=== PATIENT | male | born 1945 | race Two or more races ===

== ENCOUNTER 2020-06-21 18:09 | Inpatient (IN) | payer MEDICARE, OTHER ==
[~2020-06-21] VITALS: Ht 170.2 cm; Wt 85.4 kg
--- NOTE | 2020-06-21 18:22 | NUR ---
Pt BIB [facility], reports pt finished dialysis had arterial bleed from fistula on left arm, tourniquet in place, bleeding controlled.
--- NOTE | 2020-06-21 18:27 | NUR ---
PT RECEIVED FROM EMT AND TRANSPORT RT. PT PLACED ON FRAGOSO VENT ON SETTINGS GIVEN BY TRANSPORT RT, PT IS ON SETTINGS OF A/C 18, VT 500, 40% FIO2, AND PEEP +5. PT IS TOLERATING VENT SETTINGS WELL, NO RESP. DISTRESS NOTED. BVM AT BEDSIDE. VENT PLUGGED INTO RED OUTLET. SUCTION PRN. WILL CONTINUE TO MONITOR.
[2020-06-21] MEDS ORDERED: CEFTRIAXONE 1 G in IV DEXTROSE 5% 50 ML IV ONE (19:00)
--- NOTE | 2020-06-21 19:30 | NUR ---
Dr [facility] her to eval patient for left uppper arm A/V shunt bleeding.
[2020-06-21 19:41] LABS: BASOPHILS # (AUTO) 0.2 K/uL (0.0-8.0); BASOPHILS % (AUTO) 1.3 % (0.0-2.0); EOSINOPHILS % (AUTO) 20.1 % (0.0-7.0); HEMOGLOBIN 8.1 g/dL (12.5-16.3); LYMPHOCYTES # (AUTO) 1.4 K/uL (20.0-40.0); LYMPHOCYTES % (AUTO) 9.1 % (20.5-51.5); MEAN CORPUSCULAR HEMOGLOBIN 28.9 uug (23.8-33.4); MEAN CORPUSCULAR HGB CONC 31 g/dL (32.5-36.3); MEAN CORPUSCULAR VOLUME 92.5 fL (73.0-96.2); MONOCYTES # (AUTO) 0.8 K/uL (2.0-10.0); MONOCYTES % (AUTO) 5.5 % (0.0-11.0); NEUTROPHILS # (AUTO) 9.6 K/uL (1.8-8.9); PLATELET COUNT (AUTO) 284 K/uL (152-348); RED BLOOD CELL COUNT(AUTO) 2.81 MIL/uL (4.06-5.63)
[2020-06-21] MEDS ORDERED: NOREPINEPHRINE BITARTRATE 8 MG in IV NORMAL SALINE 242 ML IV PRN (20:00)
[2020-06-21] MEDS ORDERED: NOREPINEPHRINE BITARTRATE 32 MG in IV NORMAL SALINE 218 ML IV PRN (20:00)
[2020-06-21] MEDS ORDERED: AZITHROMYCIN IV 500 MG in IV DEXTROSE 5% 250 ML IV ONE ×2 (20:00→23:15)
[2020-06-21 20:02] LABS: ALANINE AMINOTRANSFERASE 17 U/L (16-63); ALKALINE PHOSPHATASE 135 U/L (50-136); ASPARTATE AMINOTRANSFERASE 21 U/L (15-37); BILIRUBIN,DIRECT 0.3 mg/dL (0.0-0.2); BILIRUBIN,TOTAL 0.5 mg/dL (0.2-1.0); CARBON DIOXIDE 28 mmol/L (21-32); CHLORIDE 105 mmol/L (98-107); CREATININE 2.3 mg/dL (0.6-1.3); GLUCOSE 91 mg/dL (74-106); POTASSIUM 4.1 mmol/L (3.5-5.1); TOTAL PROTEIN, SERUM 7.2 g/dL (6.4-8.2); UREA NITROGEN, BLOOD 28 mg/dL (7-18)
[2020-06-21] MEDS ORDERED: ONDANSETRON 4 MG/2 ML VIAL IV PRN (22:45)
[2020-06-21] MEDS ORDERED: MAGNESIUM HYDROXIDE 30 ML LIQUID UDC PO PRN (22:45)
[2020-06-21 22:52] LABS: EOSINOPHILS % (MANUAL) 26 % (0-8); LYMPHOCYTES % (MANUAL) 4 % (20-40); MONOCYTES % (MANUAL) 6 % (2-10); NEUTROPHILS % (MANUAL) 64 % (42-75)
[2020-06-21 22:54] LABS: HEMATOCRIT 31.4 % (36.7-47.1); HEMOGLOBIN 9.9 g/dL (12.5-16.3)
[2020-06-21] MEDS ORDERED: CEFTRIAXONE /D5W 50ML IVPB **ER PYXIS IV ONE (23:28)
[2020-06-21] MEDS ORDERED: AZITHROMYCIN 500MG/ D5W 250ML IVPB **ER PYXIS ONLY IV ONE (23:28)
--- NOTE | 2020-06-22 09:17 | NUR ---
unable to edit order for levo, pharmacy and supervisor of guidance and testing aware, pharmacy states they will come to ED soon to see if i have access
--- NOTE | 2020-06-22 09:17 | NUR ---
Levo at 0.05, when titrating down BP drops too low, stable at 0.05mcg/kg/min
--- NOTE | 2020-06-22 09:37 | NUR ---
levo titrated to 0.04
--- NOTE | 2020-06-22 09:38 | NUR ---
picc line nurse at bedside
--- NOTE | 2020-06-22 09:55 | NUR ---
call daughter pati adelia for any updates/consents [phone]
--- NOTE | 2020-06-22 10:48 | NUR ---
parameters for nor epi drip provided by Dr. Herrera.
--- NOTE | 2020-06-22 11:15 | NUR ---
dialysis nurse at bedside
--- NOTE | 2020-06-22 14:02 | NUR ---
800cc fluid removed via dialysis
[2020-06-22] MEDS: NOREPINEPHRINE BITARTRATE 8 MG in IV NORMAL SALINE 242 ML IV PRN (14:59)
--- NOTE | 2020-06-22 19:30 | NUR ---
PATIENT IN ROOM 4A WITH TRACH VENT WITH SETTING OD AC 18, TIDAL VOLUME 500, PEEP 5 AND 40% O2. HAS MIDLINE ON LEFT LEG PATENT. FLEXISEAL IN PLACED INTO RECTUM DRAINING BROWN STOOL. ON LEVOPHED DRIP. NO DISTRESS NOTED.
--- NOTE | 2020-06-23 01:00 | NUR ---
DRESSING CHANGED ON COCCYX AREA.
--- NOTE | 2020-06-23 09:00 | NUR ---
Dialysis started at 0750. TITRATED Levophed up to 0.05 mcg/kg/min to compensated for lowering pt's fluid level.
--- NOTE | 2020-06-23 10:35 | NUR ---
finished w/dialysis -- removed 1700ml
[2020-06-23] MEDS ORDERED: VANCOMYCIN IV 1,000 MG in IV DEXTROSE 5% 250 ML IV ONE (16:00)
[2020-06-23] MEDS ORDERED: LINA5TAB GT (17:21)
[2020-06-23] MEDS ORDERED: MIDO5TAB4 GT (17:21)
[2020-06-23] MEDS ORDERED: PROSOURCE PO (17:21)
[2020-06-23] MEDS ORDERED: FOLI0.8T2 GT (17:21)
[2020-06-23] MEDS ORDERED: ARGI500P3 GT (17:21)
[2020-06-23] MEDS ORDERED: ACET325C7 GT (17:21)
[2020-06-23] MEDS ORDERED: ASPI81TA31 GT (17:21)
[2020-06-23] MEDS ORDERED: ATOR40TA GT (17:21)
[2020-06-23] MEDS ORDERED: CARV3.122 GT (17:21)
[2020-06-23] MEDS ORDERED: DOCU100C36 PO (17:21)
[2020-06-23] MEDS ORDERED: INSU100V28 SQ (17:21)
[2020-06-23] MEDS ORDERED: BISA10SU61 RC (17:21)
[2020-06-23] MEDS ORDERED: INSU100V7 SQ (17:21)
[2020-06-23] MEDS ORDERED: OMEP20TA5 GT (17:21)
[2020-06-23] MEDS ORDERED: ASCO500C18 GT (17:21)
[2020-06-23] MEDS ORDERED: DOCU100C36 GT (17:21)
--- NOTE | 2020-06-23 19:15 | NUR ---
RECVEIVED SBAR REPORT FROM MARLIN RATLIFF RN FROM REGISTRY, PT ON PORTABLE VENT TO ET TUBE, MONITOR SHOWS PO2+100%, ON LEVOPHED DRIP AT 0.02 MCG/KG/MIN. NO DISTRESS NOTED
[2020-06-23 19:55] LABS: BASOPHILS # (AUTO) 0.2 K/uL (0.0-8.0); BASOPHILS % (AUTO) 1.9 % (0.0-2.0); EOSINOPHILS # (AUTO) 1.7 K/uL (0.0-0.7); EOSINOPHILS % (AUTO) 13.2 % (0.0-7.0); HEMATOCRIT 28.3 % (36.7-47.1); HEMOGLOBIN 8.7 g/dL (12.5-16.3); LYMPHOCYTES # (AUTO) 1.5 K/uL (20.0-40.0); LYMPHOCYTES % (AUTO) 11.5 % (20.5-51.5); MEAN CORPUSCULAR HGB CONC 31 g/dL (32.5-36.3); MEAN CORPUSCULAR VOLUME 94.6 fL (73.0-96.2); MONOCYTES # (AUTO) 1.1 K/uL (2.0-10.0); MONOCYTES % (AUTO) 8.2 % (0.0-11.0); NEUTROPHILS # (AUTO) 8.4 K/uL (1.8-8.9); NEUTROPHILS % (AUTO) 65.2 % (38.5-71.5); PLATELET COUNT (AUTO) 330 K/uL (152-348); RED BLOOD CELL COUNT(AUTO) 2.99 MIL/uL (4.06-5.63); WHITE BLOOD COUNT (AUTO) 12.9 K/uL (3.6-10.2)
[2020-06-23 20:02] LABS: CARBON DIOXIDE 25 mmol/L (21-32); CHLORIDE 105 mmol/L (98-107); CHOLESTEROL 87 mg/dL (<200); GLUCOSE 166 mg/dL (74-106); HDL CHOLESTEROL 26 mg/dL (40-60); MAGNESIUM 2.3 mg/dL (1.8-2.4); PHOSPHOROUS 2.9 mg/dL (2.5-4.9); TRIGLYCERIDES 92 MG/DL (30-150); UREA NITROGEN, BLOOD 20 mg/dL (7-18)
[2020-06-23] MEDS ORDERED: VANCOMYCIN IV 200 ML ONE (20:54)
--- NOTE | 2020-06-23 23:00 | NUR ---
LEVOPHED DRIP DECREASED TO 0.01MCG/KG/MIN
[2020-06-24] VITALS (19 sets, daily range): BP systolic 103–136; BP diastolic 43–79
--- NOTE | 2020-06-24 07:01 | NUR ---
SBAR REPORT TO CECILE MEDINA
--- NOTE | 2020-06-24 07:20 | NUR ---
Pt is pending CCU admission, remains on Levophed drip, VSS stable, no acute distress noted at this time.
[2020-06-24] MEDS ORDERED: VANCOMYCIN IV 500 MG in IV DEXTROSE 5% 100 ML IV PRN (09:00)
--- NOTE | 2020-06-24 09:20 | NUR ---
SBAR report given to Karol RN via telephone.
[2020-06-24 09:42] LABS: ALANINE AMINOTRANSFERASE 20 U/L (16-63); ALKALINE PHOSPHATASE 118 U/L (50-136); ASPARTATE AMINOTRANSFERASE 26 U/L (15-37); BILIRUBIN,TOTAL 0.6 mg/dL (0.2-1.0); CARBON DIOXIDE 26 mmol/L (21-32); CHLORIDE 111 mmol/L (98-107); CREATININE 2.7 mg/dL (0.6-1.3); GLUCOSE 173 mg/dL (74-106); MAGNESIUM 2.3 mg/dL (1.8-2.4); PHOSPHOROUS 3.6 mg/dL (2.5-4.9); POTASSIUM 4.3 mmol/L (3.5-5.1); TOTAL PROTEIN, SERUM 7.7 g/dL (6.4-8.2); UREA NITROGEN, BLOOD 23 mg/dL (7-18)
[2020-06-24 09:52] LABS: BASOPHILS # (AUTO) 0.2 K/uL (0.0-8.0); BASOPHILS % (AUTO) 1.4 % (0.0-2.0); EOSINOPHILS # (AUTO) 0.8 K/uL (0.0-0.7); EOSINOPHILS % (AUTO) 5.8 % (0.0-7.0); HEMATOCRIT 25.7 % (36.7-47.1); HEMOGLOBIN 8.1 g/dL (12.5-16.3); LYMPHOCYTES # (AUTO) 1.1 K/uL (20.0-40.0); LYMPHOCYTES % (AUTO) 7.9 % (20.5-51.5); MEAN CORPUSCULAR HEMOGLOBIN 29.4 uug (23.8-33.4); MEAN CORPUSCULAR HGB CONC 32 g/dL (32.5-36.3); MEAN CORPUSCULAR VOLUME 93.3 fL (73.0-96.2); MONOCYTES # (AUTO) 1.1 K/uL (2.0-10.0); MONOCYTES % (AUTO) 7.3 % (0.0-11.0); NEUTROPHILS # (AUTO) 11.2 K/uL (1.8-8.9); NEUTROPHILS % (AUTO) 77.6 % (38.5-71.5); PLATELET COUNT (AUTO) 300 K/uL (152-348); RED BLOOD CELL COUNT(AUTO) 2.75 MIL/uL (4.06-5.63); WHITE BLOOD COUNT (AUTO) 14.4 K/uL (3.6-10.2)
--- NOTE | 2020-06-24 10:00 | NUR ---
Pt trans to CCU with ACLS guidelines in place with STATION SUPERINTENDENT and myself.
--- NOTE | 2020-06-24 10:15 | NUR ---
Received patient from ER, patient on trach shiley 8 to vent ac 18, TV 500, Peep 5, 40% fio2. Gtube in place clamped, rectal tube in place draining, left upper arm av fistula and right femoral dialysis catheter. patient has multiple wounds on sacrum and bilateral lower extremities. pictures taken and wound care performed on sacrum. Stuart catheter inserted to reveal cloudy urine. patient has left femoral PICC line. Patient is on levophed 0.01mcg/kg/min. sinus rhythm on the monitor, air mattress ordered,and notified physician of patients admission to ccu.
[2020-06-24] MEDS ORDERED: BISACODYL 10 MG SUPP.RECT RC PRN (13:15)
[2020-06-24] MEDS ORDERED: DEXTROSE 50% 50 ML DISP.SYRIN IV PRN (14:00)
[2020-06-24] MEDS: IPRATROPIUM BROMIDE 0.5 MG/2.5 ML NEBU NEB SCH ×2 (14:37→20:14)
[2020-06-24] MEDS: ALBUTEROL SULFATE 2.5 MG/3 ML NEBU NEB SCH ×2 (14:41→20:14)
[2020-06-24 15:30] LABS: *BILIRUBIN,URIN 1+ (NEGATIVE); *BLOOD, URINE 3+ (NEGATIVE); *CLARITY,URINE CLOUDY (CLEAR); *COLOR,URINE DARK YELLOW (YELLOW); *KETONES,URINE TRACE (NEGATIVE); *UROBILINOGEN,URINE 0.2 E.U./dl (NORMAL); LEUKOCYTE ESTERASE ,URINE 3+ (NEGATIVE); NITRITE, URINE POSITIVE (NEGATIVE); PH,URINE 7.5 (5.0-8.0); UGLUCOSE NEGATIVE (NEGATIVE)
[2020-06-24] MEDS ORDERED: INSULIN REGULAR, HUMAN 300 UNIT/3 ML VIAL SQ SCH (16:30)
[2020-06-24] MEDS ORDERED: MIDODRINE HCL 5 MG TABLET GT SCH (17:00)
[2020-06-24] MEDS: BLOOD SUGAR DIAGNOSTIC 1 EACH STRIP VI SCH ×2 (17:36→21:07)
[2020-06-24] MEDS: CARVEDILOL 3.125 MG TABLET GT SCH (17:38)
[2020-06-24] MEDS: INSULIN REGULAR, HUMAN 300 UNIT/3 ML VIAL SQ PRN ×2 (17:40→21:15)
[2020-06-24 17:43] LABS: BACTERIA,URINE MODERATE /HPF (NONE SEEN); SQUAMOUS EPITHELIAL CELL,UR FEW /HPF (NONE SEEN); WBC,URINE 50-80 /HPF (0-3)
--- NOTE | 2020-06-24 19:30 | NUR ---
Report received. Patient admitted 06/21/20 DX: bleeding AV shunt. On contact isolation pending result of stool C diff.(Stool specimen sent to lab). Eyes open; tracks? but doesn't follow any commands. With trache to vent settings: AC=18, FIO2=40%, GN=402 ml and PEEP= 5 cm. Saturations above 94%. Assessment completed. Addendum: 06/25/20 at 0323 by DANDRE WIGGINS RN Amended: Links added.
[2020-06-24] MEDS: ATORVASTATIN 40 MG TABLET GT SCH (21:08)
[2020-06-24] MEDS ORDERED: CEFEPIME HCL 1 G VIAL ONE (21:17)
[2020-06-24] MEDS: CEFEPIME HCL 1 G in IV DEXTROSE 5% 50 ML IV SCH (21:31)
[2020-06-25] VITALS (35 sets, daily range): BP systolic 62–153; BP diastolic 31–72
[2020-06-25] MEDS: IPRATROPIUM BROMIDE 0.5 MG/2.5 ML NEBU NEB SCH ×4 (01:28→19:37)
[2020-06-25] MEDS: ALBUTEROL SULFATE 2.5 MG/3 ML NEBU NEB SCH ×4 (01:28→19:37)
[2020-06-25 06:11] LABS: BASOPHILS # (AUTO) 0.2 K/uL (0.0-8.0); BASOPHILS % (AUTO) 1.4 % (0.0-2.0); EOSINOPHILS # (AUTO) 1.1 K/uL (0.0-0.7); EOSINOPHILS % (AUTO) 8.5 % (0.0-7.0); HEMATOCRIT 24.8 % (36.7-47.1); HEMOGLOBIN 7.8 g/dL (12.5-16.3); LYMPHOCYTES # (AUTO) 1.2 K/uL (20.0-40.0); LYMPHOCYTES % (AUTO) 9.1 % (20.5-51.5); MEAN CORPUSCULAR HEMOGLOBIN 29.8 uug (23.8-33.4); MEAN CORPUSCULAR HGB CONC 32 g/dL (32.5-36.3); MEAN CORPUSCULAR VOLUME 94.7 fL (73.0-96.2); MONOCYTES # (AUTO) 0.8 K/uL (2.0-10.0); MONOCYTES % (AUTO) 6.6 % (0.0-11.0); NEUTROPHILS # (AUTO) 9.4 K/uL (1.8-8.9); NEUTROPHILS % (AUTO) 74.4 % (38.5-71.5); PLATELET COUNT (AUTO) 299 K/uL (152-348); RED BLOOD CELL COUNT(AUTO) 2.61 MIL/uL (4.06-5.63); WHITE BLOOD COUNT (AUTO) 12.7 K/uL (3.6-10.2)
[2020-06-25 06:14] LABS: CARBON DIOXIDE 28 mmol/L (21-32); CREATININE 3.2 mg/dL (0.6-1.3); GLUCOSE 133 mg/dL (74-106); UREA NITROGEN, BLOOD 27 mg/dL (7-18); VANCOMYCIN,RANDOM 13.9 ug/mL (18.0-26.0)
--- NOTE | 2020-06-25 07:06 | NUR ---
No neuro changes. Remains on the same vent settings. O2 sat above 95%.
[2020-06-25 07:16] LABS: CHLORIDE 108 mmol/L (98-107)
[2020-06-25] MEDS: BLOOD SUGAR DIAGNOSTIC 1 EACH STRIP VI SCH ×4 (07:35→21:14)
[2020-06-25] MEDS: CEFEPIME HCL 1 G in IV DEXTROSE 5% 50 ML IV SCH (09:00)
[2020-06-25] MEDS: CARVEDILOL 3.125 MG TABLET GT SCH ×2 (09:00→17:08)
[2020-06-25 09:17] LABS: ABG HCO3 27.5 mmol/L; ABG PCO2 47.7 mmHg (35.0-45.0); ABG PH 7.379 (7.350-7.450); ABG PO2 60.9 mmHg (75.0-100.0); ABG SITE RIGHT RADIAL; ABG TOTAL HEMOGLOBIN 8.9 G/dL (13.5-18.0); COHb 1.4 % (0.5-1.5); MetHb 0.5 % (0.0-1.5); O2Hb 88.2 % (94.0-97.0); VENT MODE VENT - A/C; VT, ABG 500 mL
[2020-06-25] MEDS: FOLIC ACID/VITAMIN B COMP W-C TABLET GT SCH (09:53)
[2020-06-25] MEDS: ASCORBIC ACID 250 MG TABLET GT SCH (09:59)
[2020-06-25] MEDS: LINAGLIPTIN 5 MG TABLET GT SCH (09:59)
[2020-06-25] MEDS: PROTEIN SUPPLEMENT (PROSTAT) 30 ML LIQUID PO SCH (10:00)
--- NOTE | 2020-06-25 11:36 | NUR ---
WOUND CARE CONSULT: PT PRESENTS WITH MULTIPLE WOUNDS PRESENT ON ADMISSION INCLUDING LARGE STAGE 4 SACRAL ULCER WITH FOUL PURULENT DRAINAGE AD UNSTAGEABLE RT BUTTOCK WOUND, LEFT CALF WOUND AND FOOT WOUNDS. RECOMMEND SURGICAL AND DPM CONSULTS. DR PARUL SARAVIA AND DR HERNANDEZ NOTIFIED OF CONSULT REQUESTS. RECOMMENDATIONS MADE FOR WOUND CARE AND SKIN PROTECTION. DEFER TO PODIATRY FOR LOWER EXTREMITIES. PT IS ON FIRST STEP CIRRUS LOW AIRLOSS MATTRESS. PT NOTED TO HAVE GIBSON AND RECTAL TUBE. MD IN AGREEMENT WITH PLAN OF CARE.
[2020-06-25] MEDS: SODIUM HYPOCHLORITE 0.125% (QUARTER STRENGTH) 473 ML BOTTLE TP SCH (12:00)
[2020-06-25] MEDS: INSULIN REGULAR, HUMAN 300 UNIT/3 ML VIAL SQ PRN (12:18)
[2020-06-25] MEDS ORDERED: ALBUMIN HUMAN 25% 100 ML IV STA (12:42)
[2020-06-25] MEDS ORDERED: VANCOMYCIN FOR PO/GT/NG USE GT SCH (14:00)
[2020-06-25] MEDS ORDERED: VANCOMYCIN IV 1,000 MG in IV DEXTROSE 5% 250 ML IV ONE (16:00)
--- NOTE | 2020-06-25 19:00 | NUR ---
Patient received from AM nurse. Patient 9on trach Shiley 8 connected to vent: AC: 18 - TV: 500 - PEEP: 5 - Fio2: 40%. Gtube in place and clamped, rectal tube in place - possible CDIFF. Left upper arm AV fistula and right femoral dialysis catheter. Multiple sacral wounds and on bilateral lower extremities. Stuart catheter in place. Left femoral PICC line. Will monitor and assess patient.
[2020-06-25] MEDS: VANCOMYCIN FOR PO/GT/NG USE GT SCH (21:01)
[2020-06-25] MEDS: ATORVASTATIN 40 MG TABLET GT SCH (21:01)
[2020-06-26] VITALS (23 sets, daily range): BP systolic 109–167; BP diastolic 40–81
[2020-06-26] MEDS: IPRATROPIUM BROMIDE 0.5 MG/2.5 ML NEBU NEB SCH ×4 (00:30→19:12)
[2020-06-26] MEDS: ALBUTEROL SULFATE 2.5 MG/3 ML NEBU NEB SCH ×4 (00:30→19:12)
--- NOTE | 2020-06-26 00:51 | NUR ---
No changes. Vital signs remain stable. O2 saturation at 100% with same ventilation settings. Will monitor and assess.
[2020-06-26 02:11] LABS: HEPATITIS B SURFACE AB Reactive (.); HEPATITIS B SURFACE AG Negative (Negative)
--- NOTE | 2020-06-26 03:07 | NUR ---
Wound care provided. Patient tolerated well. Awake, unable to communicate needs. NO signs of distress. Will monitor and assess.
[2020-06-26 05:06] LABS: BASOPHILS # (AUTO) 0.2 K/uL (0.0-8.0); BASOPHILS % (AUTO) 1.4 % (0.0-2.0); EOSINOPHILS # (AUTO) 1.8 K/uL (0.0-0.7); HEMATOCRIT 25.4 % (36.7-47.1); LYMPHOCYTES % (AUTO) 7.9 % (20.5-51.5); MEAN CORPUSCULAR HEMOGLOBIN 29.8 uug (23.8-33.4); MEAN CORPUSCULAR HGB CONC 32 g/dL (32.5-36.3); MEAN CORPUSCULAR VOLUME 94.6 fL (73.0-96.2); MONOCYTES # (AUTO) 0.9 K/uL (2.0-10.0); MONOCYTES % (AUTO) 6.9 % (0.0-11.0); NEUTROPHILS # (AUTO) 8.5 K/uL (1.8-8.9); NEUTROPHILS % (AUTO) 68.8 % (38.5-71.5); PLATELET COUNT (AUTO) 283 K/uL (152-348); RED BLOOD CELL COUNT(AUTO) 2.69 MIL/uL (4.06-5.63); WHITE BLOOD COUNT (AUTO) 12.3 K/uL (3.6-10.2)
[2020-06-26 05:40] LABS: CARBON DIOXIDE 29 mmol/L (21-32); CHLORIDE 114 mmol/L (98-107); CREATININE 2.8 mg/dL (0.6-1.3); GLUCOSE 118 mg/dL (74-106); MAGNESIUM 2.2 mg/dL (1.8-2.4); PHOSPHOROUS 3.3 mg/dL (2.5-4.9); POTASSIUM 4.1 mmol/L (3.5-5.1); UREA NITROGEN, BLOOD 20 mg/dL (7-18); VANCOMYCIN,RANDOM 24.4 ug/mL (18.0-26.0)
[2020-06-26] MEDS: VANCOMYCIN FOR PO/GT/NG USE GT SCH ×3 (06:33→22:31)
[2020-06-26] MEDS: BLOOD SUGAR DIAGNOSTIC 1 EACH STRIP VI SCH ×4 (06:49→21:25)
--- NOTE | 2020-06-26 07:00 | NUR ---
Handing patient off to AM nurse. VSS. Sinus rhythm on monitor. No distress. Last blood sugar was 106 - no coverage needed. Wound care done on time. 8" Shiley connected to vent - AC:18 - TV: 500 - PEEP: 5 - Fio2: 40%. Left Femoral PICC line patent and intact. 10ml output by way of herring. Will endorse all pertinent information to AM nurse.
--- NOTE | 2020-06-26 08:04 | NUR ---
pt's access sites cleaned with iodine swabs
[2020-06-26] MEDS: SODIUM HYPOCHLORITE 0.125% (QUARTER STRENGTH) 473 ML BOTTLE TP SCH ×2 (08:22→08:26)
[2020-06-26] MEDS: CEFEPIME HCL 1 G in IV DEXTROSE 5% 50 ML IV SCH (08:22)
[2020-06-26] MEDS: ASCORBIC ACID 250 MG TABLET GT SCH (08:22)
[2020-06-26] MEDS: LINAGLIPTIN 5 MG TABLET GT SCH (08:22)
[2020-06-26] MEDS: CARVEDILOL 3.125 MG TABLET GT SCH ×2 (08:25→16:02)
[2020-06-26 08:41] LABS: ABG BASE EXCESS 4.6 mmol/L; ABG HCO3 29.7 mmol/L; ABG PCO2 47.5 mmHg (35.0-45.0); ABG PH 7.414 (7.350-7.450); ABG PO2 76.4 mmHg (75.0-100.0); ABG SITE RIGHT RADIAL; ABG TOTAL HEMOGLOBIN 8.4 G/dL (13.5-18.0); COHb 1.6 % (0.5-1.5); MetHb 0.6 % (0.0-1.5); O2Hb 93.1 % (94.0-97.0); VENT MODE VENT - A/C; VT, ABG 500 mL
[2020-06-26] MEDS: FOLIC ACID/VITAMIN B COMP W-C TABLET GT SCH (08:52)
[2020-06-26] MEDS: PROTEIN SUPPLEMENT (PROSTAT) 30 ML LIQUID PO SCH (09:00)
--- NOTE | 2020-06-26 10:59 | NUR ---
sugar 118
--- NOTE | 2020-06-26 19:30 | NUR ---
Report received; care assumed. Patient with eyes open, doesn't follow any commands. On contact isolation for stool c diff. Assessment done; see flow sheet for details.
[2020-06-26] MEDS: ATORVASTATIN 40 MG TABLET GT SCH (21:13)
[2020-06-26] MEDS: HYDROCODONE/APAP 5-325MG TABLET PO PRN (22:39)
[2020-06-27] VITALS (57 sets, daily range): BP systolic 64–168; BP diastolic 35–96
[2020-06-27] MEDS: IPRATROPIUM BROMIDE 0.5 MG/2.5 ML NEBU NEB SCH ×4 (00:40→20:45)
[2020-06-27] MEDS: ALBUTEROL SULFATE 2.5 MG/3 ML NEBU NEB SCH ×4 (00:40→20:45)
[2020-06-27] MEDS: HYDROCODONE/APAP 5-325MG TABLET PO PRN (04:58)
[2020-06-27 05:06] LABS: BASOPHILS # (AUTO) 0.2 K/uL (0.0-8.0); BASOPHILS % (AUTO) 1.9 % (0.0-2.0); EOSINOPHILS # (AUTO) 2.1 K/uL (0.0-0.7); EOSINOPHILS % (AUTO) 20.4 % (0.0-7.0); HEMOGLOBIN 8.4 g/dL (12.5-16.3); LYMPHOCYTES % (AUTO) 10.1 % (20.5-51.5); MEAN CORPUSCULAR HEMOGLOBIN 29.7 uug (23.8-33.4); MEAN CORPUSCULAR HGB CONC 31 g/dL (32.5-36.3); MEAN CORPUSCULAR VOLUME 95.7 fL (73.0-96.2); MONOCYTES # (AUTO) 0.7 K/uL (2.0-10.0); MONOCYTES % (AUTO) 6.5 % (0.0-11.0); NEUTROPHILS # (AUTO) 6.3 K/uL (1.8-8.9); NEUTROPHILS % (AUTO) 61.1 % (38.5-71.5); PLATELET COUNT (AUTO) 297 K/uL (152-348); RED BLOOD CELL COUNT(AUTO) 2.82 MIL/uL (4.06-5.63); WHITE BLOOD COUNT (AUTO) 10.3 K/uL (3.6-10.2)
[2020-06-27 05:20] LABS: EOSINOPHILS % (MANUAL) 20 % (0-8); LYMPHOCYTES % (MANUAL) 6 % (20-40); MONOCYTES % (MANUAL) 2 % (2-10); NEUTROPHILS % (MANUAL) 72 % (42-75)
[2020-06-27 05:35] LABS: CARBON DIOXIDE 29 mmol/L (21-32); CHLORIDE 111 mmol/L (98-107); CREATININE 3.4 mg/dL (0.6-1.3); GLUCOSE 102 mg/dL (74-106); MAGNESIUM 2.1 mg/dL (1.8-2.4); PHOSPHOROUS 3.8 mg/dL (2.5-4.9); UREA NITROGEN, BLOOD 28 mg/dL (7-18)
[2020-06-27] MEDS: VANCOMYCIN FOR PO/GT/NG USE GT SCH ×3 (05:50→22:53)
--- NOTE | 2020-06-27 06:00 | NUR ---
Medicated x2 with Wolbach via GT for generalized discomfort. Effective. No neuro changes.
[2020-06-27] MEDS: BLOOD SUGAR DIAGNOSTIC 1 EACH STRIP VI SCH ×4 (06:46→21:00)
[2020-06-27] MEDS: NOREPINEPHRINE BITARTRATE 8 MG in IV NORMAL SALINE 242 ML IV PRN ×2 (07:58→22:40)
[2020-06-27] MEDS: CARVEDILOL 3.125 MG TABLET GT SCH ×2 (08:10→17:00)
--- NOTE | 2020-06-27 08:11 | NUR ---
held coreg at this time. patient started on levophed drip due to hypotension while on dialysis.
[2020-06-27] MEDS: LINAGLIPTIN 5 MG TABLET GT SCH (08:39)
[2020-06-27] MEDS: SODIUM HYPOCHLORITE 0.125% (QUARTER STRENGTH) 473 ML BOTTLE TP SCH ×2 (08:40→08:43)
[2020-06-27] MEDS: FOLIC ACID/VITAMIN B COMP W-C TABLET GT SCH ×2 (08:40→20:00)
[2020-06-27] MEDS: ASCORBIC ACID 250 MG TABLET GT SCH (08:40)
[2020-06-27] MEDS: CEFEPIME HCL 1 G in IV DEXTROSE 5% 50 ML IV SCH (08:44)
[2020-06-27] MEDS: PROTEIN SUPPLEMENT (PROSTAT) 30 ML LIQUID PO SCH (08:45)
--- NOTE | 2020-06-27 10:30 | NUR ---
finished dialysis had to restart levophed drip to pull fluids during dialysis
[2020-06-27 11:49] LABS: ABG BASE EXCESS 2.6 mmol/L; ABG HCO3 28.7 mmol/L; ABG PCO2 51.3 mmHg (35.0-45.0); ABG PH 7.365 (7.350-7.450); ABG PO2 184.9 mmHg (75.0-100.0); ABG SITE RIGHT BRACHIAL; ABG TOTAL HEMOGLOBIN 10.3 G/dL (13.5-18.0); COHb 1.2 % (0.5-1.5); MetHb 0.1 % (0.0-1.5); O2Hb 98.5 % (94.0-97.0); VENT MODE VENT - A/C; VT, ABG 500 mL
[2020-06-27] MEDS ORDERED: AMIODARONE HCL IV 150 MG in IV DEXTROSE 5% 100 ML IV ONE (15:00)
[2020-06-27] MEDS ORDERED: AMIODARONE HCL IV 450 MG in IV DEXTROSE 5% 250 ML IV PRN (15:00)
[2020-06-27] MEDS: INSULIN REGULAR, HUMAN 300 UNIT/3 ML VIAL SQ PRN ×2 (17:09→23:26)
--- NOTE | 2020-06-27 20:00 | NUR ---
nephro feeding started at 25 ml
--- NOTE | 2020-06-27 20:00 | NUR ---
took over patient's care , received with amiodarone running at 0.5 mg , levophed at 0.08 mcg , on left femoral , av shunt on nina intact with bruits and thrills present , felexi and herring intact and draining , aurora cath on right femoral intact , no bleeding noted , on vent settings of ac 18 , tv 500 , p5 , 30 fio2% , gt clamped , waiting for feeding nephro to be started , no fever noted ,
[2020-06-27] MEDS: ATORVASTATIN 40 MG TABLET GT SCH (22:53)
[2020-06-28] VITALS (89 sets, daily range): BP systolic 86–150; BP diastolic 43–97
[2020-06-28] MEDS: ALBUTEROL SULFATE 2.5 MG/3 ML NEBU NEB SCH ×4 (01:47→18:42)
[2020-06-28] MEDS: IPRATROPIUM BROMIDE 0.5 MG/2.5 ML NEBU NEB SCH ×4 (01:47→18:42)
--- NOTE | 2020-06-28 05:00 | NUR ---
AM CARE DONE. REPOSITIONED ON HIS SIDE W/ HOB ELEVATED.
[2020-06-28 05:59] LABS: BASOPHILS # (AUTO) 0.2 K/uL (0.0-8.0); BASOPHILS % (AUTO) 1.3 % (0.0-2.0); EOSINOPHILS # (AUTO) 0.2 K/uL (0.0-0.7); EOSINOPHILS % (AUTO) 1.9 % (0.0-7.0); HEMATOCRIT 31.6 % (36.7-47.1); HEMOGLOBIN 9.5 g/dL (12.5-16.3); LYMPHOCYTES % (AUTO) 7.8 % (20.5-51.5); MEAN CORPUSCULAR HEMOGLOBIN 29.1 uug (23.8-33.4); MEAN CORPUSCULAR HGB CONC 30 g/dL (32.5-36.3); MEAN CORPUSCULAR VOLUME 96.6 fL (73.0-96.2); MONOCYTES # (AUTO) 0.8 K/uL (2.0-10.0); MONOCYTES % (AUTO) 6.2 % (0.0-11.0); NEUTROPHILS # (AUTO) 10.9 K/uL (1.8-8.9); NEUTROPHILS % (AUTO) 82.8 % (38.5-71.5); PLATELET COUNT (AUTO) 342 K/uL (152-348); RED BLOOD CELL COUNT(AUTO) 3.27 MIL/uL (4.06-5.63); WHITE BLOOD COUNT (AUTO) 13.2 K/uL (3.6-10.2)
[2020-06-28 06:04] LABS: CARBON DIOXIDE 28 mmol/L (21-32); CHLORIDE 111 mmol/L (98-107); CREATININE 3.3 mg/dL (0.6-1.3); GLUCOSE 230 mg/dL (74-106); MAGNESIUM 2.2 mg/dL (1.8-2.4); PHOSPHOROUS 4.3 mg/dL (2.5-4.9); POTASSIUM 4.4 mmol/L (3.5-5.1); UREA NITROGEN, BLOOD 26 mg/dL (7-18)
[2020-06-28] MEDS: VANCOMYCIN FOR PO/GT/NG USE GT SCH ×3 (06:14→21:58)
[2020-06-28] MEDS ORDERED: AMIODARONE HCL IV 450 MG in IV DEXTROSE 5% 250 ML IV PRN (07:30)
[2020-06-28] MEDS: BLOOD SUGAR DIAGNOSTIC 1 EACH STRIP VI SCH ×4 (07:30→21:00)
[2020-06-28] MEDS: LINAGLIPTIN 5 MG TABLET GT SCH (08:17)
[2020-06-28] MEDS: ASCORBIC ACID 250 MG TABLET GT SCH (08:17)
[2020-06-28] MEDS: CARVEDILOL 3.125 MG TABLET GT SCH (08:17)
[2020-06-28] MEDS: CEFEPIME HCL 1 G in IV DEXTROSE 5% 50 ML IV SCH (08:18)
[2020-06-28] MEDS: PROTEIN SUPPLEMENT (PROSTAT) 30 ML LIQUID PO SCH (08:18)
[2020-06-28] MEDS: SODIUM HYPOCHLORITE 0.125% (QUARTER STRENGTH) 473 ML BOTTLE TP SCH ×2 (08:20→08:22)
[2020-06-28] MEDS: Z GUARD REMEDY PASTE 57 GM TUBE TOP PRN (08:25)
[2020-06-28] MEDS: INSULIN REGULAR, HUMAN 300 UNIT/3 ML VIAL SQ PRN ×4 (09:17→22:13)
[2020-06-28] MEDS: NOREPINEPHRINE BITARTRATE 32 MG in IV NORMAL SALINE 218 ML IV PRN (11:00)
[2020-06-28] MEDS: ACETAMINOPHEN 325 MG TABLET PO PRN ×2 (18:12→22:52)
[2020-06-28] MEDS: ATORVASTATIN 40 MG TABLET GT SCH (21:58)
[2020-06-28] MEDS: AMIODARONE HCL 200 MG TABLET PO SCH (21:58)
[2020-06-28] MEDS: INSULIN GLARGINE,HUM 300 UNITS/3 ML CARTRIDGE SQ SCH (22:10)
[2020-06-29] VITALS (65 sets, daily range): BP systolic 58–147; BP diastolic 27–93
[2020-06-29] MEDS: IPRATROPIUM BROMIDE 0.5 MG/2.5 ML NEBU NEB SCH ×4 (00:30→19:56)
[2020-06-29] MEDS: ALBUTEROL SULFATE 2.5 MG/3 ML NEBU NEB SCH ×4 (00:30→19:56)
--- NOTE | 2020-06-29 05:00 | NUR ---
Radiologist: Elizabeth Barfield MD wants CXR redone. Questioning abdominal free air. See CXR result. Radiology department notified. Addendum: 06/29/20 at 0537 by ANTHONY THORNTON RN 0500 Held TF / above.
[2020-06-29 05:39] LABS: BASOPHILS # (AUTO) 0.2 K/uL (0.0-8.0); EOSINOPHILS # (AUTO) 0.2 K/uL (0.0-0.7); EOSINOPHILS % (AUTO) 1.3 % (0.0-7.0); HEMATOCRIT 31.9 % (36.7-47.1); HEMOGLOBIN 9.8 g/dL (12.5-16.3); LYMPHOCYTES # (AUTO) 1.9 K/uL (20.0-40.0); LYMPHOCYTES % (AUTO) 10.8 % (20.5-51.5); MEAN CORPUSCULAR HEMOGLOBIN 29.1 uug (23.8-33.4); MEAN CORPUSCULAR HGB CONC 31 g/dL (32.5-36.3); MONOCYTES # (AUTO) 1.4 K/uL (2.0-10.0); NEUTROPHILS # (AUTO) 13.7 K/uL (1.8-8.9); NEUTROPHILS % (AUTO) 78.9 % (38.5-71.5); PLATELET COUNT (AUTO) 344 K/uL (152-348); RED BLOOD CELL COUNT(AUTO) 3.36 MIL/uL (4.06-5.63); WHITE BLOOD COUNT (AUTO) 17.4 K/uL (3.6-10.2)
[2020-06-29 05:47] LABS: ALANINE AMINOTRANSFERASE 24 U/L (16-63); ALKALINE PHOSPHATASE 133 U/L (50-136); ASPARTATE AMINOTRANSFERASE 32 U/L (15-37); BILIRUBIN,TOTAL 0.5 mg/dL (0.2-1.0); CARBON DIOXIDE 32 mmol/L (21-32); CHLORIDE 111 mmol/L (98-107); CREATININE 4.2 mg/dL (0.6-1.3); MAGNESIUM 2.2 mg/dL (1.8-2.4); PHOSPHOROUS 3.3 mg/dL (2.5-4.9); TOTAL PROTEIN, SERUM 8.2 g/dL (6.4-8.2); UREA NITROGEN, BLOOD 45 mg/dL (7-18)
[2020-06-29 06:18] LABS: GLUCOSE 318 mg/dL (74-106)
[2020-06-29] MEDS: VANCOMYCIN FOR PO/GT/NG USE GT SCH ×3 (06:49→21:06)
[2020-06-29] MEDS: INSULIN REGULAR, HUMAN 300 UNIT/3 ML VIAL SQ PRN ×4 (06:50→20:23)
[2020-06-29] MEDS: BLOOD SUGAR DIAGNOSTIC 1 EACH STRIP VI SCH ×4 (06:53→20:21)
[2020-06-29] MEDS: ASCORBIC ACID 250 MG TABLET GT SCH (08:11)
[2020-06-29] MEDS: AMIODARONE HCL 200 MG TABLET PO SCH ×2 (08:11→20:29)
[2020-06-29] MEDS: FOLIC ACID/VITAMIN B COMP W-C TABLET GT SCH (08:11)
[2020-06-29] MEDS: LINAGLIPTIN 5 MG TABLET GT SCH (08:11)
[2020-06-29] MEDS: ACETAMINOPHEN 325 MG TABLET PO PRN (08:11)
[2020-06-29] MEDS: PROTEIN SUPPLEMENT (PROSTAT) 30 ML LIQUID PO SCH (08:13)
[2020-06-29] MEDS: CEFEPIME HCL 1 G in IV DEXTROSE 5% 50 ML IV SCH (08:13)
[2020-06-29] MEDS: SODIUM HYPOCHLORITE 0.125% (QUARTER STRENGTH) 473 ML BOTTLE TP SCH ×2 (08:14)
[2020-06-29 10:18] LABS: ABG BASE EXCESS -0.9 mmol/L; ABG HCO3 22.5 mmol/L; ABG PCO2 32.5 mmHg (35.0-45.0); ABG PH 7.459 (7.350-7.450); ABG SITE RIGHT BRACHIAL; ABG TOTAL HEMOGLOBIN 9.4 G/dL (13.5-18.0); COHb 1.1 % (0.5-1.5); MetHb 0.3 % (0.0-1.5); O2Hb 97.9 % (94.0-97.0); VENT MODE VENT - A/C; VT, ABG 500 mL
--- NOTE | 2020-06-29 11:30 | NUR ---
NICKI RN in the unit to dialyze pt.
--- NOTE | 2020-06-29 13:57 | NUR ---
NICKI finished reports of 1.5L total output reported.
[2020-06-29] MEDS ORDERED: MEROPENEM 1 G in IV NORMAL SALINE 100 ML IV SCH (14:00)
--- NOTE | 2020-06-29 14:30 | NUR ---
Cardiology services, Dr. Rivera in the unit to see and examine pt.
[2020-06-29] MEDS ORDERED: IV 1/2NS 1000 ML 1,000 ML IV PRN (14:45)
--- NOTE | 2020-06-29 14:54 | NUR ---
Pulmonary services Dr. Phan in the unit to see and examine pt. full report given. See order hx.
[2020-06-29] MEDS: METRONIDAZOLE 500 MG/NS 100ML 500 MG in PREMIXED 1 EACH IV SCH ×2 (15:00→21:06)
[2020-06-29] MEDS: NEPRO 1000 ML GT PRN (15:03)
[2020-06-29] MEDS: MEROPENEM 1 G in IV NORMAL SALINE 100 ML IV SCH ×2 (15:29→20:08)
[2020-06-29] MEDS: INSULIN GLARGINE,HUM 300 UNITS/3 ML CARTRIDGE SQ SCH (20:24)
[2020-06-29] MEDS: ATORVASTATIN 40 MG TABLET GT SCH (20:29)
[2020-06-30] VITALS (39 sets, daily range): BP systolic 93–134; BP diastolic 31–74
[2020-06-30] MEDS: ALBUTEROL SULFATE 2.5 MG/3 ML NEBU NEB SCH ×4 (01:20→19:53)
[2020-06-30] MEDS: IPRATROPIUM BROMIDE 0.5 MG/2.5 ML NEBU NEB SCH ×4 (01:20→19:53)
[2020-06-30] MEDS: NOREPINEPHRINE BITARTRATE 32 MG in IV NORMAL SALINE 218 ML IV PRN (04:43)
[2020-06-30] MEDS: IV NORMAL SALINE 250 ML IV PRN ×2 (05:23→21:02)
[2020-06-30] MEDS: METRONIDAZOLE 500 MG/NS 100ML 500 MG in PREMIXED 1 EACH IV SCH ×3 (05:33→22:00)
[2020-06-30] MEDS: VANCOMYCIN FOR PO/GT/NG USE GT SCH ×3 (05:47→21:31)
[2020-06-30 06:16] LABS: BASOPHILS # (AUTO) 0.1 K/uL (0.0-8.0); BASOPHILS % (AUTO) 0.7 % (0.0-2.0); EOSINOPHILS # (AUTO) 0.3 K/uL (0.0-0.7); EOSINOPHILS % (AUTO) 1.7 % (0.0-7.0); HEMATOCRIT 28.1 % (36.7-47.1); HEMOGLOBIN 8.6 g/dL (12.5-16.3); LYMPHOCYTES # (AUTO) 1.2 K/uL (20.0-40.0); LYMPHOCYTES % (AUTO) 6.6 % (20.5-51.5); MEAN CORPUSCULAR HEMOGLOBIN 28.9 uug (23.8-33.4); MEAN CORPUSCULAR HGB CONC 31 g/dL (32.5-36.3); MEAN CORPUSCULAR VOLUME 94.8 fL (73.0-96.2); MONOCYTES # (AUTO) 1.1 K/uL (2.0-10.0); MONOCYTES % (AUTO) 6.2 % (0.0-11.0); NEUTROPHILS # (AUTO) 15.4 K/uL (1.8-8.9); NEUTROPHILS % (AUTO) 84.8 % (38.5-71.5); PLATELET COUNT (AUTO) 278 K/uL (152-348); RED BLOOD CELL COUNT(AUTO) 2.96 MIL/uL (4.06-5.63); WHITE BLOOD COUNT (AUTO) 18.1 K/uL (3.6-10.2)
[2020-06-30 06:31] LABS: ALANINE AMINOTRANSFERASE 30 U/L (16-63); ALKALINE PHOSPHATASE 137 U/L (50-136); ASPARTATE AMINOTRANSFERASE 27 U/L (15-37); BILIRUBIN,TOTAL 0.4 mg/dL (0.2-1.0); CARBON DIOXIDE 31 mmol/L (21-32); CHLORIDE 109 mmol/L (98-107); CREATININE 3.9 mg/dL (0.6-1.3); MAGNESIUM 2.3 mg/dL (1.8-2.4); PHOSPHOROUS 2.9 mg/dL (2.5-4.9); POTASSIUM 3.9 mmol/L (3.5-5.1); TOTAL PROTEIN, SERUM 7.8 g/dL (6.4-8.2); UREA NITROGEN, BLOOD 49 mg/dL (7-18)
[2020-06-30 06:38] LABS: GLUCOSE 389 mg/dL (74-106)
[2020-06-30] MEDS: INSULIN REGULAR, HUMAN 300 UNIT/3 ML VIAL SQ PRN ×4 (06:52→20:52)
[2020-06-30] MEDS: BLOOD SUGAR DIAGNOSTIC 1 EACH STRIP VI SCH ×4 (07:00→21:00)
[2020-06-30] MEDS: Z GUARD REMEDY PASTE 57 GM TUBE TOP PRN (07:02)
[2020-06-30] MEDS: NOREPINEPHRINE BITARTRATE 8 MG in IV NORMAL SALINE 242 ML IV PRN (07:54)
[2020-06-30] MEDS: LINAGLIPTIN 5 MG TABLET GT SCH (08:16)
[2020-06-30] MEDS: ASCORBIC ACID 250 MG TABLET GT SCH (08:17)
[2020-06-30] MEDS: AMIODARONE HCL 200 MG TABLET PO SCH ×2 (08:20→20:21)
[2020-06-30] MEDS: PROTEIN SUPPLEMENT (PROSTAT) 30 ML LIQUID PO SCH (08:20)
[2020-06-30] MEDS: FOLIC ACID/VITAMIN B COMP W-C TABLET GT SCH (08:20)
[2020-06-30] MEDS: MEROPENEM 1 G in IV NORMAL SALINE 100 ML IV SCH ×2 (08:23→20:21)
[2020-06-30] MEDS: SODIUM HYPOCHLORITE 0.125% (QUARTER STRENGTH) 473 ML BOTTLE TP SCH ×2 (08:26→08:27)
[2020-06-30 09:54] LABS: ABG BASE EXCESS 1.9 mmol/L; ABG HCO3 26.3 mmol/L; ABG PCO2 40.5 mmHg (35.0-45.0); ABG PH 7.431 (7.350-7.450); ABG PO2 167.7 mmHg (75.0-100.0); ABG SITE RIGHT RADIAL; ABG TOTAL HEMOGLOBIN 7.7 G/dL (13.5-18.0); COHb 1.9 % (0.5-1.5); MetHb 0.4 % (0.0-1.5); O2Hb 97.3 % (94.0-97.0); VENT MODE VENT - A/C; VT, ABG 500 mL
--- NOTE | 2020-06-30 12:10 | NUR ---
Dr Conner redressed bilateral foot wounds.
--- NOTE | 2020-06-30 13:30 | NUR ---
Changed herring as ordered. Coccyx C&S / gm stain sent. Coccyx X-ray done.
--- NOTE | 2020-06-30 19:00 | NUR ---
Received report from AM nurse. Care plan in place. Trach is 8" Shiley: A/C: 18 Fio2: 30 TV: 500 PEEP: 5.. Levofed infusing at 0.04 mcg/kg/min -- orders from Dr. Rivera to keep MAP >65. Will monitor and assess.
[2020-06-30] MEDS: ATORVASTATIN 40 MG TABLET GT SCH (20:21)
--- NOTE | 2020-06-30 20:37 | NUR ---
Patient Blood Sugar was 420 - Dr. Myke KAPOOR notified per protocol. New orders received and read back. Order changed to aggressive scale coverage, and Lantus increased to 14 units. Will monitor and assess.
[2020-06-30] MEDS: INSULIN GLARGINE,HUM 300 UNITS/3 ML CARTRIDGE SQ SCH (20:52)
[2020-06-30] MEDS: ACETAMINOPHEN 325 MG TABLET PO PRN (21:03)
[2020-06-30] MEDS ORDERED: DEXTROSE 50% 50 ML DISP.SYRIN IV PRN (21:30)
[2020-07-01] VITALS (85 sets, daily range): BP systolic 48–148; BP diastolic 29–75
[2020-07-01] MEDS: BLOOD SUGAR DIAGNOSTIC 1 EACH STRIP VI SCH ×5 (00:07→23:42)
[2020-07-01] MEDS: INSULIN REGULAR, HUMAN 300 UNIT/3 ML VIAL SQ PRN ×5 (00:09→23:43)
[2020-07-01] MEDS: IPRATROPIUM BROMIDE 0.5 MG/2.5 ML NEBU NEB SCH ×4 (02:26→19:31)
[2020-07-01] MEDS: ALBUTEROL SULFATE 2.5 MG/3 ML NEBU NEB SCH ×4 (02:26→19:31)
[2020-07-01] MEDS: METRONIDAZOLE 500 MG/NS 100ML 500 MG in PREMIXED 1 EACH IV SCH ×3 (05:53→21:49)
[2020-07-01] MEDS: VANCOMYCIN FOR PO/GT/NG USE GT SCH ×3 (05:53→21:30)
[2020-07-01] MEDS: NOREPINEPHRINE BITARTRATE 8 MG in IV NORMAL SALINE 242 ML IV PRN (06:53)
--- NOTE | 2020-07-01 07:05 | NUR ---
Handing patient off to AM nurse. Safety measures in place. Pertinent information being handed off. Vent setting unchanged. Wound care completed. Repositioned as ordered. Medications given as prescribed. VSS. Stable condition. Will endorse to AM nurse.
--- NOTE | 2020-07-01 07:15 | NUR ---
Received pt. undergoing HD. on levophed drip. Will continue with care plan.
[2020-07-01] MEDS: AMIODARONE HCL 200 MG TABLET PO SCH ×2 (09:38→20:37)
[2020-07-01] MEDS: FOLIC ACID/VITAMIN B COMP W-C TABLET GT SCH (09:38)
[2020-07-01] MEDS: LINAGLIPTIN 5 MG TABLET GT SCH (09:38)
[2020-07-01] MEDS: ASCORBIC ACID 250 MG TABLET GT SCH (09:39)
[2020-07-01] MEDS: MEROPENEM 1 G in IV NORMAL SALINE 100 ML IV SCH ×2 (09:40→20:37)
[2020-07-01] MEDS: SODIUM HYPOCHLORITE 0.125% (QUARTER STRENGTH) 473 ML BOTTLE TP SCH ×2 (09:43→09:44)
[2020-07-01] MEDS: PROTEIN SUPPLEMENT (PROSTAT) 30 ML LIQUID PO SCH (09:43)
--- NOTE | 2020-07-01 10:00 | NUR ---
Attending physician Dr. Cruz in the unit to see and examine pt. report given orders received and implemented see order hx.
[2020-07-01] MEDS: NEPRO 1000 ML GT PRN (10:15)
--- NOTE | 2020-07-01 20:00 | NUR ---
RECEIVED PT VERBALLY NONRESPONSIVE. TRACH TO VENT W/ SETTINGS OF AC-18, TV-500, FIO2-30%, PEEP-+5 W/ O2 SAT OF 100%. G-TUBE INTACT CHECKED PLACEMENT & CHECKED RESIDUAL 5CC NOTED. ON TUBE FDG OF NEPRO @ 55CC/HR. AV SHUNT ON MICKI W/ GOOD BRUIT. TLC ON L GROIN INTACT , PORTS ARE PATENT. EDNA CATH ON LEFT FEM. SUCTIONED VIA TRACH & ORALLY W/ PALE YELLOWISH THICK MUCOUS. REPOSITIONED W HOB ELEVATED.
[2020-07-01] MEDS: INSULIN GLARGINE,HUM 300 UNITS/3 ML CARTRIDGE SQ SCH (20:36)
[2020-07-01] MEDS: ATORVASTATIN 40 MG TABLET GT SCH (20:37)
[2020-07-01] MEDS ORDERED: INSULIN GLARGINE,HUM 300 UNITS/3 ML CARTRIDGE SQ SCH (21:00)
[2020-07-02] VITALS (60 sets, daily range): BP systolic 84–140; BP diastolic 43–84
[2020-07-02] MEDS: IPRATROPIUM BROMIDE 0.5 MG/2.5 ML NEBU NEB SCH ×4 (01:20→19:39)
[2020-07-02] MEDS: ALBUTEROL SULFATE 2.5 MG/3 ML NEBU NEB SCH ×4 (01:20→19:39)
--- NOTE | 2020-07-02 02:00 | NUR ---
AM CARE DONE. WOUND CARE DONE & DRSG. CHANGED. FLEXIBLE IRRIGATED.
[2020-07-02 05:28] LABS: BASOPHILS # (AUTO) 0.1 K/uL (0.0-8.0); BASOPHILS % (AUTO) 0.7 % (0.0-2.0); EOSINOPHILS # (AUTO) 0.6 K/uL (0.0-0.7); EOSINOPHILS % (AUTO) 4.5 % (0.0-7.0); HEMATOCRIT 26.6 % (36.7-47.1); HEMOGLOBIN 8.4 g/dL (12.5-16.3); LYMPHOCYTES # (AUTO) 1.3 K/uL (20.0-40.0); LYMPHOCYTES % (AUTO) 10.6 % (20.5-51.5); MEAN CORPUSCULAR HEMOGLOBIN 29.7 uug (23.8-33.4); MEAN CORPUSCULAR HGB CONC 31 g/dL (32.5-36.3); MEAN CORPUSCULAR VOLUME 94.6 fL (73.0-96.2); MONOCYTES # (AUTO) 1.2 K/uL (2.0-10.0); MONOCYTES % (AUTO) 9.3 % (0.0-11.0); NEUTROPHILS # (AUTO) 9.4 K/uL (1.8-8.9); NEUTROPHILS % (AUTO) 74.9 % (38.5-71.5); PLATELET COUNT (AUTO) 237 K/uL (152-348); RED BLOOD CELL COUNT(AUTO) 2.81 MIL/uL (4.06-5.63); WHITE BLOOD COUNT (AUTO) 12.6 K/uL (3.6-10.2)
[2020-07-02] MEDS: BLOOD SUGAR DIAGNOSTIC 1 EACH STRIP VI SCH ×4 (05:35→23:29)
[2020-07-02] MEDS: INSULIN REGULAR, HUMAN 300 UNIT/3 ML VIAL SQ PRN ×4 (05:45→23:30)
[2020-07-02] MEDS: METRONIDAZOLE 500 MG/NS 100ML 500 MG in PREMIXED 1 EACH IV SCH ×3 (05:46→21:20)
[2020-07-02] MEDS: VANCOMYCIN FOR PO/GT/NG USE GT SCH ×3 (05:47→21:20)
[2020-07-02] MEDS: IV NORMAL SALINE 250 ML IV PRN (05:48)
[2020-07-02 05:53] LABS: ALANINE AMINOTRANSFERASE 19 U/L (16-63); ALKALINE PHOSPHATASE 194 U/L (50-136); ASPARTATE AMINOTRANSFERASE 24 U/L (15-37); BILIRUBIN,TOTAL 0.4 mg/dL (0.2-1.0); CARBON DIOXIDE 29 mmol/L (21-32); CHLORIDE 110 mmol/L (98-107); CREATININE 3.5 mg/dL (0.6-1.3); MAGNESIUM 2.2 mg/dL (1.8-2.4); PHOSPHOROUS 1.6 mg/dL (2.5-4.9); POTASSIUM 4.2 mmol/L (3.5-5.1); TOTAL PROTEIN, SERUM 7.3 g/dL (6.4-8.2); UREA NITROGEN, BLOOD 54 mg/dL (7-18)
--- NOTE | 2020-07-02 06:00 | NUR ---
off tube fdg will resume @0800.
[2020-07-02 06:13] LABS: GLUCOSE 352 mg/dL (74-106)
[2020-07-02] MEDS: NOREPINEPHRINE BITARTRATE 8 MG in IV NORMAL SALINE 242 ML IV PRN ×2 (06:50→20:55)
[2020-07-02] MEDS: LINAGLIPTIN 5 MG TABLET GT SCH (08:20)
[2020-07-02] MEDS: ASCORBIC ACID 250 MG TABLET GT SCH (08:20)
[2020-07-02] MEDS: MEROPENEM 1 G in IV NORMAL SALINE 100 ML IV SCH (08:20)
[2020-07-02] MEDS: PROTEIN SUPPLEMENT (PROSTAT) 30 ML LIQUID PO SCH (08:21)
[2020-07-02] MEDS: SODIUM HYPOCHLORITE 0.125% (QUARTER STRENGTH) 473 ML BOTTLE TP SCH ×2 (08:22)
[2020-07-02] MEDS: FOLIC ACID/VITAMIN B COMP W-C TABLET GT SCH (08:24)
[2020-07-02] MEDS: AMIODARONE HCL 200 MG TABLET PO SCH (08:24)
[2020-07-02] MEDS: NEPRO 1000 ML GT PRN (09:08)
--- NOTE | 2020-07-02 09:30 | NUR ---
Cardiology services, Dr. Solomon in the unit to see and examine pt. report given orders received and implemented see order hx.
--- NOTE | 2020-07-02 09:40 | NUR ---
Attending physician Dr. Yoder in the unit to follow up on pt. informed of pt's daughter in law call this morning stating that no or nurse had given her a daily phone update as we are supposed too. As stated by . He'll call and update pt's daughter in law.
--- NOTE | 2020-07-02 20:00 | NUR ---
RECEIVED PT VERBALLY NONRESPONSIVE. TRACH TO VENT W/ SETTINGS OF AC-18, TV-5--, FIO2-30%, PEEP-+5 W/ O2 SAT OF 100%. ON LEVOPHED DRIP @ 0.02MCQ/KG/MIN VIA LEFT THIGH TLC. G-TUBE INTACT, CHECKED PLACEMENT & CHECKED RESIDUAL 5CC NOTED. SUCTIONED VIA TRACH & ORALLY W/ THICK TANNISH MUCOUS MOD. AMT. REPOSITIONED W/ HOB ELEVATED.
[2020-07-02] MEDS: ATORVASTATIN 40 MG TABLET GT SCH (20:43)
[2020-07-02] MEDS: MEROPENEM 500 MG in IV NORMAL SALINE 50 ML IV SCH (20:44)
[2020-07-02] MEDS: INSULIN GLARGINE,HUM 300 UNITS/3 ML CARTRIDGE SQ SCH (20:47)
[2020-07-03] VITALS (66 sets, daily range): BP systolic 83–145; BP diastolic 44–71
[2020-07-03] MEDS: IPRATROPIUM BROMIDE 0.5 MG/2.5 ML NEBU NEB SCH ×4 (01:59→19:50)
[2020-07-03] MEDS: ALBUTEROL SULFATE 2.5 MG/3 ML NEBU NEB SCH ×4 (01:59→19:50)
--- NOTE | 2020-07-03 02:00 | NUR ---
AM CARE DONE. TRACH CARE DONE.WOUND CARE & DRSG CHANGED.
[2020-07-03] MEDS: BLOOD SUGAR DIAGNOSTIC 1 EACH STRIP VI SCH ×4 (05:19→23:48)
[2020-07-03] MEDS: METRONIDAZOLE 500 MG/NS 100ML 500 MG in PREMIXED 1 EACH IV SCH ×3 (05:21→21:14)
[2020-07-03] MEDS: INSULIN REGULAR, HUMAN 300 UNIT/3 ML VIAL SQ PRN ×4 (05:21→23:49)
[2020-07-03] MEDS: VANCOMYCIN FOR PO/GT/NG USE GT SCH ×3 (05:22→21:13)
[2020-07-03] MEDS: IV NORMAL SALINE 250 ML IV PRN (05:29)
[2020-07-03 05:41] LABS: CARBON DIOXIDE 32 mmol/L (21-32); CHLORIDE 112 mmol/L (98-107); CREATININE 4.3 mg/dL (0.6-1.3); GLUCOSE 253 mg/dL (74-106); MAGNESIUM 2.2 mg/dL (1.8-2.4); UREA NITROGEN, BLOOD 72 mg/dL (7-18)
--- NOTE | 2020-07-03 06:02 | NUR ---
off tube fdg will resume @ 0800.
[2020-07-03 06:08] LABS: BASOPHILS # (AUTO) 0.1 K/uL (0.0-8.0); BASOPHILS % (AUTO) 0.7 % (0.0-2.0); EOSINOPHILS # (AUTO) 0.8 K/uL (0.0-0.7); EOSINOPHILS % (AUTO) 4.8 % (0.0-7.0); HEMATOCRIT 25.1 % (36.7-47.1); LYMPHOCYTES # (AUTO) 2.1 K/uL (20.0-40.0); LYMPHOCYTES % (AUTO) 13.3 % (20.5-51.5); MEAN CORPUSCULAR HGB CONC 32 g/dL (32.5-36.3); MEAN CORPUSCULAR VOLUME 93.8 fL (73.0-96.2); MONOCYTES # (AUTO) 1.3 K/uL (2.0-10.0); MONOCYTES % (AUTO) 7.9 % (0.0-11.0); NEUTROPHILS # (AUTO) 11.9 K/uL (1.8-8.9); NEUTROPHILS % (AUTO) 73.3 % (38.5-71.5); PLATELET COUNT (AUTO) 238 K/uL (152-348); RED BLOOD CELL COUNT(AUTO) 2.68 MIL/uL (4.06-5.63); WHITE BLOOD COUNT (AUTO) 16.2 K/uL (3.6-10.2)
[2020-07-03] MEDS: NEPRO 1000 ML GT PRN (08:00)
[2020-07-03] MEDS: NOREPINEPHRINE BITARTRATE 8 MG in IV NORMAL SALINE 242 ML IV PRN (08:11)
[2020-07-03] MEDS: ASCORBIC ACID 250 MG TABLET GT SCH (09:11)
[2020-07-03] MEDS: LINAGLIPTIN 5 MG TABLET GT SCH (09:11)
[2020-07-03] MEDS: FOLIC ACID/VITAMIN B COMP W-C TABLET GT SCH (09:11)
[2020-07-03] MEDS: MEROPENEM 500 MG in IV NORMAL SALINE 50 ML IV SCH ×2 (09:11→20:48)
[2020-07-03] MEDS: PROTEIN SUPPLEMENT (PROSTAT) 30 ML LIQUID PO SCH (09:12)
[2020-07-03] MEDS: SODIUM HYPOCHLORITE 0.125% (QUARTER STRENGTH) 473 ML BOTTLE TP SCH ×2 (09:13)
--- NOTE | 2020-07-03 09:27 | NUR ---
Dialysis completed. 1.2L of hemodialysis fluid removed. Pt stable and nad noted upon completion of dialysis treatment.
--- NOTE | 2020-07-03 15:28 | NUR ---
Dr. Phan here to see pt. Full report given. New orders received.
--- NOTE | 2020-07-03 19:15 | NUR ---
RECEIVED PATIENT CALM VENT SETTINGS OF AC 18, TV 500 P 5 AT 30 % , LEVOPHED AT 0.06 MCG , MICKI SHUNT INTACT BRUIT AND THRILL INTACT , R FEMORAL EDNA CATH , INTACT , PICCLINE LEFT THIGH INTACT , , NO FEVER NOTED , NEPHRO GT FEEDING RUNNING AT 55 ML , NO RESIDUAL
[2020-07-03] MEDS: ATORVASTATIN 40 MG TABLET GT SCH (20:49)
[2020-07-03] MEDS: INSULIN GLARGINE,HUM 300 UNITS/3 ML CARTRIDGE SQ SCH (21:20)
[2020-07-04] VITALS (95 sets, daily range): BP systolic 72–131; BP diastolic 23–74
[2020-07-04] MEDS: ALBUTEROL SULFATE 2.5 MG/3 ML NEBU NEB SCH ×4 (00:30→19:34)
[2020-07-04] MEDS: IPRATROPIUM BROMIDE 0.5 MG/2.5 ML NEBU NEB SCH ×4 (00:30→19:34)
[2020-07-04] MEDS: METRONIDAZOLE 500 MG/NS 100ML 500 MG in PREMIXED 1 EACH IV SCH ×3 (05:28→21:46)
[2020-07-04 05:29] LABS: CARBON DIOXIDE 30 mmol/L (21-32); CHLORIDE 111 mmol/L (98-107); CREATININE 3.7 mg/dL (0.6-1.3); POTASSIUM 4.2 mmol/L (3.5-5.1); UREA NITROGEN, BLOOD 62 mg/dL (7-18)
[2020-07-04] MEDS: VANCOMYCIN FOR PO/GT/NG USE GT SCH ×3 (05:29→21:46)
[2020-07-04 05:31] LABS: GLUCOSE 319 mg/dL (74-106)
[2020-07-04] MEDS: BLOOD SUGAR DIAGNOSTIC 1 EACH STRIP VI SCH ×3 (05:44→18:32)
[2020-07-04] MEDS: INSULIN REGULAR, HUMAN 300 UNIT/3 ML VIAL SQ PRN ×3 (05:46→18:31)
[2020-07-04 06:27] LABS: BASOPHILS # (AUTO) 0.1 K/uL (0.0-8.0); BASOPHILS % (AUTO) 0.5 % (0.0-2.0); EOSINOPHILS # (AUTO) 0.8 K/uL (0.0-0.7); EOSINOPHILS % (AUTO) 4.4 % (0.0-7.0); HEMATOCRIT 26.1 % (36.7-47.1); HEMOGLOBIN 8.2 g/dL (12.5-16.3); LYMPHOCYTES # (AUTO) 1.7 K/uL (20.0-40.0); MEAN CORPUSCULAR HEMOGLOBIN 29.4 uug (23.8-33.4); MEAN CORPUSCULAR HGB CONC 31 g/dL (32.5-36.3); MEAN CORPUSCULAR VOLUME 94.3 fL (73.0-96.2); MONOCYTES # (AUTO) 1.4 K/uL (2.0-10.0); NEUTROPHILS # (AUTO) 13.3 K/uL (1.8-8.9); NEUTROPHILS % (AUTO) 77.1 % (38.5-71.5); PLATELET COUNT (AUTO) 222 K/uL (152-348); RED BLOOD CELL COUNT(AUTO) 2.77 MIL/uL (4.06-5.63); WHITE BLOOD COUNT (AUTO) 17.2 K/uL (3.6-10.2)
[2020-07-04] MEDS: NOREPINEPHRINE BITARTRATE 8 MG in IV NORMAL SALINE 242 ML IV PRN ×3 (06:45→21:47)
[2020-07-04] MEDS: ASCORBIC ACID 250 MG TABLET GT SCH (08:12)
[2020-07-04] MEDS: LINAGLIPTIN 5 MG TABLET GT SCH (08:12)
[2020-07-04] MEDS: MEROPENEM 500 MG in IV NORMAL SALINE 50 ML IV SCH ×2 (08:13→21:46)
[2020-07-04] MEDS: SODIUM HYPOCHLORITE 0.125% (QUARTER STRENGTH) 473 ML BOTTLE TP SCH ×2 (08:16→08:17)
[2020-07-04] MEDS: FOLIC ACID/VITAMIN B COMP W-C TABLET GT SCH (08:17)
[2020-07-04] MEDS: PROTEIN SUPPLEMENT (PROSTAT) 30 ML LIQUID PO SCH (08:18)
--- NOTE | 2020-07-04 09:30 | NUR ---
ESTHER SEWING MACHINE OPERATOR PAPER BAGS IN THE UNIT TO SEE PATIENT. NO NEW ORDERS AT THIS TIME, NO ORDERS FOR DIALYSIS TODAY, INFORMED WEANING OFF LEVOPHED.
--- NOTE | 2020-07-04 15:00 | NUR ---
Khloe IN THE UNIT TO SEE PATIENT. UNABLE TO WEAN OFF LEVOPHED. BP DROPS TO 80S AND 70'S.
[2020-07-04] MEDS ORDERED: SILVER NITRATE APPLICATOR STICK EACH TP ONE (20:00)
[2020-07-04] MEDS: ATORVASTATIN 40 MG TABLET GT SCH (21:46)
[2020-07-04] MEDS: INSULIN GLARGINE,HUM 300 UNITS/3 ML CARTRIDGE SQ SCH (21:51)
[2020-07-05] VITALS (94 sets, daily range): BP systolic 70–149; BP diastolic 37–72
[2020-07-05] MEDS: BLOOD SUGAR DIAGNOSTIC 1 EACH STRIP VI SCH ×5 (00:39→23:20)
[2020-07-05] MEDS: INSULIN REGULAR, HUMAN 300 UNIT/3 ML VIAL SQ PRN ×5 (00:40→23:21)
[2020-07-05] MEDS: IPRATROPIUM BROMIDE 0.5 MG/2.5 ML NEBU NEB SCH ×4 (01:12→18:19)
[2020-07-05] MEDS: ALBUTEROL SULFATE 2.5 MG/3 ML NEBU NEB SCH ×4 (01:12→18:19)
[2020-07-05] MEDS: METRONIDAZOLE 500 MG/NS 100ML 500 MG in PREMIXED 1 EACH IV SCH ×3 (06:00→21:04)
--- NOTE | 2020-07-05 06:00 | NUR ---
dialysis nurse is starting dialysis at this time.
--- NOTE | 2020-07-05 06:02 | NUR ---
held yl IV. dialysis already starting.
[2020-07-05] MEDS: VANCOMYCIN FOR PO/GT/NG USE GT SCH ×3 (06:06→21:03)
[2020-07-05] MEDS: FOLIC ACID/VITAMIN B COMP W-C TABLET GT SCH (08:16)
[2020-07-05] MEDS: MEROPENEM 500 MG in IV NORMAL SALINE 50 ML IV SCH ×2 (08:18→20:41)
[2020-07-05] MEDS: LINAGLIPTIN 5 MG TABLET GT SCH (08:18)
[2020-07-05] MEDS: ASCORBIC ACID 250 MG TABLET GT SCH (08:18)
[2020-07-05] MEDS: PROTEIN SUPPLEMENT (PROSTAT) 30 ML LIQUID PO SCH (08:19)
[2020-07-05] MEDS: SODIUM HYPOCHLORITE 0.125% (QUARTER STRENGTH) 473 ML BOTTLE TP SCH ×2 (08:21)
--- NOTE | 2020-07-05 08:22 | NUR ---
Received pt. undergoing HD and levophed running at 0.04mcg/kg/min.
[2020-07-05] MEDS: NEPRO 1000 ML GT PRN (08:26)
[2020-07-05] MEDS: IV NORMAL SALINE 250 ML IV PRN (08:27)
[2020-07-05 12:16] LABS: BASOPHILS % (AUTO) 0.3 % (0.0-2.0); EOSINOPHILS # (AUTO) 0.5 K/uL (0.0-0.7); EOSINOPHILS % (AUTO) 2.9 % (0.0-7.0); LYMPHOCYTES # (AUTO) 1.1 K/uL (20.0-40.0); LYMPHOCYTES % (AUTO) 6.9 % (20.5-51.5); MEAN CORPUSCULAR HEMOGLOBIN 29.2 uug (23.8-33.4); MEAN CORPUSCULAR HGB CONC 31 g/dL (32.5-36.3); MEAN CORPUSCULAR VOLUME 93.8 fL (73.0-96.2); MONOCYTES % (AUTO) 6.1 % (0.0-11.0); NEUTROPHILS # (AUTO) 13.6 K/uL (1.8-8.9); NEUTROPHILS % (AUTO) 83.8 % (38.5-71.5); PLATELET COUNT (AUTO) 197 K/uL (152-348); WHITE BLOOD COUNT (AUTO) 16.2 K/uL (3.6-10.2)
[2020-07-05 12:33] LABS: RED BLOOD CELL COUNT(AUTO) 2.45 MIL/uL (4.06-5.63)
[2020-07-05 12:34] LABS: ALANINE AMINOTRANSFERASE 22 U/L (16-63); ALKALINE PHOSPHATASE 265 U/L (50-136); ASPARTATE AMINOTRANSFERASE 61 U/L (15-37); BILIRUBIN,TOTAL 0.4 mg/dL (0.2-1.0); CARBON DIOXIDE 30 mmol/L (21-32); CHLORIDE 107 mmol/L (98-107); CREATININE 2.9 mg/dL (0.6-1.3); GLUCOSE 257 mg/dL (74-106); HEMOGLOBIN 7.1 g/dL (12.5-16.3); MAGNESIUM 1.9 mg/dL (1.8-2.4); PHOSPHOROUS 1.8 mg/dL (2.5-4.9); POTASSIUM 3.5 mmol/L (3.5-5.1); TOTAL PROTEIN, SERUM 6.4 g/dL (6.4-8.2); UREA NITROGEN, BLOOD 50 mg/dL (7-18)
[2020-07-05] MEDS ORDERED: CEFEPIME HCL 1 G in IV DEXTROSE 5% 50 ML IV SCH (14:00)
[2020-07-05] MEDS: MIDODRINE HCL 5 MG TABLET PO SCH ×2 (15:14→21:05)
--- NOTE | 2020-07-05 19:15 | NUR ---
RECEIVED PATIENT WITH SPONTANEOUS EYE OPENING , UNABLE TO FOLLOW COMMAND , NEPHRO RUNNING AT 55 ML VIA GT , NO RESIDUAL NOTED , LAV SHUNT BUITS AND THRILL PRESENT , EDNA CATH RIGHT FEMORAL INTACT , PICC LINE LEFT THIGHT INTACT WITH LEVOPHED AT 0.06 MCG RUNNING , GIBSON AND FLEXI SEAL INTACT , VENT SETTINGS AF AC 16 TV 500 P 5 FIO2 OF 30 %
[2020-07-05] MEDS: ATORVASTATIN 40 MG TABLET GT SCH (20:41)
[2020-07-05] MEDS: INSULIN GLARGINE,HUM 300 UNITS/3 ML CARTRIDGE SQ SCH (20:43)
[2020-07-06] VITALS (60 sets, daily range): BP systolic 70–159; BP diastolic 22–87
[2020-07-06] MEDS: ALBUTEROL SULFATE 2.5 MG/3 ML NEBU NEB SCH ×5 (00:30→19:30)
[2020-07-06] MEDS: IPRATROPIUM BROMIDE 0.5 MG/2.5 ML NEBU NEB SCH ×5 (00:30→19:30)
[2020-07-06 05:23] LABS: BASOPHILS % (AUTO) 0.2 % (0.0-2.0); EOSINOPHILS # (AUTO) 0.4 K/uL (0.0-0.7); EOSINOPHILS % (AUTO) 2.8 % (0.0-7.0); HEMATOCRIT 24.5 % (36.7-47.1); HEMOGLOBIN 7.6 g/dL (12.5-16.3); LYMPHOCYTES # (AUTO) 1.3 K/uL (20.0-40.0); LYMPHOCYTES % (AUTO) 8.8 % (20.5-51.5); MEAN CORPUSCULAR HEMOGLOBIN 29.4 uug (23.8-33.4); MEAN CORPUSCULAR HGB CONC 31 g/dL (32.5-36.3); MEAN CORPUSCULAR VOLUME 94.3 fL (73.0-96.2); MONOCYTES # (AUTO) 1.4 K/uL (2.0-10.0); MONOCYTES % (AUTO) 9.5 % (0.0-11.0); NEUTROPHILS # (AUTO) 11.3 K/uL (1.8-8.9); NEUTROPHILS % (AUTO) 78.7 % (38.5-71.5); PLATELET COUNT (AUTO) 241 K/uL (152-348); WHITE BLOOD COUNT (AUTO) 14.3 K/uL (3.6-10.2)
[2020-07-06 05:35] LABS: ALANINE AMINOTRANSFERASE 101 U/L (16-63); ALKALINE PHOSPHATASE 1562 U/L (50-136); ASPARTATE AMINOTRANSFERASE 459 U/L (15-37); CARBON DIOXIDE 32 mmol/L (21-32); CREATININE 3.4 mg/dL (0.6-1.3); GLUCOSE 291 mg/dL (74-106); MAGNESIUM 2.1 mg/dL (1.8-2.4); PHOSPHOROUS 2.4 mg/dL (2.5-4.9); TOTAL PROTEIN, SERUM 7.1 g/dL (6.4-8.2); UREA NITROGEN, BLOOD 62 mg/dL (7-18)
[2020-07-06] MEDS: MIDODRINE HCL 5 MG TABLET PO SCH ×3 (05:52→21:34)
[2020-07-06] MEDS: VANCOMYCIN FOR PO/GT/NG USE GT SCH ×3 (05:53→21:32)
[2020-07-06] MEDS: METRONIDAZOLE 500 MG/NS 100ML 500 MG in PREMIXED 1 EACH IV SCH ×3 (05:53→21:34)
[2020-07-06] MEDS: BLOOD SUGAR DIAGNOSTIC 1 EACH STRIP VI SCH ×3 (05:54→17:34)
[2020-07-06 06:02] LABS: CHLORIDE 107 mmol/L (98-107); POTASSIUM 3.8 mmol/L (3.5-5.1)
[2020-07-06] MEDS: NOREPINEPHRINE BITARTRATE 8 MG in IV NORMAL SALINE 242 ML IV PRN ×2 (06:50→19:39)
[2020-07-06] MEDS: INSULIN REGULAR, HUMAN 300 UNIT/3 ML VIAL SQ PRN ×3 (07:04→17:37)
--- NOTE | 2020-07-06 07:25 | NUR ---
PT RECEIVED TRACH TO VENT ON CMV, CRICKETLEY #8 TRACH IS PATENT AND SECURE. PT IS ON A FRAGOSO VENT ON SETTINGS OF A/C 18, VT 500, PEEP +5, AND 30% FIO2. IN-LINE TX TOLERATED WELL, NO ADVERSE REACTION NOTED. ORAL CARE DONE. PT IS TOLERATING VENT WELL, NO RESP. DISTRESS NOTED. BVM AT BEDSIDE. VENT PLUGGED INTO RED OUTLET. SUCTION PRN. WILL CONTINUE TO MONITOR.
[2020-07-06] MEDS: LINAGLIPTIN 5 MG TABLET GT SCH (08:33)
[2020-07-06] MEDS: FOLIC ACID/VITAMIN B COMP W-C TABLET GT SCH (08:33)
[2020-07-06] MEDS: ASCORBIC ACID 250 MG TABLET GT SCH (08:33)
[2020-07-06] MEDS: MEROPENEM 500 MG in IV NORMAL SALINE 50 ML IV SCH ×2 (08:34→21:30)
[2020-07-06] MEDS: NEPRO 1000 ML GT PRN (08:34)
[2020-07-06] MEDS: PROTEIN SUPPLEMENT (PROSTAT) 30 ML LIQUID PO SCH (08:35)
[2020-07-06] MEDS: SODIUM HYPOCHLORITE 0.125% (QUARTER STRENGTH) 473 ML BOTTLE TP SCH ×2 (08:36)
[2020-07-06] MEDS: INSULIN GLARGINE,HUM 300 UNITS/3 ML CARTRIDGE SQ SCH (21:26)
[2020-07-06] MEDS: ATORVASTATIN 40 MG TABLET GT SCH (21:28)
[2020-07-07] VITALS (43 sets, daily range): BP systolic 73–159; BP diastolic 28–81
[2020-07-07] MEDS: BLOOD SUGAR DIAGNOSTIC 1 EACH STRIP VI SCH ×4 (00:45→18:26)
[2020-07-07] MEDS: INSULIN REGULAR, HUMAN 300 UNIT/3 ML VIAL SQ PRN ×2 (00:47→06:36)
--- NOTE | 2020-07-07 01:00 | NUR ---
Failed at weaning Levophed.
[2020-07-07] MEDS: IPRATROPIUM BROMIDE 0.5 MG/2.5 ML NEBU NEB SCH ×4 (01:13→19:30)
[2020-07-07] MEDS: ALBUTEROL SULFATE 2.5 MG/3 ML NEBU NEB SCH ×4 (01:14→19:30)
[2020-07-07] MEDS: IV NORMAL SALINE 250 ML IV PRN (01:21)
[2020-07-07] MEDS: METRONIDAZOLE 500 MG/NS 100ML 500 MG in PREMIXED 1 EACH IV SCH ×3 (05:37→21:11)
[2020-07-07] MEDS: VANCOMYCIN FOR PO/GT/NG USE GT SCH ×3 (05:37→21:12)
[2020-07-07] MEDS: MIDODRINE HCL 5 MG TABLET PO SCH ×3 (05:37→21:13)
[2020-07-07 06:13] LABS: BASOPHILS # (AUTO) 0.1 K/uL (0.0-8.0); BASOPHILS % (AUTO) 0.5 % (0.0-2.0); EOSINOPHILS # (AUTO) 0.6 K/uL (0.0-0.7); EOSINOPHILS % (AUTO) 3.9 % (0.0-7.0); LYMPHOCYTES # (AUTO) 1.2 K/uL (20.0-40.0); LYMPHOCYTES % (AUTO) 8.1 % (20.5-51.5); MEAN CORPUSCULAR HEMOGLOBIN 29.5 uug (23.8-33.4); MEAN CORPUSCULAR HGB CONC 32 g/dL (32.5-36.3); MEAN CORPUSCULAR VOLUME 93.9 fL (73.0-96.2); MONOCYTES % (AUTO) 6.7 % (0.0-11.0); NEUTROPHILS # (AUTO) 12.4 K/uL (1.8-8.9); NEUTROPHILS % (AUTO) 80.8 % (38.5-71.5); PLATELET COUNT (AUTO) 261 K/uL (152-348); WHITE BLOOD COUNT (AUTO) 15.3 K/uL (3.6-10.2)
[2020-07-07 06:16] LABS: RED BLOOD CELL COUNT(AUTO) 2.35 MIL/uL (4.06-5.63)
[2020-07-07 06:24] LABS: ALANINE AMINOTRANSFERASE 97 U/L (16-63); ALKALINE PHOSPHATASE 2190 U/L (50-136); ASPARTATE AMINOTRANSFERASE 323 U/L (15-37); BILIRUBIN,DIRECT 0.8 mg/dL (0.0-0.2); BILIRUBIN,TOTAL 1.2 mg/dL (0.2-1.0); CARBON DIOXIDE 29 mmol/L (21-32); CHLORIDE 106 mmol/L (98-107); CREATININE 3.8 mg/dL (0.6-1.3); GLUCOSE 209 mg/dL (74-106); PHOSPHOROUS 3.1 mg/dL (2.5-4.9); POTASSIUM 3.8 mmol/L (3.5-5.1); TOTAL PROTEIN, SERUM 6.7 g/dL (6.4-8.2); UREA NITROGEN, BLOOD 76 mg/dL (7-18)
[2020-07-07 06:31] LABS: HEMOGLOBIN 6.9 g/dL (12.5-16.3)
[2020-07-07] MEDS: NOREPINEPHRINE BITARTRATE 8 MG in IV NORMAL SALINE 242 ML IV PRN (07:56)
[2020-07-07] MEDS: ASCORBIC ACID 250 MG TABLET GT SCH (08:21)
[2020-07-07] MEDS: MEROPENEM 500 MG in IV NORMAL SALINE 50 ML IV SCH (08:21)
[2020-07-07] MEDS: LINAGLIPTIN 5 MG TABLET GT SCH (08:21)
[2020-07-07] MEDS: FOLIC ACID/VITAMIN B COMP W-C TABLET GT SCH (08:21)
[2020-07-07] MEDS: PROTEIN SUPPLEMENT (PROSTAT) 30 ML LIQUID PO SCH (08:22)
[2020-07-07] MEDS: SODIUM HYPOCHLORITE 0.125% (QUARTER STRENGTH) 473 ML BOTTLE TP SCH ×2 (08:22)
[2020-07-07] MEDS: AMIODARONE HCL 200 MG TABLET PO SCH (13:00)
[2020-07-07] MEDS ORDERED: ALBUMIN HUMAN 25% 100 ML IV STA (13:40)
[2020-07-07] MEDS ORDERED: levoFLOXacin 750MG/D5W 750 MG in PREMIXED 1 EACH IV SCH (17:00)
[2020-07-07 17:08] LABS: EOSINOPHILS % (MANUAL) 2 % (0-8); LYMPHOCYTES % (MANUAL) 8 % (20-40); MONOCYTES % (MANUAL) 6 % (2-10); NEUTROPHILS % (MANUAL) 84 % (42-75)
--- NOTE | 2020-07-07 20:21 | NUR ---
HHN tx not given due to PUI protocol. No SOB noted at this time. Will continue to monitor.
[2020-07-07] MEDS: ATORVASTATIN 40 MG TABLET GT SCH (21:07)
[2020-07-07] MEDS: INSULIN GLARGINE,HUM 300 UNITS/3 ML CARTRIDGE SQ SCH (21:10)
[2020-07-08] VITALS (18 sets, daily range): BP systolic 103–138; BP diastolic 47–81
[2020-07-08] MEDS: BLOOD SUGAR DIAGNOSTIC 1 EACH STRIP VI SCH ×5 (00:14→23:34)
[2020-07-08] MEDS: INSULIN REGULAR, HUMAN 300 UNIT/3 ML VIAL SQ PRN ×3 (00:16→23:35)
[2020-07-08] MEDS: IPRATROPIUM BROMIDE 0.5 MG/2.5 ML NEBU NEB SCH ×3 (01:30→19:30)
[2020-07-08] MEDS: ALBUTEROL SULFATE 2.5 MG/3 ML NEBU NEB SCH ×4 (01:30→19:30)
[2020-07-08] MEDS: IV NORMAL SALINE 250 ML IV PRN (02:09)
[2020-07-08] MEDS: VANCOMYCIN FOR PO/GT/NG USE GT SCH ×3 (05:06→21:19)
[2020-07-08] MEDS: MIDODRINE HCL 5 MG TABLET PO SCH ×3 (05:07→21:19)
[2020-07-08 05:09] LABS: BASOPHILS # (AUTO) 0.1 K/uL (0.0-8.0); BASOPHILS % (AUTO) 0.9 % (0.0-2.0); EOSINOPHILS # (AUTO) 0.7 K/uL (0.0-0.7); EOSINOPHILS % (AUTO) 5.4 % (0.0-7.0); HEMATOCRIT 26.1 % (36.7-47.1); HEMOGLOBIN 8.6 g/dL (12.5-16.3); LYMPHOCYTES # (AUTO) 1.2 K/uL (20.0-40.0); LYMPHOCYTES % (AUTO) 10.2 % (20.5-51.5); MEAN CORPUSCULAR HEMOGLOBIN 30.4 uug (23.8-33.4); MEAN CORPUSCULAR HGB CONC 33 g/dL (32.5-36.3); MEAN CORPUSCULAR VOLUME 92.9 fL (73.0-96.2); MONOCYTES % (AUTO) 7.8 % (0.0-11.0); NEUTROPHILS # (AUTO) 9.3 K/uL (1.8-8.9); NEUTROPHILS % (AUTO) 75.7 % (38.5-71.5); PLATELET COUNT (AUTO) 286 K/uL (152-348); RED BLOOD CELL COUNT(AUTO) 2.81 MIL/uL (4.06-5.63); WHITE BLOOD COUNT (AUTO) 12.2 K/uL (3.6-10.2)
[2020-07-08 05:31] LABS: ALANINE AMINOTRANSFERASE 65 U/L (16-63); ALKALINE PHOSPHATASE 1923 U/L (50-136); ASPARTATE AMINOTRANSFERASE 145 U/L (15-37); BILIRUBIN,TOTAL 0.8 mg/dL (0.2-1.0); CARBON DIOXIDE 30 mmol/L (21-32); CHLORIDE 105 mmol/L (98-107); CREATININE 3.1 mg/dL (0.6-1.3); GLUCOSE 118 mg/dL (74-106); MAGNESIUM 2.1 mg/dL (1.8-2.4); PHOSPHOROUS 3.8 mg/dL (2.5-4.9); POTASSIUM 3.6 mmol/L (3.5-5.1); TOTAL PROTEIN, SERUM 6.9 g/dL (6.4-8.2); UREA NITROGEN, BLOOD 55 mg/dL (7-18)
[2020-07-08] MEDS: METRONIDAZOLE 500 MG/NS 100ML 500 MG in PREMIXED 1 EACH IV SCH ×3 (05:34→21:27)
[2020-07-08] MEDS: AMIODARONE HCL 200 MG TABLET PO SCH (08:02)
[2020-07-08] MEDS: FOLIC ACID/VITAMIN B COMP W-C TABLET GT SCH (08:02)
[2020-07-08] MEDS: LINAGLIPTIN 5 MG TABLET GT SCH (08:03)
[2020-07-08] MEDS: ASCORBIC ACID 250 MG TABLET GT SCH (08:03)
[2020-07-08] MEDS: PROTEIN SUPPLEMENT (PROSTAT) 30 ML LIQUID PO SCH (08:04)
[2020-07-08] MEDS: SODIUM HYPOCHLORITE 0.125% (QUARTER STRENGTH) 473 ML BOTTLE TP SCH ×2 (08:04→08:05)
[2020-07-08] MEDS: CARVEDILOL 3.125 MG TABLET PO SCH ×2 (11:00→18:00)
--- NOTE | 2020-07-08 11:30 | NUR ---
Remy WEAVER nephrology in the unit. patient can be downgraded to CAMI status. Patient has been off levophed and is on midodrine.
--- NOTE | 2020-07-08 11:51 | NUR ---
held coreg dose due to patient being on midodrine and bp occasionally dropping.
[2020-07-08] MEDS: NEPRO 1000 ML GT PRN (12:13)
[2020-07-08] MEDS ORDERED: MEROPENEM 1 G in IV NORMAL SALINE 100 ML IV SCH (14:00)
[2020-07-08] MEDS ORDERED: MEROPENEM 0.5 G in IV NORMAL SALINE 50 ML IV SCH (14:00)
--- NOTE | 2020-07-08 14:00 | NUR ---
Doctor Sylvester in the unit to see patient. cleared for downgrade to CAMI
[2020-07-08] MEDS: MEROPENEM 500 MG in IV NORMAL SALINE 50 ML IV SCH (14:31)
--- NOTE | 2020-07-08 18:07 | NUR ---
held coreg patient is on midodrine.
[2020-07-08 18:20] LABS: BILIRUBIN,DIRECT 0.3 mg/dL (0.0-0.2); BILIRUBIN,TOTAL 0.7 mg/dL (0.2-1.0); TOTAL PROTEIN, SERUM 6.8 g/dL (6.4-8.2)
--- NOTE | 2020-07-08 20:00 | NUR ---
Con't vent to trach. Patient remains CAMI status. Con't C-diff isolation.
[2020-07-08] MEDS: INSULIN GLARGINE,HUM 300 UNITS/3 ML CARTRIDGE SQ SCH (21:18)
[2020-07-08] MEDS: ATORVASTATIN 40 MG TABLET GT SCH (21:18)
[2020-07-09] VITALS (18 sets, daily range): BP systolic 94–153; BP diastolic 28–92
[2020-07-09] MEDS: IPRATROPIUM BROMIDE 0.5 MG/2.5 ML NEBU NEB SCH ×4 (01:18→19:50)
[2020-07-09] MEDS: ALBUTEROL SULFATE 2.5 MG/3 ML NEBU NEB SCH ×4 (01:19→19:50)
[2020-07-09] MEDS: MEROPENEM 500 MG in IV NORMAL SALINE 50 ML IV SCH ×2 (02:00→14:55)
[2020-07-09 05:31] LABS: BASOPHILS # (AUTO) 0.1 K/uL (0.0-8.0); BASOPHILS % (AUTO) 1.1 % (0.0-2.0); EOSINOPHILS # (AUTO) 0.6 K/uL (0.0-0.7); EOSINOPHILS % (AUTO) 4.9 % (0.0-7.0); HEMATOCRIT 25.2 % (36.7-47.1); HEMOGLOBIN 8.2 g/dL (12.5-16.3); LYMPHOCYTES # (AUTO) 1.3 K/uL (20.0-40.0); LYMPHOCYTES % (AUTO) 10.1 % (20.5-51.5); MEAN CORPUSCULAR HEMOGLOBIN 30.5 uug (23.8-33.4); MEAN CORPUSCULAR HGB CONC 33 g/dL (32.5-36.3); MEAN CORPUSCULAR VOLUME 93.5 fL (73.0-96.2); MONOCYTES % (AUTO) 7.6 % (0.0-11.0); NEUTROPHILS # (AUTO) 10.1 K/uL (1.8-8.9); NEUTROPHILS % (AUTO) 76.3 % (38.5-71.5); PLATELET COUNT (AUTO) 355 K/uL (152-348); WHITE BLOOD COUNT (AUTO) 13.2 K/uL (3.6-10.2)
[2020-07-09] MEDS: METRONIDAZOLE 500 MG/NS 100ML 500 MG in PREMIXED 1 EACH IV SCH ×3 (05:35→21:04)
[2020-07-09] MEDS: VANCOMYCIN FOR PO/GT/NG USE GT SCH ×3 (05:37→21:04)
[2020-07-09] MEDS: MIDODRINE HCL 5 MG TABLET PO SCH ×3 (05:38→21:05)
[2020-07-09 05:45] LABS: CARBON DIOXIDE 28 mmol/L (21-32); CHLORIDE 106 mmol/L (98-107); CREATININE 3.5 mg/dL (0.6-1.3); GLUCOSE 212 mg/dL (74-106); PHOSPHOROUS 4.6 mg/dL (2.5-4.9); POTASSIUM 3.8 mmol/L (3.5-5.1); UREA NITROGEN, BLOOD 64 mg/dL (7-18)
[2020-07-09] MEDS: BLOOD SUGAR DIAGNOSTIC 1 EACH STRIP VI SCH ×3 (06:03→17:48)
[2020-07-09] MEDS: INSULIN REGULAR, HUMAN 300 UNIT/3 ML VIAL SQ PRN (06:05)
--- NOTE | 2020-07-09 07:25 | NUR ---
PT RECEIVED TRACH TO VENT ON CMV, HA #8 TRACH IS PATENT AND SECURE. SETTINGS OF A/C 18, VT 500, PEEP +5, AND 30% FIO2. NO RESP. DISTRESS NOTED. PATIENT IS AFIB ON THE MONITOR, SATURATION 100%, FLEXISEAL AND GIBSON INTACT, TUBE FEEDING OFF AT THIS TIME. AIR MATTRESS INFLATED, BED IN LOW POSITION, SIDE RAILS UPX2.
[2020-07-09] MEDS: LINAGLIPTIN 5 MG TABLET GT SCH (09:13)
[2020-07-09] MEDS: FOLIC ACID/VITAMIN B COMP W-C TABLET GT SCH (09:13)
[2020-07-09] MEDS: PROTEIN SUPPLEMENT (PROSTAT) 30 ML LIQUID PO SCH (09:13)
[2020-07-09] MEDS: AMIODARONE HCL 200 MG TABLET PO SCH (09:13)
[2020-07-09] MEDS: SODIUM HYPOCHLORITE 0.125% (QUARTER STRENGTH) 473 ML BOTTLE TP SCH ×2 (09:13)
[2020-07-09] MEDS: ASCORBIC ACID 250 MG TABLET GT SCH (09:13)
--- NOTE | 2020-07-09 12:00 | NUR ---
FULL BED BATH GIVEN, AND WOUND CARE PERFORMED ON SACRAL ULCER IT IS SOILED. PATIENT TOLERATED WELL.
[2020-07-09] MEDS: IV NORMAL SALINE 250 ML IV PRN (17:50)
--- NOTE | 2020-07-09 18:38 | NUR ---
PT CONTINUES TO BE ON TRACH TO VENT ON CMV, SHILEY #8 TRACH IS PATENT AND SECURE. PT IS ON A FRAGOSO VENT ON SETTINGS OF A/C 18, VT 500, PEEP +5, AND 30% FIO2. AFIB ON THE MONITOR, SATURATION 100%, FLEXISEAL AND GIBSON INTACT, BED IN LOW POSITION, SIDE RAILS UPX2. PATIENT RECEIVED DIALYSIS TODAY AND CONTINUES TO HAVE GENERALIZED PITTING EDEMA. Addendum: 07/09/20 at 1847 by HARSHA KESSLER RN PATIENT IS HEMODYNAMICALLY STABLE, AND OFF OF iv PRESSORS.
--- NOTE | 2020-07-09 20:00 | NUR ---
Pt resting on bed; trache to vent; trache care done; suctioned patient's secretion; repositioned.
[2020-07-09] MEDS: INSULIN GLARGINE,HUM 300 UNITS/3 ML CARTRIDGE SQ SCH (21:04)
[2020-07-09] MEDS: ATORVASTATIN 40 MG TABLET GT SCH (21:07)
[2020-07-10] VITALS (11 sets, daily range): BP systolic 117–141; BP diastolic 47–75
[2020-07-10] MEDS: BLOOD SUGAR DIAGNOSTIC 1 EACH STRIP VI SCH ×4 (00:12→18:37)
[2020-07-10] MEDS: IPRATROPIUM BROMIDE 0.5 MG/2.5 ML NEBU NEB SCH ×4 (01:22→19:48)
[2020-07-10] MEDS: ALBUTEROL SULFATE 2.5 MG/3 ML NEBU NEB SCH ×4 (01:22→19:48)
[2020-07-10] MEDS: MEROPENEM 500 MG in IV NORMAL SALINE 50 ML IV SCH (01:31)
--- NOTE | 2020-07-10 04:00 | NUR ---
With help from floor ACCOUNTS RECEIVABLE MANAGER, pt had a bed bath; suctioned secretions; dressing to sacrum intact; VS wnl; continue to monitor;
[2020-07-10] MEDS: METRONIDAZOLE 500 MG/NS 100ML 500 MG in PREMIXED 1 EACH IV SCH ×3 (05:00→21:52)
[2020-07-10] MEDS: VANCOMYCIN FOR PO/GT/NG USE GT SCH ×3 (05:00→21:51)
[2020-07-10] MEDS: INSULIN REGULAR, HUMAN 300 UNIT/3 ML VIAL SQ PRN ×2 (05:17→12:06)
[2020-07-10] MEDS: MIDODRINE HCL 5 MG TABLET PO SCH ×3 (05:21→21:53)
[2020-07-10 05:55] LABS: BASOPHILS # (AUTO) 0.2 K/uL (0.0-8.0); BASOPHILS % (AUTO) 0.9 % (0.0-2.0); EOSINOPHILS # (AUTO) 0.7 K/uL (0.0-0.7); HEMATOCRIT 23.6 % (36.7-47.1); HEMOGLOBIN 7.6 g/dL (12.5-16.3); LYMPHOCYTES # (AUTO) 1.9 K/uL (20.0-40.0); LYMPHOCYTES % (AUTO) 10.8 % (20.5-51.5); MEAN CORPUSCULAR HEMOGLOBIN 30.3 uug (23.8-33.4); MEAN CORPUSCULAR HGB CONC 32 g/dL (32.5-36.3); MEAN CORPUSCULAR VOLUME 94.2 fL (73.0-96.2); MONOCYTES # (AUTO) 1.2 K/uL (2.0-10.0); MONOCYTES % (AUTO) 6.7 % (0.0-11.0); NEUTROPHILS # (AUTO) 13.5 K/uL (1.8-8.9); NEUTROPHILS % (AUTO) 77.6 % (38.5-71.5); PLATELET COUNT (AUTO) 359 K/uL (152-348); RED BLOOD CELL COUNT(AUTO) 2.51 MIL/uL (4.06-5.63); WHITE BLOOD COUNT (AUTO) 17.5 K/uL (3.6-10.2)
[2020-07-10 05:58] LABS: CARBON DIOXIDE 29 mmol/L (21-32); CHLORIDE 105 mmol/L (98-107); CREATININE 3.3 mg/dL (0.6-1.3); GLUCOSE 180 mg/dL (74-106); PHOSPHOROUS 4.8 mg/dL (2.5-4.9); POTASSIUM 3.9 mmol/L (3.5-5.1); UREA NITROGEN, BLOOD 52 mg/dL (7-18)
[2020-07-10 06:13] LABS: BILIRUBIN,DIRECT 0.3 mg/dL (0.0-0.2); BILIRUBIN,TOTAL 0.6 mg/dL (0.2-1.0); TOTAL PROTEIN, SERUM 7.4 g/dL (6.4-8.2)
--- NOTE | 2020-07-10 06:13 | NUR ---
bp 120/40; midodrine given as scheduled.
[2020-07-10] MEDS: PROTEIN SUPPLEMENT (PROSTAT) 30 ML LIQUID PO SCH (09:03)
[2020-07-10] MEDS: ASCORBIC ACID 250 MG TABLET GT SCH (09:03)
[2020-07-10] MEDS: FOLIC ACID/VITAMIN B COMP W-C TABLET GT SCH (09:03)
[2020-07-10] MEDS: LINAGLIPTIN 5 MG TABLET GT SCH (09:03)
[2020-07-10] MEDS: SODIUM HYPOCHLORITE 0.125% (QUARTER STRENGTH) 473 ML BOTTLE TP SCH ×2 (09:07)
[2020-07-10] MEDS: NEPRO 1000 ML GT PRN ×2 (11:34→20:49)
--- NOTE | 2020-07-10 11:46 | NUR ---
telephone report given to Shauna Villafuerte who will continue with care plan.
[2020-07-10] MEDS: CEFTAZIDIME 1 G in IV DEXTROSE 5% 50 ML IV SCH (21:01)
[2020-07-10] MEDS: ATORVASTATIN 40 MG TABLET GT SCH (21:02)
[2020-07-10] MEDS: INSULIN GLARGINE,HUM 300 UNITS/3 ML CARTRIDGE SQ SCH (21:20)
[2020-07-11 00:03] VITALS: BP 150/66
[2020-07-11] MEDS: BLOOD SUGAR DIAGNOSTIC 1 EACH STRIP VI SCH ×4 (00:30→18:03)
[2020-07-11] MEDS: INSULIN REGULAR, HUMAN 300 UNIT/3 ML VIAL SQ PRN ×2 (00:31→05:28)
[2020-07-11] MEDS: ALBUTEROL SULFATE 2.5 MG/3 ML NEBU NEB SCH ×4 (01:36→19:25)
[2020-07-11] MEDS: IPRATROPIUM BROMIDE 0.5 MG/2.5 ML NEBU NEB SCH ×4 (01:36→19:25)
[2020-07-11] MEDS: METRONIDAZOLE 500 MG/NS 100ML 500 MG in PREMIXED 1 EACH IV SCH ×3 (05:14→22:12)
[2020-07-11] MEDS: VANCOMYCIN FOR PO/GT/NG USE GT SCH ×3 (05:15→21:19)
[2020-07-11] MEDS: MIDODRINE HCL 5 MG TABLET PO SCH (05:16)
[2020-07-11 05:36] VITALS: BP 131/63
--- NOTE | 2020-07-11 06:42 | NUR ---
Shift End Report: Vs stable. Not in distress. Tolerating vent setting well, not in any sign of respiratory distress. GT feeding continuos without s/s of aspiration. Flexi-seal flush twice as needed. Wound care done to affected areas. Continue plan of cafre.
[2020-07-11 08:00] VITALS: BP 99/43
[2020-07-11] MEDS: ASCORBIC ACID 250 MG TABLET GT SCH (09:56)
[2020-07-11] MEDS: CEFTAZIDIME 1 G in IV DEXTROSE 5% 50 ML IV SCH ×2 (09:57→21:14)
[2020-07-11] MEDS: FOLIC ACID/VITAMIN B COMP W-C TABLET GT SCH (09:57)
[2020-07-11] MEDS: LINAGLIPTIN 5 MG TABLET GT SCH (09:57)
[2020-07-11] MEDS: PROTEIN SUPPLEMENT (PROSTAT) 30 ML LIQUID PO SCH (09:59)
[2020-07-11] MEDS: SODIUM HYPOCHLORITE 0.125% (QUARTER STRENGTH) 473 ML BOTTLE TP SCH ×2 (10:01→10:02)
[2020-07-11 10:24] LABS: BASOPHILS # (AUTO) 0.1 K/uL (0.0-8.0); BASOPHILS % (AUTO) 0.7 % (0.0-2.0); EOSINOPHILS # (AUTO) 0.4 K/uL (0.0-0.7); EOSINOPHILS % (AUTO) 3.8 % (0.0-7.0); HEMATOCRIT 24.2 % (36.7-47.1); HEMOGLOBIN 7.5 g/dL (12.5-16.3); LYMPHOCYTES # (AUTO) 1.3 K/uL (20.0-40.0); LYMPHOCYTES % (AUTO) 11.6 % (20.5-51.5); MEAN CORPUSCULAR HEMOGLOBIN 30.5 uug (23.8-33.4); MEAN CORPUSCULAR HGB CONC 31 g/dL (32.5-36.3); MEAN CORPUSCULAR VOLUME 97.8 fL (73.0-96.2); MONOCYTES # (AUTO) 0.9 K/uL (2.0-10.0); MONOCYTES % (AUTO) 7.6 % (0.0-11.0); NEUTROPHILS # (AUTO) 8.5 K/uL (1.8-8.9); NEUTROPHILS % (AUTO) 76.3 % (38.5-71.5); PLATELET COUNT (AUTO) 341 K/uL (152-348); WHITE BLOOD COUNT (AUTO) 11.2 K/uL (3.6-10.2)
[2020-07-11 10:25] LABS: RED BLOOD CELL COUNT(AUTO) 2.47 MIL/uL (4.06-5.63)
[2020-07-11 10:51] LABS: CARBON DIOXIDE 25 mmol/L (21-32); CHLORIDE 105 mmol/L (98-107); CREATININE 3.7 mg/dL (0.6-1.3); GLUCOSE 162 mg/dL (74-106); PHOSPHOROUS 4.9 mg/dL (2.5-4.9); UREA NITROGEN, BLOOD 63 mg/dL (7-18)
[2020-07-11 12:00] VITALS: BP 127/69
[2020-07-11 16:00] VITALS: BP 136/59
--- NOTE | 2020-07-11 18:50 | NUR ---
Neuro: AAOx0, nonverbal, obtunded Cardio: Afib Resp: vent dependent, trach shiley #8 spo2 99-100% Skin: no new skin issues, dressings changed, refer to flowsheet GI: rectal tube, G-tube w/ nepro running at 55cc/hr w/ h2o 250q4h waterflush : herring cath [place]: bedrest, pt turned q2h New: no new changes Plan: AM labs, o2, isolation precautions, IV abx, IV flagyl, wound care, trach care, suction PRN
[2020-07-11 20:00] VITALS: BP 141/56
[2020-07-11] MEDS: ATORVASTATIN 40 MG TABLET GT SCH (21:13)
[2020-07-11] MEDS: INSULIN GLARGINE,HUM 300 UNITS/3 ML CARTRIDGE SQ SCH (21:18)
[2020-07-12] VITALS: BP 122/52
[2020-07-12] MEDS: BLOOD SUGAR DIAGNOSTIC 1 EACH STRIP VI SCH ×5 (00:19→23:17)
[2020-07-12] MEDS: INSULIN REGULAR, HUMAN 300 UNIT/3 ML VIAL SQ PRN ×4 (00:21→23:19)
[2020-07-12] MEDS: IPRATROPIUM BROMIDE 0.5 MG/2.5 ML NEBU NEB SCH ×4 (01:33→19:52)
[2020-07-12] MEDS: ALBUTEROL SULFATE 2.5 MG/3 ML NEBU NEB SCH ×4 (01:34→19:53)
[2020-07-12 04:29] VITALS: BP 145/53
[2020-07-12] MEDS: VANCOMYCIN FOR PO/GT/NG USE GT SCH ×3 (05:19→21:45)
[2020-07-12] MEDS: METRONIDAZOLE 500 MG/NS 100ML 500 MG in PREMIXED 1 EACH IV SCH ×3 (05:19→21:46)
[2020-07-12 07:34] LABS: BASOPHILS # (AUTO) 0.1 K/uL (0.0-8.0); BASOPHILS % (AUTO) 0.6 % (0.0-2.0); EOSINOPHILS # (AUTO) 0.7 K/uL (0.0-0.7); EOSINOPHILS % (AUTO) 6.2 % (0.0-7.0); HEMATOCRIT 21.3 % (36.7-47.1); LYMPHOCYTES # (AUTO) 1.3 K/uL (20.0-40.0); LYMPHOCYTES % (AUTO) 11.8 % (20.5-51.5); MEAN CORPUSCULAR HEMOGLOBIN 31.2 uug (23.8-33.4); MEAN CORPUSCULAR HGB CONC 33 g/dL (32.5-36.3); MEAN CORPUSCULAR VOLUME 94.8 fL (73.0-96.2); MONOCYTES # (AUTO) 0.7 K/uL (2.0-10.0); MONOCYTES % (AUTO) 6.2 % (0.0-11.0); NEUTROPHILS # (AUTO) 8.1 K/uL (1.8-8.9); NEUTROPHILS % (AUTO) 75.2 % (38.5-71.5); PLATELET COUNT (AUTO) 310 K/uL (152-348); WHITE BLOOD COUNT (AUTO) 10.7 K/uL (3.6-10.2)
[2020-07-12 07:50] LABS: CARBON DIOXIDE 26 mmol/L (21-32); CHLORIDE 103 mmol/L (98-107); GLUCOSE 176 mg/dL (74-106); PHOSPHOROUS 5.4 mg/dL (2.5-4.9); POTASSIUM 3.9 mmol/L (3.5-5.1); UREA NITROGEN, BLOOD 74 mg/dL (7-18)
[2020-07-12] MEDS: LINAGLIPTIN 5 MG TABLET GT SCH (08:34)
[2020-07-12] MEDS: ASCORBIC ACID 250 MG TABLET GT SCH (08:34)
[2020-07-12] MEDS: FOLIC ACID/VITAMIN B COMP W-C TABLET GT SCH (08:34)
[2020-07-12] MEDS: CEFTAZIDIME 1 G in IV DEXTROSE 5% 50 ML IV SCH ×2 (08:35→20:38)
[2020-07-12] MEDS: SODIUM HYPOCHLORITE 0.125% (QUARTER STRENGTH) 473 ML BOTTLE TP SCH ×3 (08:38→20:00)
[2020-07-12] MEDS: PROTEIN SUPPLEMENT (PROSTAT) 30 ML LIQUID PO SCH (08:39)
[2020-07-12 09:05] LABS: RED BLOOD CELL COUNT(AUTO) 2.25 MIL/uL (4.06-5.63)
[2020-07-12 12:00] VITALS: BP 141/59
[2020-07-12 16:00] VITALS: BP 141/47
[2020-07-12 16:29] LABS: HEMATOCRIT 22.3 % (36.7-47.1)
[2020-07-12 16:33] LABS: HEMOGLOBIN 7.2 g/dL (12.5-16.3)
[2020-07-12 20:06] VITALS: BP 138/50
[2020-07-12] MEDS: INSULIN GLARGINE,HUM 300 UNITS/3 ML CARTRIDGE SQ SCH (20:38)
[2020-07-12] MEDS: ATORVASTATIN 40 MG TABLET GT SCH (21:45)
[2020-07-13 00:06] VITALS: BP 143/63
[2020-07-13] MEDS: IPRATROPIUM BROMIDE 0.5 MG/2.5 ML NEBU NEB SCH ×3 (01:14→14:39)
[2020-07-13] MEDS: ALBUTEROL SULFATE 2.5 MG/3 ML NEBU NEB SCH ×3 (01:14→14:38)
[2020-07-13 04:58] VITALS: BP 123/49
[2020-07-13] MEDS: VANCOMYCIN FOR PO/GT/NG USE GT SCH ×2 (05:27→13:23)
[2020-07-13] MEDS: METRONIDAZOLE 500 MG/NS 100ML 500 MG in PREMIXED 1 EACH IV SCH ×2 (05:33→13:05)
[2020-07-13] MEDS: INSULIN REGULAR, HUMAN 300 UNIT/3 ML VIAL SQ PRN ×2 (05:55→11:22)
[2020-07-13] MEDS: BLOOD SUGAR DIAGNOSTIC 1 EACH STRIP VI SCH ×2 (06:03→11:19)
[2020-07-13 06:29] LABS: BASOPHILS # (AUTO) 0.1 K/uL (0.0-8.0); BASOPHILS % (AUTO) 0.5 % (0.0-2.0); EOSINOPHILS # (AUTO) 0.5 K/uL (0.0-0.7); EOSINOPHILS % (AUTO) 4.6 % (0.0-7.0); HEMATOCRIT 22.7 % (36.7-47.1); LYMPHOCYTES # (AUTO) 1.4 K/uL (20.0-40.0); LYMPHOCYTES % (AUTO) 12.5 % (20.5-51.5); MEAN CORPUSCULAR HEMOGLOBIN 30.7 uug (23.8-33.4); MEAN CORPUSCULAR HGB CONC 33 g/dL (32.5-36.3); MEAN CORPUSCULAR VOLUME 94.5 fL (73.0-96.2); MONOCYTES # (AUTO) 0.7 K/uL (2.0-10.0); MONOCYTES % (AUTO) 6.4 % (0.0-11.0); NEUTROPHILS # (AUTO) 8.6 K/uL (1.8-8.9); PLATELET COUNT (AUTO) 333 K/uL (152-348); WHITE BLOOD COUNT (AUTO) 11.3 K/uL (3.6-10.2)
[2020-07-13 06:35] LABS: HEMOGLOBIN 7.4 g/dL (12.5-16.3)
[2020-07-13 06:49] LABS: ALANINE AMINOTRANSFERASE 18 U/L (16-63); ALKALINE PHOSPHATASE 905 U/L (50-136); ASPARTATE AMINOTRANSFERASE 41 U/L (15-37); BILIRUBIN,TOTAL 0.5 mg/dL (0.2-1.0); CARBON DIOXIDE 24 mmol/L (21-32); CHLORIDE 103 mmol/L (98-107); CREATININE 4.5 mg/dL (0.6-1.3); GLUCOSE 202 mg/dL (74-106); TOTAL PROTEIN, SERUM 6.9 g/dL (6.4-8.2)
--- NOTE | 2020-07-13 06:49 | NUR ---
Pt rested well in between care; suctioned trache and oral secretions; repositioned q2h; dressing to sacrum changed twice; no residual from FT; GT now off and to be on at 0800H; continue to monitor;
[2020-07-13] MEDS: LINAGLIPTIN 5 MG TABLET GT SCH (08:09)
[2020-07-13] MEDS: FOLIC ACID/VITAMIN B COMP W-C TABLET GT SCH (08:09)
[2020-07-13] MEDS: ASCORBIC ACID 250 MG TABLET GT SCH (08:09)
[2020-07-13] MEDS: CEFTAZIDIME 1 G in IV DEXTROSE 5% 50 ML IV SCH (08:10)
[2020-07-13] MEDS: SODIUM HYPOCHLORITE 0.125% (QUARTER STRENGTH) 473 ML BOTTLE TP SCH ×2 (08:10→08:11)
[2020-07-13] MEDS: PROTEIN SUPPLEMENT (PROSTAT) 30 ML LIQUID PO SCH (08:11)
[2020-07-13 08:48] LABS: UREA NITROGEN, BLOOD 81 mg/dL (7-18)
[2020-07-13] MEDS ORDERED: METOPROLOL SUCCINATE XL 25 MG TAB.SR.24H PO SCH (09:00)
[2020-07-13] MEDS ORDERED: METOPROLOL TARTRATE 25 MG TABLET GT SCH (11:00)
[2020-07-13 12:00] VITALS: BP 132/75
[2020-07-13] MEDS ORDERED: METO25TA6 GT (13:14)
[2020-07-13 15:58] VITALS: BP 142/47
--- NOTE | 2020-07-13 18:12 | NUR ---
PATIENT SCHEDULED TO BE DISCHARGE TO [facility]. REPORT GIVEN TO ADAM SALCIDO AND AMBULANCE CCT RN. VSS. PHOTOS TAKEN AND IN CHART. DRESSINGS CHANGED PER WOUND NURSE INSTRUCTIONS. BELONGINGS LIST SIGNED. DISCHARGE PAPERWORK GIVEN TO AMBULANCE PERSONNEL. ID BAND REMOVED. NO S/S OF DISTRESS NOTED AT THIS TIME.
== END 2020-07-13 18:15 | DRG 853 ==
LOC: ER 18:11 → TRANSITION 22:45 → UNDOADMIN 06-22 07:41 → TRANSITION 06-22 07:41 → CCU 06-24 10:35 → MEDSURG3 07-10 13:19 → TELE-TD3 07-10 13:33
PROVIDERS: ADMIT Internal Medicine; ATTEND Internal Medicine
PROC: 5A1955Z Respiratory Ventilation, Greater than 96 Consecutive Hours (ICD-10-PCS; 2020-06-21)
PROC: 03L Upper Arteries, Occlusion (ICD-10-PCS; principal; 2020-06-22)
PROC: 5A1D70Z Performance of Urinary Filtration, Intermittent, Less than 6 Hours Per Day (ICD-10-PCS; 2020-06-22)
PROC: 0QB10ZZ Excision of Sacrum, Open Approach (ICD-10-PCS; 2020-07-05)
PROC: 0JB90ZZ Excision of Buttock Subcutaneous Tissue and Fascia, Open Approach (ICD-10-PCS; 2020-07-05)
PROC: 30233N1 Transfusion of Nonautologous Red Blood Cells into Peripheral Vein, Percutaneous Approach (ICD-10-PCS; 2020-07-08)
DX: A41.9 Sepsis, unspecified organism (principal); L89.154 Pressure ulcer of sacral region, stage 4; L89.313 Pressure ulcer of right buttock, stage 3; N18.6 End stage renal disease; J96.20 Acute and chronic respiratory failure, unspecified whether with hypoxia or hypercapnia; R65.21 Severe sepsis with septic shock; J15.6 Pneumonia due to other Gram-negative bacteria; T82.838A Hemorrhage due to vascular prosthetic devices, implants and grafts, initial encounter; A04.72 Enterocolitis due to Clostridium difficile, not specified as recurrent; G93.49 Other encephalopathy; Z99.11 Dependence on respirator [ventilator] status; J98.11 Atelectasis; L97.418 Non-pressure chronic ulcer of right heel and midfoot with other specified severity; L97.428 Non-pressure chronic ulcer of left heel and midfoot with other specified severity; B37.49 Other urogenital candidiasis; I12.0 Hypertensive chronic kidney disease with stage 5 chronic kidney disease or end stage renal disease; N25.81 Secondary hyperparathyroidism of renal origin; E87.0 Hyperosmolality and hypernatremia; G93.1 Anoxic brain damage, not elsewhere classified; I72.1 Aneurysm of artery of upper extremity; E11.22 Type 2 diabetes mellitus with diabetic chronic kidney disease; Z99.2 Dependence on renal dialysis; Z79.4 Long term (current) use of insulin; D64.9 Anemia, unspecified; K21.9 Gastro-esophageal reflux disease without esophagitis; K76.0 Fatty (change of) liver, not elsewhere classified; M89.9 Disorder of bone, unspecified; Y71.2 Prosthetic and other implants, materials and accessory cardiovascular devices associated with adverse incidents; Y92.129 Unspecified place in nursing home as the place of occurrence of the external cause; Z86.16 Personal history of COVID-19; Z74.01 Bed confinement status; Z20.822 Contact with and (suspected) exposure to COVID-19; Z87.820 Personal history of traumatic brain injury; Z93.1 Gastrostomy status; Z93.0 Tracheostomy status; Z86.74 Personal history of sudden cardiac arrest; I48.91 Unspecified atrial fibrillation; E11.621 Type 2 diabetes mellitus with foot ulcer; R94.31 Abnormal electrocardiogram [ECG] [EKG]; R74.01 Elevation of levels of liver transaminase levels; E83.9 Disorder of mineral metabolism, unspecified; Z89.422 Acquired absence of other left toe(s); Z89.421 Acquired absence of other right toe(s); D50.9 Iron deficiency anemia, unspecified; K82.8 Other specified diseases of gallbladder; R13.10 Dysphagia, unspecified; Y84.1 Kidney dialysis as the cause of abnormal reaction of the patient, or of later complication, without mention of misadventure at the time of the procedure; E11.51 Type 2 diabetes mellitus with diabetic peripheral angiopathy without gangrene; E11.42 Type 2 diabetes mellitus with diabetic polyneuropathy; E78.5 Hyperlipidemia, unspecified; I95.9 Hypotension, unspecified
CPT/HCPCS: 36415; 36600; 70030-TC; 71045; 72220; 76700; 83605; 83735; 84100; 85018; 85025; 85651; 85730; 86706; 86850; 86900; 86901; 86920; 87040; 87070; 87077; 87086; 87340; 90937; 93005; 93307; 94002; 94003; 94640; 94664; A4217; A4663; G0378; J0282; J0456; J0692; J0696; J0713; J1815; J2185; J3370; J3490; J3590; J7030; J7040; J7050; J7060; P9016-BL; P9021; P9047; U0003

== ENCOUNTER 2021-01-14 14:35 | Inpatient (IN) | payer MEDICARE, OTHER ==
[~2021-01-14] VITALS: Ht 170.2 cm; Wt 97.5 kg
[~2021-01-14 14:35] MED LIST: ACET325C7 GT; ARGI500P3 GT; ASCO500C18 GT; ASPI81TA31 GT; ATOR40TA GT; BISA10SU61 RC; CARV3.122 GT; DOCU100C36 GT; FOLI0.8T2 GT; INSU100V28 SQ; INSU100V7 SQ; LINA5TAB GT; METO25TA6 GT; MIDO5TAB4 GT; OMEP20TA5 GT; PROSOURCE PO
[2021-01-14] MEDS ORDERED: CLINDAMYCIN PHOSPHATE IV 600 MG in IV DEXTROSE 5% 100 ML IV ONE (15:30)
[2021-01-14] MEDS ORDERED: CEFTRIAXONE 1 G in IV DEXTROSE 5% 50 ML IV ONE (15:30)
[2021-01-14] MEDS ORDERED: VANCOMYCIN IV 1,000 MG in IV DEXTROSE 5% 250 ML IV ONE (15:30)
--- NOTE | 2021-01-14 16:04 | NUR ---
PT IS IN ROOM #1B. DR SHIN EVALUATED THE PT.
[2021-01-14 16:18] LABS: CARBON DIOXIDE 26 mmol/L (21-32); CHLORIDE 97 mmol/L (98-107); CREATININE 2.6 mg/dL (0.6-1.3); GLUCOSE 93 mg/dL (74-106); MEAN CORPUSCULAR HEMOGLOBIN 26.3 uug (23.8-33.4); MEAN CORPUSCULAR VOLUME 88.8 fL (73.0-96.2); PLATELET COUNT (AUTO) 430 K/uL (152-348); POTASSIUM 3.3 mmol/L (3.5-5.1); UREA NITROGEN, BLOOD 59 mg/dL (7-18)
[2021-01-14 16:21] LABS: HEMATOCRIT 20.1 % (36.7-47.1)
[2021-01-14 16:31] LABS: ALANINE AMINOTRANSFERASE 15 U/L (16-63); ALKALINE PHOSPHATASE 380 U/L (50-136); ASPARTATE AMINOTRANSFERASE 21 U/L (15-37); BILIRUBIN,DIRECT 0.2 mg/dL (0.0-0.2); BILIRUBIN,TOTAL 0.3 mg/dL (0.2-1.0); TOTAL PROTEIN, SERUM 8.3 g/dL (6.4-8.2)
[2021-01-14] MEDS ORDERED: CEFTRIAXONE /D5W 50ML IVPB **ER PYXIS IV ONE (16:41)
[2021-01-14] MEDS ORDERED: CLINDAMYCIN PHOSPHATE 600 MG/4 ML VIAL ONE (16:42)
[2021-01-14] MEDS ORDERED: VANCOMYCIN IV 200 ML ONE (16:43)
[2021-01-14 16:56] LABS: LYMPHOCYTES % (MANUAL) 11 % (20-40); MONOCYTES % (MANUAL) 7 % (2-10); NEUTROPHILS % (MANUAL) 71 % (42-75)
[2021-01-14 16:57] LABS: EOSINOPHILS % (MANUAL) 11 % (0-8)
--- NOTE | 2021-01-14 19:11 | NUR ---
REPORT GIVEN TO FEEDER/FOLDER RN.
--- NOTE | 2021-01-14 21:23 | NUR ---
Report given to Nurse Cooper. Pt being prepared to go upstairs to assigned room at this time. room 310.
--- NOTE | 2021-01-14 21:55 | NUR ---
Received patient from ER via gurney. patient is A/O x0, eyes open spontaneously, but doesn't seem to react much to voice commands. Patient is a chronic trach to vent with a Portex 8, AC 18, Vt 500, Urs236%, PEEP 0, SAT 97%. Patient arrived on no IV drips. 20g IV placed in the right chest in the ER. Right groin Manjinder catheter. Left arm AV Shunt present. 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 Extensive full thickness injuries present on the sacrum, left and right buttocks, and right hip(trochanter area). Numerous other pressure injuries, most covered in eschar on both ankles and feet. No Stuart as patient is anuric. No signs of SOB or respiratory distress.
[2021-01-14] MEDS ORDERED: DOCUSATE SODIUM 100 MG/10 ML LIQUID UDC GT PRN (22:45)
[2021-01-14] MEDS ORDERED: BISACODYL 10 MG SUPP.RECT RC PRN (22:45)
[2021-01-14] MEDS ORDERED: MORPHINE SULFATE 2 MG/1 ML DISP.SYRIN IV PRN (23:00)
[2021-01-14] MEDS ORDERED: Z GUARD REMEDY PASTE 57 GM TUBE TOP PRN (23:00)
[2021-01-14] MEDS ORDERED: ONDANSETRON 4 MG/2 ML VIAL IV PRN (23:00)
[2021-01-14 23:06] VITALS: BP 130/36
--- NOTE | 2021-01-14 23:12 | NUR ---
RECEIVED PATIENT IN ER ON A VENTILATOR WITH THE FOLLOWING SETTINGS THAT ARE CHARTED ON THE MECHANICAL VENTILATOR NOTES. PATIENT HAS A PORTEX 8. TRANSPORTED PATIENT VIA VENTILATOR TO ROOM 310, ASSISTED BY ANNA HERNANDEZ AND KATALINA RN. NO INCIDENT DURING AND AFTER TRANSPORT. PATIENT IS TOLERATING CURRENT VENTILATOR SETTINGS WELL WITH NO SOB NOTED AT THIS TIME. ALARMS ARE ON AND AUDIBLE. VENTILATOR IS PLUGGED IN RED EMERGENCY OUTLET. WILL CONTINUE TO MONITOR THROUGHOUT SHIFT.
[2021-01-14] MEDS ORDERED: MEROPENEM 500 MG in IV NORMAL SALINE 50 ML IV ONE (23:30)
[2021-01-14] MEDS ORDERED: MEROPENEM 500 MG VIAL IV ONE (23:53)
[2021-01-15] VITALS (11 sets, daily range): BP systolic 110–158; BP diastolic 44–62
[2021-01-15] MEDS: BLOOD SUGAR DIAGNOSTIC 1 EACH STRIP VI SCH ×5 (00:38→23:57)
[2021-01-15] MEDS: ACETAMINOPHEN 650 MG/20.3 ML LIQUID UDC GT PRN (01:10)
--- NOTE | 2021-01-15 03:20 | NUR ---
Blood transfusion complete, patient tolerated well. No signs of reaction, VS stable.
[2021-01-15 05:22] LABS: HEMATOCRIT 22.6 % (36.7-47.1); MEAN CORPUSCULAR HEMOGLOBIN 27.2 uug (23.8-33.4); MEAN CORPUSCULAR VOLUME 87.9 fL (73.0-96.2); PLATELET COUNT (AUTO) 376 K/uL (152-348)
[2021-01-15 05:24] LABS: IRON, SERUM 25 ug/dL (50-175)
[2021-01-15 05:27] LABS: ALANINE AMINOTRANSFERASE 11 U/L (16-63); ALKALINE PHOSPHATASE 315 U/L (50-136); ASPARTATE AMINOTRANSFERASE 22 U/L (15-37); BILIRUBIN,TOTAL 0.4 mg/dL (0.2-1.0); CARBON DIOXIDE 25 mmol/L (21-32); CHLORIDE 98 mmol/L (98-107); CHOLESTEROL < 50 mg/dL (<200); GLUCOSE 92 mg/dL (74-106); HDL CHOLESTEROL 18 mg/dL (40-60); PHOSPHOROUS 3.3 mg/dL (2.5-4.9); POTASSIUM 3.5 mmol/L (3.5-5.1); TOTAL PROTEIN, SERUM 8.1 g/dL (6.4-8.2); TRIGLYCERIDES 45 MG/DL (30-150); UREA NITROGEN, BLOOD 61 mg/dL (7-18)
[2021-01-15] MEDS: PANTOPRAZOLE ORAL SUSPENSION 40 MG SUSPDR.PKT GT SCH (06:57)
[2021-01-15] MEDS ORDERED: BISACODYL 10 MG SUPP.RECT RC PRN (07:15)
--- NOTE | 2021-01-15 07:20 | NUR ---
Pt received in bed, laying semi-Ramirez's, unable to communicate, obtunded.. Trach: Portex 8, in place and secure with ties at this time.. mechanically ventilated with vent: Sinha, settings A/C 18, vt 500, FiO2 30%, tolerating well, will continue to monitor.. Vent alarms on and audible at this time, functioning properly at this time..
[2021-01-15] MEDS: LINAGLIPTIN 5 MG TABLET GT SCH (08:56)
[2021-01-15] MEDS: FOLIC ACID/VITAMIN B COMP W-C TABLET GT SCH (08:56)
[2021-01-15] MEDS: Z GUARD REMEDY PASTE 57 GM TUBE TOP SCH ×2 (08:59→21:02)
[2021-01-15] MEDS: PROTEIN SUPPLEMENT (PROSTAT) 30 ML LIQUID GT SCH ×2 (08:59→17:36)
[2021-01-15] MEDS ORDERED: ASPIRIN 81 MG TAB.CHEW GT SCH (09:00)
[2021-01-15] MEDS ORDERED: METOPROLOL TARTRATE 25 MG TABLET GT SCH (09:00)
[2021-01-15] MEDS: CARVEDILOL 3.125 MG TABLET GT SCH ×2 (09:00→17:35)
[2021-01-15] MEDS: MIDODRINE HCL 5 MG TABLET GT SCH ×3 (09:05→17:00)
--- NOTE | 2021-01-15 11:13 | NUR ---
WOUND CARE CONSULT: PT PRESENTS WITH MULTIPLE PRESSURE ULCERS AND SKIN ISSUES PRESENT ON ADMISSION INCLUDING LOWER EXTREMITY WOUNDS AND FOUL PURULENT STAGE 4 ULCER TO SACRUM AND RT HIP. DR PARUL SARAVIA AND DR HERNANDEZ NOTIFIED OF SURGICAL AND DPM CONSULT REQUESTS. RECOMMENDATIONS MADE FOR WOUND CARE AND SKIN PROTECTION. DISCUSSED WITH NURSING STAFF. DEFER TO DPM FOR LOWER EXTREMITIES. FIRST STEP LOW AIRLOSS MATTRESS IS ON ORDER. MD IN AGREEMENT WITH PLAN OF CARE. Addendum: 01/15/21 at 1122 by OTTONIEL REEVES RN GENERALIZED EDEMA NOTED. PT IS INCONTINENT OF SOFT STOOL AT THIS TIME.
[2021-01-15] MEDS ORDERED: NEPRO 1000 ML GT PRN (11:30)
[2021-01-15] MEDS: SODIUM HYPOCHLORITE 0.125% (QUARTER STRENGTH) 473 ML BOTTLE TP SCH (12:00)
[2021-01-15] MEDS: CLOTRIMAZOLE 1% CREAM 30 GM TUBE TOP SCH (17:37)
[2021-01-15] MEDS: INSULIN REGULAR, HUMAN 300 UNIT/3 ML VIAL SQ PRN ×2 (18:31→23:59)
--- NOTE | 2021-01-15 18:49 | NUR ---
Patient continues to be on chronic trach to vent. Bedside continuous pulse oximeter 100%, Hemodynamically stable, and afebrile. Patient was seen by primary and was notified that left arm is swollen, received orders for US upper extremity. Patient was seen by wound care nurse, orders received for wound care, patient given bath and wound care completed as ordered. Patient is to be seen by podiatry, no wound care orders at this time. Patient is tolerating tube feedings, and was given one unity of blood with no reactions.
--- NOTE | 2021-01-15 19:50 | NUR ---
refresh technician at bedside.
--- NOTE | 2021-01-15 19:57 | NUR ---
Obtained telephone consent for wound debridement for left and right ankle from Tatyana Jackson (Daughter in law) witnessed by ADAM Guerra. Requesting to have Dr Phan to call her in AM for the planned Broncoscopy. [phone]
[2021-01-15] MEDS: ATORVASTATIN 40 MG TABLET GT SCH (20:55)
[2021-01-15] MEDS: MEROPENEM 500 MG in IV NORMAL SALINE 50 ML IV SCH (20:56)
[2021-01-15] MEDS: INSULIN GLARGINE,HUM 300 UNITS/3 ML CARTRIDGE SQ SCH (21:08)
[2021-01-16] VITALS: BP 147/64
[2021-01-16] MEDS: ACETAMINOPHEN 650 MG/20.3 ML LIQUID UDC GT PRN ×3 (00:40→23:24)
[2021-01-16 04:09] VITALS: BP 141/68
--- NOTE | 2021-01-16 04:52 | NUR ---
PATIENT ON CONT FRAGOSO VENT WITH PORTEX # [address] AND SECURED, WITH CURRENT VENT SETTINGS, A/C 18, VT 500ML, 30% , PT DOES ASSIST AT TIMES, CHECK CUFF, SUCTIONED LIGHT PALE YELL TINGE SECRETIONS, GOOD COUGH EFFORT, NO VENT CHANGES MADE, ALL ALARMS GOOD, AMBU BAG AT BEDSIDE, WITH BACKUP TRACH, VENT PLUGGED INTO RED WALL OUTLET, PULSE OXY ON CONT, SAT 99% APPROX. Denise HALE TRIM AND BURR OPERATOR Addendum: 01/16/21 at 0455 by SANTOSH HALE RT Amended: Links added.
[2021-01-16] MEDS: BLOOD SUGAR DIAGNOSTIC 1 EACH STRIP VI SCH ×4 (05:29→23:29)
[2021-01-16 06:23] LABS: HEMATOCRIT 26.6 % (36.7-47.1); MEAN CORPUSCULAR HEMOGLOBIN 28.4 uug (23.8-33.4); MEAN CORPUSCULAR VOLUME 89.1 fL (73.0-96.2); PLATELET COUNT (AUTO) 429 K/uL (152-348)
[2021-01-16] MEDS: PANTOPRAZOLE ORAL SUSPENSION 40 MG SUSPDR.PKT GT SCH (06:32)
[2021-01-16 06:43] LABS: CARBON DIOXIDE 24 mmol/L (21-32); CHLORIDE 96 mmol/L (98-107); CREATININE 3.5 mg/dL (0.6-1.3); GLUCOSE 108 mg/dL (74-106); MAGNESIUM 2.3 mg/dL (1.8-2.4); PHOSPHOROUS 4.4 mg/dL (2.5-4.9); POTASSIUM 3.7 mmol/L (3.5-5.1); UREA NITROGEN, BLOOD 78 mg/dL (7-18); VANCOMYCIN,RANDOM 10.6 ug/mL (18.0-26.0)
--- NOTE | 2021-01-16 07:25 | NUR ---
Pt received laying semi-Ramirez's, unable to communicate, obtunded.. Trach: Portex 8, in place and secure with ties at this time.. mechanically ventilated with vent: Sinha, settings A/C 18, vt 500, FiO2 30%, tolerating well, will continue to monitor.. Vent alarms on and audible at this time, functioning properly at this time..
[2021-01-16] MEDS: CARVEDILOL 3.125 MG TABLET GT SCH ×2 (09:00→17:00)
[2021-01-16] MEDS: MIDODRINE HCL 5 MG TABLET GT SCH ×3 (09:00→17:00)
[2021-01-16] MEDS: FOLIC ACID/VITAMIN B COMP W-C TABLET GT SCH (09:02)
[2021-01-16] MEDS: LINAGLIPTIN 5 MG TABLET GT SCH (09:02)
[2021-01-16] MEDS: Z GUARD REMEDY PASTE 57 GM TUBE TOP SCH ×2 (09:03→20:30)
[2021-01-16] MEDS: SILVER SULFADIAZINE 1% CREAM 50 GM TP SCH ×2 (09:03→18:30)
[2021-01-16] MEDS: CLOTRIMAZOLE 1% CREAM 30 GM TUBE TOP SCH ×2 (09:03→17:12)
[2021-01-16] MEDS: PROTEIN SUPPLEMENT (PROSTAT) 30 ML LIQUID GT SCH ×2 (09:03→17:12)
[2021-01-16] MEDS: SODIUM HYPOCHLORITE 0.125% (QUARTER STRENGTH) 473 ML BOTTLE TP SCH ×3 (09:04→17:12)
--- NOTE | 2021-01-16 09:40 | NUR ---
Seen by Thuy WEAVER. Inquired to clarify order for bronchoscopy, per PM RN endorsement. Per MEG Daley and Sylvester KAPOOR Pulmonology, there is no need for a bronchoscopy and no order made for this procedure. Informed Tatyana, [id number] about updates regarding procedure cancellation as well.
[2021-01-16 11:30] VITALS: BP 119/54
[2021-01-16] MEDS: INSULIN REGULAR, HUMAN 300 UNIT/3 ML VIAL SQ PRN ×2 (11:39→18:50)
--- NOTE | 2021-01-16 12:35 | NUR ---
Low grade fever 99.4 - given PRN tylenol and removed blankets. Will continue to monitor.
--- NOTE | 2021-01-16 15:15 | NUR ---
Dr Conner - Blow Mold Machine Operator, at bedside for wound debridement. See MD notes for updated plan of care.
--- NOTE | 2021-01-16 15:20 | NUR ---
Spoke with Neal from [facility] for possible time for MRI to be done so case management associate can arrange transport. States most likely will be done tomorrow but will call to update as soon as he finds out. aware.
--- NOTE | 2021-01-16 15:24 | NUR ---
Swab of the left foot wound obtained and dropped off at lab.
--- NOTE | 2021-01-16 15:43 | NUR ---
Sketch Maker Consultation: Sketch Maker consultation requested for multiple wounds. This SPLIT LEATHER DEPARTMENT SUPERVISOR was informed by charge nurse Bianca that patient is an admission from [facility] SNF/subacute, and that he has multiple wounds on his buttocks, sacral area, right hip, both heels, and left ankle. This SPLIT LEATHER DEPARTMENT SUPERVISOR consulted with patient's physician Dr. Valdes, and also spoke with social security specialist Abhilash at [facility] and charge nurse Qiana at [facility], regarding the wounds. Mak stated that patient had wounds upon admission in 01/2020, and that patient has been getting weekly treatment for these wounds from wound doctors at [facility] wound center. Current wound doctor is Dr. Lou. Qiana also stated that patient's daughter Tatyana is aware of the wounds and the treatment being provided. At this time, no further SS interventions are needed. Per case management, patient will return to [facility] at time of discharge. Sketch Maker will remain available, as needed.
--- NOTE | 2021-01-16 16:27 | NUR ---
Placed a call for Dr. Finley - Nephrology, regarding hemodialysis order for patient. Awaiting callback.
[2021-01-16 16:30] VITALS: BP 115/49
--- NOTE | 2021-01-16 16:42 | NUR ---
Dr. Finley at bedside. Clarified order for hemodialysis. Per MD, contacted HD RN and will be coming to dialyze patient today and tomorrow.
--- NOTE | 2021-01-16 18:47 | NUR ---
Sacral dressings changed. Patient had loose, dark stool. Placed flexiseal as ordered. Patient given bed bath and changed linens with FIELD AGENT.
[2021-01-16 20:12] VITALS: BP 136/34
[2021-01-16] MEDS: MEROPENEM 500 MG in IV NORMAL SALINE 50 ML IV SCH (20:23)
[2021-01-16] MEDS: ATORVASTATIN 40 MG TABLET GT SCH (20:23)
[2021-01-16] MEDS: INSULIN GLARGINE,HUM 300 UNITS/3 ML CARTRIDGE SQ SCH (20:29)
[2021-01-16] MEDS ORDERED: VANCOMYCIN IV 1,000 MG in IV DEXTROSE 5% 250 ML IV ONE (21:00)
--- NOTE | 2021-01-16 21:00 | NUR ---
HD in progress. Will monitor.
--- NOTE | 2021-01-16 23:02 | NUR ---
HD completed with 1600 ml output and without any s/s of complication reported, patient tolerated procedure well.
[2021-01-17] MEDS ORDERED: VANCOMYCIN IV 1,000 MG in IV DEXTROSE 5% 250 ML IV ONE
[2021-01-17 00:06] VITALS: BP 119/57
[2021-01-17 00:08] VITALS: BP 119/57
[2021-01-17] MEDS: PANTOPRAZOLE ORAL SUSPENSION 40 MG SUSPDR.PKT GT SCH (05:57)
[2021-01-17] MEDS: BLOOD SUGAR DIAGNOSTIC 1 EACH STRIP VI SCH ×3 (05:57→18:16)
[2021-01-17] MEDS: INSULIN REGULAR, HUMAN 300 UNIT/3 ML VIAL SQ PRN (05:58)
[2021-01-17 06:17] LABS: ABG BASE EXCESS 2.9 mmol/L; ABG HCO3 25.6 mmol/L; ABG PCO2 33.6 mmHg (35.0-45.0); ABG PO2 74.7 mmHg (75.0-100.0); ABG SITE LEFT BRACHIAL; VENT MODE VENT - A/C; VT, ABG 500 mL
[2021-01-17 06:34] LABS: HEMATOCRIT 26.3 % (36.7-47.1); MEAN CORPUSCULAR VOLUME 89.6 fL (73.0-96.2); PLATELET COUNT (AUTO) 401 K/uL (152-348)
[2021-01-17 07:02] LABS: CARBON DIOXIDE 25 mmol/L (21-32); CHLORIDE 100 mmol/L (98-107); CREATININE 3.1 mg/dL (0.6-1.3); GLUCOSE 134 mg/dL (74-106); MAGNESIUM 2.2 mg/dL (1.8-2.4); PHOSPHOROUS 3.2 mg/dL (2.5-4.9); POTASSIUM 3.5 mmol/L (3.5-5.1); UREA NITROGEN, BLOOD 66 mg/dL (7-18)
--- NOTE | 2021-01-17 07:10 | NUR ---
Pt received laying in bed, semi-Ramirez's, unable to communicate, obtunded.. Trach: Portex 8, in place and secure with ties at this time.. mechanically ventilated with vent: Sinha, settings A/C 18, vt 500, FiO2 30%, tolerating well, will continue to monitor.. Vent alarms on and audible at this time, functioning properly at this time..
[2021-01-17] MEDS: MIDODRINE HCL 5 MG TABLET GT SCH ×3 (08:00→17:00)
[2021-01-17] MEDS: PROTEIN SUPPLEMENT (PROSTAT) 30 ML LIQUID GT SCH ×2 (08:00→17:21)
[2021-01-17] MEDS: FOLIC ACID/VITAMIN B COMP W-C TABLET GT SCH (08:00)
[2021-01-17] MEDS: CARVEDILOL 3.125 MG TABLET GT SCH ×2 (08:00→17:19)
[2021-01-17] MEDS: LINAGLIPTIN 5 MG TABLET GT SCH (08:00)
[2021-01-17] MEDS: Z GUARD REMEDY PASTE 57 GM TUBE TOP SCH ×2 (08:01→20:56)
[2021-01-17] MEDS: MUPIROCIN 2% OINT 22 GM TUBE NS SCH ×2 (08:01→20:55)
[2021-01-17] MEDS: CLOTRIMAZOLE 1% CREAM 30 GM TUBE TOP SCH ×2 (08:01→17:22)
[2021-01-17] MEDS: SODIUM HYPOCHLORITE 0.125% (QUARTER STRENGTH) 473 ML BOTTLE TP SCH ×3 (08:01→17:22)
[2021-01-17] MEDS: SILVER SULFADIAZINE 1% CREAM 50 GM TP SCH ×2 (08:02→17:00)
--- NOTE | 2021-01-17 08:37 | NUR ---
Patient picked up for scheduled MRI appt. Report given to CCT RN.
--- NOTE | 2021-01-17 09:16 | NUR ---
Received call from [facility] states that they are unable to do the MRI d/t patient on vent and suggested a CT scan to be done instead. Will notify ordering MD.
--- NOTE | 2021-01-17 09:50 | NUR ---
Placed call for Dr Conner but spoke with Dr Mejia instead. Informed MD of cancellation of MRI. New orders received and implemented.
[2021-01-17 10:26] LABS: VANCOMYCIN,RANDOM 23.2 ug/mL (18.0-26.0)
--- NOTE | 2021-01-17 11:10 | NUR ---
Picked up by denture technician for ordered CT scan accompanied by respiratory therapist.
[2021-01-17 16:25] VITALS: BP 126/24
[2021-01-17] MEDS: NUTRISOURCE FIBER 4 GM PACKET GT SCH (17:21)
[2021-01-17] MEDS: ALBUMIN HUMAN 25% 100 ML IV PRN (19:35)
[2021-01-17 20:16] VITALS: BP 122/60
[2021-01-17] MEDS: MEROPENEM 500 MG in IV NORMAL SALINE 50 ML IV SCH (20:56)
[2021-01-17] MEDS: ATORVASTATIN 40 MG TABLET GT SCH (20:56)
--- NOTE | 2021-01-17 21:00 | NUR ---
1.5L removed during HD - vitals stable - no adverse reactions
[2021-01-17] MEDS: INSULIN GLARGINE,HUM 300 UNITS/3 ML CARTRIDGE SQ SCH (21:37)
[2021-01-18 00:10] VITALS: BP 120/42
[2021-01-18] MEDS: BLOOD SUGAR DIAGNOSTIC 1 EACH STRIP VI SCH ×5 (00:44→23:58)
[2021-01-18] MEDS: INSULIN REGULAR, HUMAN 300 UNIT/3 ML VIAL SQ PRN (00:45)
[2021-01-18 04:15] VITALS: BP 118/48
[2021-01-18] MEDS: PANTOPRAZOLE ORAL SUSPENSION 40 MG SUSPDR.PKT GT SCH (06:19)
[2021-01-18 06:28] LABS: MEAN CORPUSCULAR HEMOGLOBIN 29.1 uug (23.8-33.4); MEAN CORPUSCULAR VOLUME 89.6 fL (73.0-96.2); PLATELET COUNT (AUTO) 374 K/uL (152-348)
[2021-01-18 06:56] LABS: CARBON DIOXIDE 30 mmol/L (21-32); CHLORIDE 99 mmol/L (98-107); CREATININE 2.9 mg/dL (0.6-1.3); GLUCOSE 110 mg/dL (74-106); MAGNESIUM 2.2 mg/dL (1.8-2.4); PHOSPHOROUS 2.6 mg/dL (2.5-4.9); POTASSIUM 3.4 mmol/L (3.5-5.1); UREA NITROGEN, BLOOD 58 mg/dL (7-18)
--- NOTE | 2021-01-18 06:56 | NUR ---
Pupils non-reactive to light. Sinus rhythm throughout shift. Afebrile. BP stable. 1.5L removed during hd - tolerated well. Copious amount of thick - yellow/clear secretions from both tracheostomy & orally. Stoma around GTube appears necrotic (black). Tolerated tube feedings well - minimal residual.
--- NOTE | 2021-01-18 07:40 | NUR ---
PT RECEIVED TRACH TO VENT ON CMV. PORTEX #8 TRACH IS PATENT AND SECURE. PT TRANSPORTED TO CCU-2 WITHOUT INCIDENT. VENT PARAMETERS AND ALARMS CHECKED. ALARMS ARE AUDIBLE. PT IS ON A FRAGOSO VENT ON SETTINGS OF A/C 15, VT 500, 30% FIO2. PT IS TOLERATING VENT WELL. SPO2 AND RESPIRATIONS WNL. NO SIGNS OR SYMPTOMS OF RESP. DISTRESS NOTED. BVM AND BACK-UP TRACH AT BEDSIDE. VENT PLUGGED INTO RED OUTLET. SUCTION PRN. WILL CONTINUE TO MONITOR.
[2021-01-18 08:00] VITALS: BP 144/43
--- NOTE | 2021-01-18 09:27 | NUR ---
US in room for testing and is moderate in right lobe but will send to radiology to determine and compare if the patient have thoracentesis.
[2021-01-18] MEDS ORDERED: POTASSIUM CHLORIDE 20 MEQ POWDER PACKET GT ONE (10:15)
[2021-01-18] MEDS ORDERED: DIATR MEGLU/DIATRIZOATE SODIUM 30 ML BOTTLE PO ONE (10:17)
[2021-01-18] MEDS: Z GUARD REMEDY PASTE 57 GM TUBE TOP SCH ×2 (11:35→20:08)
[2021-01-18] MEDS: MUPIROCIN 2% OINT 22 GM TUBE NS SCH ×2 (11:36→20:08)
[2021-01-18] MEDS: SODIUM HYPOCHLORITE 0.125% (QUARTER STRENGTH) 473 ML BOTTLE TP SCH ×3 (11:36→16:38)
[2021-01-18] MEDS: CLOTRIMAZOLE 1% CREAM 30 GM TUBE TOP SCH ×2 (11:38→16:39)
[2021-01-18] MEDS: SILVER SULFADIAZINE 1% CREAM 50 GM TP SCH ×2 (11:38→16:39)
[2021-01-18] MEDS: MINERAL OIL/PETROLATUM,WHITE 57 GM TUBE TOP PRN (11:38)
[2021-01-18 12:00] VITALS: BP 128/45
[2021-01-18] MEDS: NUTRISOURCE FIBER 4 GM PACKET GT SCH ×3 (13:00→16:36)
[2021-01-18] MEDS: DEXTROSE 50% 50 ML DISP.SYRIN IV PRN (13:20)
[2021-01-18] MEDS: MIDODRINE HCL 5 MG TABLET GT SCH ×3 (15:07→16:37)
[2021-01-18] MEDS: VANCOMYCIN FOR PO/GT/NG USE PO SCH ×2 (15:07→19:54)
[2021-01-18] MEDS: CARVEDILOL 3.125 MG TABLET GT SCH ×2 (15:08→16:36)
[2021-01-18] MEDS: FOLIC ACID/VITAMIN B COMP W-C TABLET GT SCH (15:08)
[2021-01-18] MEDS: PROTEIN SUPPLEMENT (PROSTAT) 30 ML LIQUID GT SCH ×2 (15:13→16:37)
[2021-01-18] MEDS: LINAGLIPTIN 5 MG TABLET GT SCH (15:34)
[2021-01-18 16:00] VITALS: BP 118/47
--- NOTE | 2021-01-18 16:00 | NUR ---
DR. Munoz post thoracenetesis 1360 out. patient will have dialysis tomorrow per Dr. Finley
[2021-01-18 20:00] VITALS: BP 126/65
[2021-01-18] MEDS: MEROPENEM 500 MG in IV NORMAL SALINE 50 ML IV SCH (20:06)
[2021-01-18] MEDS: ATORVASTATIN 40 MG TABLET GT SCH (20:06)
[2021-01-18] MEDS: INSULIN GLARGINE,HUM 300 UNITS/3 ML CARTRIDGE SQ SCH (20:23)
[2021-01-19] VITALS (12 sets, daily range): BP systolic 92–172; BP diastolic 26–70
[2021-01-19] MEDS: INSULIN REGULAR, HUMAN 300 UNIT/3 ML VIAL SQ PRN (00:05)
[2021-01-19] MEDS: ACETAMINOPHEN 650 MG/20.3 ML LIQUID UDC GT PRN (00:18)
[2021-01-19] MEDS: VANCOMYCIN FOR PO/GT/NG USE PO SCH ×4 (01:12→18:41)
--- NOTE | 2021-01-19 03:03 | NUR ---
PATIENT ON CONT FRAGOSO VENT WITH PORTEX #[address] , SUCTION, VERY PROD, AND ORAL CARE, SUCTION WITH LATESHA LUONG, PATIENT VENT SETTINGS, AC 15, VT 500ML, FIO2 @ 30%, NO PEEP , TRACH CARE DONE , NO VENT CHANGES MADE, PT DOES ASSIST AT TIMES, CHECK CUFF, CHANGE HME, BACK UP TRACH AT BEDSIDE, WITH AMBU BAG , VENT PLUGGED INTO RED WALL OUTLET. Denise HALE RCP Addendum: 01/19/21 at 0306 by SANTOSH HALE RT Amended: Links added.
[2021-01-19] MEDS: SILVER SULFADIAZINE 1% CREAM 50 GM TP SCH ×2 (04:42→16:20)
[2021-01-19 05:00] LABS: HEMATOCRIT 25.8 % (36.7-47.1); MEAN CORPUSCULAR HEMOGLOBIN 27.5 uug (23.8-33.4); MEAN CORPUSCULAR VOLUME 90.9 fL (73.0-96.2); PLATELET COUNT (AUTO) 354 K/uL (152-348)
[2021-01-19 05:08] LABS: CARBON DIOXIDE 28 mmol/L (21-32); CHLORIDE 99 mmol/L (98-107); CREATININE 3.4 mg/dL (0.6-1.3); GLUCOSE 114 mg/dL (74-106); MAGNESIUM 2.2 mg/dL (1.8-2.4); PHOSPHOROUS 3.5 mg/dL (2.5-4.9); POTASSIUM 3.8 mmol/L (3.5-5.1); UREA NITROGEN, BLOOD 70 mg/dL (7-18)
[2021-01-19] MEDS: BLOOD SUGAR DIAGNOSTIC 1 EACH STRIP VI SCH ×3 (06:01→18:02)
[2021-01-19] MEDS: PANTOPRAZOLE ORAL SUSPENSION 40 MG SUSPDR.PKT GT SCH (06:01)
--- NOTE | 2021-01-19 06:25 | NUR ---
Patient status unchanged. No events of note.
--- NOTE | 2021-01-19 07:45 | NUR ---
PT RECEIVED TRACH TO VENT ON CMV. PORTEX #8 TRACH IS PATENT AND SECURE. VENT PARAMETERS AND ALARMS CHECKED. ALARMS ARE AUDIBLE. PT IS ON A FRAGOSO VENT ON SETTINGS OF A/C 15, VT 500, 30% FIO2. PT IS TOLERATING VENT WELL. SPO2 AND RESPIRATIONS WNL. NO SIGNS OR SYMPTOMS OF RESP. DISTRESS NOTED. BVM AND BACK-UP TRACH AT BEDSIDE. VENT PLUGGED INTO RED OUTLET. SUCTION PRN. WILL CONTINUE TO MONITOR.
--- NOTE | 2021-01-19 07:57 | NUR ---
AM assessment completed, pt with eyes open and blinking but does not track or look toward sound. Corneal reflex intact. +cough and gag reflexes, withdraws/slight movement to light touch or light pain. Pt also grimaces and had a tearing up in his eyes with suction and oral care. Pt SR on monitor with occasional PVCs. Suctioned yellow secretions from trach that have tube feeding appearance. Vent AC 15/500/35%. PEG clamped. Rectal tube in place. Skin dressings clean, dry and intact. Feet and elbows elevated on pillows. Dr Laurita Kamara on unit to assess pt and was notified of secretions. No previous gastric residuals documented. Nepro was scheduled to be turned back on at 0800, but after Dr Kamara reviewed xrays and observed the secretions, he ordered pt NPO and place PEG to dependent drainage. He stated pt had tube feeding in the esophagus on a recent scan and is regurgitating/aspirating. PEG tube now hooked to DD. Continuing to monitor. Odilia Urbano RN, BSN
[2021-01-19] MEDS: CARVEDILOL 3.125 MG TABLET GT SCH ×2 (08:27→16:18)
[2021-01-19] MEDS: FOLIC ACID/VITAMIN B COMP W-C TABLET GT SCH (08:29)
[2021-01-19] MEDS: MORPHINE SULFATE 4 MG/1 ML DISP.SYRIN IV PRN ×3 (08:30→16:35)
[2021-01-19] MEDS: MIDODRINE HCL 5 MG TABLET GT SCH ×2 (08:30→16:18)
--- NOTE | 2021-01-19 08:47 | NUR ---
Vent settings changed per Kamara: AC 15/400/30% Meds given with PEG now clamped. Premedicated with pain meds for dressing changes. Odilia Urbano RN, BSN
[2021-01-19] MEDS: PROTEIN SUPPLEMENT (PROSTAT) 30 ML LIQUID GT SCH ×2 (08:50→16:18)
[2021-01-19] MEDS: NUTRISOURCE FIBER 4 GM PACKET GT SCH ×3 (08:50→16:18)
[2021-01-19] MEDS: Z GUARD REMEDY PASTE 57 GM TUBE TOP SCH ×2 (08:51→21:21)
[2021-01-19] MEDS: MUPIROCIN 2% OINT 22 GM TUBE NS SCH ×2 (08:52→21:22)
[2021-01-19] MEDS: SODIUM HYPOCHLORITE 0.125% (QUARTER STRENGTH) 473 ML BOTTLE TP SCH ×3 (08:52→16:19)
[2021-01-19] MEDS: CLOTRIMAZOLE 1% CREAM 30 GM TUBE TOP SCH ×2 (08:53→16:20)
[2021-01-19] MEDS: LINAGLIPTIN 5 MG TABLET GT SCH (09:22)
[2021-01-19] MEDS: DEXTROSE 50% 50 ML DISP.SYRIN IV PRN ×2 (11:49→17:54)
--- NOTE | 2021-01-19 12:30 | NUR ---
Blood glucose decreased to 57, D50 given per orders. Recheck of blood glucose was 76 and PAYMENT SPECIALIST Thuy notified. IV D5NS at 60ml/hr ordered. Continuing to monitor. Odilia Urbano RN, BSN
[2021-01-19] MEDS: IV D5/ 0.9% NACL 1,000 ML IV PRN (13:04)
--- NOTE | 2021-01-19 13:43 | NUR ---
Trach site cleaned and trach dressing changed. VSS, continuing to monitor. Odilia Urbano RN, BSN
[2021-01-19] MEDS: ALBUMIN HUMAN 25% 100 ML IV PRN ×2 (18:44→18:45)
--- NOTE | 2021-01-19 18:45 | NUR ---
Dialysis starting now, Albumin removed from pyxis per request and given by dispatch clerk. Blood glucose at 1800 was low again; D50 given per orders. Reassessment of blood glucose was 145, no insulin given due to pt's repeated low glucose levels and sensitivity. VSS, reporting to awake overnight counselor RN.
[2021-01-19] MEDS: INSULIN GLARGINE,HUM 300 UNITS/3 ML CARTRIDGE SQ SCH (21:00)
[2021-01-19] MEDS: ATORVASTATIN 40 MG TABLET GT SCH (21:24)
[2021-01-19] MEDS: MEROPENEM 500 MG in IV NORMAL SALINE 50 ML IV SCH (21:24)
[2021-01-20] VITALS (19 sets, daily range): BP systolic 112–151; BP diastolic 35–113
[2021-01-20] MEDS: BLOOD SUGAR DIAGNOSTIC 1 EACH STRIP VI SCH ×4 (00:07→18:11)
[2021-01-20] MEDS: VANCOMYCIN FOR PO/GT/NG USE PO SCH ×4 (00:45→18:40)
--- NOTE | 2021-01-20 03:24 | NUR ---
PATIENT ON OCNT FRAGOSO VENT WITH PORTEX # [address] AND SECURED, SUCTION AND LAVAGE, AND ORAL CARE AND TRACH CARE , SUCTION MOUTH WITH YANKAUER, PT TENDS TO BITE DOWN ON YANKAUER, VENT SETTINGS, A/C 15 , 500ML, FIO2 @ 30%, PT DOES ASSIST AT TIMES, NO VENT CHANGES MADE, ALL VENT ALARMS GOOD, AMBU BAG AT BEDSIDE, VENT PLUGGED INTO RED OUTLET, CHANGE HME AND EDI NAVARRETEP Addendum: 01/20/21 at 326 by SANTOSH HERNANDEZ Amended: Links added. Addendum: 01/20/21 at 326 by SANTOSH HERNANDEZ CORRECTION, PT ON CONT FRAGOSO VENT
--- NOTE | 2021-01-20 04:00 | NUR ---
All wound cares done, as ordered. Trach cares done. GT cares done; con't NPO except / meds.
[2021-01-20 05:35] LABS: MEAN CORPUSCULAR HEMOGLOBIN 27.9 uug (23.8-33.4); MEAN CORPUSCULAR VOLUME 90.7 fL (73.0-96.2); PLATELET COUNT (AUTO) 319 K/uL (152-348)
[2021-01-20 05:47] LABS: CARBON DIOXIDE 30 mmol/L (21-32); CHLORIDE 104 mmol/L (98-107); CREATININE 3.2 mg/dL (0.6-1.3); GLUCOSE 106 mg/dL (74-106); MAGNESIUM 2.1 mg/dL (1.8-2.4); POTASSIUM 3.9 mmol/L (3.5-5.1); UREA NITROGEN, BLOOD 56 mg/dL (7-18)
[2021-01-20] MEDS: PANTOPRAZOLE ORAL SUSPENSION 40 MG SUSPDR.PKT GT SCH (06:09)
[2021-01-20] MEDS: IV D5/ 0.9% NACL 1,000 ML IV PRN (06:22)
--- NOTE | 2021-01-20 07:50 | NUR ---
PT RECEIVED TRACH TO VENT ON CMV. PORTEX # 8 TRACH IS PATENT AND SECURE. VENT CHANGES MADE PER . PT IS CURRENTLY ON SETTINGS OF A/C 15, VT 450, 30% FIO2. SPO2 AND RESPIRATIONS WNL. NO SIGNS OR SYMPTOMS OF RESP. DISTRESS NOTED. BVM AT BEDSIDE. VENT PLUGGED INTO RED OUTLET. SUCTION PRN. WILL CONTINUE TO MONITOR.
[2021-01-20] MEDS: MORPHINE SULFATE 4 MG/1 ML DISP.SYRIN IV PRN ×3 (08:58→17:41)
[2021-01-20] MEDS: CARVEDILOL 3.125 MG TABLET GT SCH ×2 (08:59→17:42)
[2021-01-20] MEDS: FOLIC ACID/VITAMIN B COMP W-C TABLET GT SCH (08:59)
[2021-01-20] MEDS: MIDODRINE HCL 5 MG TABLET GT SCH ×2 (08:59→17:41)
[2021-01-20] MEDS: NUTRISOURCE FIBER 4 GM PACKET GT SCH ×3 (09:00→17:43)
[2021-01-20] MEDS: PROTEIN SUPPLEMENT (PROSTAT) 30 ML LIQUID GT SCH ×2 (09:00→17:43)
[2021-01-20] MEDS: LINAGLIPTIN 5 MG TABLET GT SCH (09:00)
[2021-01-20] MEDS: CLOTRIMAZOLE 1% CREAM 30 GM TUBE TOP SCH ×2 (09:01→17:46)
[2021-01-20] MEDS: Z GUARD REMEDY PASTE 57 GM TUBE TOP SCH ×2 (09:01→21:06)
[2021-01-20] MEDS: SODIUM HYPOCHLORITE 0.125% (QUARTER STRENGTH) 473 ML BOTTLE TP SCH ×3 (09:02→17:45)
[2021-01-20] MEDS: MUPIROCIN 2% OINT 22 GM TUBE NS SCH ×2 (09:02→21:03)
[2021-01-20] MEDS: SILVER SULFADIAZINE 1% CREAM 50 GM TP SCH ×2 (09:03→17:45)
[2021-01-20] MEDS: VANCOMYCIN IV 500 MG in IV DEXTROSE 5% 100 ML IV PRN (09:05)
--- NOTE | 2021-01-20 09:17 | NUR ---
Morning assessment complete, vent changes made per Dr Kamara orders. Tradjenta held due to 2 episodes of hypoglycemia yesterday after this med was given (even after pt was started on D5NS). Notifying primary care team of blood glucose issues with medication.
[2021-01-20 09:28] LABS: ABG BASE EXCESS 2.7 mmol/L; ABG HCO3 26.5 mmol/L; ABG PCO2 37.3 mmHg (35.0-45.0); ABG PH 7.469 (7.350-7.450); ABG PO2 80.3 mmHg (75.0-100.0); ABG SITE RIGHT RADIAL; ABG TOTAL HEMOGLOBIN 8.6 G/dL (13.5-18.0); COHb 1.5 % (0.5-1.5); MetHb 0.3 % (0.0-1.5); O2Hb 94.7 % (94.0-97.0); VENT MODE VENT - A/C; VT, ABG 450 mL
--- NOTE | 2021-01-20 09:46 | NUR ---
Pt premedicated for pain prior to dressing changes. Pt had some leakage from PEG tube and partial linen change was also done.
[2021-01-20] MEDS: METOCLOPRAMIDE HCL 10 MG/2 ML VIAL IV SCH ×2 (14:02→21:35)
--- NOTE | 2021-01-20 18:42 | NUR ---
VSS, 100 ml drained from PEG/gastric secretions today, fewer secretions noted from around trach site since turning off tube feeding yesterday and setting PEG to DD. Pt started on Reglan today and the fibersource and prostat (protein) were given this evening per SEP. Per PCP, may be able to restart tube feeding again tomorrow. Tradjenta was held this am and WASH OIL PUMP OPERATOR HELPER Thuy notified. She stated she intended to discontinue Tradjenta and agreed with holding the medication from this am. Blood glucose checks were WNL today (101 at 12pm, 97 at 6pm). Continuing to monitor and reporting off to nightshift RN.
[2021-01-20] MEDS: INSULIN GLARGINE,HUM 300 UNITS/3 ML CARTRIDGE SQ SCH (21:00)
[2021-01-20] MEDS: ATORVASTATIN 40 MG TABLET GT SCH (21:03)
[2021-01-20] MEDS: MEROPENEM 500 MG in IV NORMAL SALINE 50 ML IV SCH (21:03)
[2021-01-20] MEDS: MINERAL OIL/PETROLATUM,WHITE 57 GM TUBE TOP PRN (21:05)
[2021-01-21] VITALS (24 sets, daily range): BP systolic 125–150; BP diastolic 36–82
--- NOTE | 2021-01-21 00:08 | NUR ---
Patient NPO; received D50% twice [id number]. Now glucose now 136, held coverage.
[2021-01-21] MEDS: BLOOD SUGAR DIAGNOSTIC 1 EACH STRIP VI SCH ×5 (00:25→23:31)
[2021-01-21] MEDS: IV D5/ 0.9% NACL 1,000 ML IV PRN ×2 (00:29→17:12)
[2021-01-21] MEDS: VANCOMYCIN FOR PO/GT/NG USE PO SCH ×4 (00:39→18:58)
--- NOTE | 2021-01-21 01:47 | NUR ---
PATIENT ON CONT FRAGOSO VENT WITH PORTEX # [address] AND SECURED, TRACH CARE DONE , INNER CANNULA CHANGES , SUCTION LIGHT PALE YELL TINGE SECRETIONS, GOOD COUGH EFFORT, SUCTION MOUTH WITH MARTHA CHARLTON, PT CLAMPS DOWN AT TIMES, NO VENT CHANGES MADE, CHANGE HME, ALL VENT ALARMS GOOD, eDnise NAVARRETEP Addendum: 01/21/21 at 0149 by SANTOSH HALE RT Amended: Links added.
--- NOTE | 2021-01-21 04:00 | NUR ---
All wound cares done, as ordered. Trach cares done. GT cares done; con't NPO except / meds.
[2021-01-21] MEDS: METOCLOPRAMIDE HCL 10 MG/2 ML VIAL IV SCH ×3 (05:08→21:56)
--- NOTE | 2021-01-21 06:00 | NUR ---
Patient NPO; received D50% twice [id number]. Now glucose now 138, held coverage.
[2021-01-21] MEDS: PANTOPRAZOLE ORAL SUSPENSION 40 MG SUSPDR.PKT GT SCH (06:20)
[2021-01-21] MEDS: LINAGLIPTIN 5 MG TABLET GT SCH (09:00)
[2021-01-21] MEDS: MORPHINE SULFATE 4 MG/1 ML DISP.SYRIN IV PRN ×3 (09:26→17:07)
[2021-01-21] MEDS: MIDODRINE HCL 5 MG TABLET GT SCH ×2 (09:26→17:05)
[2021-01-21] MEDS: FOLIC ACID/VITAMIN B COMP W-C TABLET GT SCH (09:27)
[2021-01-21] MEDS: CARVEDILOL 3.125 MG TABLET GT SCH ×2 (09:27→17:06)
[2021-01-21] MEDS: PROTEIN SUPPLEMENT (PROSTAT) 30 ML LIQUID GT SCH ×2 (09:28→17:04)
[2021-01-21] MEDS: SILVER SULFADIAZINE 1% CREAM 50 GM TP SCH ×2 (09:29→17:10)
[2021-01-21] MEDS: NUTRISOURCE FIBER 4 GM PACKET GT SCH ×3 (09:29→17:01)
[2021-01-21] MEDS: CLOTRIMAZOLE 1% CREAM 30 GM TUBE TOP SCH ×2 (09:30→17:10)
[2021-01-21] MEDS: Z GUARD REMEDY PASTE 57 GM TUBE TOP SCH ×2 (09:30→20:10)
[2021-01-21] MEDS: MUPIROCIN 2% OINT 22 GM TUBE NS SCH ×2 (09:30→20:10)
[2021-01-21] MEDS: SODIUM HYPOCHLORITE 0.125% (QUARTER STRENGTH) 473 ML BOTTLE TP SCH ×3 (09:31→17:06)
--- NOTE | 2021-01-21 12:32 | NUR ---
VSS, mobile marketing specialist Dr. Nation came to assess L foot/heel and clarified that he did a bedside debridement last week when pt was in [facility]. Dressing removed by and redressed/medicated by RN. INSPECTOR AND TESTER Thuy at bedside and again notified that Tradjenta was held and no insulin coverage given for 1200 blood glucose of 131. INSPECTOR AND TESTER stated plan is for gen surgery to come assess pt's sacral wound today and that we will continue to hold the tube feeding in case they want to schedule an OR debridement. Informed INSPECTOR AND TESTER that I gave the ProStat (protein) and Fiber Source this am and pt tolerated well with very little residual right now. Continuing to monitor.
--- NOTE | 2021-01-21 19:12 | NUR ---
VSS, report given to nightshift ADAM Valencia.
--- NOTE | 2021-01-21 19:25 | NUR ---
Report received. 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 With trache to mechanical ventilator with same settings. O2 sat above 94% on FIO2=30%. Eyes open, tracks? doesn't follow commands. Extremities edematous and rigid. Assessment done.
--- NOTE | 2021-01-21 19:30 | NUR ---
Pt received on vent via trach, portex 8. Vent settings as follows; AC 15, Vt 450, Peep +0, 30% Fio2. Trach is secured and in tact. BVM and spare trach @ bedside. Alarms on and audible. Will continue to monitor through out shift.
[2021-01-21] MEDS: ATORVASTATIN 40 MG TABLET GT SCH (20:08)
[2021-01-21] MEDS: MEROPENEM 500 MG in IV NORMAL SALINE 50 ML IV SCH (20:09)
[2021-01-21] MEDS: INSULIN GLARGINE,HUM 300 UNITS/3 ML CARTRIDGE SQ SCH (21:00)
[2021-01-22] VITALS (11 sets, daily range): BP systolic 128–148; BP diastolic 33–99
--- NOTE | 2021-01-22 00:35 | NUR ---
Medicated with Morphine IV pre wound care treatment.
[2021-01-22] MEDS: MORPHINE SULFATE 4 MG/1 ML DISP.SYRIN IV PRN (00:37)
[2021-01-22] MEDS: VANCOMYCIN FOR PO/GT/NG USE PO SCH ×4 (00:58→21:24)
--- NOTE | 2021-01-22 01:00 | NUR ---
Bath given. Morphine effective. Wound care treatment done as ordered. GT to BSB with green gastric secretions. Flexi seal with small amounts of liquid stools. Turned and repositioned. HOB elevated above 30 degrees.
[2021-01-22 05:22] LABS: MEAN CORPUSCULAR VOLUME 90.7 fL (73.0-96.2); PLATELET COUNT (AUTO) 333 K/uL (152-348)
[2021-01-22 05:24] LABS: HEMATOCRIT 23.7 % (36.7-47.1)
[2021-01-22] MEDS: METOCLOPRAMIDE HCL 10 MG/2 ML VIAL IV SCH ×3 (05:26→21:24)
[2021-01-22] MEDS: BLOOD SUGAR DIAGNOSTIC 1 EACH STRIP VI SCH ×3 (05:26→19:01)
[2021-01-22 05:28] LABS: CARBON DIOXIDE 27 mmol/L (21-32); CHLORIDE 105 mmol/L (98-107); CREATININE 4.1 mg/dL (0.6-1.3); GLUCOSE 153 mg/dL (74-106); MAGNESIUM 2.2 mg/dL (1.8-2.4); PHOSPHOROUS 5.9 mg/dL (2.5-4.9); POTASSIUM 4.2 mmol/L (3.5-5.1); UREA NITROGEN, BLOOD 67 mg/dL (7-18)
--- NOTE | 2021-01-22 06:00 | NUR ---
Condition unchanged. VS stable.
[2021-01-22] MEDS: PANTOPRAZOLE ORAL SUSPENSION 40 MG SUSPDR.PKT GT SCH (06:06)
--- NOTE | 2021-01-22 07:15 | NUR ---
Pt received laying semi-Ramirez's, unable to communicate, obtunded.. Trach: Portex 8, in place and secure with ties at this time.. mechanically ventilated with vent: Sinha, settings A/C 18, vt 450, FiO2 30%, tolerating well, will continue to monitor.. Vent alarms on and audible at this time, functioning properly at this time..
[2021-01-22] MEDS: MIDODRINE HCL 5 MG TABLET GT SCH ×2 (07:59→21:24)
[2021-01-22] MEDS: FOLIC ACID/VITAMIN B COMP W-C TABLET GT SCH (07:59)
[2021-01-22] MEDS: CARVEDILOL 3.125 MG TABLET GT SCH ×2 (08:03→21:24)
[2021-01-22] MEDS: MUPIROCIN 2% OINT 22 GM TUBE NS SCH ×2 (08:04→20:26)
[2021-01-22] MEDS: PROTEIN SUPPLEMENT (PROSTAT) 30 ML LIQUID GT SCH ×2 (08:04→21:25)
[2021-01-22] MEDS: CLOTRIMAZOLE 1% CREAM 30 GM TUBE TOP SCH ×2 (08:04→18:50)
[2021-01-22] MEDS: NUTRISOURCE FIBER 4 GM PACKET GT SCH ×3 (08:04→21:46)
[2021-01-22] MEDS: Z GUARD REMEDY PASTE 57 GM TUBE TOP SCH ×2 (08:05→20:26)
[2021-01-22] MEDS: SODIUM HYPOCHLORITE 0.125% (QUARTER STRENGTH) 473 ML BOTTLE TP SCH ×3 (08:06→18:50)
[2021-01-22] MEDS: SILVER SULFADIAZINE 1% CREAM 50 GM TP SCH ×2 (08:06→18:51)
[2021-01-22] MEDS: IV D5/ 0.9% NACL 1,000 ML IV PRN (10:59)
--- NOTE | 2021-01-22 13:00 | NUR ---
Heather in the unit ok to try to restart tube feeds.
--- NOTE | 2021-01-22 13:46 | NUR ---
per dietary will start feeding at 30 ml/hr advance q6 hr by 10 ml as tolerated with the goal of 60 ml/hr.
--- NOTE | 2021-01-22 14:30 | NUR ---
unable to restart feeding due to protruding Gastric tube from stoma. Informed Heather and said to call Surgery or GI.
[2021-01-22] MEDS ORDERED: VANCOMYCIN IV 500 MG in IV DEXTROSE 5% 100 ML IV ONE (17:00)
--- NOTE | 2021-01-22 17:40 | NUR ---
jeffrey in the unit to see patient. Obtained consent and replaced GT.
[2021-01-22] MEDS ORDERED: DIATR MEGLU/DIATRIZOATE SODIUM 30 ML BOTTLE ONE (17:59)
--- NOTE | 2021-01-22 18:46 | NUR ---
Endorse to bending press operator to give 1700 GT medications once cleared by surgeon if it is ok to use GT for meds only.
--- NOTE | 2021-01-22 19:00 | NUR ---
gt stoma site sutured , waiting for abd xray to be sent to jeffrey
--- NOTE | 2021-01-22 19:00 | NUR ---
received patient just finished HD 1 LITER OUT , RIGHT EDNA CATHETER INTACT , RIGHT UPPER ARM MIDLINE INTACT D5 NS AT 60 ML RUNNING , RECTAL TUBE INTACT DRAINING , LEFT HAND EDEMA 3 + , RIGHT FOOT TOES AMPUTATED , LEFT FOOT WITH SORES VENT SETTINGS 15 TV 450 FIO2 30 % FEEDING HELD , RADIOLOGIST TECH CALLED TO FOLLOW UP RESULTS FOR ABD XRAY ,
--- NOTE | 2021-01-22 20:23 | NUR ---
BUSINESS DEVELOPMENT RECRUITER IS CALLED AGAIN TO FOLLOW UP RESULTS OF ABD XRAY
[2021-01-22] MEDS: MEROPENEM 500 MG in IV NORMAL SALINE 50 ML IV SCH (20:25)
--- NOTE | 2021-01-22 20:54 | NUR ---
ABD XRAY RESULTS SENT TO JAIME , AWAITING ORDER IF TO RESUME FEEDING
[2021-01-22] MEDS: INSULIN GLARGINE,HUM 300 UNITS/3 ML CARTRIDGE SQ SCH (21:00)
--- NOTE | 2021-01-22 21:00 | NUR ---
still awaitng xray abd if tf will be resumed , md aware, hold the lantus
[2021-01-22] MEDS: ATORVASTATIN 40 MG TABLET GT SCH (21:25)
--- NOTE | 2021-01-22 21:30 | NUR ---
jeffrey responded , trenton to use peg , to start tf
--- NOTE | 2021-01-22 21:45 | NUR ---
medications given tf patent , slight leaking on the side , sutured stoma site intact
--- NOTE | 2021-01-22 22:00 | NUR ---
was about to start tube feeding , found tube out and leaking , pictures taken and resinserted , sent to jeffrey for further orders
--- NOTE | 2021-01-22 22:00 | NUR ---
tube feeding unable to start , awaiting orders after pictures sent to jeffrey
[2021-01-23] VITALS (13 sets, daily range): BP systolic 122–150; BP diastolic 36–120
[2021-01-23] MEDS: BLOOD SUGAR DIAGNOSTIC 1 EACH STRIP VI SCH ×4 (00:06→18:11)
[2021-01-23] MEDS: INSULIN REGULAR, HUMAN 300 UNIT/3 ML VIAL SQ PRN ×3 (00:07→18:43)
[2021-01-23] MEDS: VANCOMYCIN FOR PO/GT/NG USE PO SCH ×5 (01:30→18:43)
[2021-01-23] MEDS: IV D5/ 0.9% NACL 1,000 ML IV PRN ×2 (02:24→20:03)
[2021-01-23] MEDS: SODIUM HYPOCHLORITE 0.125% (QUARTER STRENGTH) 473 ML BOTTLE TP SCH ×3 (02:24→17:55)
[2021-01-23 05:09] LABS: MEAN CORPUSCULAR HEMOGLOBIN 27.9 uug (23.8-33.4); MEAN CORPUSCULAR VOLUME 91.8 fL (73.0-96.2); PLATELET COUNT (AUTO) 297 K/uL (152-348)
[2021-01-23 05:37] LABS: CARBON DIOXIDE 27 mmol/L (21-32); CHLORIDE 104 mmol/L (98-107); CREATININE 3.4 mg/dL (0.6-1.3); GLUCOSE 143 mg/dL (74-106); PHOSPHOROUS 4.7 mg/dL (2.5-4.9); POTASSIUM 3.8 mmol/L (3.5-5.1); UREA NITROGEN, BLOOD 52 mg/dL (7-18)
[2021-01-23] MEDS: METOCLOPRAMIDE HCL 10 MG/2 ML VIAL IV SCH (06:21)
[2021-01-23] MEDS: PANTOPRAZOLE ORAL SUSPENSION 40 MG SUSPDR.PKT GT SCH (06:28)
--- NOTE | 2021-01-23 07:00 | NUR ---
jeffrey responded regarding the popped out tf , received orders , endorsed to the day shift
[2021-01-23] MEDS ORDERED: DIATR MEGLU/DIATRIZOATE SODIUM 30 ML BOTTLE PO ONE (08:00)
--- NOTE | 2021-01-23 08:27 | NUR ---
Unable to give medications due to GT malfunction.
--- NOTE | 2021-01-23 09:00 | NUR ---
Cheryl in to fix GT.
--- NOTE | 2021-01-23 09:34 | NUR ---
kub with gastrografin done. will wait for results.
[2021-01-23 09:38] LABS: ABG BASE EXCESS 2.9 mmol/L; ABG HCO3 26.1 mmol/L; ABG PCO2 33.8 mmHg (35.0-45.0); ABG PH 7.506 (7.350-7.450); ABG PO2 82.6 mmHg (75.0-100.0); ABG SITE RIGHT RADIAL; ABG TOTAL HEMOGLOBIN 7.6 G/dL (13.5-18.0); COHb 1.8 % (0.5-1.5); MetHb 0.5 % (0.0-1.5); O2Hb 94.6 % (94.0-97.0); VENT MODE VENT - A/C; VT, ABG 450 mL
[2021-01-23] MEDS: MIDODRINE HCL 5 MG TABLET GT SCH ×2 (09:56→17:54)
[2021-01-23] MEDS: FOLIC ACID/VITAMIN B COMP W-C TABLET GT SCH (09:56)
[2021-01-23] MEDS: CARVEDILOL 3.125 MG TABLET GT SCH ×2 (09:57→17:54)
[2021-01-23] MEDS: MUPIROCIN 2% OINT 22 GM TUBE NS SCH ×2 (09:59→20:20)
[2021-01-23] MEDS: PROTEIN SUPPLEMENT (PROSTAT) 30 ML LIQUID GT SCH ×2 (10:00→17:56)
[2021-01-23] MEDS: Z GUARD REMEDY PASTE 57 GM TUBE TOP SCH ×2 (10:01→20:21)
[2021-01-23] MEDS: CLOTRIMAZOLE 1% CREAM 30 GM TUBE TOP SCH ×2 (10:01→17:56)
[2021-01-23] MEDS: SILVER SULFADIAZINE 1% CREAM 50 GM TP SCH ×2 (10:02→17:55)
[2021-01-23] MEDS: NUTRISOURCE FIBER 4 GM PACKET GT SCH ×3 (10:02→17:56)
--- NOTE | 2021-01-23 18:05 | NUR ---
PT RECEIVED TRACH TO VENT ON CMV. PORTEX #8 TRACH IS PATENT AND SECURE. VENT PARAMETERS AND ALARMS CHECKED. ALARMS ARE AUDIBLE. PT IS ON A FRAGOSO VENT ON SETTINGS OF A/C 15, VT 500, 30% FIO2. PT HAS BEEN STABLE THROUGHOUT SHIFT. PT IS TOLERATING VENT SETTINGS WELL. SPO2 AND RESPIRATIONS WNL. NO SIGNS OR SYMPTOMS OF RESP. DISTRESS NOTED. BVM AND BACK-UP TRACH AT BEDSIDE. VENT PLUGGED INTO RED OUTLET. SUCTION PRN. WILL CONTINUE TO MONITOR.
--- NOTE | 2021-01-23 19:00 | NUR ---
received report from day shift okeyed by erasmo Allan to restart previous tf feeding
--- NOTE | 2021-01-23 19:00 | NUR ---
received patient awake , unable to follow command , vent settings of ac 15 tv 450 . p 5 30 fio2 % , nephro , 30 ml , no residual noted , rectal tube draining , bilateral hands 3+ edema , affected site , dressing intact , , no fever , d5 ns 60 ml
--- NOTE | 2021-01-23 19:00 | NUR ---
right groin aurora catheter intact
[2021-01-23] MEDS: MEROPENEM 500 MG in IV NORMAL SALINE 50 ML IV SCH (20:19)
[2021-01-23] MEDS: ATORVASTATIN 40 MG TABLET GT SCH (20:19)
[2021-01-23] MEDS: INSULIN GLARGINE,HUM 300 UNITS/3 ML CARTRIDGE SQ SCH (21:32)
[2021-01-24] VITALS (8 sets, daily range): BP systolic 100–143; BP diastolic 28–97
[2021-01-24] MEDS: BLOOD SUGAR DIAGNOSTIC 1 EACH STRIP VI SCH ×4 (00:21→17:35)
[2021-01-24] MEDS: INSULIN REGULAR, HUMAN 300 UNIT/3 ML VIAL SQ PRN ×2 (00:25→06:45)
[2021-01-24] MEDS: VANCOMYCIN FOR PO/GT/NG USE PO SCH ×4 (00:57→19:41)
[2021-01-24] MEDS: MORPHINE SULFATE 4 MG/1 ML DISP.SYRIN IV PRN (03:28)
--- NOTE | 2021-01-24 03:39 | NUR ---
PATIENT ON CONT FRAGOSO VENT WITH PORTEX # [address] AND SECURED, VENT SETTINGS, A/C 15, 30% VT 450ML, PT DOES ASSIST AT TIMES, CHECK CUFF, TRACH CARE, NO VENT CHANGES MADE, SUCTION MOUTH WITH ABBY CHARLTON BAG AT BEDSIDE,PT DOES RESPONSE TO STIMULI, GOOD COUGH AND GAG REFLEX, D GEOFFREY BILLY Addendum: 01/24/21 at 0342 by SANTOSH HALE RT Amended: Links added.
[2021-01-24 05:16] LABS: MEAN CORPUSCULAR VOLUME 91.1 fL (73.0-96.2); PLATELET COUNT (AUTO) 294 K/uL (152-348)
[2021-01-24 05:17] LABS: HEMATOCRIT 23.6 % (36.7-47.1); MEAN CORPUSCULAR HEMOGLOBIN 27.8 uug (23.8-33.4)
[2021-01-24 05:28] LABS: CARBON DIOXIDE 27 mmol/L (21-32); CHLORIDE 107 mmol/L (98-107); CREATININE 3.7 mg/dL (0.6-1.3); GLUCOSE 136 mg/dL (74-106); PHOSPHOROUS 5.2 mg/dL (2.5-4.9); POTASSIUM 3.8 mmol/L (3.5-5.1); UREA NITROGEN, BLOOD 58 mg/dL (7-18); VANCOMYCIN,RANDOM 19.4 ug/mL (18.0-26.0)
--- NOTE | 2021-01-24 06:00 | NUR ---
vent setting the same , spontaneous eye opening , unable to follow command , no fever , tf is off , no residual noted , dialysis is started , midline with d5 ns at 60 ml running , rectal tube draining , wound care dressing rendered and dressing changed
--- NOTE | 2021-01-24 06:03 | NUR ---
dialysis nurse is here to do dialysis
--- NOTE | 2021-01-24 06:45 | NUR ---
no insulin given bs is 128
--- NOTE | 2021-01-24 07:50 | NUR ---
Cardiology services, Dr. Solomon in the unit to see and examine pt. report given and as stated pt. has cardiac clearance.
--- NOTE | 2021-01-24 08:30 | NUR ---
Nephrology services Dr. Yoder in the unit to see and examine pt. report given orders to continue with care plan.
--- NOTE | 2021-01-24 08:30 | NUR ---
Hemodialysis finished at this time pt. tolerated procedure well with no support of any vasopressors. as reported total output is 2500cc.
[2021-01-24] MEDS: PANTOPRAZOLE ORAL SUSPENSION 40 MG SUSPDR.PKT GT SCH (08:33)
[2021-01-24] MEDS: MIDODRINE HCL 5 MG TABLET GT SCH ×2 (08:37→17:36)
[2021-01-24] MEDS: FOLIC ACID/VITAMIN B COMP W-C TABLET GT SCH (08:37)
[2021-01-24] MEDS: CARVEDILOL 3.125 MG TABLET GT SCH ×2 (08:38→17:37)
[2021-01-24] MEDS: PROTEIN SUPPLEMENT (PROSTAT) 30 ML LIQUID GT SCH ×2 (08:39→17:37)
[2021-01-24] MEDS: CLOTRIMAZOLE 1% CREAM 30 GM TUBE TOP SCH ×2 (08:40→17:38)
[2021-01-24] MEDS: Z GUARD REMEDY PASTE 57 GM TUBE TOP SCH ×2 (08:40→20:16)
[2021-01-24] MEDS: NUTRISOURCE FIBER 4 GM PACKET GT SCH ×3 (08:41→17:37)
[2021-01-24] MEDS: SODIUM HYPOCHLORITE 0.125% (QUARTER STRENGTH) 473 ML BOTTLE TP SCH ×3 (08:42→17:38)
[2021-01-24] MEDS: SILVER SULFADIAZINE 1% CREAM 50 GM TP SCH ×2 (08:43→17:39)
--- NOTE | 2021-01-24 12:27 | NUR ---
Attending Dr. Mcdonald in the unit to see and examine pt. report given and as stated " I'll speak to case management for plans to dcd pt. today".
--- NOTE | 2021-01-24 12:43 | NUR ---
A call to Dr. Roach to notify her that residuals at this time is only 30cc's but feeding is leaking out of pt's abdomen mixed with bile. Orders to stop feeding received and as stated by Md. She'll consult Dr. Butterfield for further evaluation.
[2021-01-24] MEDS: IV D5/ 0.9% NACL 1,000 ML IV PRN (13:59)
[2021-01-24 14:41] LABS: HEPATITIS B SURFACE AG Negative
--- NOTE | 2021-01-24 18:12 | NUR ---
PT RECEIVED TRACH TO VENT ON CMV. PORTEX #8 TRACH IS PATENT AND SECURE. VENT PARAMETERS AND ALARMS CHECKED. ALARMS ARE AUDIBLE. PT IS ON A FRAGOSO VENT ON SETTINGS OF A/C 15, VT 500, 30% FIO2. PT HAS BEEN STABLE THROUGHOUT SHIFT. PT IS TOLERATING VENT SETTINGS WELL. SPO2 AND RESPIRATIONS WNL. TRACH CARE AND ORAL CARE PERFORMED. NO SIGNS OR SYMPTOMS OF RESP. DISTRESS NOTED. BVM AND BACK-UP TRACH AT BEDSIDE. VENT PLUGGED INTO RED OUTLET. SUCTION PRN. WILL CONTINUE TO MONITOR.
[2021-01-24] MEDS: VANCOMYCIN IV 500 MG in IV DEXTROSE 5% 100 ML IV PRN (19:16)
[2021-01-24] MEDS: ATORVASTATIN 40 MG TABLET GT SCH (20:16)
[2021-01-24] MEDS: INSULIN GLARGINE,HUM 300 UNITS/3 ML CARTRIDGE SQ SCH (20:17)
[2021-01-24] MEDS: MEROPENEM 500 MG in IV NORMAL SALINE 50 ML IV SCH (20:32)
--- NOTE | 2021-01-24 20:35 | NUR ---
Lantus 50units not given as patient is no longer receiving tube feeding at this time. Most recent BS was 125.
--- NOTE | 2021-01-24 21:13 | NUR ---
Patient to be transferred upstairs to room 312. Report given to Steffen MEDINA.
--- NOTE | 2021-01-24 21:50 | NUR ---
Patient transferred to room 312 in his bed with myself and RT. Patient made the transfer without incident, no SOB or signs of distress. Patient remains stable. All belongings, wound treatments, medications, and chart accompanied the patient,
--- NOTE | 2021-01-24 23:00 | NUR ---
received from CCU; tolerating present vent settings; oral care and trache care done.
--- NOTE | 2021-01-25 00:03 | NUR ---
PATIENT ON CONT FRAGOSO VENT WITH PORTEX # [address] AND SECURED, WITH SETTINGS, A/C 15, 450ML, FIO2 @ 30%, PT DOES ASSIST AT TIMES, GOOD COUGH EFFORT, SUCTIONED LIGHT PALE YELL TINGE SECRETIONS, AND SUCTION MOUTH WITH MARTHA CHARLTON, CHECK CUFF, TRACH CARE, NO VENT CHANGES MADE, VENT PLUGGED INTO RED WALL OUT, WITH BACK UP TRACH AND AMBU BAG AT BEDSIDE, PT STABLE .Denise NAVARRETEP Addendum: 01/25/21 at 0006 by SANTOSH HALE RT Amended: Links added.
[2021-01-25] MEDS: BLOOD SUGAR DIAGNOSTIC 1 EACH STRIP VI SCH ×4 (00:51→19:32)
[2021-01-25] MEDS: VANCOMYCIN FOR PO/GT/NG USE PO SCH ×4 (00:52→19:30)
[2021-01-25] MEDS: INSULIN REGULAR, HUMAN 300 UNIT/3 ML VIAL SQ PRN ×2 (00:53→06:28)
[2021-01-25 03:17] VITALS: BP 141/29
[2021-01-25 04:32] VITALS: BP 154/36
[2021-01-25 06:10] LABS: PLATELET COUNT (AUTO) 254 K/uL (152-348)
[2021-01-25 06:12] LABS: HEMATOCRIT 23.1 % (36.7-47.1); MEAN CORPUSCULAR HEMOGLOBIN 27.6 uug (23.8-33.4); MEAN CORPUSCULAR VOLUME 90.6 fL (73.0-96.2)
[2021-01-25] MEDS: PANTOPRAZOLE ORAL SUSPENSION 40 MG SUSPDR.PKT GT SCH (06:26)
--- NOTE | 2021-01-25 06:45 | NUR ---
repositioned q2h; dressing to hip and sacrum and BLE done; dressing to midline done; remains Nothing By tube until seen by GI; continue to monitor; continue plan of care.
[2021-01-25 07:00] LABS: CARBON DIOXIDE 27 mmol/L (21-32); CHLORIDE 109 mmol/L (98-107); CREATININE 3.7 mg/dL (0.6-1.3); GLUCOSE 135 mg/dL (74-106); PHOSPHOROUS 5.1 mg/dL (2.5-4.9); UREA NITROGEN, BLOOD 52 mg/dL (7-18); VANCOMYCIN,RANDOM 22.8 ug/mL (18.0-26.0)
--- NOTE | 2021-01-25 08:00 | NUR ---
Awake, opens eyes spontaneously. Trach to vent with same settings, with O2 sat of 96%. GT clamped. IVF infusing well. Contact isolation re enforced.
[2021-01-25 08:44] LABS: ABG BASE EXCESS 2.9 mmol/L; ABG HCO3 27.4 mmol/L; ABG PCO2 41.6 mmHg (35.0-45.0); ABG PH 7.436 (7.350-7.450); ABG PO2 51.1 mmHg (75.0-100.0); ABG SITE RIGHT RADIAL; ABG TOTAL HEMOGLOBIN 7.9 G/dL (13.5-18.0); COHb 1.4 % (0.5-1.5); MetHb 0.5 % (0.0-1.5); O2Hb 83.2 % (94.0-97.0); VENT MODE VENT - A/C; VT, ABG 450 mL
[2021-01-25] MEDS: CARVEDILOL 3.125 MG TABLET GT SCH ×2 (09:00→17:00)
[2021-01-25] MEDS: NUTRISOURCE FIBER 4 GM PACKET GT SCH ×3 (09:00→17:00)
[2021-01-25] MEDS: FOLIC ACID/VITAMIN B COMP W-C TABLET GT SCH (09:47)
[2021-01-25] MEDS: MIDODRINE HCL 5 MG TABLET GT SCH ×2 (09:59→17:00)
[2021-01-25] MEDS: PROTEIN SUPPLEMENT (PROSTAT) 30 ML LIQUID GT SCH ×2 (10:00→17:00)
--- NOTE | 2021-01-25 10:00 | NUR ---
Sponge bath given. Repositioned in bed comfortably. Secretions suctioned. Oral and trach care done.
[2021-01-25] MEDS: CLOTRIMAZOLE 1% CREAM 30 GM TUBE TOP SCH ×2 (10:01→17:10)
[2021-01-25] MEDS: SODIUM HYPOCHLORITE 0.125% (QUARTER STRENGTH) 473 ML BOTTLE TP SCH ×3 (10:02→17:11)
[2021-01-25] MEDS: Z GUARD REMEDY PASTE 57 GM TUBE TOP SCH ×2 (10:02→22:35)
[2021-01-25] MEDS: SILVER SULFADIAZINE 1% CREAM 50 GM TP SCH ×2 (10:04→17:11)
[2021-01-25] MEDS: IV D5/ 0.9% NACL 1,000 ML IV PRN (10:27)
[2021-01-25 12:00] VITALS: BP 152/60
[2021-01-25 13:55] LABS: EOSINOPHILS % (MANUAL) 27 % (0-8); LYMPHOCYTES % (MANUAL) 12 % (20-40); MONOCYTES % (MANUAL) 9 % (2-10); NEUTROPHILS % (MANUAL) 52 % (42-75)
--- NOTE | 2021-01-25 13:59 | NUR ---
Dr. Butterfield seen and examined patient, removed GTube for infection. Noted small bleeding on site, dressing applied.
[2021-01-25 16:00] VITALS: BP 127/48
--- NOTE | 2021-01-25 18:00 | NUR ---
Secretions suctioned. oral care done. Wound care done as ordered. Repositioned comfortably. IVF infusing well. Pharmacy and Dr. Romero informed that G tube was removed
--- NOTE | 2021-01-25 20:00 | NUR ---
PATIENT EYES OPEN, NON VERBAL, ON TRACH WITH VENT, NO S/S OF SOB , NO S/S CHEST PAIN, TELE MONITOR SINUS RHYTHM. PATIENT HAS NO GT, ALL VIA GT, MEDICATION AND FEEDING ARE ON HOLD, ON IV ABX AND HYDRATION. PATIENT ABDOMEN DRESSING INTACT, FLEXI SEAL WITH BROWNISH COLOR BM SOFT, CONT TO MONITOR. PATIENT REMAIN IN CONTACT ISOLATION, TURN AND REPOSITION, TX CONT ON MULTIPLE WOUNDS.
[2021-01-25 20:06] VITALS: BP 124/43
[2021-01-25] MEDS: ATORVASTATIN 40 MG TABLET GT SCH (21:00)
[2021-01-25] MEDS: MEROPENEM 500 MG in IV NORMAL SALINE 50 ML IV SCH (22:04)
[2021-01-25] MEDS: INSULIN GLARGINE,HUM 300 UNITS/3 ML CARTRIDGE SQ SCH (22:34)
[2021-01-26 00:03] VITALS: BP 130/45
[2021-01-26] MEDS: BLOOD SUGAR DIAGNOSTIC 1 EACH STRIP VI SCH ×5 (00:29→16:31)
[2021-01-26] MEDS: VANCOMYCIN FOR PO/GT/NG USE PO SCH ×4 (01:30→16:10)
[2021-01-26 04:25] VITALS: BP 111/40
[2021-01-26] MEDS: DEXTROSE 50% 50 ML DISP.SYRIN IV PRN ×3 (05:31→15:38)
--- NOTE | 2021-01-26 05:31 | NUR ---
PATIENT BLOOD SUGAR 12, GIVEN 50% DEXTROSE IV PUSH, RECHECK BS WHEN UP TO 73. NO S/S OF DISTRESS.
[2021-01-26] MEDS: PANTOPRAZOLE ORAL SUSPENSION 40 MG SUSPDR.PKT GT SCH (06:06)
--- NOTE | 2021-01-26 07:34 | NUR ---
patient awake, eyes open, non verbal, no s/s of pain no s/s of sob at this time, tele monitor sinus rhythm, with rj but unsustainable, tx done on multiple wounds, on vents tolerate well, no s/s of hypogylcemia noted, remain on contact isolation, cont to monitor.
[2021-01-26 08:00] VITALS: BP 124/44
[2021-01-26] MEDS: PROTEIN SUPPLEMENT (PROSTAT) 30 ML LIQUID GT SCH ×2 (09:00→15:27)
[2021-01-26] MEDS: CARVEDILOL 3.125 MG TABLET GT SCH ×2 (09:00→15:25)
[2021-01-26] MEDS: NUTRISOURCE FIBER 4 GM PACKET GT SCH ×3 (09:00→15:26)
[2021-01-26] MEDS: MIDODRINE HCL 5 MG TABLET GT SCH ×2 (09:00→15:26)
[2021-01-26] MEDS: FOLIC ACID/VITAMIN B COMP W-C TABLET GT SCH (09:00)
[2021-01-26] MEDS: CLOTRIMAZOLE 1% CREAM 30 GM TUBE TOP SCH ×2 (09:22→15:28)
[2021-01-26] MEDS: SODIUM HYPOCHLORITE 0.125% (QUARTER STRENGTH) 473 ML BOTTLE TP SCH ×3 (09:23→15:28)
[2021-01-26] MEDS: Z GUARD REMEDY PASTE 57 GM TUBE TOP SCH ×2 (09:23→21:24)
[2021-01-26] MEDS: SILVER SULFADIAZINE 1% CREAM 50 GM TP SCH ×2 (09:24→15:28)
[2021-01-26] MEDS: IV D5/ 0.9% NACL 1,000 ML IV PRN (09:41)
--- NOTE | 2021-01-26 09:45 | NUR ---
HEMODIALYSIS STARTED AT BEDSIDE, SEEN BY NÉSTOR GAMING SEE NOTES
[2021-01-26] MEDS: ALBUMIN HUMAN 25% 100 ML IV PRN (11:00)
--- NOTE | 2021-01-26 12:00 | NUR ---
BS FINGER STICK-10 WHILE PT ON DIALYSIS, STAT SERUM GLUCOSE -21. D5O GIVEN IVP. PATIENT WAR AMD DRY, SR ON MONITOR
[2021-01-26 12:06] LABS: HEMATOCRIT 26.2 % (36.7-47.1); MEAN CORPUSCULAR HEMOGLOBIN 27.4 uug (23.8-33.4); MEAN CORPUSCULAR VOLUME 90.4 fL (73.0-96.2); PLATELET COUNT (AUTO) 229 K/uL (152-348)
--- NOTE | 2021-01-26 12:20 | NUR ---
BS=79, SR -SB ON MONITOR, WARM AND DRY SKIN
[2021-01-26 12:41] LABS: CARBON DIOXIDE 29 mmol/L (21-32); CHLORIDE 109 mmol/L (98-107); MAGNESIUM 1.9 mg/dL (1.8-2.4); POTASSIUM 3.7 mmol/L (3.5-5.1); UREA NITROGEN, BLOOD 39 mg/dL (7-18); VANCOMYCIN,RANDOM 17.1 ug/mL (18.0-26.0)
--- NOTE | 2021-01-26 12:45 | NUR ---
BS =43. DR BECKER NOTIFIED WITH ORDER TO GIVE ANOTHER D5O IVP 1 AMP, START ON D10 75 ML/HR
[2021-01-26 12:48] LABS: GLUCOSE 21 mg/dL (74-106)
[2021-01-26] MEDS ORDERED: DEXTROSE 50% 50 ML DISP.SYRIN IV ONE ×2 (13:00→15:45)
--- NOTE | 2021-01-26 13:12 | NUR ---
HEMODIALYSIS COMPLETED WITH 3L OUT
[2021-01-26] MEDS: IV 10% DEXTROSE 1,000 ML IV PRN (13:19)
[2021-01-26] MEDS ORDERED: MEROPENEM 0.5 G in IV NORMAL SALINE 50 ML IV ONE (14:00)
[2021-01-26] MEDS ORDERED: VANCOMYCIN IV 500 MG in IV DEXTROSE 5% 100 ML IV ONE (15:00)
--- NOTE | 2021-01-26 15:38 | NUR ---
bs 42 dr ospina at bedside and said to give d50 ivp 1 amp and insert NGT AND restart nephro
[2021-01-26] MEDS ORDERED: NEPRO 1000 ML GT SCH (15:45)
--- NOTE | 2021-01-26 16:33 | NUR ---
BS FINGER STICK 91. PATIENT AWAKE ALERT OPENS EYES TO TOUCH., WARM AND DRY SKIN SR ON MONITOR. SATURATING 98% NGT INSERTED FOLLOWED WITH CXR FOR PLACEMENT
[2021-01-26 16:57] VITALS: BP 107/49
--- NOTE | 2021-01-26 19:15 | NUR ---
RECD PT IN BED, TRACH TO VENT IN PLACE, NO ACUTE DISTRESS NOTED,VITAL SIGNS W/I NORMAL LIMITS,.
--- NOTE | 2021-01-26 19:45 | NUR ---
PATIENT EYES OPEN NO S/S OF PAIN, NO S/S OF CHEST PAIN, NO S/S OF SOB, TELE MONITOR SINUS RHTYHM AT THIS TIMES, FLEXI SEAL IN PLACE, CONT TO TO MONITOR. Addendum: 01/28/21 at 0520 by TIAN BOBBY RN PATIENT EYES OPEN NO S/S OF PAIN, NO S/S OF CHEST PAIN, NO S/S OF SOB, TELE MONITOR SINUS RHTYHM AT THIS TIMES, FLEXI SEAL IN PLACE, CONT TO TO MONITOR. CHARTING IN ERROR.
--- NOTE | 2021-01-26 19:50 | NUR ---
Received pt awake, trached with Portex#8 cuffed trach, which is in place and secured properly, on Sinha vent with the following settings of AC-15, Vt-450, FIO2-30%. No s/s of respiratory distress noted. Airway care done, pt responded to physical stimuli. Cont. pulse on. Back up trach and resus. bag at bedside. Vent and alarms checked and reset.
[2021-01-26 20:00] VITALS: BP 105/56
--- NOTE | 2021-01-26 21:20 | NUR ---
SOUND ASLEEP AT THIS TIME,NGT FEED ON ,NEPHRO AT 60 ML./HR.MIDLINE ON RU ARM INTACT.STILL ON ISOLATION FOR C DIFF AND MRSA WOUNDS AND NARES.
[2021-01-26] MEDS: MEROPENEM 500 MG in IV NORMAL SALINE 50 ML IV SCH (21:22)
[2021-01-26] MEDS: ATORVASTATIN 40 MG TABLET GT SCH (21:22)
--- NOTE | 2021-01-26 21:30 | NUR ---
patient recieved on bed asleep.arousable with ngt to the right nare infusing and with no resuduals noted, head of bed elevated 35 degrees,.ivf d10 % ongoing to the right upper arm midline, turned to sides
[2021-01-27] VITALS: BP 131/49
[2021-01-27] MEDS: BLOOD SUGAR DIAGNOSTIC 1 EACH STRIP VI SCH ×4 (00:07→17:45)
--- NOTE | 2021-01-27 00:10 | NUR ---
accucheck done 82mg/dl. on d10% as iv fluids/
[2021-01-27] MEDS: VANCOMYCIN FOR PO/GT/NG USE PO SCH ×4 (01:29→19:30)
--- NOTE | 2021-01-27 01:29 | NUR ---
medications due held as the patient noted to be vomiting and feeding noted. feeding off .will inform the windows phone developer physician
--- NOTE | 2021-01-27 01:50 | NUR ---
MEG Benitez called back and gave orders, ngt feeding stopped and to continue d10% iv fluids and stat chest xray r/o aspiration. patient is not in distress .saturation stable. Addendum: 01/27/21 at 0154 by REGISTRY [facility] INPATIENT RN2 RN noted to have moderate sect]re Addendum: 01/27/21 at 0156 by REGISTRY [facility] INPATIENT RN2 RN noted to have moderate mucoid secretions in the traceostomy insertion site and cleaned and kept dry. with small amount of feeding with the mucus. head of bed elevated. Addendum: 01/27/21 at 0211 by REGISTRY [facility] INPATIENT RN2 RN noted to have moderate mucoid secretions to the tracheostomy insertion site with a littekl feeding . feeding is off and chest xray ordered and done .awaiting result. head of bed elevated 35 degrees
[2021-01-27] MEDS: IV 10% DEXTROSE 1,000 ML IV PRN ×2 (02:58→16:11)
--- NOTE | 2021-01-27 03:18 | NUR ---
awaiting chest xray result . patient feeding per ngt is off.
[2021-01-27 04:00] VITALS: BP 135/68
--- NOTE | 2021-01-27 05:17 | NUR ---
Continue monitor pt on present vent settings. At this time pt awake. No s/s of respiratory distress noted during the shift. Airway and trach care done. HME and Sx Quintero changed. Vent and alarms checked and reset.
[2021-01-27] MEDS: PANTOPRAZOLE ORAL SUSPENSION 40 MG SUSPDR.PKT GT SCH (07:00)
--- NOTE | 2021-01-27 07:12 | NUR ---
CHEST XRAY RESULT NOT IN. PATIENT FEEDING IS STILL OF /. IVF D10% AT 75ML/HOUR CONTONOUED. BLOOD SUGAR 86MG/DL CLEANED AND KEPT DRY Addendum: 01/27/21 at 0715 by REGISTRY [facility] INPATIENT RN2 RN MEDICATIONS NOT GIVEN THE PATIENT FEEDING STILL ON HOLD TILL THE CHEST XRAY IS IN.
[2021-01-27 07:49] LABS: CARBON DIOXIDE 25 mmol/L (21-32); CHLORIDE 108 mmol/L (98-107); CREATININE 3.6 mg/dL (0.6-1.3); GLUCOSE 73 mg/dL (74-106); MAGNESIUM 2.1 mg/dL (1.8-2.4); PHOSPHOROUS 4.9 mg/dL (2.5-4.9); POTASSIUM 4.2 mmol/L (3.5-5.1); UREA NITROGEN, BLOOD 45 mg/dL (7-18)
--- NOTE | 2021-01-27 08:00 | NUR ---
PATIENT OPENS EYES WITH FACIAL GRIMACE WHEN TURN TO SIDES. PATIENT SATURATING 98%-100% WITH SAME VENT SETTINGS. D10 IVF 75 MLS/HR VIA MID LINE. SR ON MONITOR
[2021-01-27 08:09] VITALS: BP 136/43
[2021-01-27] MEDS: CARVEDILOL 3.125 MG TABLET GT SCH ×2 (08:23→17:00)
[2021-01-27] MEDS: MIDODRINE HCL 5 MG TABLET GT SCH ×2 (08:24→17:00)
[2021-01-27] MEDS: FOLIC ACID/VITAMIN B COMP W-C TABLET GT SCH (08:24)
[2021-01-27] MEDS: NUTRISOURCE FIBER 4 GM PACKET GT SCH ×3 (08:24→17:00)
[2021-01-27] MEDS: PROTEIN SUPPLEMENT (PROSTAT) 30 ML LIQUID GT SCH ×2 (08:25→17:00)
[2021-01-27] MEDS: CLOTRIMAZOLE 1% CREAM 30 GM TUBE TOP SCH ×2 (08:26→17:30)
[2021-01-27] MEDS: Z GUARD REMEDY PASTE 57 GM TUBE TOP SCH (08:26)
[2021-01-27] MEDS: SODIUM HYPOCHLORITE 0.125% (QUARTER STRENGTH) 473 ML BOTTLE TP SCH ×3 (08:26→17:30)
[2021-01-27] MEDS: SILVER SULFADIAZINE 1% CREAM 50 GM TP SCH ×2 (08:27→17:30)
[2021-01-27 12:19] VITALS: BP 113/44
[2021-01-27 15:01] LABS: MEAN CORPUSCULAR HEMOGLOBIN 27.5 uug (23.8-33.4); MEAN CORPUSCULAR VOLUME 90.2 fL (73.0-96.2); PLATELET COUNT (AUTO) 222 K/uL (152-348)
--- NOTE | 2021-01-27 16:01 | NUR ---
PT RECEIVED TRACH TO VENT ON CMV. PORTEX #8 TRACH IS PATENT AND SECURE. VENT PARAMETERS AND ALARMS CHECKED. ALARMS ARE AUDIBLE. PT IS ON A FRAGOSO VENT ON SETTINGS OF A/C 15, VT 500, 30% FIO2. PT HAS BEEN STABLE THROUGHOUT SHIFT. PT IS TOLERATING VENT SETTINGS WELL. SPO2 AND RESPIRATIONS WNL. TRACH CARE PERFORMED DURING SHIFT. NO SIGNS OR SYMPTOMS OF RESP. DISTRESS NOTED. BVM AND BACK-UP TRACH AT BEDSIDE. VENT PLUGGED INTO RED OUTLET. SUCTION PRN. WILL CONTINUE TO MONITOR.
[2021-01-27 16:48] VITALS: BP 100/37
--- NOTE | 2021-01-27 17:05 | NUR ---
PER DR BECKER HOLD FEEDING TILL CLEARED BY GI DR CARTY. GT SITE STILL LEAKING MODERATE AMOUNT OF DARK DRAINAGE. WOUND CARE DONE. SACRAL WOUND LOOK CLEAN WITH GRANULATING TISSUE AND PARTIAL NECROSIS NOTED. CONTINUE WITH DAIKINS SOLUTION AND LEFT FOOT WITH BACTROBAN
--- NOTE | 2021-01-27 19:45 | NUR ---
PATIENT EYES OPEN, NO S/S OF PAIN, NO S/S OF CHEST PAIN, NO S/S OF HYPOGYLCEMIA NOTED, REMAINS ON CONTACT ISOLATION, FLEXI SEAL IN PLACE, PATIENT ALL GT/NGT MEDICATIONS ON HOLD PER NURSE PRACTITIONER, OLD SITE LEAKING, NO S/S OF DISTRESS.
[2021-01-27 20:09] VITALS: BP 134/60
[2021-01-27] MEDS: ATORVASTATIN 40 MG TABLET GT SCH (20:55)
[2021-01-27] MEDS: MEROPENEM 500 MG in IV NORMAL SALINE 50 ML IV SCH (21:17)
[2021-01-28] VITALS: BP 133/49
[2021-01-28] MEDS: VANCOMYCIN FOR PO/GT/NG USE PO SCH ×5 (01:30→20:00)
[2021-01-28] MEDS: INSULIN REGULAR, HUMAN 300 UNIT/3 ML VIAL SQ PRN ×3 (01:43→18:35)
[2021-01-28] MEDS: BLOOD SUGAR DIAGNOSTIC 1 EACH STRIP VI SCH ×4 (01:45→18:35)
[2021-01-28] MEDS: Z GUARD REMEDY PASTE 57 GM TUBE TOP SCH ×3 (02:03→20:26)
[2021-01-28 04:12] VITALS: BP 103/46
[2021-01-28] MEDS: IV 10% DEXTROSE 1,000 ML IV PRN ×2 (05:06→23:32)
[2021-01-28] MEDS: PANTOPRAZOLE ORAL SUSPENSION 40 MG SUSPDR.PKT GT SCH (05:14)
--- NOTE | 2021-01-28 05:15 | NUR ---
PATIENT ALL VIA GT/NGT MEDICATION ARE ON HOLD AT THIS TIME, PATIENT OLD GT STOMA LEAKING, PATIENT EYES OPEN, TELE MONITOR SINUS RHYTHM, NO S/S OF SOB NO S/S OF CHEST PAIN. TX CONT ON MULTIPLE WOUNDS, NO S/S OF HYPOGYLCEMIA NOTED, REMAINS ON CONTACT PRECAUTION, NO S/S OF DISTRESS.
[2021-01-28 06:51] LABS: HEMATOCRIT 23.5 % (36.7-47.1); MEAN CORPUSCULAR HEMOGLOBIN 27.8 uug (23.8-33.4); MEAN CORPUSCULAR VOLUME 92.5 fL (73.0-96.2); PLATELET COUNT (AUTO) 234 K/uL (152-348)
[2021-01-28 06:52] LABS: CARBON DIOXIDE 26 mmol/L (21-32); CHLORIDE 105 mmol/L (98-107); GLUCOSE 127 mg/dL (74-106); PHOSPHOROUS 5.3 mg/dL (2.5-4.9); POTASSIUM 4.6 mmol/L (3.5-5.1); UREA NITROGEN, BLOOD 45 mg/dL (7-18)
--- NOTE | 2021-01-28 07:45 | NUR ---
RECEIVED REPORT FROM OILSEED MEAT PRESSER NURSE. PT IN BED AND BASELINE ALERT. NURSE IDENTIFIED PT BY NAME, BIRTHDAY AND MEDICAL RECORD. NO FACIAL GRIMACING OR RESTLESS NOTED. PT CALM AND RELAX. ASSESSED PT HEAD TO TOE. ALL SKIN ISSUES NOTED. PLAN TO HAVE DIALYSIS TODAY. WILL CONTINUE TO MONITOR. SAFETY MEASURES PROVIDED, BED LOW AND LOCK AND CALL LIGHT WITHIN REACH.
[2021-01-28 08:00] VITALS: BP 150/60
[2021-01-28] MEDS: NUTRISOURCE FIBER 4 GM PACKET GT SCH ×3 (08:33→17:00)
[2021-01-28] MEDS: FOLIC ACID/VITAMIN B COMP W-C TABLET GT SCH (08:33)
[2021-01-28] MEDS: PROTEIN SUPPLEMENT (PROSTAT) 30 ML LIQUID GT SCH ×2 (08:33→17:00)
[2021-01-28] MEDS: SODIUM HYPOCHLORITE 0.125% (QUARTER STRENGTH) 473 ML BOTTLE TP SCH ×3 (09:00→17:40)
[2021-01-28] MEDS: SILVER SULFADIAZINE 1% CREAM 50 GM TP SCH ×2 (09:00→17:40)
[2021-01-28] MEDS: CARVEDILOL 3.125 MG TABLET GT SCH ×2 (09:00→17:00)
[2021-01-28] MEDS: CLOTRIMAZOLE 1% CREAM 30 GM TUBE TOP SCH ×2 (09:00→17:39)
[2021-01-28] MEDS: MIDODRINE HCL 5 MG TABLET GT SCH ×2 (09:00→17:00)
--- NOTE | 2021-01-28 09:05 | NUR ---
RECEIVED CRITICAL LAB VALUE HGB 7.1. NOTIFIED DR. BECKER. WAITING ON ORDERS.
[2021-01-28 12:01] VITALS: BP 139/50
--- NOTE | 2021-01-28 13:45 | NUR ---
RECEIVED ORDERS FOR BLOOD TRANSFUSION FROM DR. LAZAR. WILL PROCEED PER PHYSICIAN'S ORDERS. BLOOD BANK AWARE.
--- NOTE | 2021-01-28 15:08 | NUR ---
FOLLOWED UP WITH DR. NICHOLS REGARDING NG TUBE. MD AWARE OF PT'S CURRENT STATUS. PT ON NPO PER PHYSICIAN'S ORDER. WAITING TO HEAR FROM DR. NICHOLS.
[2021-01-28] MEDS ORDERED: MUPIROCIN 2% OINT 22 GM TUBE TP PRN (17:15)
[2021-01-28 18:01] VITALS: BP 102/60
--- NOTE | 2021-01-28 19:22 | NUR ---
1700 - HOUSECLEANER FLOOR DANIEL ARRIVED TO DO DEBRIDEMENT. CONSENT ALREADY SIGNED. TIME OUT DONE BY NURSE. PROCEDURE COMPLETED WITHOUT ANY ISSUES. SENDING CULTURE TO LAB PER ORDER. 1730 - BLOOD UNIT AVAILABLE AND TRANSFUSED DURING DIALYSIS WITH MARK BALLESTEROS. VITAL SIGNS NOTED. NO SIGNS OF DISTRESS OR SOB NOTED. NO SIGNS OF PAIN NOTED ON FACE. PICC LINE NURSE ATTEMPTED INSERTION, BUT PER NURSE'S STATEMENT SUBCLAVIAN ACCESS ISN'T ACCESSIBLE. MIDLINE WILL BE CONTINUE TO BE USED. DR. MEDINA ARRIVED AND REQUESTED FOR LEFT FOOT WOUND DEBRIDEMENT. LEFT MESSAGES FOR ROSIBEL SMITH) TO GET CONSENT BUT NO RESPONSE. CONSENT RECEIVED BY NEXT OF KIN, DEANDRE JACOME (SON). TIME DONE IN ROOM BEFORE PROCEDURE. PROCEDURE COMPLETED WITHOUT ANY ISSUES. 1930 - PT IN BED, RECEIVING DIALYSIS. NO SIGNS OF DISTRESS OR SOB. NO FACIAL GRIMACING NOTED. PT COMFORTABLE. WILL ENDORSE TO ELECTRICAL PANEL BUILDER NURSE Addendum: 01/28/21 at 1949 by JILLIAN KRAFT RN ELECTRICAL PANEL BUILDER NURSE AWARE TO END TRANSFUSION SHEET ONCE DIALYSIS IS COMPLETED
[2021-01-28] MEDS: ATORVASTATIN 40 MG TABLET GT SCH (20:26)
[2021-01-28] MEDS: MEROPENEM 500 MG in IV NORMAL SALINE 50 ML IV SCH (20:27)
[2021-01-28 22:51] VITALS: BP 131/46
[2021-01-29] VITALS (7 sets, daily range): BP systolic 95–122; BP diastolic 27–80
[2021-01-29] MEDS: BLOOD SUGAR DIAGNOSTIC 1 EACH STRIP VI SCH ×4 (00:33→19:03)
[2021-01-29] MEDS: INSULIN REGULAR, HUMAN 300 UNIT/3 ML VIAL SQ PRN ×2 (00:34→05:26)
[2021-01-29] MEDS: PANTOPRAZOLE ORAL SUSPENSION 40 MG SUSPDR.PKT GT SCH (06:16)
--- NOTE | 2021-01-29 07:38 | NUR ---
Sleeping, on moderate high back rest. Trach to vent AC 15, TV 450, FIO2 30%, PEEP 0. IVF infusing. NPO maintained. Rectal tube intact. Tele SR 81
[2021-01-29 08:02] LABS: HEMATOCRIT 26.5 % (36.7-47.1); MEAN CORPUSCULAR HEMOGLOBIN 27.3 uug (23.8-33.4); MEAN CORPUSCULAR VOLUME 92.1 fL (73.0-96.2); PLATELET COUNT (AUTO) 157 K/uL (152-348)
[2021-01-29 08:05] LABS: CARBON DIOXIDE 25 mmol/L (21-32); CHLORIDE 102 mmol/L (98-107); CREATININE 3.8 mg/dL (0.6-1.3); GLUCOSE 167 mg/dL (74-106); PHOSPHOROUS 4.9 mg/dL (2.5-4.9); POTASSIUM 4.6 mmol/L (3.5-5.1); UREA NITROGEN, BLOOD 40 mg/dL (7-18)
[2021-01-29] MEDS: CARVEDILOL 3.125 MG TABLET GT SCH ×2 (09:00→17:00)
[2021-01-29] MEDS: PROTEIN SUPPLEMENT (PROSTAT) 30 ML LIQUID GT SCH ×2 (09:00→17:00)
[2021-01-29] MEDS: MIDODRINE HCL 5 MG TABLET GT SCH ×2 (09:00→17:00)
[2021-01-29] MEDS: NUTRISOURCE FIBER 4 GM PACKET GT SCH ×3 (09:00→17:00)
[2021-01-29] MEDS: FOLIC ACID/VITAMIN B COMP W-C TABLET GT SCH (09:00)
[2021-01-29] MEDS: SODIUM HYPOCHLORITE 0.125% (QUARTER STRENGTH) 473 ML BOTTLE TP SCH ×3 (09:01→18:58)
[2021-01-29] MEDS: Z GUARD REMEDY PASTE 57 GM TUBE TOP SCH ×2 (09:01→20:20)
[2021-01-29] MEDS: SILVER SULFADIAZINE 1% CREAM 50 GM TP SCH ×2 (09:02→18:57)
[2021-01-29] MEDS: CLOTRIMAZOLE 1% CREAM 30 GM TUBE TOP SCH ×2 (09:03→18:57)
[2021-01-29 11:22] LABS: ABG BASE EXCESS 2.1 mmol/L; ABG PCO2 37.1 mmHg (35.0-45.0); ABG PH 7.463 (7.350-7.450); ABG PO2 82.3 mmHg (75.0-100.0); ABG SITE RIGHT BRACHIAL; ABG TOTAL HEMOGLOBIN 8.5 G/dL (13.5-18.0); COHb 1.8 % (0.5-1.5); MetHb 0.4 % (0.0-1.5); O2Hb 94.6 % (94.0-97.0); VENT MODE VENT - A/C; VT, ABG 450 mL
[2021-01-29] MEDS: IV 10% DEXTROSE 1,000 ML IV PRN (12:53)
[2021-01-29] MEDS ORDERED: IV 10% DEXTROSE 1,000 ML IV PRN (14:00)
--- NOTE | 2021-01-29 14:30 | NUR ---
PICC line placement attempted again but unsuccessful, able to place a midline, double lumen. Pharmacy informed of midline only and PPN will be used. D10W rate decreased to 50ml/hr
[2021-01-29] MEDS: VANCOMYCIN FOR PO/GT/NG USE PO SCH ×2 (17:00→20:06)
[2021-01-29] MEDS ORDERED: IV 10% DEXTROSE 1,000 ML IV SCH (17:01)
[2021-01-29] MEDS ORDERED: TPN/PPN PER PHARMACY IV PRN (18:00)
--- NOTE | 2021-01-29 18:30 | NUR ---
Hemodialysis done with 1.6 L output. Trach and oral secretions suctioned. Wound care done. Bed bath given. Repositioned in bed comfortably. TPN started as ordered. Endorsed for further care
[2021-01-29] MEDS: TPN BAG #1 IV SCH (18:59)
[2021-01-29] MEDS ORDERED: VANCOMYCIN IV 500 MG in IV DEXTROSE 5% 100 ML IV ONE (20:00)
[2021-01-29] MEDS: ATORVASTATIN 40 MG TABLET GT SCH (20:06)
[2021-01-29] MEDS: MEROPENEM 500 MG in IV NORMAL SALINE 50 ML IV SCH (21:08)
[2021-01-30] MEDS: INSULIN REGULAR, HUMAN 300 UNIT/3 ML VIAL SQ PRN (00:14)
[2021-01-30] MEDS: BLOOD SUGAR DIAGNOSTIC 1 EACH STRIP VI SCH ×4 (00:16→17:42)
[2021-01-30 00:30] VITALS: BP 128/53
--- NOTE | 2021-01-30 04:00 | NUR ---
PATIENT ON CONT FRAGOSO VENT WITH PORTEX # [address] AND SECURED, VENT SETTINGS, A/C 15, 450ML, 30%, PT DOES ASSIST AT TIMES, CHECK CUFF, CHANGE HME, SUCTIONED LIGHT PALE YELL TINGE SECRETIONS, NO VENT CHANGES MADE AT THIS TIME, ALL VENT ALARMS GOOD, PT WITH BACKUP Trach, vent plugged into redwall outlet, pt stable, cont pulse oxy in room at bedside . Denise NAVARRETEP Addendum: 01/30/21 at 0404 by SANTOSH HALE RT Amended: Links added.
[2021-01-30 04:45] VITALS: BP 140/63
--- NOTE | 2021-01-30 06:57 | NUR ---
pt rested well in between care; repositioned q2h; trache and oral care done; ongoing TPN; dressing change to wounds and photos taken; continue plan of care
[2021-01-30 07:19] LABS: HEMATOCRIT 25.3 % (36.7-47.1); MEAN CORPUSCULAR HEMOGLOBIN 27.7 uug (23.8-33.4); MEAN CORPUSCULAR VOLUME 91.3 fL (73.0-96.2); PLATELET COUNT (AUTO) 152 K/uL (152-348)
[2021-01-30 07:20] LABS: CARBON DIOXIDE 25 mmol/L (21-32); CHLORIDE 102 mmol/L (98-107); CREATININE 4.1 mg/dL (0.6-1.3); GLUCOSE 125 mg/dL (74-106); POTASSIUM 4.1 mmol/L (3.5-5.1); UREA NITROGEN, BLOOD 42 mg/dL (7-18)
[2021-01-30 07:54] LABS: MAGNESIUM 1.9 mg/dL (1.8-2.4); PHOSPHOROUS 4.9 mg/dL (2.5-4.9)
[2021-01-30] MEDS: PANTOPRAZOLE SODIUM 40 MG VIAL IV SCH (08:35)
[2021-01-30] MEDS: VANCOMYCIN FOR PO/GT/NG USE PO SCH ×5 (08:39→21:00)
[2021-01-30] MEDS: FOLIC ACID/VITAMIN B COMP W-C TABLET GT SCH ×2 (08:39→09:00)
[2021-01-30] MEDS: MIDODRINE HCL 5 MG TABLET GT SCH ×3 (08:39→16:13)
[2021-01-30] MEDS: SODIUM HYPOCHLORITE 0.125% (QUARTER STRENGTH) 473 ML BOTTLE TP SCH ×3 (08:41→16:15)
[2021-01-30] MEDS: CARVEDILOL 3.125 MG TABLET GT SCH ×3 (08:42→16:12)
[2021-01-30] MEDS: Z GUARD REMEDY PASTE 57 GM TUBE TOP SCH ×2 (08:43→21:23)
[2021-01-30] MEDS: CLOTRIMAZOLE 1% CREAM 30 GM TUBE TOP SCH ×2 (08:43→16:18)
[2021-01-30] MEDS: MINERAL OIL/PETROLATUM,WHITE 57 GM TUBE TOP PRN (08:44)
[2021-01-30] MEDS: NUTRISOURCE FIBER 4 GM PACKET GT SCH ×4 (08:47→16:13)
[2021-01-30] MEDS: SILVER SULFADIAZINE 1% CREAM 50 GM TP SCH ×2 (08:51→16:16)
[2021-01-30] MEDS: PROTEIN SUPPLEMENT (PROSTAT) 30 ML LIQUID GT SCH ×2 (09:00→16:13)
[2021-01-30] MEDS ORDERED: ALBUMIN HUMAN 25% 100 ML IV PRN (12:00)
[2021-01-30] MEDS: ALBUMIN HUMAN 25% 100 ML IV PRN (12:24)
[2021-01-30] MEDS: IV FAT EMULSIONS 20% 250 ML IV SCH (13:01)
[2021-01-30] MEDS ORDERED: IV FAT EMULSIONS 20% 250 ML IV SCH (14:00)
[2021-01-30] MEDS ORDERED: MEROPENEM 0.5 G in IV NORMAL SALINE 50 ML IV ONE (15:00)
[2021-01-30 16:56] VITALS: BP 93/73
[2021-01-30] MEDS: TPN BAG #1 IV SCH (17:36)
--- NOTE | 2021-01-30 19:00 | NUR ---
Pt received on Sinha settings of AC 15, VT 450 and FIO2-30%. No resp. distress noted at this time. Portex 8 is patent and secure; Backup Portex 8 and BVM are at bedside. Pt to be SX'd routinely and monitored throughout the rest of the shift. Sinha alarm parameters have been checked and remain audible.
[2021-01-30] MEDS ORDERED: TPN BAG #2 IV SCH (20:00)
[2021-01-30 20:33] VITALS: BP 129/58
[2021-01-30] MEDS: ATORVASTATIN 40 MG TABLET GT SCH (21:00)
[2021-01-30] MEDS: MEROPENEM 500 MG in IV NORMAL SALINE 50 ML IV SCH (21:22)
[2021-01-31] VITALS (8 sets, daily range): BP systolic 121–155; BP diastolic 51–67
[2021-01-31] MEDS: BLOOD SUGAR DIAGNOSTIC 1 EACH STRIP VI SCH ×4 (00:11→17:54)
[2021-01-31] MEDS: INSULIN REGULAR, HUMAN 300 UNIT/3 ML VIAL SQ PRN (00:14)
[2021-01-31 07:20] LABS: HEMATOCRIT 22.8 % (36.7-47.1); MEAN CORPUSCULAR HEMOGLOBIN 27.4 uug (23.8-33.4); MEAN CORPUSCULAR VOLUME 88.8 fL (73.0-96.2); PLATELET COUNT (AUTO) 149 K/uL (152-348)
[2021-01-31 07:24] LABS: CARBON DIOXIDE 28 mmol/L (21-32); CHLORIDE 102 mmol/L (98-107); CREATININE 3.9 mg/dL (0.6-1.3); GLUCOSE 113 mg/dL (74-106); POTASSIUM 3.5 mmol/L (3.5-5.1); UREA NITROGEN, BLOOD 36 mg/dL (7-18)
[2021-01-31] MEDS: FOLIC ACID/VITAMIN B COMP W-C TABLET GT SCH (09:00)
[2021-01-31] MEDS: NUTRISOURCE FIBER 4 GM PACKET GT SCH ×3 (09:00→17:00)
[2021-01-31] MEDS: PANTOPRAZOLE SODIUM 40 MG VIAL IV SCH (10:26)
[2021-01-31] MEDS: Z GUARD REMEDY PASTE 57 GM TUBE TOP SCH ×2 (10:27→21:20)
[2021-01-31] MEDS: PROTEIN SUPPLEMENT (PROSTAT) 30 ML LIQUID GT SCH ×2 (10:27→17:00)
[2021-01-31] MEDS: MIDODRINE HCL 5 MG TABLET GT SCH ×2 (10:28→17:00)
[2021-01-31] MEDS: CARVEDILOL 3.125 MG TABLET GT SCH ×2 (10:37→17:00)
[2021-01-31] MEDS: CLOTRIMAZOLE 1% CREAM 30 GM TUBE TOP SCH ×2 (10:38→17:53)
[2021-01-31] MEDS: SODIUM HYPOCHLORITE 0.125% (QUARTER STRENGTH) 473 ML BOTTLE TP SCH ×3 (10:38→17:53)
[2021-01-31] MEDS: VANCOMYCIN FOR PO/GT/NG USE PO SCH ×4 (10:38→21:00)
[2021-01-31] MEDS: SILVER SULFADIAZINE 1% CREAM 50 GM TP SCH ×2 (10:39→17:53)
[2021-01-31] MEDS ORDERED: ALTEPLASE 2 MG VIAL XX ONE (16:00)
--- NOTE | 2021-01-31 18:23 | NUR ---
Transferred patient to CCU. On vent. No respiratory distress noted. Ongoing TPN. Rectal tube intact. Gave nursing report to CCU RN.
--- NOTE | 2021-01-31 18:25 | NUR ---
Received patient from 3rd floor as [facility] overflow. VSS. Patient appears calm with no s/s of distress. Vent setting A/C 15. TV 450, FiO2 30%, no PEEP. Safety precautions in place. Contact isolation precautions observed.
--- NOTE | 2021-01-31 18:32 | NUR ---
varnish cooker at bedside at this time
--- NOTE | 2021-01-31 18:55 | NUR ---
Per dialysis nurse request, patient fi02 increased to 50%. Pt remains stable at this time. SP02-99% HR-84. Will continue to monitor.
--- NOTE | 2021-01-31 19:00 | NUR ---
received patient with hemodialysis ongoing , aurora catheter is at right femoral , picc line at gordo , tpn going at 42 ml /hr , vent ssetting of ac 15 tv 450 , 50 fio2 % , flexi seal draining liquid , , no fever noted
--- NOTE | 2021-01-31 19:10 | NUR ---
Received patient on Sinha settings of AC 15, VT 450 and FIO2-30%. No signs and symptoms of respiratory distress at this time. Airway (Portex 8) patent and secure; Backup trach and BVM confirmed at bedside. Sinha alarms on and audible. Will continue to monitor and suction routinely throughout shift.
[2021-01-31] MEDS ORDERED: TPN BAG #3 IV SCH (20:00)
[2021-01-31] MEDS: ATORVASTATIN 40 MG TABLET GT SCH (21:00)
--- NOTE | 2021-01-31 21:30 | NUR ---
Patient fio2 decreased to 30%. Pt remains stable at this time. No respiratory distress noted. SP02-99%, HR-75. Will continue to monitor.
--- NOTE | 2021-01-31 21:30 | NUR ---
dialysis done ,2300 liter out , RT put the patient back to 30 % fio2
[2021-01-31] MEDS: MEROPENEM 500 MG in IV NORMAL SALINE 50 ML IV SCH (21:41)
[2021-02-01] VITALS (8 sets, daily range): BP systolic 99–156; BP diastolic 33–72
[2021-02-01] MEDS: BLOOD SUGAR DIAGNOSTIC 1 EACH STRIP VI SCH ×4 (00:15→17:59)
[2021-02-01] MEDS: INSULIN REGULAR, HUMAN 300 UNIT/3 ML VIAL SQ PRN ×2 (00:16→06:21)
--- NOTE | 2021-02-01 00:16 | NUR ---
bs 122 , no insulin coverage
[2021-02-01 05:27] LABS: HEMATOCRIT 24.2 % (36.7-47.1); MEAN CORPUSCULAR HEMOGLOBIN 27.8 uug (23.8-33.4); MEAN CORPUSCULAR VOLUME 88.8 fL (73.0-96.2); PLATELET COUNT (AUTO) 137 K/uL (152-348)
[2021-02-01 05:37] LABS: CARBON DIOXIDE 27 mmol/L (21-32); CHLORIDE 99 mmol/L (98-107); GLUCOSE 118 mg/dL (74-106); MAGNESIUM 1.7 mg/dL (1.8-2.4); POTASSIUM 3.9 mmol/L (3.5-5.1); UREA NITROGEN, BLOOD 39 mg/dL (7-18); VANCOMYCIN,RANDOM 18.6 ug/mL (18.0-26.0)
--- NOTE | 2021-02-01 07:21 | NUR ---
Dialysis in progress
--- NOTE | 2021-02-01 07:50 | NUR ---
PT RECEIVED TRACH TO VENT ON CMV. PORTEX #8 TRACH IS PATENT AND SECURE. VENT PARAMETERS AND ALARMS CHECKED. ALARMS ARE AUDIBLE. PT IS ON A FRAGOSO VENT ON SETTINGS OF A/C 15, VT 450, 30% FIO2. PT IS TOLERATING VENT WELL. SPO2 AND RESPIRATIONS WNL. NO SIGNS OR SYMPTOMS OF RESP. DISTRESS NOTED. BVM AND BACK-UP TRACH AT BEDSIDE. VENT PLUGGED INTO RED OUTLET. SUCTION PRN. WILL CONTINUE TO MONITOR.
--- NOTE | 2021-02-01 07:59 | NUR ---
Albumin removed and being given by dialysis nurse - BP 68/31
--- NOTE | 2021-02-01 08:26 | NUR ---
Fio2 titrated up to 50% from 30% - patient desaturating to high 8s during HD - will decrease Fio2 back to 30% post HD Addendum: 02/01/21 at 1105 by AURA MARTINEZ RN High 80s
[2021-02-01] MEDS: CARVEDILOL 3.125 MG TABLET GT SCH ×2 (08:32→17:00)
[2021-02-01] MEDS: MIDODRINE HCL 5 MG TABLET GT SCH ×3 (08:36→17:00)
[2021-02-01] MEDS: PANTOPRAZOLE SODIUM 40 MG VIAL IV SCH (08:36)
[2021-02-01] MEDS: FOLIC ACID/VITAMIN B COMP W-C TABLET GT SCH (08:36)
[2021-02-01] MEDS: NUTRISOURCE FIBER 4 GM PACKET GT SCH ×4 (08:40→17:00)
[2021-02-01] MEDS: SODIUM HYPOCHLORITE 0.125% (QUARTER STRENGTH) 473 ML BOTTLE TP SCH ×3 (08:41→17:27)
[2021-02-01] MEDS: PROTEIN SUPPLEMENT (PROSTAT) 30 ML LIQUID GT SCH ×3 (08:41→17:00)
[2021-02-01] MEDS: Z GUARD REMEDY PASTE 57 GM TUBE TOP SCH ×2 (08:42→20:47)
[2021-02-01] MEDS: VANCOMYCIN FOR PO/GT/NG USE PO SCH ×5 (08:48→20:46)
[2021-02-01] MEDS: CLOTRIMAZOLE 1% CREAM 30 GM TUBE TOP SCH ×2 (08:49→17:28)
[2021-02-01] MEDS: SILVER SULFADIAZINE 1% CREAM 50 GM TP SCH ×2 (08:49→17:28)
--- NOTE | 2021-02-01 09:25 | NUR ---
Dr. Phan in unit to assess patient
--- NOTE | 2021-02-01 10:07 | NUR ---
HD complete - 2.5L removed
[2021-02-01] MEDS: IV FAT EMULSIONS 20% 250 ML IV SCH (13:23)
[2021-02-01] MEDS: MAGNESIUM SULFATE/D5W 100 ML IV SCH ×2 (16:25→17:34)
--- NOTE | 2021-02-01 18:36 | NUR ---
This [facility]I status patients condition is unchanged. 2.5L removed during HD - brief period of hypotension - stabilized shortly after (100mL albumin given). No meds able to be given - patients GTube & NGtube had been removed
--- NOTE | 2021-02-01 19:15 | NUR ---
received patient , with spontaneous eye opening , no fever , vent settings of ac 15 tv 450 , 30 fio2 % , tpn at 42 ml , and lipids at 10.417 , josh iv intact , flexi seal intact , dressing on affected site intact
[2021-02-01] MEDS ORDERED: TRACE ELEMENTS IV SCH (20:00)
[2021-02-01] MEDS ORDERED: [UNRECOGNIZED DRUG - OTHER] IV SCH (20:00)
[2021-02-01] MEDS ORDERED: MVI ADULT IV SCH (20:00)
[2021-02-01] MEDS: ATORVASTATIN 40 MG TABLET GT SCH (20:46)
[2021-02-01] MEDS: MEROPENEM 500 MG in IV NORMAL SALINE 50 ML IV SCH (20:48)
--- NOTE | 2021-02-01 23:52 | NUR ---
PATIENT ON CONT FRAGOSO VENT WITH PORTEX # [address] WITH CURRENT VENT SETTINGS, A/C 15, 45, FIO2 @ 30%, PT DOES ASSIST AT TIMES, WITH GOOD COUGH EFFORT, SUCTION MOUTH WITH YANKAUER, VERY PROD. CHECK CUFF, CHANGE HME, ALL VENT ALARMS OK, NO VENT CHANGES MADE, SUCTION LIGHT PAE YELL TINGE SECRETIONS,, BACK UP TRACH, VENT PLUGGED INTO RED WALL OUT LET, AMBU BAG AT BEDSIDE.Denise NAVARRETEP Addendum: 02/01/21 at 2355 by SANTOSH HALE RT Amended: Links added.
[2021-02-02] VITALS (25 sets, daily range): BP systolic 81–164; BP diastolic 38–75
[2021-02-02] MEDS: BLOOD SUGAR DIAGNOSTIC 1 EACH STRIP VI SCH ×4 (00:57→18:41)
[2021-02-02] MEDS: INSULIN REGULAR, HUMAN 300 UNIT/3 ML VIAL SQ PRN ×2 (00:58→05:52)
[2021-02-02] MEDS: IV NORMAL SALINE 250 ML IV PRN (05:52)
--- NOTE | 2021-02-02 06:10 | NUR ---
dialysis nurse is here to start dialysis, bs is 90 , vent settings the same , no fever noted , tpn at 42 , lipid at 10 , 417 , wound care rendered as ordered , suctioned orally and via trach, , flexi seal intact , old gt site , has small yellowish drainage , cleanse with betadine and covered with non adhesive dressing
[2021-02-02 06:32] LABS: HEMATOCRIT 21.5 % (36.7-47.1); MEAN CORPUSCULAR HEMOGLOBIN 28.2 uug (23.8-33.4); MEAN CORPUSCULAR VOLUME 88.2 fL (73.0-96.2); PLATELET COUNT (AUTO) 146 K/uL (152-348)
[2021-02-02] MEDS: ALBUMIN HUMAN 25% 100 ML IV PRN (06:33)
[2021-02-02 06:41] LABS: CARBON DIOXIDE 28 mmol/L (21-32); CHLORIDE 101 mmol/L (98-107); CREATININE 3.8 mg/dL (0.6-1.3); GLUCOSE 99 mg/dL (74-106); POTASSIUM 3.7 mmol/L (3.5-5.1); UREA NITROGEN, BLOOD 38 mg/dL (7-18)
--- NOTE | 2021-02-02 06:49 | NUR ---
fio2 was changed to 50 % , dr montero was called to get an order for pressor , albumin 100 ml , waiting for call back
--- NOTE | 2021-02-02 06:53 | NUR ---
allan llanos is called to notify of recent blood work results , waiting for call back
--- NOTE | 2021-02-02 07:05 | NUR ---
Received pt. undergoing dialysis, by Shauna Arreaga sbp in the 130's and as informed unable to remove fluids due sbp dropping down. Otolaryngology Rep Dr. Rivera called by Shauna Mendenhall awaiting call back.
--- NOTE | 2021-02-02 07:30 | NUR ---
A call back from He was informed that pt. is undergoing HD and SBP drops when attempts to remove fluid. Orders received and pt. up-graded to ICU status.
[2021-02-02] MEDS: NOREPINEPHRINE BITARTRATE 32 MG in IV NORMAL SALINE 218 ML IV PRN (07:48)
--- NOTE | 2021-02-02 08:00 | NUR ---
Pulmonary services, Dr. Martin in the unit to see and examine pt. report given no new orders received.
--- NOTE | 2021-02-02 08:12 | NUR ---
HD finished at this time and as informed 1Liter of fluid removed. Patient on levophed. as requested by HD rn running at 0.2mcg/kg/min. At the time HD done sbp of 164/75. Levophed turn due to sbp been above 160's.
--- NOTE | 2021-02-02 08:28 | NUR ---
Patient seen by Nephrology services Sonia Alberto orders report given He was also informed that pt. in now ICU orders to continue with care plan received.
[2021-02-02] MEDS: CARVEDILOL 3.125 MG TABLET GT SCH ×2 (09:00→17:00)
[2021-02-02] MEDS: FOLIC ACID/VITAMIN B COMP W-C TABLET GT SCH (09:00)
[2021-02-02] MEDS: MIDODRINE HCL 5 MG TABLET GT SCH ×2 (09:00→17:00)
[2021-02-02] MEDS: PANTOPRAZOLE SODIUM 40 MG VIAL IV SCH (09:00)
[2021-02-02] MEDS: NUTRISOURCE FIBER 4 GM PACKET GT SCH ×3 (09:00→17:00)
[2021-02-02] MEDS: VANCOMYCIN FOR PO/GT/NG USE PO SCH ×4 (09:00→21:00)
[2021-02-02] MEDS: PROTEIN SUPPLEMENT (PROSTAT) 30 ML LIQUID GT SCH ×2 (09:00→17:00)
--- NOTE | 2021-02-02 09:40 | NUR ---
A call back from Sonia Hernandez and orders to transfuse 1 unit of blood with tomorrows HD.
[2021-02-02] MEDS: Z GUARD REMEDY PASTE 57 GM TUBE TOP SCH ×2 (10:13→21:04)
[2021-02-02] MEDS: SODIUM HYPOCHLORITE 0.125% (QUARTER STRENGTH) 473 ML BOTTLE TP SCH ×3 (10:13→17:24)
[2021-02-02] MEDS: SILVER SULFADIAZINE 1% CREAM 50 GM TP SCH ×2 (10:23→17:24)
[2021-02-02] MEDS: CLOTRIMAZOLE 1% CREAM 30 GM TUBE TOP SCH ×2 (10:24→17:23)
[2021-02-02] MEDS: VANCOMYCIN IV 500 MG in IV DEXTROSE 5% 100 ML IV PRN (10:56)
[2021-02-02] MEDS ORDERED: DEXTROSE IV PRN (13:30)
[2021-02-02] MEDS ORDERED: AMINO ACID IV PRN (13:30)
--- NOTE | 2021-02-02 14:13 | NUR ---
A Call to [facility] hemodialysis coordinator to inquire hemodialysis time for 02/03/2021, and I was informed that procedure will be done by Shauna Arreaga and He will start at 0600. [facility] was informed that information needed to arrange release of 1 unit PRBC's by staff from lab. After information collected a call issued to lab and Mary Grace was informed of HD time on 02/03/2021.
[2021-02-02 14:51] LABS: EOSINOPHILS % (MANUAL) 25 % (0-8); LYMPHOCYTES % (MANUAL) 10 % (20-40); MONOCYTES % (MANUAL) 9 % (2-10); NEUTROPHILS % (MANUAL) 56 % (42-75)
--- NOTE | 2021-02-02 18:00 | NUR ---
Left pt. in bed resting comfortably, neuro-winters unchanged obtunded, Jess. hemodynamically stable no need of vasopressors. afebrile. Remains on ventilator with no changed in settings: A/C 15, Tv450 and FIO2 30. Afebrile, for the shift. No distress safety measures implemented at all times, no injury sustained. Will endorse to incoming shift.
--- NOTE | 2021-02-02 19:00 | NUR ---
received patient with vent setting , ac 15 tv 450 30 fiof2% , tpn running 42 ml , no fever noted , rectal tube intact , gordo picc line flushed and intact , sr at 75 , spontaneous eye opening
[2021-02-02] MEDS ORDERED: TPN IV SCH (20:00)
[2021-02-02] MEDS: ATORVASTATIN 40 MG TABLET GT SCH (21:00)
[2021-02-02] MEDS: MEROPENEM 500 MG in IV NORMAL SALINE 50 ML IV SCH (21:03)
[2021-02-03] VITALS (66 sets, daily range): BP systolic 62–163; BP diastolic 32–85
[2021-02-03] MEDS: BLOOD SUGAR DIAGNOSTIC 1 EACH STRIP VI SCH ×4 (00:37→17:12)
[2021-02-03] MEDS: INSULIN REGULAR, HUMAN 300 UNIT/3 ML VIAL SQ PRN ×3 (00:37→17:15)
--- NOTE | 2021-02-03 02:12 | NUR ---
PATIENT ON CONT FRAGOSO VENT WITH PORTEX # [address] , SUCTION, TRACH CARE, NO VENT CHANGES MADE, CHECK CUFF, CHANGE HME AND SCHMIDT, NO VENT CHANGES MADE.Denise HALE RCP Addendum: 02/03/21 at 0213 by SANTOSH HALE RT Amended: Links added.
[2021-02-03] MEDS ORDERED: Z GUARD REMEDY PASTE 57 GM TUBE TOP PRN (03:15)
--- NOTE | 2021-02-03 06:03 | NUR ---
dialysis nurse is here to start hemodialysis, 1 unit of blood transfusion started , no fever noted , vs as follows , 98. 5 , hr 90 ,124/ 58 rr 17 , vent settings the same , tpn running at 42 ml
[2021-02-03 06:17] LABS: HEMATOCRIT 21.8 % (36.7-47.1); MEAN CORPUSCULAR HEMOGLOBIN 27.5 uug (23.8-33.4); PLATELET COUNT (AUTO) 150 K/uL (152-348)
[2021-02-03 06:27] LABS: CARBON DIOXIDE 29 mmol/L (21-32); CHLORIDE 101 mmol/L (98-107); CREATININE 3.4 mg/dL (0.6-1.3); GLUCOSE 144 mg/dL (74-106); MAGNESIUM 1.8 mg/dL (1.8-2.4); PHOSPHOROUS 2.9 mg/dL (2.5-4.9); POTASSIUM 3.7 mmol/L (3.5-5.1); UREA NITROGEN, BLOOD 33 mg/dL (7-18)
[2021-02-03 06:40] LABS: VANCOMYCIN,RANDOM 18.6 ug/mL (18.0-26.0)
[2021-02-03 06:56] LABS: BAND % (MANUAL) 3 % (0-10); EOSINOPHILS % (MANUAL) 14 % (0-8); LYMPHOCYTES % (MANUAL) 14 % (20-40); METAMYELOCYTES % 1 % (0-1); MONOCYTES % (MANUAL) 7 % (2-10); NEUTROPHILS % (MANUAL) 61 % (42-75)
[2021-02-03] MEDS: NOREPINEPHRINE BITARTRATE 32 MG in IV NORMAL SALINE 218 ML IV PRN (07:01)
--- NOTE | 2021-02-03 07:10 | NUR ---
Received pt. undergoing dialysis, with levophed running at 1mcg/kg/min. as reported as requested by HD. Villatoro due to low sbp.79/44 with Heart rate of 133-140's pt. and with HD pt. receiving 1 unit of PRBC'S. On ventilator: A/C 15, Tv450, 30% FIO2. with no resp. distress noted. Afebrile. Will titrate levophed according to HD. demands. Will continue with care plan. Addendum: 02/03/21 at 1844 by AYDEE KHAN RN as reported pt. completed 1 unit of prbc's.
--- NOTE | 2021-02-03 07:33 | NUR ---
Pt received in bed, laying semi-Ramirez's, unable to communicate.. Trach: Portex 8, in place and secure with ties at this time.. mechanically ventilated with vent: Sinha, settings A/C 15, Vt 450, FiO2 30%, tolerating well, will continue to monitor.. Vent alarms on and audible at this time, functioning properly at this time..
--- NOTE | 2021-02-03 07:45 | NUR ---
Nephrology services, Sonia Alberto in the unit to examine pt. no questions asked.
[2021-02-03] MEDS: CARVEDILOL 3.125 MG TABLET GT SCH ×2 (08:52→17:00)
[2021-02-03] MEDS: NUTRISOURCE FIBER 4 GM PACKET GT SCH ×3 (08:53→17:00)
[2021-02-03] MEDS: MIDODRINE HCL 5 MG TABLET GT SCH ×2 (08:53→17:00)
[2021-02-03] MEDS: FOLIC ACID/VITAMIN B COMP W-C TABLET GT SCH (08:53)
[2021-02-03] MEDS: PROTEIN SUPPLEMENT (PROSTAT) 30 ML LIQUID GT SCH ×2 (08:54→17:00)
[2021-02-03] MEDS: VANCOMYCIN FOR PO/GT/NG USE PO SCH ×4 (08:54→20:56)
[2021-02-03] MEDS: PANTOPRAZOLE SODIUM 40 MG VIAL IV SCH (08:56)
[2021-02-03] MEDS: CLOTRIMAZOLE 1% CREAM 30 GM TUBE TOP SCH ×2 (08:57→17:06)
[2021-02-03] MEDS: Z GUARD REMEDY PASTE 57 GM TUBE TOP SCH ×2 (08:57→20:56)
[2021-02-03] MEDS: SODIUM HYPOCHLORITE 0.125% (QUARTER STRENGTH) 473 ML BOTTLE TP SCH ×3 (09:01→17:06)
[2021-02-03] MEDS: SILVER SULFADIAZINE 1% CREAM 50 GM TP SCH ×2 (09:02→17:07)
--- NOTE | 2021-02-03 09:10 | NUR ---
Pulmonary services Dr. Martin in the unit to see and examine pt. report given and orders to continue with care plan received.
[2021-02-03] MEDS: VANCOMYCIN IV 500 MG in IV DEXTROSE 5% 100 ML IV PRN (10:25)
[2021-02-03] MEDS ORDERED: ALBUMIN HUMAN 25% 50 ML IV ONE (10:30)
--- NOTE | 2021-02-03 14:00 | NUR ---
Attending NAlex> Carina Hernandez in the unit to see and examine pt. report given. No new orders received.
[2021-02-03] MEDS: METRONIDAZOLE 500 MG/NS 100ML 500 MG in PREMIXED 1 EACH IV SCH ×2 (14:40→23:18)
--- NOTE | 2021-02-03 14:55 | NUR ---
A call to Dr. Ybarra at this time He was notified that pt. is feeling more tire and with more shortness of breath as stated by pt. despite having saturation in the 87% non High flow 40Liter and NC 6 liters. Orders to expedite chest X-ray ordered for 1500. received and implemented. Addendum: 02/03/21 at 1827 by AYDEE KHAN RN the above note was intended for another patient. User error.
--- NOTE | 2021-02-03 18:36 | NUR ---
Left patient with no visible distress neuro-winters unchanged remains obtunded. Hemodynamically: with levophed running at 0.04mcg/kg/min with sbp within desire limits hemodialysis this morning with a total of 3 liters out and 1 unit of prbc's. On ventilator: A/C 15, Tv450, 30% FIO2. with no resp. distress noted. Afebrile. Will continue with care plan.
--- NOTE | 2021-02-03 19:05 | NUR ---
Received patient in bed, laying semifowlers turned to the left. Patient remains obtunded with spontaneous eye opening, but no meaningful responses. Patient remains on the ventilator A/C 15, Tv450, 30% FIO2. with no resp. distress noted. VELASQUEZ picc, running Levophed @0.04mcg/kg/min, BP stable in the 90s-100 SBP. TPN running @42ml/hr. Patient has flexi-seal present, no herring.
[2021-02-03] MEDS ORDERED: TPN #6 IV SCH (20:00)
[2021-02-03] MEDS: ATORVASTATIN 40 MG TABLET GT SCH (20:53)
[2021-02-03] MEDS: MEROPENEM 500 MG in IV NORMAL SALINE 50 ML IV SCH (20:55)
[2021-02-03] MEDS: IV NORMAL SALINE 250 ML IV PRN (23:19)
[2021-02-04] VITALS (93 sets, daily range): BP systolic 72–169; BP diastolic 21–88
--- NOTE | 2021-02-04 00:10 | NUR ---
Patient had a run of V-tach of 20 beats. Rhythm returned to a-fib rhythm spontaneously without intervention. Strip printed and placed in chart. Patient remained awake during event.
[2021-02-04] MEDS: BLOOD SUGAR DIAGNOSTIC 1 EACH STRIP VI SCH ×5 (00:24→23:51)
[2021-02-04] MEDS: INSULIN REGULAR, HUMAN 300 UNIT/3 ML VIAL SQ PRN ×5 (00:25→23:52)
--- NOTE | 2021-02-04 02:33 | NUR ---
PT ON CONT FRAGOSO VENT WITH PORTEX [address], SUCTIONED LIGHT PALE YELL TINGE SECRETIONS, CHECK CUFF, TRACH CARE, NO VENT CHANGES MADE, SETTINGS; A/C 15, 450, 30% ; PT DOES ASSIST AT TIMES, SUCTION MOUTH WITH LATESHA THOMAS , BACK UP TRACH AT BED SIDE..Denise NAVARRETEP Addendum: 02/04/21 at 0236 by SANTOSH HALE RT Amended: Links added.
[2021-02-04 04:38] LABS: HEMATOCRIT 27.7 % (36.7-47.1); MEAN CORPUSCULAR HEMOGLOBIN 27.9 uug (23.8-33.4); MEAN CORPUSCULAR VOLUME 89.6 fL (73.0-96.2); PLATELET COUNT (AUTO) 145 K/uL (152-348)
[2021-02-04 04:45] LABS: CARBON DIOXIDE 27 mmol/L (21-32); CHLORIDE 101 mmol/L (98-107); CREATININE 3.3 mg/dL (0.6-1.3); GLUCOSE 197 mg/dL (74-106); POTASSIUM 3.3 mmol/L (3.5-5.1); UREA NITROGEN, BLOOD 28 mg/dL (7-18)
[2021-02-04] MEDS: METRONIDAZOLE 500 MG/NS 100ML 500 MG in PREMIXED 1 EACH IV SCH ×3 (06:35→22:15)
--- NOTE | 2021-02-04 07:00 | NUR ---
Patient remains in bed, laying semifowlers turned to the right Patient remains obtunded with spontaneous eye opening, but no meaningful responses. Patient remains on the ventilator A/C 15, Tv450, 30% FIO2. with no resp. distress noted. Levophed @0.08mcg/kg/min, BP stable in the 90s-100 SBP. TPN running @42ml/hr. Patient has increased frequency of PVCs, occasionally in runs of 3 or in a short bigeminy rhythm.
--- NOTE | 2021-02-04 07:10 | NUR ---
Received pt. on ventilator setting of A/C 15, Tv450, 50% FIO2. with saturation within desire limits. On levophed titrated down to 0.06mcg/kg/min. see vital signs. Picc line patent, and running with tpn as ordered rate. pt. afebrile. neuro-winters unchanged remains obtunded with eyes opening spontaneously, does not track or follows commands. Safety measures implemented, will continue with care plan.
--- NOTE | 2021-02-04 08:05 | NUR ---
Pt rec'd on Sinha vent with ordered settings. Pt is on continuous mechanical ventilation via Portex 8 trach. Trach is patent and secured. No vent changes ordered. Pt tolerating vent settings well. Oral and trach care done. HME changed. Suctioned small amounts of white secretions. Bag/valve/mask at bedside. Vent alarm parameters checked, on and audible. Will continue to monitor.
[2021-02-04] MEDS: NOREPINEPHRINE BITARTRATE 32 MG in IV NORMAL SALINE 218 ML IV PRN (08:31)
--- NOTE | 2021-02-04 08:45 | NUR ---
Pilmonary services, Dr. Phan in the unit to see and examine pt. full report given and orders to continue with care plan received.
[2021-02-04] MEDS: MIDODRINE HCL 5 MG TABLET GT SCH ×2 (08:47→17:00)
[2021-02-04] MEDS: CARVEDILOL 3.125 MG TABLET GT SCH ×2 (08:47→17:00)
[2021-02-04] MEDS: NUTRISOURCE FIBER 4 GM PACKET GT SCH ×3 (08:47→17:00)
[2021-02-04] MEDS: FOLIC ACID/VITAMIN B COMP W-C TABLET GT SCH (08:47)
[2021-02-04] MEDS: Z GUARD REMEDY PASTE 57 GM TUBE TOP SCH ×2 (08:48→21:25)
[2021-02-04] MEDS: VANCOMYCIN FOR PO/GT/NG USE PO SCH ×4 (08:48→21:00)
[2021-02-04] MEDS: PROTEIN SUPPLEMENT (PROSTAT) 30 ML LIQUID GT SCH ×2 (08:48→17:00)
[2021-02-04] MEDS: SODIUM HYPOCHLORITE 0.125% (QUARTER STRENGTH) 473 ML BOTTLE TP SCH ×3 (08:50→17:07)
[2021-02-04] MEDS: CLOTRIMAZOLE 1% CREAM 30 GM TUBE TOP SCH ×2 (08:50→17:00)
[2021-02-04] MEDS: SILVER SULFADIAZINE 1% CREAM 50 GM TP SCH ×2 (08:51→17:08)
[2021-02-04] MEDS: PANTOPRAZOLE SODIUM 40 MG VIAL IV SCH (08:56)
[2021-02-04] MEDS: IV FAT EMULSIONS 20% 250 ML IV SCH (14:40)
--- NOTE | 2021-02-04 19:00 | NUR ---
received patient hemodialysis obngoing , st at 121 , no fever noted , tpn at 42 ml . lipid at 10. 417 , levophed at 0.18 mcg ,vent setting s at ac 15 tv 450 30 fio2 % saturating 98 % , bp 142 / 64 . picc line and rectal tube intact
--- NOTE | 2021-02-04 19:03 | NUR ---
Left pt. on ventilator setting of A/C 15, Tv450, 30% FIO2. with saturation within desire limits. On levophed titrate to meet Hemodialysis demands.. Picc line patent, and running with tpn as ordered rate. pt. afebrile. neuro-winters unchanged remains obtunded with eyes opening spontaneously, does not track or follows commands. Safety measures implemented, will continue with care plan.Will endorse to incoming shift.
--- NOTE | 2021-02-04 19:31 | NUR ---
Pt received on burgos vent with given settings of A/C RR 15, Vt 450, Peep +0, Fio2 30%. Patient is trached with a Portex [address] and secured via trach tie. Back up trach @ bed side. BVM @ bedside. Alarms on and audible. Ventilator plugged in red outlet. Will continue to monitor through out shift.
[2021-02-04] MEDS ORDERED: TPN #7 IV SCH (20:00)
[2021-02-04] MEDS: ATORVASTATIN 40 MG TABLET GT SCH (21:00)
[2021-02-04] MEDS: MEROPENEM 500 MG in IV NORMAL SALINE 50 ML IV SCH (21:20)
[2021-02-04] MEDS: MORPHINE SULFATE 4 MG/1 ML DISP.SYRIN IV PRN (21:53)
[2021-02-05] VITALS (88 sets, daily range): BP systolic 74–150; BP diastolic 36–80
[2021-02-05] MEDS: METRONIDAZOLE 500 MG/NS 100ML 500 MG in PREMIXED 1 EACH IV SCH ×3 (05:02→22:47)
[2021-02-05 05:08] LABS: HEMATOCRIT 26.6 % (36.7-47.1); MEAN CORPUSCULAR HEMOGLOBIN 28.1 uug (23.8-33.4); MEAN CORPUSCULAR VOLUME 90.1 fL (73.0-96.2); PLATELET COUNT (AUTO) 128 K/uL (152-348)
[2021-02-05 05:20] LABS: CARBON DIOXIDE 26 mmol/L (21-32); CHLORIDE 104 mmol/L (98-107); CREATININE 2.9 mg/dL (0.6-1.3); GLUCOSE 194 mg/dL (74-106); MAGNESIUM 1.8 mg/dL (1.8-2.4); PHOSPHOROUS 1.9 mg/dL (2.5-4.9); POTASSIUM 3.3 mmol/L (3.5-5.1); TRIGLYCERIDES 85 MG/DL (30-150); UREA NITROGEN, BLOOD 25 mg/dL (7-18)
[2021-02-05] MEDS: BLOOD SUGAR DIAGNOSTIC 1 EACH STRIP VI SCH ×3 (06:01→18:08)
[2021-02-05] MEDS: INSULIN REGULAR, HUMAN 300 UNIT/3 ML VIAL SQ PRN ×2 (06:03→13:51)
[2021-02-05 06:19] LABS: ABG BASE EXCESS 1.8 mmol/L; ABG HCO3 25.9 mmol/L; ABG PCO2 38.6 mmHg (35.0-45.0); ABG PH 7.445 (7.350-7.450); ABG PO2 105.7 mmHg (75.0-100.0); ABG SITE RIGHT BRACHIAL; ABG TOTAL HEMOGLOBIN 8.7 G/dL (13.5-18.0); COHb 1.5 % (0.5-1.5); MetHb 0.3 % (0.0-1.5); O2Hb 96.8 % (94.0-97.0); VENT MODE VENT - A/C; VT, ABG 450 mL
--- NOTE | 2021-02-05 06:44 | NUR ---
Pt rested well in between care; suctioned trache secretions; titrating levo per ADAM Putnam; AM care done; wound dressing to left foot and sacral decubitus with ADAM Putnam; tolerated current vent settings; continue to monitor; continue plan of care.
--- NOTE | 2021-02-05 07:14 | NUR ---
Levophed running @ 0.06mcg/kg/hr at 0700 - I decreased the rate to 0.04mcg/kg/hr at 0705 --- BP 124/64 HR 84
[2021-02-05] MEDS: NOREPINEPHRINE BITARTRATE 32 MG in IV NORMAL SALINE 218 ML IV PRN (08:33)
[2021-02-05] MEDS: FOLIC ACID/VITAMIN B COMP W-C TABLET GT SCH (08:34)
[2021-02-05] MEDS: NUTRISOURCE FIBER 4 GM PACKET GT SCH ×3 (08:34→17:00)
[2021-02-05] MEDS: CARVEDILOL 3.125 MG TABLET GT SCH ×2 (08:34→17:00)
[2021-02-05] MEDS: MIDODRINE HCL 5 MG TABLET GT SCH ×2 (08:35→17:00)
[2021-02-05] MEDS: VANCOMYCIN FOR PO/GT/NG USE PO SCH (08:37)
[2021-02-05] MEDS: PROTEIN SUPPLEMENT (PROSTAT) 30 ML LIQUID GT SCH ×2 (08:37→17:00)
[2021-02-05] MEDS: SODIUM HYPOCHLORITE 0.125% (QUARTER STRENGTH) 473 ML BOTTLE TP SCH ×3 (08:39→17:11)
[2021-02-05] MEDS: SILVER SULFADIAZINE 1% CREAM 50 GM TP SCH ×2 (08:39→17:11)
[2021-02-05] MEDS: PANTOPRAZOLE SODIUM 40 MG VIAL IV SCH (08:41)
[2021-02-05] MEDS: Z GUARD REMEDY PASTE 57 GM TUBE TOP SCH ×2 (08:41→20:24)
[2021-02-05] MEDS: CLOTRIMAZOLE 1% CREAM 30 GM TUBE TOP SCH ×2 (08:43→17:11)
--- NOTE | 2021-02-05 10:15 | NUR ---
Yong Howard INTERNET DESIGNER in unit to assess patient
[2021-02-05] MEDS: IV NORMAL SALINE 250 ML IV PRN (14:55)
--- NOTE | 2021-02-05 18:18 | NUR ---
Patient w/ paroxymal afib throughout shift
[2021-02-05] MEDS ORDERED: TPN #8 IV SCH (20:00)
[2021-02-05] MEDS: ATORVASTATIN 40 MG TABLET GT SCH (20:03)
[2021-02-05] MEDS: NOREPINEPHRINE BITARTRATE 8 MG in IV NORMAL SALINE 242 ML IV PRN (20:19)
[2021-02-05] MEDS: MEROPENEM 500 MG in IV NORMAL SALINE 50 ML IV SCH (20:21)
[2021-02-06] VITALS (90 sets, daily range): BP systolic 69–166; BP diastolic 29–98
[2021-02-06] MEDS: BLOOD SUGAR DIAGNOSTIC 1 EACH STRIP VI SCH ×4 (00:48→18:47)
[2021-02-06] MEDS: INSULIN REGULAR, HUMAN 300 UNIT/3 ML VIAL SQ PRN ×3 (00:49→12:41)
[2021-02-06] MEDS: METRONIDAZOLE 500 MG/NS 100ML 500 MG in PREMIXED 1 EACH IV SCH ×3 (05:42→22:15)
[2021-02-06 06:11] LABS: HEMATOCRIT 25.2 % (36.7-47.1); MEAN CORPUSCULAR HEMOGLOBIN 28.4 uug (23.8-33.4); PLATELET COUNT (AUTO) 157 K/uL (152-348)
--- NOTE | 2021-02-06 06:29 | NUR ---
Patient on Levophed 0.01mcg/kg/hr & TPN 42mls/hr. Difficult to titrate levo completely off without midodrine to help ease the wean. Sinus w/ PVCs & paroxysmal afib --- febrile (100.4) @ 2000 & is now (0600) afebrile (98.2). Otherwise no changes.
[2021-02-06 06:30] LABS: CARBON DIOXIDE 27 mmol/L (21-32); CHLORIDE 102 mmol/L (98-107); CREATININE 3.2 mg/dL (0.6-1.3); GLUCOSE 193 mg/dL (74-106); MAGNESIUM 1.7 mg/dL (1.8-2.4); PHOSPHOROUS 1.8 mg/dL (2.5-4.9); POTASSIUM 3.7 mmol/L (3.5-5.1); UREA NITROGEN, BLOOD 33 mg/dL (7-18); VANCOMYCIN,RANDOM 18.1 ug/mL (18.0-26.0)
[2021-02-06] MEDS: CARVEDILOL 3.125 MG TABLET GT SCH (08:15)
[2021-02-06] MEDS: MIDODRINE HCL 5 MG TABLET GT SCH (08:16)
[2021-02-06] MEDS: FOLIC ACID/VITAMIN B COMP W-C TABLET GT SCH (08:16)
[2021-02-06] MEDS: NUTRISOURCE FIBER 4 GM PACKET GT SCH ×3 (08:16→16:58)
[2021-02-06] MEDS: PROTEIN SUPPLEMENT (PROSTAT) 30 ML LIQUID GT SCH (08:17)
[2021-02-06] MEDS: PANTOPRAZOLE SODIUM 40 MG VIAL IV SCH (08:19)
[2021-02-06] MEDS: Z GUARD REMEDY PASTE 57 GM TUBE TOP SCH ×2 (08:20→21:42)
[2021-02-06] MEDS: CLOTRIMAZOLE 1% CREAM 30 GM TUBE TOP SCH ×2 (08:20→16:59)
[2021-02-06] MEDS: SODIUM HYPOCHLORITE 0.125% (QUARTER STRENGTH) 473 ML BOTTLE TP SCH ×3 (08:21→17:00)
[2021-02-06] MEDS: SILVER SULFADIAZINE 1% CREAM 50 GM TP SCH ×2 (08:24→17:00)
[2021-02-06] MEDS: IV FAT EMULSIONS 20% 250 ML IV SCH (13:52)
[2021-02-06] MEDS: SOD FERRIC GLUC COMPLX/SUCROSE 125 MG in IV NORMAL SALINE 100 ML IV SCH (14:24)
[2021-02-06] MEDS ORDERED: TPN #9 IV SCH (20:00)
--- NOTE | 2021-02-06 20:00 | NUR ---
Hemodialysis complete, total of 2000mL removed. Patient tolerated well. BP stable 146/75, HR 104, Afebrile 98.1 orally. No sign of respiratory distress or SOB. patient remains on levophed, will titrate accordingly
[2021-02-06] MEDS: VANCOMYCIN IV 500 MG in IV DEXTROSE 5% 100 ML IV PRN (20:21)
[2021-02-06] MEDS ORDERED: VANCOMYCIN IV 500 MG in IV DEXTROSE 5% 100 ML IV ONE (21:00)
[2021-02-06] MEDS: MEROPENEM 500 MG in IV NORMAL SALINE 50 ML IV SCH (21:41)
[2021-02-07] VITALS (96 sets, daily range): BP systolic 61–172; BP diastolic 31–81
[2021-02-07] MEDS: BLOOD SUGAR DIAGNOSTIC 1 EACH STRIP VI SCH ×4 (00:15→17:12)
[2021-02-07] MEDS: INSULIN REGULAR, HUMAN 300 UNIT/3 ML VIAL SQ PRN ×3 (00:16→17:10)
[2021-02-07] MEDS: IV NORMAL SALINE 250 ML IV PRN (01:40)
[2021-02-07 05:14] LABS: HEMATOCRIT 24.6 % (36.7-47.1); MEAN CORPUSCULAR HEMOGLOBIN 28.1 uug (23.8-33.4); MEAN CORPUSCULAR VOLUME 91.1 fL (73.0-96.2); PLATELET COUNT (AUTO) 147 K/uL (152-348)
[2021-02-07 05:50] LABS: CARBON DIOXIDE 26 mmol/L (21-32); CHLORIDE 107 mmol/L (98-107); CREATININE 2.9 mg/dL (0.6-1.3); GLUCOSE 131 mg/dL (74-106); MAGNESIUM 1.6 mg/dL (1.8-2.4); PHOSPHOROUS 1.7 mg/dL (2.5-4.9); POTASSIUM 3.8 mmol/L (3.5-5.1); UREA NITROGEN, BLOOD 30 mg/dL (7-18)
[2021-02-07] MEDS: METRONIDAZOLE 500 MG/NS 100ML 500 MG in PREMIXED 1 EACH IV SCH ×3 (06:50→22:18)
--- NOTE | 2021-02-07 07:30 | NUR ---
Patient having spontaneous decrease in blood pressure despite no physical distress or changes. Increasing levophed doses to stabilize BP. Patient continues to be on chronic trach to vent.
[2021-02-07] MEDS: NOREPINEPHRINE BITARTRATE 8 MG in IV NORMAL SALINE 242 ML IV PRN ×2 (08:00→22:19)
[2021-02-07] MEDS: NUTRISOURCE FIBER 4 GM PACKET GT SCH ×3 (08:03→17:00)
[2021-02-07] MEDS: PANTOPRAZOLE SODIUM 40 MG VIAL IV SCH (08:04)
[2021-02-07] MEDS: SILVER SULFADIAZINE 1% CREAM 50 GM TP SCH ×2 (08:06→17:13)
[2021-02-07] MEDS: CLOTRIMAZOLE 1% CREAM 30 GM TUBE TOP SCH ×2 (08:06→17:14)
[2021-02-07] MEDS: SODIUM HYPOCHLORITE 0.125% (QUARTER STRENGTH) 473 ML BOTTLE TP SCH ×3 (08:06→17:13)
[2021-02-07] MEDS: Z GUARD REMEDY PASTE 57 GM TUBE TOP SCH ×2 (08:07→22:19)
[2021-02-07 08:17] LABS: ABG BASE EXCESS 0.1 mmol/L; ABG HCO3 24.2 mmol/L; ABG PCO2 36.9 mmHg (35.0-45.0); ABG PH 7.434 (7.350-7.450); ABG PO2 78.1 mmHg (75.0-100.0); ABG SITE RIGHT BRACHIAL; ABG TOTAL HEMOGLOBIN 9.3 G/dL (13.5-18.0); COHb 1.4 % (0.5-1.5); MetHb 0.2 % (0.0-1.5); O2Hb 94.6 % (94.0-97.0); VENT MODE VENT - A/C; VT, ABG 450 mL
[2021-02-07] MEDS: MAGNESIUM SULFATE/D5W 100 ML IV SCH ×2 (11:54→12:41)
[2021-02-07] MEDS: SOD FERRIC GLUC COMPLX/SUCROSE 125 MG in IV NORMAL SALINE 100 ML IV SCH (14:18)
[2021-02-07] MEDS ORDERED: POTASSIUM PHOSPHATE MM 15 MMOL in IV NORMAL SALINE 250 ML IV ONE (15:30)
[2021-02-07] MEDS ORDERED: TPN #10 IV SCH (20:00)
[2021-02-07] MEDS: MEROPENEM 500 MG in IV NORMAL SALINE 50 ML IV SCH (22:18)
[2021-02-08] VITALS (95 sets, daily range): BP systolic 64–195; BP diastolic 25–78
[2021-02-08] MEDS: BLOOD SUGAR DIAGNOSTIC 1 EACH STRIP VI SCH ×5 (00:13→23:54)
[2021-02-08] MEDS: INSULIN REGULAR, HUMAN 300 UNIT/3 ML VIAL SQ PRN ×5 (00:15→23:55)
[2021-02-08] MEDS: METRONIDAZOLE 500 MG/NS 100ML 500 MG in PREMIXED 1 EACH IV SCH ×3 (06:01→22:06)
[2021-02-08 06:25] LABS: HEMATOCRIT 24.5 % (36.7-47.1); MEAN CORPUSCULAR HEMOGLOBIN 28.6 uug (23.8-33.4); MEAN CORPUSCULAR VOLUME 89.8 fL (73.0-96.2); PLATELET COUNT (AUTO) 191 K/uL (152-348)
[2021-02-08 06:40] LABS: CARBON DIOXIDE 26 mmol/L (21-32); CHLORIDE 102 mmol/L (98-107); CREATININE 3.1 mg/dL (0.6-1.3); GLUCOSE 160 mg/dL (74-106); MAGNESIUM 1.8 mg/dL (1.8-2.4); PHOSPHOROUS 1.7 mg/dL (2.5-4.9); POTASSIUM 3.9 mmol/L (3.5-5.1); UREA NITROGEN, BLOOD 34 mg/dL (7-18); VANCOMYCIN,RANDOM 18.1 ug/mL (18.0-26.0)
--- NOTE | 2021-02-08 07:15 | NUR ---
Received report from warehouse worker 2nd shift nurse, patient in bed on chronic trach to vent saturation 1000%, IV TPN being infused and levophed infusing at 0.08mcg/kg/min. rectal tube in place with 500 cc drainage. no fever, repositioned patient and performed safety check and replaced IV lines that were outdated.
[2021-02-08] MEDS: Z GUARD REMEDY PASTE 57 GM TUBE TOP SCH ×2 (08:22→20:47)
[2021-02-08] MEDS: PANTOPRAZOLE SODIUM 40 MG VIAL IV SCH (08:22)
[2021-02-08] MEDS: IV NORMAL SALINE 250 ML IV PRN (08:22)
[2021-02-08] MEDS: CLOTRIMAZOLE 1% CREAM 30 GM TUBE TOP SCH ×2 (08:23→17:58)
[2021-02-08] MEDS: SODIUM HYPOCHLORITE 0.125% (QUARTER STRENGTH) 473 ML BOTTLE TP SCH ×3 (08:23→18:00)
[2021-02-08] MEDS: SILVER SULFADIAZINE 1% CREAM 50 GM TP SCH ×2 (08:24→17:59)
--- NOTE | 2021-02-08 09:24 | NUR ---
Patient seen by Dr. Stringer. and orders received for cathflow for the dialysis nurse.
[2021-02-08] MEDS ORDERED: ALTEPLASE 2 MG VIAL XX ONE (09:30)
--- NOTE | 2021-02-08 09:50 | NUR ---
Cathflow administered to patient by dialysis nurse to clear catheter.
--- NOTE | 2021-02-08 10:45 | NUR ---
Discontinued Levophed at this time, will continue to observe for hypotension.
[2021-02-08] MEDS: NOREPINEPHRINE BITARTRATE 8 MG in IV NORMAL SALINE 242 ML IV PRN ×2 (12:15→21:02)
--- NOTE | 2021-02-08 12:30 | NUR ---
Patient prepared for PEG Placement and Surgical team present at bedside.
[2021-02-08] MEDS ORDERED: LIDOCAINE-MPF 2% 5 ML VIAL IJ ONE (12:45)
[2021-02-08] MEDS ORDERED: PROPOFOL 200 MG/20 ML BOTTLE IV ONE (12:45)
[2021-02-08] MEDS ORDERED: CEFAZOLIN 1 G VIAL IM ONE (12:45)
--- NOTE | 2021-02-08 13:09 | NUR ---
Procedure completed, patient tolerated well minimal bleeding noted at new peg site.
[2021-02-08] MEDS: IV FAT EMULSIONS 20% 250 ML IV SCH (13:28)
[2021-02-08] MEDS: SOD FERRIC GLUC COMPLX/SUCROSE 125 MG in IV NORMAL SALINE 100 ML IV SCH (13:30)
[2021-02-08] MEDS ORDERED: NORMAL SALINE IV ONE (15:00)
[2021-02-08] MEDS ORDERED: SODIUM PHOSPHATE MM IV ONE (15:00)
--- NOTE | 2021-02-08 15:50 | NUR ---
Patient tolerated bed bath, and wound dressing performed.
--- NOTE | 2021-02-08 19:00 | NUR ---
received patient with spontaneous eye opening , unable to follow command , vent setting , sr , 104/ 46 98 % , rr 21 , ac 15 tv 450 30 % , gt feeding clamp . with scant pinkish drainage , covered with non adhesive dressing , , tpn 42 ml /hr , lipid at 10. 417 , sodium phos running , aurora catheter , right groin , midline intact , right upperarm , levophed is off , flexi seal intact
--- NOTE | 2021-02-08 19:10 | NUR ---
Pt received stable on vent at this time. No signs or symptoms of respiratory distress noted. Trach airway (Portex #8) patent and secure. Pt is on Sinha vent with settings of AC 15, VT 450, 30% FI02. Sinha alarms on, audible and within parameters. Back up trach and manual resuscitator present at bedside. Pt suction tolerated well. Will continue to monitor and suction patient as needed throughout shift.
[2021-02-08] MEDS ORDERED: TPN BAG #11 IV SCH (20:00)
--- NOTE | 2021-02-08 20:43 | NUR ---
levophed is restarted 0.02 mcg
[2021-02-08] MEDS ORDERED: VANCOMYCIN IV 500 MG in IV DEXTROSE 5% 100 ML IV ONE (22:00)
[2021-02-08] MEDS: MEROPENEM 500 MG in IV NORMAL SALINE 50 ML IV SCH (22:06)
--- NOTE | 2021-02-08 22:17 | NUR ---
vanco iv not given order : to give post HD, patient didn't have dialysis today
--- NOTE | 2021-02-08 23:55 | NUR ---
bs is 127 , no coverage
[2021-02-09] VITALS (94 sets, daily range): BP systolic 65–129; BP diastolic 37–62
--- NOTE | 2021-02-09 | NUR ---
levophed was decreased to 0.01 mcg
[2021-02-09 05:12] LABS: HEMATOCRIT 25.5 % (36.7-47.1); MEAN CORPUSCULAR HEMOGLOBIN 28.6 uug (23.8-33.4); PLATELET COUNT (AUTO) 186 K/uL (152-348)
[2021-02-09 05:20] LABS: CARBON DIOXIDE 23 mmol/L (21-32); CHLORIDE 102 mmol/L (98-107); CREATININE 3.6 mg/dL (0.6-1.3); GLUCOSE 171 mg/dL (74-106); MAGNESIUM 1.8 mg/dL (1.8-2.4); PHOSPHOROUS 2.6 mg/dL (2.5-4.9); POTASSIUM 3.3 mmol/L (3.5-5.1); UREA NITROGEN, BLOOD 41 mg/dL (7-18); VANCOMYCIN,RANDOM 18.3 ug/mL (18.0-26.0)
[2021-02-09] MEDS: METRONIDAZOLE 500 MG/NS 100ML 500 MG in PREMIXED 1 EACH IV SCH (05:34)
--- NOTE | 2021-02-09 06:00 | NUR ---
hemodialysis is started , francy melo , notified of lab results , no order received , vent setting the same , levophed 0.01 mcg , aurora cath intact , tpn 42 ml , lipid 10.417 ml
[2021-02-09] MEDS: BLOOD SUGAR DIAGNOSTIC 1 EACH STRIP VI SCH ×3 (06:08→17:50)
[2021-02-09] MEDS: INSULIN REGULAR, HUMAN 300 UNIT/3 ML VIAL SQ PRN ×3 (06:29→17:56)
[2021-02-09 06:53] LABS: ABG BASE EXCESS -1.8 mmol/L; ABG HCO3 22.4 mmol/L; ABG PCO2 36.1 mmHg (35.0-45.0); ABG PH 7.411 (7.350-7.450); ABG PO2 94.9 mmHg (75.0-100.0); ABG SITE RIGHT BRACHIAL; ABG TOTAL HEMOGLOBIN 11.5 G/dL (13.5-18.0); COHb 1.1 % (0.5-1.5); MetHb 0.3 % (0.0-1.5); O2Hb 96.2 % (94.0-97.0); VENT MODE VENT - A/C; VT, ABG 450 mL
[2021-02-09] MEDS: ALBUMIN HUMAN 25% 100 ML IV PRN (07:51)
--- NOTE | 2021-02-09 07:54 | NUR ---
PT RECEIVED TRACH TO VENT WITH SETTINGS AC/20/450/30%. TRACH SECURED AND INTACT. AIRWAY PATENT. PT TOLERATING CURRENT VENT SETTINGS FINE WITH NO EVIDENCE OF RESPIRATORY DISTRESS. VENT ALARMS SET AND AUDIBLE. AMBU BAG BY BEDSIDE. WILL CONTINUE TO MONITOR
[2021-02-09] MEDS ORDERED: TPN BAG #12 IV SCH ×2 (08:00→16:30)
[2021-02-09] MEDS: PANTOPRAZOLE SODIUM 40 MG VIAL IV SCH (08:18)
[2021-02-09] MEDS: Z GUARD REMEDY PASTE 57 GM TUBE TOP SCH ×2 (08:19→21:15)
[2021-02-09] MEDS: SILVER SULFADIAZINE 1% CREAM 50 GM TP SCH ×2 (08:20→17:43)
[2021-02-09] MEDS: CLOTRIMAZOLE 1% CREAM 30 GM TUBE TOP SCH ×2 (08:20→17:42)
[2021-02-09] MEDS: SODIUM HYPOCHLORITE 0.125% (QUARTER STRENGTH) 473 ML BOTTLE TP SCH ×3 (08:21→17:43)
[2021-02-09] MEDS: NOREPINEPHRINE BITARTRATE 8 MG in IV NORMAL SALINE 242 ML IV PRN (09:31)
[2021-02-09] MEDS ORDERED: MEROPENEM 500 MG in IV NORMAL SALINE 50 ML IV ONE (11:30)
[2021-02-09] MEDS ORDERED: VANCOMYCIN IV 500 MG in IV DEXTROSE 5% 100 ML IV ONE (12:00)
[2021-02-09] MEDS: SOD FERRIC GLUC COMPLX/SUCROSE 125 MG in IV NORMAL SALINE 100 ML IV SCH (13:43)
[2021-02-09] MEDS: VANCOMYCIN FOR PO/GT/NG USE PO SCH (17:45)
--- NOTE | 2021-02-09 19:15 | NUR ---
received patient , vent settings ac 15 tv 450 fio2% 30 , no fever noted , tpn at 20 ml , levophed 0.01 mcg , gt feeding nephro at 25 ml , no residual noted , rectal tube intact , right aurora cath intact , dialysis done this morning 3l out , , picc line right arm intact
[2021-02-09] MEDS ORDERED: TPN BAG #13 IV SCH (20:00)
[2021-02-09] MEDS ORDERED: MIDODRINE HCL 5 MG TABLET GT SCH (20:15)
[2021-02-09] MEDS: ATORVASTATIN 40 MG TABLET GT SCH (21:14)
[2021-02-09] MEDS: MEROPENEM 500 MG in IV NORMAL SALINE 50 ML IV SCH (21:14)
[2021-02-10] VITALS (69 sets, daily range): BP systolic 88–139; BP diastolic 38–64
[2021-02-10] MEDS: BLOOD SUGAR DIAGNOSTIC 1 EACH STRIP VI SCH ×4 (00:54→17:34)
[2021-02-10] MEDS: INSULIN REGULAR, HUMAN 300 UNIT/3 ML VIAL SQ PRN ×4 (01:00→18:32)
[2021-02-10] MEDS: VANCOMYCIN FOR PO/GT/NG USE PO SCH ×5 (05:40→23:59)
--- NOTE | 2021-02-10 06:00 | NUR ---
vent settings , no change , levophed at 0.02 mcg , tpn was tudc's at 21: 00 , no fever noted , nephro at 25 ml , only 10 ml residual noted , off as ordered , cxr done
[2021-02-10 06:12] LABS: CARBON DIOXIDE 24 mmol/L (21-32); CHLORIDE 102 mmol/L (98-107); CREATININE 3.6 mg/dL (0.6-1.3); GLUCOSE 167 mg/dL (74-106); MAGNESIUM 1.9 mg/dL (1.8-2.4); POTASSIUM 3.2 mmol/L (3.5-5.1); UREA NITROGEN, BLOOD 39 mg/dL (7-18)
[2021-02-10 06:22] LABS: HEMATOCRIT 25.1 % (36.7-47.1); MEAN CORPUSCULAR HEMOGLOBIN 28.4 uug (23.8-33.4); MEAN CORPUSCULAR VOLUME 91.9 fL (73.0-96.2); PLATELET COUNT (AUTO) 155 K/uL (152-348)
[2021-02-10] MEDS: NOREPINEPHRINE BITARTRATE 8 MG in IV NORMAL SALINE 242 ML IV PRN (06:59)
[2021-02-10] MEDS: PANTOPRAZOLE SODIUM 40 MG VIAL IV SCH (09:41)
[2021-02-10] MEDS: ASPIRIN 81 MG TAB.CHEW GT SCH (09:41)
[2021-02-10] MEDS: MORPHINE SULFATE 4 MG/1 ML DISP.SYRIN IV PRN ×3 (09:41→19:00)
[2021-02-10] MEDS: MIDODRINE HCL 5 MG TABLET GT SCH ×2 (09:45→17:21)
[2021-02-10] MEDS: Z GUARD REMEDY PASTE 57 GM TUBE TOP SCH ×2 (09:47→21:17)
[2021-02-10] MEDS: SODIUM HYPOCHLORITE 0.125% (QUARTER STRENGTH) 473 ML BOTTLE TP SCH ×3 (09:48→17:23)
[2021-02-10] MEDS: SILVER SULFADIAZINE 1% CREAM 50 GM TP SCH ×2 (09:49→17:23)
[2021-02-10] MEDS: CLOTRIMAZOLE 1% CREAM 30 GM TUBE TOP SCH ×2 (09:50→17:22)
[2021-02-10] MEDS: IPRATROPIUM/ALBUTEROL SULFATE 14.7 GM INHALER INH SCH ×3 (11:21→23:42)
--- NOTE | 2021-02-10 11:21 | NUR ---
unable to given MDI tx
[2021-02-10] MEDS: SOD FERRIC GLUC COMPLX/SUCROSE 125 MG in IV NORMAL SALINE 100 ML IV SCH (13:57)
[2021-02-10] MEDS: MEROPENEM 500 MG in IV NORMAL SALINE 50 ML IV SCH (21:19)
[2021-02-10] MEDS: ATORVASTATIN 40 MG TABLET GT SCH (21:19)
--- NOTE | 2021-02-10 23:43 | NUR ---
Patient received on ventilator settings of A/C 15, VT 450 and FIO2-30%. No resp. distress noted. Portex 8 is patent and secure; Backup Portex 8 and BVM are at bedside. Patient to be monitored throughout the shift and PRN SX. Ventilator alarm parameters have been checked and remain audible. Pt is unable to be adm'd MDI resp neb tx.
[2021-02-11] VITALS (96 sets, daily range): BP systolic 47–166; BP diastolic 16–78
[2021-02-11] MEDS: BLOOD SUGAR DIAGNOSTIC 1 EACH STRIP VI SCH ×4 (00:08→17:52)
[2021-02-11] MEDS: INSULIN REGULAR, HUMAN 300 UNIT/3 ML VIAL SQ PRN ×4 (00:11→17:54)
[2021-02-11] MEDS: IV NORMAL SALINE 250 ML IV PRN (01:51)
[2021-02-11] MEDS: IPRATROPIUM/ALBUTEROL SULFATE 14.7 GM INHALER INH SCH ×3 (05:00→18:00)
[2021-02-11 05:12] LABS: HEMATOCRIT 25.7 % (36.7-47.1); MEAN CORPUSCULAR HEMOGLOBIN 28.5 uug (23.8-33.4); MEAN CORPUSCULAR VOLUME 91.8 fL (73.0-96.2); PLATELET COUNT (AUTO) 194 K/uL (152-348)
[2021-02-11 05:20] LABS: CARBON DIOXIDE 25 mmol/L (21-32); CHLORIDE 102 mmol/L (98-107); CREATININE 4.1 mg/dL (0.6-1.3); GLUCOSE 207 mg/dL (74-106); MAGNESIUM 1.7 mg/dL (1.8-2.4); PHOSPHOROUS 2.4 mg/dL (2.5-4.9); POTASSIUM 3.2 mmol/L (3.5-5.1); UREA NITROGEN, BLOOD 47 mg/dL (7-18)
[2021-02-11] MEDS: VANCOMYCIN FOR PO/GT/NG USE PO SCH ×3 (05:25→17:17)
--- NOTE | 2021-02-11 07:10 | NUR ---
Received pt. on ventilator settings: Portex #8. A/C 15, 30% FIO2, Tv450 no respiratory distress saturation above 945%. SBP supported by levophed. G-t. clamped with feeding to be resumed. Rectal tube to gravity. ML to VELASQUEZ patent Manjinder cath ro Right growing. Neuro-winters pt. remains obtunded and unchanged.
--- NOTE | 2021-02-11 07:15 | NUR ---
PT RECEIVED ON CONTINUOUS MECHANICAL VENTILATOR WITH SAME SETTINGS. NO CHANGES MADE ON ORDERED SETTINGS. NO S/S OF RESPIRATORY DISTRESS NOTED. SUCTION SMALL AMOUNT OF THICK, YELLOW SECRETIONS. HME CHANGED. ORAL CARE DONE. VENT IS PLUGGED INTO RED EMERGENCY OUTLET. BVM AND BACK UP TRACH ARE AT BEDSIDE. WILL CONTINUE TO MONITOR.
--- NOTE | 2021-02-11 07:45 | NUR ---
Cardiology services Dr. Rivera in the unit to see and examine pt. no new orders received.
--- NOTE | 2021-02-11 08:15 | NUR ---
Pulmonary services, Dr. Phan in the unit to see and examine pt. full report given, with orders to continue with care plan received.
--- NOTE | 2021-02-11 08:33 | NUR ---
a call fron Jill Case management report given.
[2021-02-11] MEDS: PANTOPRAZOLE SODIUM 40 MG VIAL IV SCH (08:47)
[2021-02-11] MEDS: ASPIRIN 81 MG TAB.CHEW GT SCH (08:47)
[2021-02-11] MEDS: Z GUARD REMEDY PASTE 57 GM TUBE TOP SCH ×2 (08:48→21:13)
[2021-02-11] MEDS: MIDODRINE HCL 5 MG TABLET GT SCH ×2 (08:48→17:15)
[2021-02-11] MEDS: SODIUM HYPOCHLORITE 0.125% (QUARTER STRENGTH) 473 ML BOTTLE TP SCH ×3 (08:49→17:16)
[2021-02-11] MEDS: CLOTRIMAZOLE 1% CREAM 30 GM TUBE TOP SCH ×2 (08:51→17:16)
[2021-02-11] MEDS: SILVER SULFADIAZINE 1% CREAM 50 GM TP SCH ×2 (08:52→17:16)
[2021-02-11] MEDS: NEPRO 1000 ML GT PRN (09:16)
--- NOTE | 2021-02-11 09:30 | NUR ---
Attending Sonia jimenez in the unit to follow up on pt. report given, and orders to continue with care plan received.
--- NOTE | 2021-02-11 11:35 | NUR ---
UNABLE TO GIVE COMBIVENT TX.
[2021-02-11] MEDS: NOREPINEPHRINE BITARTRATE 8 MG in IV NORMAL SALINE 242 ML IV PRN (15:53)
[2021-02-11] MEDS ORDERED: NEUTRA PHOS PACKET PO ONE (16:00)
--- NOTE | 2021-02-11 16:00 | NUR ---
Hemodialysis R.N. in and within 15 min. of arrival HD in progress. Pt. tolerating well with support of levophed.
--- NOTE | 2021-02-11 17:00 | NUR ---
Dr. Mary Roach called to be notified of SP above 150's orders received. Addendum: 02/11/21 at 2002 by AYDEE KHAN RN the above note was intended for another pt. user error.
--- NOTE | 2021-02-11 18:46 | NUR ---
HD over a total of 1700cc output as reported. pt. remains on levophed at 0.06mcg/kg/min.
[2021-02-11] MEDS: ATORVASTATIN 40 MG TABLET GT SCH (21:12)
[2021-02-11] MEDS: MEROPENEM 500 MG in IV NORMAL SALINE 50 ML IV SCH (21:15)
[2021-02-12] VITALS (87 sets, daily range): BP systolic 91–136; BP diastolic 40–69
--- NOTE | 2021-02-12 00:05 | NUR ---
Unable to give combivent MDI tx
[2021-02-12] MEDS: VANCOMYCIN FOR PO/GT/NG USE PO SCH ×4 (00:06→18:49)
[2021-02-12] MEDS: BLOOD SUGAR DIAGNOSTIC 1 EACH STRIP VI SCH ×4 (00:10→18:49)
[2021-02-12] MEDS: INSULIN REGULAR, HUMAN 300 UNIT/3 ML VIAL SQ PRN ×4 (00:13→18:50)
[2021-02-12 04:51] LABS: HEMATOCRIT 26.8 % (36.7-47.1); MEAN CORPUSCULAR HEMOGLOBIN 28.6 uug (23.8-33.4); MEAN CORPUSCULAR VOLUME 92.2 fL (73.0-96.2); PLATELET COUNT (AUTO) 202 K/uL (152-348)
[2021-02-12 05:18] LABS: CARBON DIOXIDE 27 mmol/L (21-32); CHLORIDE 104 mmol/L (98-107); CREATININE 3.5 mg/dL (0.6-1.3); GLUCOSE 172 mg/dL (74-106); MAGNESIUM 1.8 mg/dL (1.8-2.4); PHOSPHOROUS 2.3 mg/dL (2.5-4.9); POTASSIUM 3.6 mmol/L (3.5-5.1); UREA NITROGEN, BLOOD 36 mg/dL (7-18)
[2021-02-12] MEDS: IPRATROPIUM/ALBUTEROL SULFATE 14.7 GM INHALER INH SCH ×4 (05:36→18:00)
--- NOTE | 2021-02-12 06:42 | NUR ---
Left pt. on ventilator settings: Portex #8. A/C 15, 30% FIO2, Tv450 no respiratory distress saturation above 945%. SBP supported by levophed.Pt. afebrile for the last 24hrs. G-t. clamped with feeding to be resumed. Rectal tube to gravity. ML to VELASQUEZ patent Manjinder cath ro Right growing s/p Hd on 02/10/1800 with 1700 cc output. Neuro-winters pt. remains obtunded. Will endorse to incoming shift.
[2021-02-12 07:42] LABS: ABG BASE EXCESS 0.1 mmol/L; ABG HCO3 24.4 mmol/L; ABG PCO2 37.8 mmHg (35.0-45.0); ABG PH 7.427 (7.350-7.450); ABG PO2 103.9 mmHg (75.0-100.0); ABG SITE LEFT BRACHIAL; ABG TOTAL HEMOGLOBIN 8.8 G/dL (13.5-18.0); COHb 1.4 % (0.5-1.5); MetHb 0.5 % (0.0-1.5); O2Hb 96.5 % (94.0-97.0); VENT MODE VENT - A/C; VT, ABG 45 mL
--- NOTE | 2021-02-12 08:50 | NUR ---
I CALLED ANTOINE AND SPOKE TO KIA REGARDING X-RAYS NOT BEING READ WHEN ON TIME, SINCE THEY ARE STATS FROM CCU OR ICU. SHE SAID SHE WOULD BRING IT UP TO HER BOSS. i ASKED HER TO PLEASE HAVE RADIOLOGIST READ ALL 6 STUDIES THAT ARE PENDING FROM EARLY THIS MORNING
[2021-02-12] MEDS: MIDODRINE HCL 5 MG TABLET GT SCH ×3 (09:04→17:21)
[2021-02-12] MEDS: PANTOPRAZOLE SODIUM 40 MG VIAL IV SCH (09:04)
[2021-02-12] MEDS: ASPIRIN 81 MG TAB.CHEW GT SCH (09:04)
[2021-02-12] MEDS: Z GUARD REMEDY PASTE 57 GM TUBE TOP SCH ×2 (09:05→21:27)
[2021-02-12] MEDS: SODIUM HYPOCHLORITE 0.125% (QUARTER STRENGTH) 473 ML BOTTLE TP SCH ×3 (09:06→17:22)
[2021-02-12] MEDS: CLOTRIMAZOLE 1% CREAM 30 GM TUBE TOP SCH ×2 (09:06→17:22)
--- NOTE | 2021-02-12 09:56 | NUR ---
Dr. Phan in unit to assess patient
[2021-02-12] MEDS: SILVER SULFADIAZINE 1% CREAM 50 GM TP SCH ×2 (10:21→17:22)
--- NOTE | 2021-02-12 10:45 | NUR ---
Herbert Betts DNP in unit to assess patient
[2021-02-12] MEDS: IV NORMAL SALINE 250 ML IV PRN (15:46)
[2021-02-12] MEDS: NEPRO 1000 ML GT PRN (15:48)
[2021-02-12] MEDS ORDERED: NEUTRA PHOS PACKET PO ONE (16:15)
[2021-02-12] MEDS: NOREPINEPHRINE BITARTRATE 8 MG in IV NORMAL SALINE 242 ML IV PRN (18:55)
--- NOTE | 2021-02-12 19:30 | NUR ---
rounds made patient in bed ,open eyes spontaneously but doesn't follow commands . trach to vent tolerating vent setting saturation 100%.TF in progress and on nephro at 55 goal ,checked residual only 15 ,flushed with water .
[2021-02-12] MEDS: ATORVASTATIN 40 MG TABLET GT SCH (21:28)
[2021-02-12] MEDS: MEROPENEM 500 MG in IV NORMAL SALINE 50 ML IV SCH (21:30)
--- NOTE | 2021-02-12 21:30 | NUR ---
turned and reposition patient ,offloaded back with pillow,elevated bue/ble upper and lower extremities .due medication given via peg ,crushed medication . hob up aspiration precaution observed .
[2021-02-13] VITALS (95 sets, daily range): BP systolic 69–178; BP diastolic 28–92
[2021-02-13] MEDS: VANCOMYCIN FOR PO/GT/NG USE PO SCH ×5 (00:17→23:05)
[2021-02-13] MEDS: IPRATROPIUM/ALBUTEROL SULFATE 14.7 GM INHALER INH SCH ×2 (00:18→05:05)
[2021-02-13] MEDS: BLOOD SUGAR DIAGNOSTIC 1 EACH STRIP VI SCH ×5 (00:22→23:06)
[2021-02-13] MEDS: INSULIN REGULAR, HUMAN 300 UNIT/3 ML VIAL SQ PRN ×5 (00:48→23:14)
--- NOTE | 2021-02-13 02:00 | NUR ---
wound photo done c/o Thursday photo day ,changed soiled linens and gown ,wound dressing done and follow wound treatment as per wound care nurse .
--- NOTE | 2021-02-13 02:25 | NUR ---
PATIENT ON CONT FRAGOSO VENT WITH PORTEX # [address], SUCTION, TRACH CARE DONE, VENT SETTINGS, A/C 15, 45OML, 30%, PT DOES ASSIST AT TIMES , SUCTION MOUTH WITH YANKAUER, SEMI CLAMPS DOWN ON DEVICE, NO VENT CHANGES MADE, NO COMBIVENT MDI NOT GIVEN, all vent alarms good; back up trach at bedside, B/S EQUAL BI/LATERALLY; vent plugged into red wall outlet, sat 99 -100% . Denise NAVARRETEP Addendum: 02/13/21 at 0230 by SANTOSH HALE RT Amended: Links added.
[2021-02-13 04:55] LABS: HEMATOCRIT 26.6 % (36.7-47.1); MEAN CORPUSCULAR HEMOGLOBIN 28.5 uug (23.8-33.4); MEAN CORPUSCULAR VOLUME 92.1 fL (73.0-96.2); PLATELET COUNT (AUTO) 206 K/uL (152-348)
[2021-02-13 05:05] LABS: ALKALINE PHOSPHATASE 264 U/L (50-136); ASPARTATE AMINOTRANSFERASE 24 U/L (15-37); BILIRUBIN,TOTAL 0.6 mg/dL (0.2-1.0); CARBON DIOXIDE 27 mmol/L (21-32); CHLORIDE 103 mmol/L (98-107); CREATININE 4.1 mg/dL (0.6-1.3); GLUCOSE 193 mg/dL (74-106); MAGNESIUM 1.8 mg/dL (1.8-2.4); PHOSPHOROUS 3.1 mg/dL (2.5-4.9); POTASSIUM 4.2 mmol/L (3.5-5.1); UREA NITROGEN, BLOOD 45 mg/dL (7-18); VANCOMYCIN,RANDOM 18.5 ug/mL (18.0-26.0)
[2021-02-13 05:26] LABS: ALANINE AMINOTRANSFERASE < 6 U/L (16-63)
--- NOTE | 2021-02-13 07:15 | NUR ---
Received report from software quality analyst nurse, patient continues to be on chronic trach to vent saturation 100%. Patient is on levophed 0.02mcg/kg/min. Patient is afebrile and in no apparent distress. air mattress inflated, safety check complete, and flexiseal bag changed.
--- NOTE | 2021-02-13 08:19 | NUR ---
Discussed wounds with Leona Salguero, received orders to culture wounds.
[2021-02-13] MEDS: MIDODRINE HCL 5 MG TABLET GT SCH ×3 (08:32→16:51)
[2021-02-13] MEDS: ASPIRIN 81 MG TAB.CHEW GT SCH (08:32)
[2021-02-13] MEDS: PANTOPRAZOLE ORAL SUSPENSION 40 MG SUSPDR.PKT GT SCH (08:32)
[2021-02-13] MEDS: Z GUARD REMEDY PASTE 57 GM TUBE TOP SCH ×2 (08:33→20:02)
[2021-02-13] MEDS: CLOTRIMAZOLE 1% CREAM 30 GM TUBE TOP SCH ×2 (08:36→16:51)
[2021-02-13] MEDS: SODIUM HYPOCHLORITE 0.125% (QUARTER STRENGTH) 473 ML BOTTLE TP SCH ×3 (08:37→16:51)
[2021-02-13] MEDS: SILVER SULFADIAZINE 1% CREAM 50 GM TP SCH ×2 (08:37→16:52)
[2021-02-13] MEDS: NEPRO 1000 ML GT PRN (08:39)
[2021-02-13] MEDS: NOREPINEPHRINE BITARTRATE 8 MG in IV NORMAL SALINE 242 ML IV PRN ×2 (09:05→21:03)
--- NOTE | 2021-02-13 10:08 | NUR ---
Patient seen by Dr. Phan and discussed plan of care with MARITZA Betts, and order received of blood cultures.
--- NOTE | 2021-02-13 10:20 | NUR ---
Patient seen by Dr. Solomon. Discussed patients continued hypotension and need for low dose levophed. Recently started back on midodrine. Will wait for orders.
[2021-02-13] MEDS: ALBUTEROL SULFATE 2.5 MG/ 0.5 ML NEBU NEB SCH ×2 (12:31→20:02)
[2021-02-13] MEDS: IPRATROPIUM BROMIDE 0.5 MG/2.5 ML NEBU NEB SCH ×2 (12:31→20:02)
--- NOTE | 2021-02-13 13:20 | NUR ---
Received consent from Tatyana to debride left ankle and heel.
[2021-02-13] MEDS ORDERED: ALTEPLASE 2 MG VIAL XX ONE ×2 (18:45→19:00)
--- NOTE | 2021-02-13 18:55 | NUR ---
Cathflow administered by dialysis nurse for clogged catheter.
[2021-02-13] MEDS: MEROPENEM 500 MG in IV NORMAL SALINE 50 ML IV SCH (20:16)
[2021-02-13] MEDS: ATORVASTATIN 40 MG TABLET GT SCH (20:17)
[2021-02-13] MEDS ORDERED: VANCOMYCIN IV 500 MG in IV DEXTROSE 5% 100 ML IV ONE (20:30)
--- NOTE | 2021-02-13 20:30 | NUR ---
: MEKHI CAME AND EXAMINED PATIENT .REPORT GIVEN .
--- NOTE | 2021-02-13 21:33 | NUR ---
CHANGED RIGHT UPPER PICCLINE DRESSING DONE ASEPTICALLY .
--- NOTE | 2021-02-13 21:45 | NUR ---
TURNED AND REPOSITION PATIENT AND OFFLOADED BACK WITH PILLOW BUE AND DANE ELEVATED WITH PILLOWS . RIGHT FOOT WITH PREVALON HEEL PROTECTOR .
--- NOTE | 2021-02-13 22:00 | NUR ---
WOUND CULTURE SEND TO LAB FOR SACRAL AND RIGHT BUTTOCKS .
[2021-02-14] VITALS (92 sets, daily range): BP systolic 68–148; BP diastolic 34–71
--- NOTE | 2021-02-14 | NUR ---
F/S DONE AND FOLLOW INSULIN SLIDING SCALE . PATIENT TOLERATING TUBE FEEDINGS VERY MINIMAL RESIDUAL 5 TO 15 ML .
[2021-02-14] MEDS: ALBUTEROL SULFATE 2.5 MG/ 0.5 ML NEBU NEB SCH ×4 (01:04→19:23)
[2021-02-14] MEDS: IPRATROPIUM BROMIDE 0.5 MG/2.5 ML NEBU NEB SCH ×4 (01:04→19:23)
[2021-02-14] MEDS: IV NORMAL SALINE 250 ML IV PRN (04:28)
--- NOTE | 2021-02-14 04:30 | NUR ---
AM LABS COLLECTED AND FLUSHED MID LINE . BLOOD GIVEN TO THE DIRECTOR RELIGIOUS EDUCATION .
--- NOTE | 2021-02-14 04:45 | NUR ---
AM CARE DONE BATH PATIENT . F/C DONE .ORAL CARE. CHANGED SOILED LINENS AND GOWN . WOUND DRESSING DONE AND FOLLOW WOUND CARE TREATMENT.
[2021-02-14 04:56] LABS: HEMATOCRIT 26.4 % (36.7-47.1); MEAN CORPUSCULAR HEMOGLOBIN 28.9 uug (23.8-33.4); MEAN CORPUSCULAR VOLUME 92.9 fL (73.0-96.2); PLATELET COUNT (AUTO) 188 K/uL (152-348)
[2021-02-14 05:05] LABS: CARBON DIOXIDE 26 mmol/L (21-32); CHLORIDE 102 mmol/L (98-107); CREATININE 4.2 mg/dL (0.6-1.3); GLUCOSE 226 mg/dL (74-106); MAGNESIUM 1.7 mg/dL (1.8-2.4); PHOSPHOROUS 3.4 mg/dL (2.5-4.9); UREA NITROGEN, BLOOD 48 mg/dL (7-18)
[2021-02-14] MEDS: VANCOMYCIN FOR PO/GT/NG USE PO SCH ×4 (05:28→23:14)
[2021-02-14] MEDS: BLOOD SUGAR DIAGNOSTIC 1 EACH STRIP VI SCH ×4 (05:29→23:18)
[2021-02-14] MEDS: INSULIN REGULAR, HUMAN 300 UNIT/3 ML VIAL SQ PRN ×4 (05:38→23:23)
--- NOTE | 2021-02-14 07:30 | NUR ---
Received report from shift supervisor film processing nurse, patient in bed stable on trach to vent saturation 100% on levophed afib on the monitor. Gtube patent and no residual. Air mattress inflated, rectal tube in place draining brown foul smelling liquid stool. No distress noted at this time.
[2021-02-14] MEDS: NOREPINEPHRINE BITARTRATE 8 MG in IV NORMAL SALINE 242 ML IV PRN ×2 (07:57→21:41)
[2021-02-14] MEDS: MIDODRINE HCL 5 MG TABLET GT SCH ×3 (08:49→17:51)
[2021-02-14] MEDS: PANTOPRAZOLE ORAL SUSPENSION 40 MG SUSPDR.PKT GT SCH (08:49)
[2021-02-14] MEDS: ASPIRIN 81 MG TAB.CHEW GT SCH (08:49)
[2021-02-14] MEDS: GENTAMICIN SULFATE 0.1% OINT 15 GM TUBE TOP SCH (08:51)
[2021-02-14] MEDS: CLOTRIMAZOLE 1% CREAM 30 GM TUBE TOP SCH ×2 (08:51→17:54)
[2021-02-14] MEDS: Z GUARD REMEDY PASTE 57 GM TUBE TOP SCH ×2 (08:52→20:31)
[2021-02-14] MEDS: SODIUM HYPOCHLORITE 0.125% (QUARTER STRENGTH) 473 ML BOTTLE TP SCH ×3 (08:52→17:54)
[2021-02-14] MEDS: SILVER SULFADIAZINE 1% CREAM 50 GM TP SCH ×2 (08:53→17:54)
[2021-02-14] MEDS: MUPIROCIN 2% OINT 22 GM TUBE TP SCH ×2 (09:21→20:32)
[2021-02-14] MEDS: NEPRO 1000 ML GT PRN (10:00)
[2021-02-14] MEDS ORDERED: VANCOMYCIN IV 500 MG in IV DEXTROSE 5% 100 ML IV ONE (14:00)
--- NOTE | 2021-02-14 16:55 | NUR ---
PT RECEIVED TRACH TO VENT ON CMV. PORTEX #8 TRACH IS PATENT AND SECURE. VENT PARAMETERS AND ALARMS CHECKED. ALARMS ARE AUDIBLE. PT IS ON A FRAGOSO VENT ON SETTINGS OF A/C 15, VT 450, 30% FIO2. PT IS TOLERATING VENT WELL. PT STABLE THROUGHOUT SHIFT. TRACH CARE PERFORMED. SPO2 AND RESPIRATIONS WNL. NO SIGNS OR SYMPTOMS OF RESP. DISTRESS NOTED. BVM AND BACK-UP TRACH AT BEDSIDE. VENT PLUGGED INTO RED OUTLET. SUCTION PRN. WILL CONTINUE TO MONITOR.
--- NOTE | 2021-02-14 19:23 | NUR ---
Pt received stable on current vent setings AC 15, VT 450, 30% fi02. Portex 8 trach tube patent and secure. BVM and back up trach present at bedside. Alarms on, audible, and within parameters. No signs and symptoms of respiratory distress noted. Routine suction and tx tolerated well with no adverse reaction. Will continue to monitor and suction PRN throughout shift.
--- NOTE | 2021-02-14 19:25 | NUR ---
Report given to galvanizing pot runner nurse, patient remains on levophed, and stable on the ventilator.
--- NOTE | 2021-02-14 19:49 | NUR ---
vancomycin given 500 mg ivb ,vanco level is 15.9 - low .
--- NOTE | 2021-02-14 20:00 | NUR ---
tolerating trach to vent no respiratory distress noted saturation 100% ,on Levophed drip at 0.03 mcg/kg/min .gastric with tube feeding Nepro in progress at 55 hour tolerating tube feedings.flused gt tube with water patent . hob up aspiration precaution observed ,
[2021-02-14] MEDS: MEROPENEM 500 MG in IV NORMAL SALINE 50 ML IV SCH (20:31)
[2021-02-14] MEDS: ATORVASTATIN 40 MG TABLET GT SCH (20:31)
--- NOTE | 2021-02-14 20:32 | NUR ---
left foot dressing done and follow wound care treatment . see emar .
--- NOTE | 2021-02-14 21:41 | NUR ---
wean Levophed drip at 0.02 mcg/kg/min . bp 106/47 hr 79 . will continue to monitor v/s .
[2021-02-15] VITALS (93 sets, daily range): BP systolic 85–145; BP diastolic 43–74
[2021-02-15] MEDS: ALBUTEROL SULFATE 2.5 MG/ 0.5 ML NEBU NEB SCH ×4 (01:27→20:55)
[2021-02-15] MEDS: IPRATROPIUM BROMIDE 0.5 MG/2.5 ML NEBU NEB SCH ×4 (01:27→20:55)
[2021-02-15] MEDS: IV NORMAL SALINE 250 ML IV PRN (02:10)
--- NOTE | 2021-02-15 03:45 | NUR ---
AM CARE DONE BATH PATIENT ,CHANGED SOILED LINENS AND GOWN , ORAL ARE DONE AND F/C DONE .
[2021-02-15] MEDS: VANCOMYCIN FOR PO/GT/NG USE PO SCH ×4 (05:25→23:46)
[2021-02-15 05:27] LABS: HEMATOCRIT 25.9 % (36.7-47.1); MEAN CORPUSCULAR HEMOGLOBIN 29.6 uug (23.8-33.4); MEAN CORPUSCULAR VOLUME 93.4 fL (73.0-96.2); PLATELET COUNT (AUTO) 227 K/uL (152-348)
[2021-02-15] MEDS: INSULIN REGULAR, HUMAN 300 UNIT/3 ML VIAL SQ PRN ×4 (05:31→23:50)
[2021-02-15] MEDS: BLOOD SUGAR DIAGNOSTIC 1 EACH STRIP VI SCH ×4 (05:33→23:49)
[2021-02-15 05:40] LABS: ALANINE AMINOTRANSFERASE < 6 U/L (16-63); ALKALINE PHOSPHATASE 361 U/L (50-136); ASPARTATE AMINOTRANSFERASE 28 U/L (15-37); BILIRUBIN,DIRECT 0.2 mg/dL (0.0-0.2); BILIRUBIN,TOTAL 0.5 mg/dL (0.2-1.0); CARBON DIOXIDE 27 mmol/L (21-32); CHLORIDE 99 mmol/L (98-107); CREATININE 4.5 mg/dL (0.6-1.3); GLUCOSE 180 mg/dL (74-106); MAGNESIUM 1.9 mg/dL (1.8-2.4); PHOSPHOROUS 3.4 mg/dL (2.5-4.9); POTASSIUM 4.2 mmol/L (3.5-5.1); TOTAL PROTEIN, SERUM 8.1 g/dL (6.4-8.2); UREA NITROGEN, BLOOD 57 mg/dL (7-18)
[2021-02-15] MEDS: NOREPINEPHRINE BITARTRATE 8 MG in IV NORMAL SALINE 242 ML IV PRN (08:32)
[2021-02-15] MEDS: ASPIRIN 81 MG TAB.CHEW GT SCH (08:34)
[2021-02-15] MEDS: PANTOPRAZOLE ORAL SUSPENSION 40 MG SUSPDR.PKT GT SCH (08:34)
[2021-02-15] MEDS: MIDODRINE HCL 5 MG TABLET GT SCH ×3 (08:35→17:00)
[2021-02-15] MEDS: SODIUM HYPOCHLORITE 0.125% (QUARTER STRENGTH) 473 ML BOTTLE TP SCH ×3 (08:44→17:00)
[2021-02-15] MEDS: MINERAL OIL/PETROLATUM,WHITE 57 GM TUBE TOP PRN (08:44)
[2021-02-15] MEDS: CLOTRIMAZOLE 1% CREAM 30 GM TUBE TOP SCH ×2 (08:44→17:00)
[2021-02-15] MEDS: GENTAMICIN SULFATE 0.1% OINT 15 GM TUBE TOP SCH (08:45)
[2021-02-15] MEDS: Z GUARD REMEDY PASTE 57 GM TUBE TOP SCH ×2 (08:46→20:32)
[2021-02-15] MEDS: MUPIROCIN 2% OINT 22 GM TUBE TP SCH ×2 (08:47→20:34)
[2021-02-15] MEDS: SILVER SULFADIAZINE 1% CREAM 50 GM TP SCH ×2 (08:48→17:00)
[2021-02-15 10:08] LABS: ABG BASE EXCESS -1.4 mmol/L; ABG HCO3 22.5 mmol/L; ABG PCO2 34.3 mmHg (35.0-45.0); ABG PH 7.435 (7.350-7.450); ABG SITE RIGHT BRACHIAL; ABG TOTAL HEMOGLOBIN 8.9 G/dL (13.5-18.0); COHb 1.4 % (0.5-1.5); MetHb 0.5 % (0.0-1.5); O2Hb 97.4 % (94.0-97.0); VENT MODE VENT - A/C; VT, ABG 450 mL
[2021-02-15] MEDS: ALBUMIN HUMAN 25% 100 ML IV PRN (18:32)
--- NOTE | 2021-02-15 19:47 | NUR ---
Patient continues to be on chronic trach to vent, stable saturation 100%, afib on the monitor, On levophed with dialysis nurse at this time. Wound care performed and patient tolerated without distress. Patient has more frothy white sputum today than days before. Patient tolerating gtube feeding with minimal to no residual. Bed in low position, side rails upx2, and air mattress inflated.
--- NOTE | 2021-02-15 20:00 | NUR ---
HD RN AT B/S PATIENT HAVING HEMODIALYSES.
[2021-02-15] MEDS: MEROPENEM 500 MG in IV NORMAL SALINE 50 ML IV SCH (20:30)
[2021-02-15] MEDS: ATORVASTATIN 40 MG TABLET GT SCH (20:30)
--- NOTE | 2021-02-15 21:30 | NUR ---
PATIENT TOLERATED HD TOTAL FLUID REMOVAL 2000 ML.
[2021-02-16] VITALS (96 sets, daily range): BP systolic 77–135; BP diastolic 39–74
--- NOTE | 2021-02-16 00:34 | NUR ---
PATIENT ON CONT FRAGOSO VENT WITH PORTEX # [address],WITH SAME CURRENT VENT SETTINGS, A/C 15, 450ML, 30%, PT DOES ASSIST AT TIMES, SEMI AWAKE, SUCTIONED LIGHT PALE YELL TINGE SECRETIONS, SECRETIONS AROUND TRACH STOMA, CLEAN, CHANGE HME, NEB INLINE X 2 , NO VENT CHANGES MADE, PT STABLE. Denise NAVARRETEP Addendum: 02/16/21 at 0037 by SANTOSH HALE RT Amended: Links added.
[2021-02-16] MEDS: IPRATROPIUM BROMIDE 0.5 MG/2.5 ML NEBU NEB SCH ×4 (01:26→20:34)
[2021-02-16] MEDS: ALBUTEROL SULFATE 2.5 MG/ 0.5 ML NEBU NEB SCH ×4 (01:27→20:35)
[2021-02-16] MEDS: VANCOMYCIN FOR PO/GT/NG USE PO SCH ×4 (05:19→23:19)
[2021-02-16] MEDS: BLOOD SUGAR DIAGNOSTIC 1 EACH STRIP VI SCH ×4 (05:24→23:22)
[2021-02-16] MEDS: INSULIN REGULAR, HUMAN 300 UNIT/3 ML VIAL SQ PRN ×4 (05:25→23:23)
[2021-02-16 06:16] LABS: HEMATOCRIT 26.6 % (36.7-47.1); MEAN CORPUSCULAR HEMOGLOBIN 29.2 uug (23.8-33.4); MEAN CORPUSCULAR VOLUME 93.3 fL (73.0-96.2); PLATELET COUNT (AUTO) 193 K/uL (152-348)
[2021-02-16 06:44] LABS: CARBON DIOXIDE 26 mmol/L (21-32); CHLORIDE 103 mmol/L (98-107); CREATININE 3.7 mg/dL (0.6-1.3); GLUCOSE 215 mg/dL (74-106); MAGNESIUM 1.8 mg/dL (1.8-2.4); POTASSIUM 4.4 mmol/L (3.5-5.1); UREA NITROGEN, BLOOD 40 mg/dL (7-18)
--- NOTE | 2021-02-16 07:50 | NUR ---
Minimal residual aspirated from Gtube. Will restart nephro tube feeding at 0800 as endorsed and ordered.
[2021-02-16] MEDS: ASPIRIN 81 MG TAB.CHEW GT SCH (08:12)
[2021-02-16] MEDS: PANTOPRAZOLE ORAL SUSPENSION 40 MG SUSPDR.PKT GT SCH (08:12)
[2021-02-16] MEDS: MUPIROCIN 2% OINT 22 GM TUBE TP SCH ×2 (08:13→21:00)
[2021-02-16] MEDS: CLOTRIMAZOLE 1% CREAM 30 GM TUBE TOP SCH ×2 (08:13→16:37)
[2021-02-16] MEDS: Z GUARD REMEDY PASTE 57 GM TUBE TOP SCH ×2 (08:13→21:19)
[2021-02-16] MEDS: GENTAMICIN SULFATE 0.1% OINT 15 GM TUBE TOP SCH (08:13)
[2021-02-16] MEDS: SILVER SULFADIAZINE 1% CREAM 50 GM TP SCH ×2 (08:14→16:38)
[2021-02-16] MEDS: SODIUM HYPOCHLORITE 0.125% (QUARTER STRENGTH) 473 ML BOTTLE TP SCH ×3 (08:14→16:38)
[2021-02-16] MEDS: NOREPINEPHRINE BITARTRATE 8 MG in IV NORMAL SALINE 242 ML IV PRN (08:41)
[2021-02-16] MEDS: MIDODRINE HCL 5 MG TABLET GT SCH ×3 (08:53→18:10)
[2021-02-16] MEDS: ALBUMIN HUMAN 25% 100 ML IV SCH ×4 (09:49→23:29)
--- NOTE | 2021-02-16 10:30 | NUR ---
Seen by Venkatesh WEAVER, surgery. Sacral wound bed cleaned and dressing changed as ordered.
--- NOTE | 2021-02-16 15:27 | NUR ---
bending roll hand at bedside for hemodialysis at this time.
--- NOTE | 2021-02-16 18:00 | NUR ---
Hemodialysis total output: 1000 mg
--- NOTE | 2021-02-16 18:15 | NUR ---
Trach dressing completely soiled, area cleansed and dressing changed
[2021-02-16] MEDS ORDERED: VANCOMYCIN IV 500 MG in IV DEXTROSE 5% 100 ML IV ONE (21:00)
[2021-02-16] MEDS: MEROPENEM 500 MG in IV NORMAL SALINE 50 ML IV SCH (21:17)
[2021-02-16] MEDS: ATORVASTATIN 40 MG TABLET GT SCH (21:17)
[2021-02-17] VITALS (93 sets, daily range): BP systolic 68–116; BP diastolic 34–86
[2021-02-17] MEDS: IV NORMAL SALINE 250 ML IV PRN (00:29)
[2021-02-17] MEDS: IPRATROPIUM BROMIDE 0.5 MG/2.5 ML NEBU NEB SCH ×4 (01:25→21:58)
[2021-02-17] MEDS: ALBUTEROL SULFATE 2.5 MG/ 0.5 ML NEBU NEB SCH ×4 (01:26→21:58)
--- NOTE | 2021-02-17 03:40 | NUR ---
PATIENT ON CONT FRAGOSO VENT WITH PORTEX # [address], SUCTION, SAME CURRENT VENT SETTINGS, A/C 15, 450ML, 30% ; A LOT OF SECRETIONS AROUND STOMA OF TRACH, CHECK CUFF, NEB INLINE X 2 , NO VENT CHANGES MADE, TRACH CARE DONE, SUCTION MOUTH WITH YANKAUER, ALL VENT ALARMS GOOD , CHANGE HMKee AND BRAYAN NAVARRETEP Addendum: 02/17/21 at 0342 by SANTOSH HALE RT Amended: Links added.
[2021-02-17] MEDS: BLOOD SUGAR DIAGNOSTIC 1 EACH STRIP VI SCH ×3 (05:25→17:57)
[2021-02-17] MEDS: VANCOMYCIN FOR PO/GT/NG USE PO SCH ×3 (05:26→17:50)
[2021-02-17] MEDS: INSULIN REGULAR, HUMAN 300 UNIT/3 ML VIAL SQ PRN ×3 (05:29→18:03)
[2021-02-17 05:44] LABS: MEAN CORPUSCULAR HEMOGLOBIN 29.5 uug (23.8-33.4); MEAN CORPUSCULAR VOLUME 95.3 fL (73.0-96.2); PLATELET COUNT (AUTO) 166 K/uL (152-348)
[2021-02-17 05:48] LABS: CARBON DIOXIDE 28 mmol/L (21-32); CHLORIDE 104 mmol/L (98-107); CREATININE 3.1 mg/dL (0.6-1.3); GLUCOSE 182 mg/dL (74-106); MAGNESIUM 1.9 mg/dL (1.8-2.4); PHOSPHOROUS 2.3 mg/dL (2.5-4.9); POTASSIUM 4.4 mmol/L (3.5-5.1); UREA NITROGEN, BLOOD 36 mg/dL (7-18)
[2021-02-17] MEDS: NOREPINEPHRINE BITARTRATE 8 MG in IV NORMAL SALINE 242 ML IV PRN ×2 (07:53→21:10)
[2021-02-17] MEDS: PANTOPRAZOLE ORAL SUSPENSION 40 MG SUSPDR.PKT GT SCH (08:04)
[2021-02-17] MEDS: MIDODRINE HCL 5 MG TABLET GT SCH ×3 (08:05→17:47)
[2021-02-17] MEDS: ASPIRIN 81 MG TAB.CHEW GT SCH (08:05)
[2021-02-17] MEDS: SODIUM HYPOCHLORITE 0.125% (QUARTER STRENGTH) 473 ML BOTTLE TP SCH ×3 (08:08→17:49)
[2021-02-17] MEDS: Z GUARD REMEDY PASTE 57 GM TUBE TOP SCH ×2 (08:08→21:11)
[2021-02-17] MEDS: MUPIROCIN 2% OINT 22 GM TUBE TP SCH ×2 (08:09→21:14)
[2021-02-17] MEDS: CLOTRIMAZOLE 1% CREAM 30 GM TUBE TOP SCH ×2 (08:11→17:49)
[2021-02-17] MEDS: SILVER SULFADIAZINE 1% CREAM 50 GM TP SCH ×2 (08:11→17:50)
[2021-02-17] MEDS: GENTAMICIN SULFATE 0.1% OINT 15 GM TUBE TOP SCH (08:12)
[2021-02-17] MEDS: ACETAMINOPHEN 650 MG/20.3 ML LIQUID UDC GT PRN (17:47)
--- NOTE | 2021-02-17 19:30 | NUR ---
Patient received on chronic trach to vent, stable saturation 100%, afib on the monitor, On levophed. Patient tolerating gtube feeding with minimal to no residual. Bed in low position, side rails upx2, and air mattress inflated. Patient On levophed 0.04mcg/kg/min.
[2021-02-17] MEDS: MEROPENEM 500 MG in IV NORMAL SALINE 50 ML IV SCH (21:11)
[2021-02-17] MEDS: ATORVASTATIN 40 MG TABLET GT SCH (21:11)
[2021-02-17] MEDS: MORPHINE SULFATE 4 MG/1 ML DISP.SYRIN IV PRN (22:02)
--- NOTE | 2021-02-17 23:50 | NUR ---
PATIENT ON CONT FRAGOSO VENT WITH PORTEX # [address], SLIGHTLY LEAKY STOMA, SUCTIONED LIGHT PALE YELL TINGE SECRETIONS, CHECK CUFF,CHANGE HME, NEB INLINE X 2 , ALL VENT ALARMS GOOD, NO VENT CHANGES MADE, CHINOU GIBSON T BEDSIDE.Denise HALE INFANT BABYSITTER Addendum: 02/17/21 at 2351 by SANTOSH HALE RT Amended: Links added.
[2021-02-18] VITALS (89 sets, daily range): BP systolic 68–130; BP diastolic 35–73
[2021-02-18] MEDS: VANCOMYCIN FOR PO/GT/NG USE PO SCH ×5 (00:06→23:36)
[2021-02-18] MEDS: BLOOD SUGAR DIAGNOSTIC 1 EACH STRIP VI SCH ×5 (00:09→23:33)
[2021-02-18] MEDS: INSULIN REGULAR, HUMAN 300 UNIT/3 ML VIAL SQ PRN ×5 (00:10→23:35)
[2021-02-18] MEDS: ALBUTEROL SULFATE 2.5 MG/ 0.5 ML NEBU NEB SCH ×4 (01:37→19:44)
[2021-02-18] MEDS: IPRATROPIUM BROMIDE 0.5 MG/2.5 ML NEBU NEB SCH ×4 (01:37→19:44)
[2021-02-18 05:17] LABS: HEMATOCRIT 25.4 % (36.7-47.1); MEAN CORPUSCULAR HEMOGLOBIN 29.2 uug (23.8-33.4); MEAN CORPUSCULAR VOLUME 94.1 fL (73.0-96.2); PLATELET COUNT (AUTO) 193 K/uL (152-348)
[2021-02-18 05:35] LABS: MAGNESIUM 1.8 mg/dL (1.8-2.4); PHOSPHOROUS 2.6 mg/dL (2.5-4.9)
[2021-02-18 06:07] LABS: CARBON DIOXIDE 27 mmol/L (21-32); CHLORIDE 105 mmol/L (98-107); CREATININE 3.9 mg/dL (0.6-1.3); GLUCOSE 251 mg/dL (74-106); POTASSIUM 4.3 mmol/L (3.5-5.1); UREA NITROGEN, BLOOD 47 mg/dL (7-18)
--- NOTE | 2021-02-18 06:28 | NUR ---
Patient continues to be on chronic trach to vent, stable saturation 100%, afib on the monitor, afebrile, On levophed 0.05mcg/kg/min. Patient given morphine once for possible pain with vital sign changes. Wound care performed and patient tolerated without distress. Patient has frothy pink sputum around trach site. Patient tolerating gtube feeding with minimal to no residual. Bed in low position, side rails upx2, and air mattress inflated.
[2021-02-18] MEDS: NOREPINEPHRINE BITARTRATE 8 MG in IV NORMAL SALINE 242 ML IV PRN ×2 (07:13→16:49)
[2021-02-18] MEDS: PANTOPRAZOLE ORAL SUSPENSION 40 MG SUSPDR.PKT GT SCH (08:24)
[2021-02-18] MEDS: ASPIRIN 81 MG TAB.CHEW GT SCH (08:24)
[2021-02-18] MEDS: CLOTRIMAZOLE 1% CREAM 30 GM TUBE TOP SCH ×2 (08:25→17:32)
[2021-02-18] MEDS: Z GUARD REMEDY PASTE 57 GM TUBE TOP SCH ×2 (08:25→20:40)
[2021-02-18] MEDS: GENTAMICIN SULFATE 0.1% OINT 15 GM TUBE TOP SCH (08:25)
[2021-02-18] MEDS: MIDODRINE HCL 5 MG TABLET GT SCH ×3 (08:25→17:30)
[2021-02-18] MEDS: SODIUM HYPOCHLORITE 0.125% (QUARTER STRENGTH) 473 ML BOTTLE TP SCH ×3 (08:26→17:32)
[2021-02-18] MEDS: MUPIROCIN 2% OINT 22 GM TUBE TP SCH ×2 (08:26→20:40)
[2021-02-18] MEDS: SILVER SULFADIAZINE 1% CREAM 50 GM TP SCH ×2 (08:27→17:32)
--- NOTE | 2021-02-18 08:30 | NUR ---
paralegal specialist at bedside about to begin dialysis.
--- NOTE | 2021-02-18 09:00 | NUR ---
Cardiology services, Dr. Solomon in the unit to follow up on pt. report given.
--- NOTE | 2021-02-18 09:10 | NUR ---
Seen by Dr Phan, property insurance inspector. New orders received and implemented.
--- NOTE | 2021-02-18 09:15 | NUR ---
Attending physician Dr. Burton in the unit to examine pt. report given no new orders received.
--- NOTE | 2021-02-18 09:27 | NUR ---
Received report from Shauna Painting patient undergoing dialysis on levophed at 0.1mcg/kg/min. On ventilator : A/C 15, tv 450, FIO2 30%, saturation within desire limits. G-tube with feeding to be resumed as ordered. Neuro-winters pt. remains obtunded. Will continue with care plan.
--- NOTE | 2021-02-18 09:32 | NUR ---
Pulmonary services, Dr. Phan in the unit to see and examine pt. report given orders to continue with care plan received.
--- NOTE | 2021-02-18 11:11 | NUR ---
Hemodialysis done at this time report of a total of 3liter out. Patient on levophed. last set of vitals HR of 107, 106/59 no resp. distress noted will continue to monitor.
[2021-02-18] MEDS ORDERED: MEROPENEM 0.5 G in IV NORMAL SALINE 50 ML IV ONE (12:30)
--- NOTE | 2021-02-18 14:00 | NUR ---
Both attending Sonia Betts and engine lathe operator Dr. Finley in the unit to see pt. at this time both of them with recommendations to speak to family and arrange at meeting around this time tomorrow to discuss possible comfort measures.
--- NOTE | 2021-02-18 15:45 | NUR ---
At this time a phone call to Ms. Alarcon pt's daughter in-law decision make to informed her of both attending and tailor men's ready to wear request to meet with her tomorrow at around 1400 to discusses pt's future care plan. She stated "I have two jobs and definitely I can't but call my he's a decision maker as well He might be able to attend, call him now before he goes to school.
--- NOTE | 2021-02-18 16:05 | NUR ---
A call to Mr. Manzano pt's son and He was also informed of attending and gas examiner willingness to speak with him tomorrow at around 1400 about future care plan for his dad. Mr. Manzano requested to be updated about care plan and He was informed of pressure sore getting bigger, and the continuous need of levophed to maintain sbp above 90's. His statement was "are you talking to me about the pressure sore that you guys gave him during covid season that no one was taking care of my dad" "a contaminated nurse with covid infected my dad who was healthy and about to come back home" "you guys did this to my dad and now you better do everything to keep him alive or I'll rosa you guys and make you all lose your licenses" Mr. Manzano was asked that the call was only to know if He and Tatyana his was willing to meet with the doctors. He stated "No I'm not attending any meeting". at this time Attending Herbert Hanley was on the other line and witness the threatening, and yelling of Mr. Manzano.
--- NOTE | 2021-02-18 18:26 | NUR ---
Left patient in no visible distress Hemodynamically pt. remains unstable and on levophed at 0.04mcg/kg/min. sinus rhythm /low ST on the low 110's. Afebrile. On ventilator: A/C 15, tv 450, FIO2 30%, saturation within desired limits. G-tube with feeding running at 55cc/hr goal therapy with zero to no residual. Neuro-winters pt. remains obtunded. Undergo hemodialysis today and a total of 3liter out as reported.
--- NOTE | 2021-02-18 19:00 | NUR ---
received patient with spontaneous eye opening , levophed at 0.04 mcg , mid line , right aurora cath intact , dressing on affected site intact . nephro running at 55 ml , gt , 10ml residual noted yellow in color , vent setting of ac 15 , tv 450 30 fio2 % , no fever noted
[2021-02-18] MEDS: MEROPENEM 500 MG in IV NORMAL SALINE 50 ML IV SCH (20:33)
[2021-02-18] MEDS: ATORVASTATIN 40 MG TABLET GT SCH (20:34)
[2021-02-19] VITALS (91 sets, daily range): BP systolic 80–134; BP diastolic 24–98
[2021-02-19] MEDS: IPRATROPIUM BROMIDE 0.5 MG/2.5 ML NEBU NEB SCH ×4 (01:03→19:11)
[2021-02-19] MEDS: ALBUTEROL SULFATE 2.5 MG/ 0.5 ML NEBU NEB SCH ×4 (01:04→19:11)
[2021-02-19 05:14] LABS: HEMATOCRIT 27.6 % (36.7-47.1); MEAN CORPUSCULAR HEMOGLOBIN 28.8 uug (23.8-33.4); MEAN CORPUSCULAR VOLUME 93.5 fL (73.0-96.2); PLATELET COUNT (AUTO) 202 K/uL (152-348)
[2021-02-19] MEDS: IV NORMAL SALINE 250 ML IV PRN (05:19)
[2021-02-19 05:25] LABS: CARBON DIOXIDE 28 mmol/L (21-32); CHLORIDE 104 mmol/L (98-107); CREATININE 3.2 mg/dL (0.6-1.3); GLUCOSE 195 mg/dL (74-106); MAGNESIUM 1.8 mg/dL (1.8-2.4); PHOSPHOROUS 2.4 mg/dL (2.5-4.9); POTASSIUM 4.4 mmol/L (3.5-5.1); UREA NITROGEN, BLOOD 40 mg/dL (7-18)
[2021-02-19] MEDS: VANCOMYCIN FOR PO/GT/NG USE PO SCH ×4 (05:26→23:56)
[2021-02-19] MEDS: INSULIN REGULAR, HUMAN 300 UNIT/3 ML VIAL SQ PRN ×3 (05:42→18:36)
[2021-02-19] MEDS: BLOOD SUGAR DIAGNOSTIC 1 EACH STRIP VI SCH ×3 (05:42→18:35)
[2021-02-19 06:29] LABS: ABG BASE EXCESS 1.9 mmol/L; ABG HCO3 25.4 mmol/L; ABG PCO2 35.4 mmHg (35.0-45.0); ABG PH 7.474 (7.350-7.450); ABG SITE RIGHT BRACHIAL; ABG TOTAL HEMOGLOBIN 8.7 G/dL (13.5-18.0); MetHb 0.5 % (0.0-1.5); O2Hb 94.7 % (94.0-97.0); VENT MODE VENT - A/C; VT, ABG 450 mL
--- NOTE | 2021-02-19 06:30 | NUR ---
patient has spontaneous eye opening . levophed at 0.06 mcg , feeding held as per order of x 22 hours , no residual noted , flexi intact , iv intact , vent settings are the same , no fever noted , dressing changed and rendered on the wound sites as per wound care treatment ordered
--- NOTE | 2021-02-19 08:00 | NUR ---
Patient noted to have open wound from old gtube site with significant purulent drainage. Notified ID and general surgery. Cultured site, cleansed and covered with dry sterile dressing.
[2021-02-19] MEDS: ASPIRIN 81 MG TAB.CHEW GT SCH (08:31)
[2021-02-19] MEDS: MIDODRINE HCL 5 MG TABLET GT SCH ×3 (08:34→17:00)
[2021-02-19] MEDS: PANTOPRAZOLE ORAL SUSPENSION 40 MG SUSPDR.PKT GT SCH (08:34)
[2021-02-19] MEDS: MINERAL OIL/PETROLATUM,WHITE 57 GM TUBE TOP PRN (08:35)
[2021-02-19] MEDS: Z GUARD REMEDY PASTE 57 GM TUBE TOP SCH ×2 (08:35→20:33)
[2021-02-19] MEDS: CLOTRIMAZOLE 1% CREAM 30 GM TUBE TOP SCH ×2 (08:36→17:14)
[2021-02-19] MEDS: GENTAMICIN SULFATE 0.1% OINT 15 GM TUBE TOP SCH (08:36)
[2021-02-19] MEDS: SILVER SULFADIAZINE 1% CREAM 50 GM TP SCH ×2 (08:36→17:14)
[2021-02-19] MEDS: SODIUM HYPOCHLORITE 0.125% (QUARTER STRENGTH) 473 ML BOTTLE TP SCH ×3 (08:36→17:14)
[2021-02-19] MEDS: MUPIROCIN 2% OINT 22 GM TUBE TP SCH ×2 (08:37→20:33)
[2021-02-19] MEDS: NOREPINEPHRINE BITARTRATE 8 MG in IV NORMAL SALINE 242 ML IV PRN (10:19)
[2021-02-19] MEDS ORDERED: NEUTRA PHOS PACKET PO ONE (16:30)
--- NOTE | 2021-02-19 17:00 | NUR ---
Patient seen by MEG Kelly Wound evaluated and patient to be npo as old tube feeding site is open.
--- NOTE | 2021-02-19 19:00 | NUR ---
received patient with spontaneous eye opening , ac 15 tv 450 30 fio2 % , gt h feeding held , old gt insertion site has scant yellow drainage noted , cleaned with betadine and covered with non adhesive dressing , . levophed at 0.1 mcg , picc line intact rectal tube draining , no fever noted , suctioned with moderate thick secretions
--- NOTE | 2021-02-19 19:11 | NUR ---
Pt rec'd on vent settings AC 15, VT 450, FIO2-30%. No resp. distress noted. Portex 8 is patent and secure; B/U Portex 8 and BVM are at bedside. Pt to be monitored throughout the shift, PRN SX and adm'd resp neb txs per MD orders. Alarm parameters have been checked and remain audible.
[2021-02-19] MEDS: MEROPENEM 500 MG in IV NORMAL SALINE 50 ML IV SCH (20:28)
[2021-02-19] MEDS: ATORVASTATIN 40 MG TABLET GT SCH (20:32)
[2021-02-20] VITALS (90 sets, daily range): BP systolic 57–142; BP diastolic 37–78
[2021-02-20] MEDS: BLOOD SUGAR DIAGNOSTIC 1 EACH STRIP VI SCH ×5 (00:05→23:16)
[2021-02-20] MEDS: INSULIN REGULAR, HUMAN 300 UNIT/3 ML VIAL SQ PRN ×4 (00:06→23:17)
[2021-02-20] MEDS: IPRATROPIUM BROMIDE 0.5 MG/2.5 ML NEBU NEB SCH ×4 (00:59→20:15)
[2021-02-20] MEDS: ALBUTEROL SULFATE 2.5 MG/ 0.5 ML NEBU NEB SCH ×4 (00:59→20:16)
[2021-02-20] MEDS: NOREPINEPHRINE BITARTRATE 8 MG in IV NORMAL SALINE 242 ML IV PRN ×2 (05:09→12:32)
[2021-02-20] MEDS: VANCOMYCIN FOR PO/GT/NG USE PO SCH ×5 (05:10→23:07)
[2021-02-20 05:20] LABS: HEMATOCRIT 27.2 % (36.7-47.1); MEAN CORPUSCULAR HEMOGLOBIN 29.3 uug (23.8-33.4); MEAN CORPUSCULAR VOLUME 94.5 fL (73.0-96.2); PLATELET COUNT (AUTO) 249 K/uL (152-348)
[2021-02-20 05:29] LABS: CARBON DIOXIDE 24 mmol/L (21-32); CHLORIDE 102 mmol/L (98-107); CREATININE 3.8 mg/dL (0.6-1.3); GLUCOSE 190 mg/dL (74-106); MAGNESIUM 1.9 mg/dL (1.8-2.4); PHOSPHOROUS 3.2 mg/dL (2.5-4.9); POTASSIUM 4.7 mmol/L (3.5-5.1); UREA NITROGEN, BLOOD 49 mg/dL (7-18); VANCOMYCIN,RANDOM 20.5 ug/mL (18.0-26.0)
[2021-02-20] MEDS: ACETAMINOPHEN 650 MG SUPP.RECT RC PRN (05:35)
[2021-02-20] MEDS: ACETAMINOPHEN 650 MG/20.3 ML LIQUID UDC GT PRN (07:00)
--- NOTE | 2021-02-20 07:03 | NUR ---
dr madsen is here to see patient , mentioned about the lump felt on the left side of abdomen will endorsed to day shift , dressing changed several times on the old gt site , moderate amount of drainage , vent settings the same , levophed 0.1 mcg , donta, cath intact , picc ine intact
[2021-02-20] MEDS ORDERED: DIATR MEGLU/DIATRIZOATE SODIUM 30 ML BOTTLE ONE (07:58)
--- NOTE | 2021-02-20 08:00 | NUR ---
Patient being administered gastrograftin via gtube to be completed in 1.[address] scan.
[2021-02-20] MEDS: PANTOPRAZOLE ORAL SUSPENSION 40 MG SUSPDR.PKT GT SCH (09:00)
[2021-02-20] MEDS: MIDODRINE HCL 5 MG TABLET GT SCH ×3 (09:00→16:40)
[2021-02-20] MEDS: ASPIRIN 81 MG TAB.CHEW GT SCH (09:00)
[2021-02-20] MEDS: GENTAMICIN SULFATE 0.1% OINT 15 GM TUBE TOP SCH (09:24)
[2021-02-20] MEDS: Z GUARD REMEDY PASTE 57 GM TUBE TOP SCH ×2 (09:24→20:58)
[2021-02-20] MEDS: CLOTRIMAZOLE 1% CREAM 30 GM TUBE TOP SCH ×2 (09:24→16:41)
[2021-02-20] MEDS: MUPIROCIN 2% OINT 22 GM TUBE TP SCH ×2 (09:25→21:04)
[2021-02-20] MEDS: SODIUM HYPOCHLORITE 0.125% (QUARTER STRENGTH) 473 ML BOTTLE TP SCH ×3 (09:25→16:41)
[2021-02-20] MEDS: SILVER SULFADIAZINE 1% CREAM 50 GM TP SCH ×2 (09:26→16:41)
--- NOTE | 2021-02-20 11:00 | NUR ---
Patient taken down to CT scan, procedure complete and returned to room without events.
--- NOTE | 2021-02-20 14:10 | NUR ---
Sent results of CT scan to Sanjana WEAVER for [facility] and notified her of large amount of liquid drainage from open abdominal site.
[2021-02-20 17:20] LABS: ALPHA-1-GLOBULIN 0.4; ALPHA-2-GLOBULIN 0.5; BETA GLOBULIN 1.2; GAMMA GLOBULIN 3.1
[2021-02-20 17:21] LABS: A/G RATIO 0.4; GLOBULIN, TOTAL 5.3; M-SPIKE NOT OBSERVED
--- NOTE | 2021-02-20 18:31 | NUR ---
Dialysis completed, 1500 ml removed during dialysis.
--- NOTE | 2021-02-20 19:30 | NUR ---
Received pt resting in bed, eyes open spontaneously, withdraws to touch. Pt trach to vent: AC 15, TV 450, FIO2 30%. Pt O2 sats up to 99%. AFIB on monitor. Pt on levophed drip for BP control. Flexiseal intact and patent. Skin check done, pt turned and repositioned. Safety precautions maintained. Continue plan of care.
[2021-02-20] MEDS: ATORVASTATIN 40 MG TABLET GT SCH (21:00)
[2021-02-20] MEDS: MEROPENEM 500 MG in IV NORMAL SALINE 50 ML IV SCH (21:01)
[2021-02-20] MEDS: NOREPINEPHRINE BITARTRATE 32 MG in IV NORMAL SALINE 218 ML IV PRN (21:05)
[2021-02-20] MEDS: IV NORMAL SALINE 250 ML IV PRN (22:02)
[2021-02-21] VITALS (93 sets, daily range): BP systolic 64–175; BP diastolic 28–79
--- NOTE | 2021-02-21 | NUR ---
PATIENT ON CONT FRAGOSO VENT WITH PORTEX # [address], VENT SETTINGS, A/C 15, 450ML, FIO2 30%, PT DOES ASSIST AT TIMES, SEMI RESPONSIVE, TRACH CARE DONE, ALL VENT ALARMS GOOD, NEB INLINE X 2 TOLL WELL, SUCTIONED LIGHT PALE YELL TINGE SECRETIONS ;NO VENT CHANGES MADE AT THIS TIME, AMBU BAG AT BEDSIDE, CHECK CUFF. Denise NAVARRETEP Addendum: 02/21/21 at 0002 by SANTOSH HALE RT Amended: Links added.
[2021-02-21] MEDS: IPRATROPIUM BROMIDE 0.5 MG/2.5 ML NEBU NEB SCH ×4 (01:33→20:46)
[2021-02-21] MEDS: ALBUTEROL SULFATE 2.5 MG/ 0.5 ML NEBU NEB SCH ×4 (01:34→20:46)
[2021-02-21 05:33] LABS: CARBON DIOXIDE 26 mmol/L (21-32); CHLORIDE 105 mmol/L (98-107); CREATININE 3.5 mg/dL (0.6-1.3); GLUCOSE 158 mg/dL (74-106); POTASSIUM 4.7 mmol/L (3.5-5.1); UREA NITROGEN, BLOOD 41 mg/dL (7-18)
[2021-02-21] MEDS: VANCOMYCIN FOR PO/GT/NG USE PO SCH ×3 (05:46→18:00)
--- NOTE | 2021-02-21 06:08 | NUR ---
AM care rendered, kept clean and dry. Wound care done as ordered. Pt noted with thin-thick secretions, suction as needed. HOB elevated. PEG tube clamped, NPO diet. Flexiseal intact and patent. Pt turned and repositioned. Continue LEVOPHED drip. Safety precautions maintained. VSS, afebrile. No acute distress noted. Continue plan of care.
[2021-02-21] MEDS: BLOOD SUGAR DIAGNOSTIC 1 EACH STRIP VI SCH ×3 (06:14→18:30)
[2021-02-21] MEDS: INSULIN REGULAR, HUMAN 300 UNIT/3 ML VIAL SQ PRN ×2 (06:16→12:55)
[2021-02-21 07:53] LABS: PHOSPHOROUS 3.5 mg/dL (2.5-4.9)
[2021-02-21] MEDS: ASPIRIN 81 MG TAB.CHEW GT SCH (08:02)
[2021-02-21] MEDS: MIDODRINE HCL 5 MG TABLET GT SCH ×3 (08:02→17:00)
[2021-02-21] MEDS: GENTAMICIN SULFATE 0.1% OINT 15 GM TUBE TOP SCH (08:03)
[2021-02-21] MEDS: MUPIROCIN 2% OINT 22 GM TUBE TP SCH ×2 (08:04→21:05)
[2021-02-21] MEDS: Z GUARD REMEDY PASTE 57 GM TUBE TOP SCH ×2 (08:04→21:05)
[2021-02-21] MEDS: SODIUM HYPOCHLORITE 0.125% (QUARTER STRENGTH) 473 ML BOTTLE TP SCH ×3 (08:04→17:00)
[2021-02-21] MEDS: CLOTRIMAZOLE 1% CREAM 30 GM TUBE TOP SCH ×2 (08:05→17:00)
[2021-02-21] MEDS: SILVER SULFADIAZINE 1% CREAM 50 GM TP SCH ×2 (08:05→17:00)
[2021-02-21 08:11] LABS: HEMATOCRIT 28.4 % (36.7-47.1); MEAN CORPUSCULAR VOLUME 94.5 fL (73.0-96.2); PLATELET COUNT (AUTO) 255 K/uL (152-348)
[2021-02-21] MEDS: PANTOPRAZOLE SODIUM 40 MG VIAL IV SCH (09:38)
--- NOTE | 2021-02-21 11:49 | NUR ---
Carina Rossi in unit to evaluate patients GT site and ordered new specimen from new GT site with purulent discharge.
[2021-02-21] MEDS ORDERED: DIATR MEGLU/DIATRIZOATE SODIUM 30 ML BOTTLE ONE (12:20)
--- NOTE | 2021-02-21 14:02 | NUR ---
Contacted Dr. Palacios's office to notify him of final cultures resulted for abdominal wound.
--- NOTE | 2021-02-21 17:30 | NUR ---
Conference with Sanjana Kelly NP, and Carina Rossi about abdominal wound and KUB results. Dr. Miguel Salguero will be contacting Dr. Clifford about reccomendations for procedure.
[2021-02-21] MEDS: METOCLOPRAMIDE HCL 10 MG/2 ML VIAL IV SCH (18:25)
--- NOTE | 2021-02-21 19:15 | NUR ---
received patient with spontaneous eye opening , vent setting ac 15 tv 450 30 fio2 , levophed 0.02 mcg , no drainage noted on abdomen site , dressing intact . , no fever noted , rectal tube intact , picc line intact
[2021-02-21] MEDS: ATORVASTATIN 40 MG TABLET GT SCH (20:52)
[2021-02-21] MEDS: MEROPENEM 500 MG in IV NORMAL SALINE 50 ML IV SCH (20:54)
[2021-02-22] VITALS (91 sets, daily range): BP systolic 61–131; BP diastolic 24–68
--- NOTE | 2021-02-22 00:12 | NUR ---
PATIENT ON CONT FRAGOSO VENT WITH PORTEX # [address] AND SECURED, WITH CURRENT VENT SETTINGS, A/C 15, 450ML, 30%, PT DOES ASSIST 18-23 RR, SUCTIONED LIGHT PALE YELL TINGE SECRETIONS, TRACH CARE, CHECK CUFF, NEB INLINE X 2, CHANGE HME, ALL VENT ALARMS GOOD, NO VENT CHANGES MADE. Denise NAVARRETEP Addendum: 02/22/21 at 0014 by SANTOSH HALE RT Amended: Links added.
[2021-02-22] MEDS: BLOOD SUGAR DIAGNOSTIC 1 EACH STRIP VI SCH ×4 (01:56→18:02)
[2021-02-22] MEDS: INSULIN REGULAR, HUMAN 300 UNIT/3 ML VIAL SQ PRN ×2 (01:56→06:28)
[2021-02-22] MEDS: ALBUTEROL SULFATE 2.5 MG/ 0.5 ML NEBU NEB SCH ×4 (01:59→19:53)
[2021-02-22] MEDS: IPRATROPIUM BROMIDE 0.5 MG/2.5 ML NEBU NEB SCH ×4 (01:59→19:54)
[2021-02-22 05:13] LABS: HEMATOCRIT 26.9 % (36.7-47.1); MEAN CORPUSCULAR HEMOGLOBIN 29.3 uug (23.8-33.4); MEAN CORPUSCULAR VOLUME 95.1 fL (73.0-96.2); PLATELET COUNT (AUTO) 268 K/uL (152-348)
[2021-02-22 05:26] LABS: CARBON DIOXIDE 24 mmol/L (21-32); CHLORIDE 106 mmol/L (98-107); CREATININE 4.1 mg/dL (0.6-1.3); GLUCOSE 149 mg/dL (74-106); PHOSPHOROUS 4.3 mg/dL (2.5-4.9); POTASSIUM 4.8 mmol/L (3.5-5.1); UREA NITROGEN, BLOOD 48 mg/dL (7-18); VANCOMYCIN,RANDOM 16.2 ug/mL (18.0-26.0)
[2021-02-22 05:31] LABS: ABG BASE EXCESS -2.2 mmol/L; ABG HCO3 21.9 mmol/L; ABG PCO2 34.6 mmHg (35.0-45.0); ABG PO2 71.3 mmHg (75.0-100.0); ABG SITE RIGHT BRACHIAL; ABG TOTAL HEMOGLOBIN 8.8 G/dL (13.5-18.0); COHb 1.8 % (0.5-1.5); MetHb 0.4 % (0.0-1.5); O2Hb 91.5 % (94.0-97.0); VENT MODE VENT - A/C; VT, ABG 450 mL
[2021-02-22] MEDS: VANCOMYCIN FOR PO/GT/NG USE PO SCH ×4 (06:00→18:00)
--- NOTE | 2021-02-22 07:45 | NUR ---
die assembler at bedside
--- NOTE | 2021-02-22 08:03 | NUR ---
Per on site services specialist - Manjinder Cath is clogged & unable to be used 400ml taken out & 400ml put back in = net of 0
[2021-02-22] MEDS: NOREPINEPHRINE BITARTRATE 32 MG in IV NORMAL SALINE 218 ML IV PRN (08:12)
[2021-02-22] MEDS: ASPIRIN 81 MG TAB.CHEW GT SCH (09:00)
[2021-02-22] MEDS ORDERED: PANTOPRAZOLE SODIUM 40 MG VIAL IV SCH (09:00)
[2021-02-22] MEDS: MIDODRINE HCL 5 MG TABLET GT SCH ×3 (09:00→17:00)
[2021-02-22] MEDS: METOCLOPRAMIDE HCL 10 MG/2 ML VIAL IV SCH ×2 (10:32→17:53)
[2021-02-22] MEDS: PANTOPRAZOLE SODIUM 40 MG VIAL IV SCH (10:32)
[2021-02-22] MEDS: SODIUM HYPOCHLORITE 0.125% (QUARTER STRENGTH) 473 ML BOTTLE TP SCH ×3 (10:33→17:54)
[2021-02-22] MEDS: GENTAMICIN SULFATE 0.1% OINT 15 GM TUBE TOP SCH (10:34)
[2021-02-22] MEDS: Z GUARD REMEDY PASTE 57 GM TUBE TOP SCH ×2 (10:34→20:54)
[2021-02-22] MEDS: MUPIROCIN 2% OINT 22 GM TUBE TP SCH ×2 (10:34→20:54)
[2021-02-22] MEDS ORDERED: VANCOMYCIN IV 500 MG in IV DEXTROSE 5% 100 ML IV ONE (11:30)
[2021-02-22] MEDS ORDERED: MEROPENEM 0.5 G in IV NORMAL SALINE 50 ML IV ONE (12:00)
[2021-02-22] MEDS: SILVER SULFADIAZINE 1% CREAM 50 GM TP SCH ×2 (12:40→17:55)
[2021-02-22] MEDS: CLOTRIMAZOLE 1% CREAM 30 GM TUBE TOP SCH ×2 (12:40→17:54)
[2021-02-22] MEDS ORDERED: ALTEPLASE 2 MG VIAL IVP ONE (14:43)
--- NOTE | 2021-02-22 14:59 | NUR ---
Alteplase 4mg given by concrete smoother
[2021-02-22] MEDS: IV NORMAL SALINE 250 ML IV PRN (15:53)
--- NOTE | 2021-02-22 17:30 | NUR ---
Contacted daughter Tatyana to obtain consent for PICC Line placement - she consented & form was placed in chart PICC Line RN to be in unit later sarah beth
--- NOTE | 2021-02-22 18:12 | NUR ---
Status unchanged. Labile BP still requiring minimal Levophed support. Insulin held x2 due to lack of tube feeding.
--- NOTE | 2021-02-22 19:30 | NUR ---
Seen by Leona WEAVER for Dr. Salguero. Plan of care discussed. Yong Howard NP here; attempts were made to insert PICC but unable to. Received patient with eyes open, doesn't track. Grimaces to pain and suctioning. Trache to vent with settings: AC=15, FIO2=30%, SC=532 ml. O2 saturations above 94%. Addendum: 02/23/21 at 0411 by DANDRE WIGGINS RN Amended: Links added. Addendum: 02/23/21 at 0415 by DANDRE WIGGINS RN Amended: Links added. Addendum: 02/23/21 at 417 by DANDRE WIGGINS RN Amended: Links added. Addendum: 02/23/21 at 417 by DANDRE WIGGINS RN Amended: Links added. Addendum: 02/23/21 at 418 by DANDRE WIGGINS RN Amended: Links added. Addendum: 02/23/21 at 9 by DANDRE WIGGINS RN Amended: Yi added. Addendum: 02/23/21 at 418 by DANDRE WIGGINS RN Amended: Yi added. Addendum: 02/23/21 at 418 by DANDRE WIGGINS RN Amended: Links added. Addendum: 02/23/21 at 0419 by DANDRE WIGGINS RN Amended: Links added. Addendum: 02/23/21 at 0420 by DANDRE WIGGINS RN Amended: Links added. Addendum: 02/23/21 at 0420 by DANDRE WIGGINS RN Amended: Links added. Addendum: 02/23/21 at 0420 by DANDRE WIGGINS RN Amended: Links added. Addendum: 02/23/21 at 0420 by DANDRE WIGGINS RN Amended: Links added. Addendum: 02/23/21 at 0420 by DANDRE WIGGINS RN Amended: Links added. Addendum: 02/23/21 at 0421 by DANDRE WIGGINS RN Amended: Links added.
--- NOTE | 2021-02-22 19:30 | NUR ---
Received patient with trache to mechanical ventilator current settings: Ac=15, SM=667ng, AC Addendum: 02/24/21 at 0136 by DANDRE WIGGINS RN notes mistakenly entered.
--- NOTE | 2021-02-22 20:30 | NUR ---
Old GT site dressing moderately soaked with bloody, greenish fluids. Colostomy bag to site to protect skin. With another GT to L side of abdomen; intact. Patient on continuous Levophed drip for BP support to VELASQUEZ midline. Addendum: 02/23/21 at 5 by DANDRE WIGGINS RN Amended: Links added. Addendum: 02/23/21 at 417 by DANDRE WIGGINS RN Amended: Links added. Addendum: 02/23/21 at 0418 by DANDRE WIGGINS RN Amended: Links added. Addendum: 02/23/21 at 9 by DANDRE WIGGINS RN Amended: Links added. Addendum: 02/23/21 at 9 by DANDRE WIGGINS RN Amended: Links added. Addendum: 02/23/21 at 418 by DANDRE WIGGINS RN Amended: Links added. Addendum: 02/23/21 at 418 by DANDRE WIGGINS RN Amended: Links added. Addendum: 02/23/21 at 418 by DANDRE WIGGINS RN Amended: Links added. Addendum: 02/23/21 at 0420 by DANDRE WIGGINS RN Amended: Links added. Addendum: 02/23/21 at 042 by DANDRE WIGGINS RN Amended: Links added. Addendum: 02/23/21 at 0420 by DANDRE WIGGINS RN Amended: Links added. Addendum: 02/23/21 at 0420 by DANDRE WIGGINS RN Amended: Links added. Addendum: 02/23/21 at 0420 by DANDRE WIGGINS RN Amended: Links added. Addendum: 02/23/21 at 0421 by DANDRE WIGGINS RN Amended: Links added.
[2021-02-22] MEDS: MEROPENEM 500 MG in IV NORMAL SALINE 50 ML IV SCH (20:47)
[2021-02-22] MEDS: ATORVASTATIN 40 MG TABLET GT SCH (20:54)
--- NOTE | 2021-02-22 22:15 | NUR ---
PATIENT RECEIVED ON FRAGOSO VENT VIA PORTEX #8 TRACH. AIRWAY SECURED AND PATENT/SECURE. VENT PARAMETERS AND ALARMS CHECKED. ALARMS ARE AUDIBLE. PT IS ON A FRAGOSO VENT ON SETTINGS OF A/C 15, VT 450, 30% FIO2. PT IS TOLERATING VENT WELL. PT STABLE THROUGHOUT SHIFT. TRACH/ ORAL CARE PERFORMED. NO SIGNS OR SYMPTOMS OF RESP. DISTRESS NOTED. BVM AND BACK-UP TRACH AT BEDSIDE. VENT PLUGGED INTO RED OUTLET. SUCTION PRN. WILL CONTINUE TO MONITOR THROUGHOUT SHIFT.
--- NOTE | 2021-02-22 23:00 | NUR ---
Levophed drip titrated down but BPs drop down to 80's systole. Titrated accordingly and BPs monitored closely. Addendum: 02/23/21 at 417 by DANDRE WIGGINS RN Amended: Links added. Addendum: 02/23/21 at 417 by DANDRE WIGGINS RN Amended: Links added. Addendum: 02/23/21 at 418 by DANDRE WIGGINS RN Amended: Links added. Addendum: 02/23/21 at 0419 by DANDRE WIGGINS RN Amended: Links added. Addendum: 02/23/21 at 0419 by DANDRE WIGGINS RN Amended: Links added. Addendum: 02/23/21 at 0419 by DANDRE WIGGINS RN Amended: Links added. Addendum: 02/23/21 at 0419 by DANDRE WIGGINS RN Amended: Links added. Addendum: 02/23/21 at 0420 by DANDRE WIGGINS RN Amended: Links added. Addendum: 02/23/21 at 0420 by DANDRE WIGGINS RN Amended: Yi added. Addendum: 02/23/21 at 0420 by DANDRE WIGGINS RN Amended: Yi added. Addendum: 02/23/21 at 0420 by DANDRE WIGGINS RN Amended: Links added. Addendum: 02/23/21 at 0420 by DANDRE WIGGINS RN Amended: Links added. Addendum: 02/23/21 at 0421 by DANDRE WIGGINS RN Amended: Links added.
[2021-02-23] VITALS (96 sets, daily range): BP systolic 76–132; BP diastolic 40–70
[2021-02-23] MEDS: BLOOD SUGAR DIAGNOSTIC 1 EACH STRIP VI SCH ×5 (00:49→23:16)
[2021-02-23] MEDS: ALBUTEROL SULFATE 2.5 MG/ 0.5 ML NEBU NEB SCH ×4 (00:55→19:42)
[2021-02-23] MEDS: IPRATROPIUM BROMIDE 0.5 MG/2.5 ML NEBU NEB SCH ×4 (00:55→19:42)
--- NOTE | 2021-02-23 01:00 | NUR ---
Gets agitated with care. Medicated with Morphine IV for generalized discomfort. Wound care treatment done.
[2021-02-23] MEDS: MORPHINE SULFATE 4 MG/1 ML DISP.SYRIN IV PRN ×3 (01:13→23:11)
[2021-02-23 05:10] LABS: MEAN CORPUSCULAR VOLUME 94.5 fL (73.0-96.2); PLATELET COUNT (AUTO) 294 K/uL (152-348)
[2021-02-23] MEDS: ACETAMINOPHEN 650 MG SUPP.RECT RC PRN (05:17)
[2021-02-23 05:24] LABS: CARBON DIOXIDE 23 mmol/L (21-32); CHLORIDE 109 mmol/L (98-107); CREATININE 4.5 mg/dL (0.6-1.3); GLUCOSE 152 mg/dL (74-106); UREA NITROGEN, BLOOD 49 mg/dL (7-18)
[2021-02-23] MEDS: VANCOMYCIN FOR PO/GT/NG USE PO SCH ×5 (06:00→23:18)
[2021-02-23] MEDS: ASPIRIN 81 MG TAB.CHEW GT SCH (08:17)
[2021-02-23] MEDS: MIDODRINE HCL 5 MG TABLET GT SCH ×3 (08:18→16:43)
--- NOTE | 2021-02-23 08:33 | NUR ---
Dr. Kamara in unit to assess patient
[2021-02-23] MEDS: METOCLOPRAMIDE HCL 10 MG/2 ML VIAL IV SCH ×2 (08:39→17:04)
[2021-02-23] MEDS: PANTOPRAZOLE SODIUM 40 MG VIAL IV SCH (08:39)
[2021-02-23] MEDS: NOREPINEPHRINE BITARTRATE 32 MG in IV NORMAL SALINE 218 ML IV PRN (09:17)
[2021-02-23] MEDS: SODIUM HYPOCHLORITE 0.125% (QUARTER STRENGTH) 473 ML BOTTLE TP SCH ×3 (09:49→17:04)
[2021-02-23] MEDS: SILVER SULFADIAZINE 1% CREAM 50 GM TP SCH ×2 (09:49→17:04)
[2021-02-23] MEDS: CLOTRIMAZOLE 1% CREAM 30 GM TUBE TOP SCH ×2 (09:49→17:04)
[2021-02-23] MEDS: Z GUARD REMEDY PASTE 57 GM TUBE TOP SCH ×2 (09:50→21:12)
[2021-02-23] MEDS: GENTAMICIN SULFATE 0.1% OINT 15 GM TUBE TOP SCH (09:50)
[2021-02-23] MEDS: MUPIROCIN 2% OINT 22 GM TUBE TP SCH ×2 (09:50→21:13)
--- NOTE | 2021-02-23 11:45 | NUR ---
Microbiologist Gamaliel norman [facility] called with Critical Growth from Abdomen Abcess Culture - + Klebsiella Pneumoniae CRE Addendum: 02/23/21 at 1231 by AURA MARTINEZ RN Contact precautions implemented
--- NOTE | 2021-02-23 14:12 | NUR ---
HD completed at this time - 2.5L removed - tolerated well
[2021-02-23] MEDS ORDERED: TPN/PPN PER PHARMACY IV PRN (15:00)
[2021-02-23] MEDS ORDERED: VANCOMYCIN IV 500 MG in IV DEXTROSE 5% 100 ML IV ONE (16:00)
--- NOTE | 2021-02-23 16:27 | NUR ---
Contacted Dr. Green and he agreed to come and insert a central line - Consent given by Patients Daughter Tatyana (witnessed by Amy MEDINA) Supplies at bedside
--- NOTE | 2021-02-23 18:07 | NUR ---
Status unchanged. 2.5L removed during HD - required increase in Levophed support post HD - Increase in Levophed resulted in more arrhythmic activity (more frequent PVCs, higher HR). Morphine given x 1 to ease patients apparent discomfort (tachycardia, facial grimacing, grinding of teeth) - not effective Afebrile
[2021-02-23] MEDS ORDERED: TPN BAG #1 IV SCH ×2 (19:00)
--- NOTE | 2021-02-23 19:30 | NUR ---
Received patient with trache to mechanical ventilator current settings: AC=15, DL=419 ml and FIO2=30%. Appears comfortable , O2 sats above 95%. On Levophed drip via VELASQUEZ midline for BP support. Opens eyes randomly, grimaces to pain such as suctioning and turning. With good cough reflex; secretions: moderate thick pale yellow. Secretions noted around trache stoma as well. Complete assessment done; refer to flow sheet for details.
[2021-02-23] MEDS: ATORVASTATIN 40 MG TABLET GT SCH (21:00)
[2021-02-23] MEDS: MEROPENEM 500 MG in IV NORMAL SALINE 50 ML IV SCH (21:12)
--- NOTE | 2021-02-23 22:49 | NUR ---
TRACHED PATIENT RECEIVED ON FRAGOSO VENT VIA PORTEX #8 TRACH. AIRWAY IS SECURED AND PATENT/SECURE. VENT PARAMETERS AND ALARMS CHECKED. ALARMS ARE AUDIBLE. PT IS CURRENTLY TOLERATING VENT SETTINGS OF A/C 15, VT 450, 30% FIO2. TRACH/ ORAL CARE PERFORMED. NO SIGNS OR SYMPTOMS OF RESP. DISTRESS NOTED. BVM AND BACK-UP TRACH AT BEDSIDE. VENT PLUGGED INTO RED OUTLET. SUCTION PRN. WILL CONTINUE TO MONITOR THROUGHOUT SHIFT.
--- NOTE | 2021-02-23 23:10 | NUR ---
Bath given. Wound care treatments done. Premedicated with Morphine IV. Addendum: 02/24/21 at 0123 by DANDRE WIGGINS RN Amended: Links added.
[2021-02-23] MEDS: INSULIN REGULAR, HUMAN 300 UNIT/3 ML VIAL SQ PRN (23:32)
[2021-02-24] VITALS (94 sets, daily range): BP systolic 75–136; BP diastolic 41–93
--- NOTE | 2021-02-24 00:30 | NUR ---
Morphine IV effective. compliance monitor: Afib rate 80's-110's. Remains on Levophed drip at 0.08 mcg/kg/min.
[2021-02-24] MEDS: IPRATROPIUM BROMIDE 0.5 MG/2.5 ML NEBU NEB SCH ×4 (00:59→20:23)
[2021-02-24] MEDS: ALBUTEROL SULFATE 2.5 MG/ 0.5 ML NEBU NEB SCH ×4 (00:59→20:23)
[2021-02-24] MEDS: BLOOD SUGAR DIAGNOSTIC 1 EACH STRIP VI SCH ×4 (05:14→23:41)
[2021-02-24 05:15] LABS: HEMATOCRIT 25.6 % (36.7-47.1); MEAN CORPUSCULAR HEMOGLOBIN 29.5 uug (23.8-33.4); MEAN CORPUSCULAR VOLUME 94.2 fL (73.0-96.2); PLATELET COUNT (AUTO) 306 K/uL (152-348)
[2021-02-24] MEDS: INSULIN REGULAR, HUMAN 300 UNIT/3 ML VIAL SQ PRN ×4 (05:15→23:42)
[2021-02-24 05:21] LABS: CARBON DIOXIDE 26 mmol/L (21-32); CHLORIDE 107 mmol/L (98-107); CREATININE 3.9 mg/dL (0.6-1.3); GLUCOSE 172 mg/dL (74-106); PHOSPHOROUS 4.1 mg/dL (2.5-4.9); POTASSIUM 4.3 mmol/L (3.5-5.1); UREA NITROGEN, BLOOD 39 mg/dL (7-18)
[2021-02-24] MEDS: VANCOMYCIN FOR PO/GT/NG USE PO SCH (06:00)
--- NOTE | 2021-02-24 06:45 | NUR ---
Condition unchanged. Remains on Levophed drip at 0.08 mcg/kg/min. security monitor: afib rate 80's-110's.
--- NOTE | 2021-02-24 07:50 | NUR ---
PATIENT RECEIVED ON CONTINUOUS MECHANICAL VENTILATION VIA FRAGOSO VENT. REMAINS ON ORDERED SETTINGS PER MD ORDER. NO CHANGES MADE. Q6 TX GIVEN ORDERED. TRACH CARE DONE. HME CHANGED. SUCTION PRN. NO S/S OF RESPIRATORY DISTRESS NOTED. VENT ALARMS ARE ON AND AUDIBLE. VENT PLUGGED INTO RED EMERGENCY OUTLET. BVM AND BACK UP TRACH AT BEDSIDE.
[2021-02-24] MEDS: NOREPINEPHRINE BITARTRATE 32 MG in IV NORMAL SALINE 218 ML IV PRN (07:52)
[2021-02-24] MEDS: ASPIRIN 81 MG TAB.CHEW GT SCH (08:06)
[2021-02-24] MEDS: MIDODRINE HCL 5 MG TABLET GT SCH ×3 (08:06→17:00)
[2021-02-24] MEDS: PANTOPRAZOLE SODIUM 40 MG VIAL IV SCH (09:04)
[2021-02-24] MEDS: METOCLOPRAMIDE HCL 10 MG/2 ML VIAL IV SCH ×2 (09:04→17:22)
[2021-02-24] MEDS: Z GUARD REMEDY PASTE 57 GM TUBE TOP SCH ×2 (09:05→21:48)
[2021-02-24] MEDS: SODIUM HYPOCHLORITE 0.125% (QUARTER STRENGTH) 473 ML BOTTLE TP SCH ×3 (09:05→17:22)
[2021-02-24] MEDS: CLOTRIMAZOLE 1% CREAM 30 GM TUBE TOP SCH ×2 (09:06→17:22)
[2021-02-24] MEDS: GENTAMICIN SULFATE 0.1% OINT 15 GM TUBE TOP SCH (09:06)
[2021-02-24] MEDS: SILVER SULFADIAZINE 1% CREAM 50 GM TP SCH ×2 (09:06→17:22)
[2021-02-24] MEDS: MUPIROCIN 2% OINT 22 GM TUBE TP SCH ×2 (09:07→21:00)
--- NOTE | 2021-02-24 10:21 | NUR ---
Na from [facility] called to say that patient has been "accepted for transfer to [place]" - she asked for our top case assembler number to which I happily obliged. I let her know that would follow up with her after I spoke with patients attending physician regarding patients stability for transfer. Na [phone]
[2021-02-24] MEDS: METRONIDAZOLE 500 MG/NS 100ML 100 ML IV SCH ×2 (14:06→22:02)
--- NOTE | 2021-02-24 18:58 | NUR ---
No changes. Remains on low dose levophed.
[2021-02-24] MEDS ORDERED: TPN BAG #2 IV SCH (19:00)
[2021-02-24] MEDS: ATORVASTATIN 40 MG TABLET GT SCH (19:38)
[2021-02-24] MEDS: MEROPENEM 500 MG in IV NORMAL SALINE 50 ML IV SCH (21:48)
[2021-02-25] VITALS (96 sets, daily range): BP systolic 53–144; BP diastolic 34–81
[2021-02-25] MEDS: IPRATROPIUM BROMIDE 0.5 MG/2.5 ML NEBU NEB SCH ×4 (01:26→19:06)
[2021-02-25] MEDS: ALBUTEROL SULFATE 2.5 MG/ 0.5 ML NEBU NEB SCH ×4 (01:26→19:06)
[2021-02-25 05:21] LABS: HEMATOCRIT 26.3 % (36.7-47.1); MEAN CORPUSCULAR HEMOGLOBIN 29.8 uug (23.8-33.4); MEAN CORPUSCULAR VOLUME 93.3 fL (73.0-96.2); PLATELET COUNT (AUTO) 310 K/uL (152-348)
[2021-02-25 05:50] LABS: CARBON DIOXIDE 27 mmol/L (21-32); CHLORIDE 104 mmol/L (98-107); CREATININE 4.2 mg/dL (0.6-1.3); GLUCOSE 183 mg/dL (74-106); MAGNESIUM 1.8 mg/dL (1.8-2.4); PHOSPHOROUS 3.3 mg/dL (2.5-4.9); POTASSIUM 3.8 mmol/L (3.5-5.1); UREA NITROGEN, BLOOD 46 mg/dL (7-18)
[2021-02-25 05:56] LABS: ABG BASE EXCESS -1.1 mmol/L; ABG HCO3 23.4 mmol/L; ABG PCO2 37.7 mmHg (35.0-45.0); ABG PO2 91.4 mmHg (75.0-100.0); ABG SITE RIGHT BRACHIAL; ABG TOTAL HEMOGLOBIN 9.2 G/dL (13.5-18.0); COHb 1.7 % (0.5-1.5); MetHb 0.3 % (0.0-1.5); O2Hb 95.1 % (94.0-97.0); VENT MODE VENT - A/C; VT, ABG 450 mL
[2021-02-25] MEDS: BLOOD SUGAR DIAGNOSTIC 1 EACH STRIP VI SCH ×4 (06:25→23:33)
[2021-02-25] MEDS: METRONIDAZOLE 500 MG/NS 100ML 100 ML IV SCH ×3 (06:25→22:04)
[2021-02-25] MEDS: INSULIN REGULAR, HUMAN 300 UNIT/3 ML VIAL SQ PRN ×3 (06:27→23:34)
--- NOTE | 2021-02-25 07:05 | NUR ---
Received pt. On ventilator : A/C 15, tv 450, FIO2 30%, saturation within desire limits 98-100%. Patient remains on levophed running at 0.04 with sbp within desired limits.G-tube clamped pt remains NPO. Neuro-winters pt. remains obtunded. VELASQUEZ ML patent and infusing with PPN at ordered rate. Pt. Unable to received hemodialysis today due to aurora catheter clotting. No new skin breakdown safety precautions observed at all times. Will endorse care to incoming shift.
[2021-02-25] MEDS: NOREPINEPHRINE BITARTRATE 32 MG in IV NORMAL SALINE 218 ML IV PRN (07:52)
[2021-02-25] MEDS: ASPIRIN 81 MG TAB.CHEW GT SCH (08:10)
[2021-02-25] MEDS: MIDODRINE HCL 5 MG TABLET GT SCH ×3 (08:10→17:00)
[2021-02-25] MEDS: METOCLOPRAMIDE HCL 10 MG/2 ML VIAL IV SCH ×2 (08:43→17:28)
[2021-02-25] MEDS: SODIUM HYPOCHLORITE 0.125% (QUARTER STRENGTH) 473 ML BOTTLE TP SCH ×3 (08:43→17:30)
[2021-02-25] MEDS: PANTOPRAZOLE SODIUM 40 MG VIAL IV SCH (08:43)
[2021-02-25] MEDS: Z GUARD REMEDY PASTE 57 GM TUBE TOP SCH ×2 (08:45→20:43)
[2021-02-25] MEDS: CLOTRIMAZOLE 1% CREAM 30 GM TUBE TOP SCH ×2 (08:48→17:30)
[2021-02-25] MEDS: MUPIROCIN 2% OINT 22 GM TUBE TP SCH ×2 (08:49→20:44)
[2021-02-25] MEDS: SILVER SULFADIAZINE 1% CREAM 50 GM TP SCH ×2 (08:50→17:30)
--- NOTE | 2021-02-25 09:00 | NUR ---
Patient seen by marine mammal trainer Dr. Phan report given, see order hx.
[2021-02-25] MEDS: GENTAMICIN SULFATE 0.1% OINT 15 GM TUBE TOP SCH (09:21)
--- NOTE | 2021-02-25 11:00 | NUR ---
MESSI N.PRohan in the unit to follow up with pt.
--- NOTE | 2021-02-25 11:19 | NUR ---
Attending Sonia Flores in the unit to see and examine pt. report given. orders to continue with care plan received.
[2021-02-25] MEDS: IV NORMAL SALINE 250 ML IV PRN (13:57)
[2021-02-25] MEDS: IV FAT EMULSIONS 20% 250 ML IV SCH (13:57)
--- NOTE | 2021-02-25 14:45 | NUR ---
Hemodialysis in progress.
[2021-02-25] MEDS ORDERED: TPN BAG #3 IV SCH (15:00)
--- NOTE | 2021-02-25 16:54 | NUR ---
Patient unable to get HD finalized catheter clotted informed by NICKI Paredes.
--- NOTE | 2021-02-25 17:15 | NUR ---
PT RECEIVED TRACH TO VENT ON CMV. PORTEX #8 TRACH IS PATENT AND SECURE. VENT PARAMETERS AND ALARMS CHECKED. ALARMS ARE AUDIBLE. PT IS ON A FRAGOSO VENT ON SETTINGS OF A/C 15, VT 450, 30% FIO2. PT IS TOLERATING VENT WELL. PT STABLE THROUGHOUT SHIFT. TRACH CARE PERFORMED. HME AND SCHMIDT CHANGED. SPO2 AND RESPIRATIONS WNL. NO SIGNS OR SYMPTOMS OF RESP. DISTRESS NOTED. BVM AND BACK-UP TRACH AT BEDSIDE. VENT PLUGGED INTO RED OUTLET. SUCTION PRN. WILL CONTINUE TO MONITOR.
--- NOTE | 2021-02-25 19:06 | NUR ---
Pt received on vent via Portex 8. Trach is in place and secured via trach tie. Vent settings are as followed AC RR 15, VT 450, 30% Fio2 and tolerating well. Ambubag and spare trach @ bedside. Alarms on and audible. Ventilator plugged in red outlet. Will continue to monitor throughout shift.
--- NOTE | 2021-02-25 19:30 | NUR ---
Report received. Patient with trache to mechanical ventilator current settings: AC=15, GL=472 ml and FIO2=30%. Appears comfortable, O2 sats above 95%. On Levophed drip via VELASQUEZ midline for BP support. Opens eyes randomly, grimaces to care such as suctioning and turning. With good cough reflex; with small amounts of pale yellowish thick secretions from trache. Noted moderate secretions around trache stoma and air leak. Patient clenches teeth with oral care. 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 New GT to L abdominal area clamped. Dressing intact. Assessment completed. Addendum: 02/25/21 at 2150 by DANDRE WIGGINS RN Amended: Links added. Addendum: 02/25/21 at 2155 by DANDRE WIGGINS RN Amended: Links added.
--- NOTE | 2021-02-25 20:30 | NUR ---
Attempted to dc Levophed drip but unable to. Titrated for BP support. Addendum: 02/25/21 at 2156 by DANDRE WIGGINS RN Amended: Links added.
[2021-02-25] MEDS: ATORVASTATIN 40 MG TABLET GT SCH (20:41)
[2021-02-25] MEDS: MEROPENEM 500 MG in IV NORMAL SALINE 50 ML IV SCH (20:42)
[2021-02-26] VITALS (94 sets, daily range): BP systolic 50–159; BP diastolic 18–81
[2021-02-26] MEDS: ALBUTEROL SULFATE 2.5 MG/ 0.5 ML NEBU NEB SCH ×4 (01:34→19:02)
[2021-02-26] MEDS: IPRATROPIUM BROMIDE 0.5 MG/2.5 ML NEBU NEB SCH ×4 (01:35→19:02)
[2021-02-26 05:14] LABS: HEMATOCRIT 26.7 % (36.7-47.1); MEAN CORPUSCULAR HEMOGLOBIN 29.7 uug (23.8-33.4); MEAN CORPUSCULAR VOLUME 93.7 fL (73.0-96.2); PLATELET COUNT (AUTO) 238 K/uL (152-348)
[2021-02-26] MEDS: METRONIDAZOLE 500 MG/NS 100ML 100 ML IV SCH ×3 (05:16→21:35)
[2021-02-26 05:34] LABS: CARBON DIOXIDE 26 mmol/L (21-32); CHLORIDE 102 mmol/L (98-107); GLUCOSE 196 mg/dL (74-106); MAGNESIUM 1.7 mg/dL (1.8-2.4); PHOSPHOROUS 3.1 mg/dL (2.5-4.9); POTASSIUM 3.6 mmol/L (3.5-5.1); UREA NITROGEN, BLOOD 49 mg/dL (7-18)
[2021-02-26] MEDS: BLOOD SUGAR DIAGNOSTIC 1 EACH STRIP VI SCH ×4 (05:55→23:42)
[2021-02-26] MEDS: INSULIN REGULAR, HUMAN 300 UNIT/3 ML VIAL SQ PRN ×3 (05:56→17:17)
[2021-02-26] MEDS: IV NORMAL SALINE 250 ML IV PRN (06:05)
--- NOTE | 2021-02-26 06:28 | NUR ---
Condition unchanged. Remains on Levophed drip at 0.03mcg/kg/min. BPs labile. air sampling and monitoring Afib rate 80's-110's. Emptied 60 ml of green brown foul smelling fluids from colostomy bag over old GT site. Wound care treatments done as per MD's order. On continuous PPN at 50 ml/H via VELASQUEZ midline. Addendum: 02/26/21 at 0630 by DANDRE WIGGINS RN Amended: Links added.
[2021-02-26] MEDS: NOREPINEPHRINE BITARTRATE 32 MG in IV NORMAL SALINE 218 ML IV PRN ×2 (06:48→21:20)
--- NOTE | 2021-02-26 07:13 | NUR ---
Received pt. On ventilator : A/C 15, tv 450, FIO2 30%, saturation within desire limits 98-100%. Patient remains on levophed running at 0.03 sbp in the 90's. G-tube clamped pt remains NPO. Neuro-winters pt. remains obtunded. VELASQUEZ ML patent and infusing with PPN at ordered rate. Afebrile No new skin breakdown safety precautions observed at all times. Will continue with care plan.
--- NOTE | 2021-02-26 07:35 | NUR ---
Nephrology services, Dr. loja in the unit to see and examine pt. report given and orders to continue with care plan received. as stated by him " HD should continue after cath-flow today at this point there's no need of new HD access".
--- NOTE | 2021-02-26 08:00 | NUR ---
Mold Swabber Dr. Solomon in the unit to see and examine pt. orders to continue with care plan under ICU observation received.
[2021-02-26] MEDS: MIDODRINE HCL 5 MG TABLET GT SCH ×3 (08:03→17:00)
[2021-02-26] MEDS: PANTOPRAZOLE SODIUM 40 MG VIAL IV SCH (08:03)
[2021-02-26] MEDS: METOCLOPRAMIDE HCL 10 MG/2 ML VIAL IV SCH ×2 (08:03→17:10)
[2021-02-26] MEDS: ASPIRIN 81 MG TAB.CHEW GT SCH (08:03)
[2021-02-26] MEDS: CLOTRIMAZOLE 1% CREAM 30 GM TUBE TOP SCH ×2 (08:06→17:11)
[2021-02-26] MEDS: Z GUARD REMEDY PASTE 57 GM TUBE TOP SCH ×2 (08:06→21:00)
[2021-02-26] MEDS: SILVER SULFADIAZINE 1% CREAM 50 GM TP SCH ×2 (08:08→17:11)
[2021-02-26] MEDS: SODIUM HYPOCHLORITE 0.125% (QUARTER STRENGTH) 473 ML BOTTLE TP SCH ×3 (08:08→17:11)
[2021-02-26] MEDS: MUPIROCIN 2% OINT 22 GM TUBE TP SCH ×2 (08:12→21:01)
[2021-02-26] MEDS: GENTAMICIN SULFATE 0.1% OINT 15 GM TUBE TOP SCH (08:13)
--- NOTE | 2021-02-26 09:20 | NUR ---
Pulmonary services, Dr. Phan in the unit to see and examine pt. report given see order hx.
[2021-02-26] MEDS ORDERED: ALTEPLASE 2 MG VIAL IVP ONE (10:45)
[2021-02-26] MEDS ORDERED: TPN BAG #4 IV SCH ×3 (11:00)
--- NOTE | 2021-02-26 16:00 | NUR ---
Attending Sonia Marcano in the unit to see and examine pt.
--- NOTE | 2021-02-26 16:59 | NUR ---
Hemodialysis team in the unit. and Hd to be started now. Addendum: 02/26/21 at 1703 by AYDEE KHAN RN pt. remains on levophed at 0.03mcg/kg.min. hr of 83 and sbp of 114/52. on vent with 100% saturation.
--- NOTE | 2021-02-26 17:51 | NUR ---
Left pt. On ventilator : A/C 15, tv 450, FIO2 30%, saturation within desire limits 98-100%. No SOB or tachypnea noted. Patient remains on levophed running at 0.03 sbp in the 90's. Patient left undergoing HD. and tolerating it fairly at this time. G-tube clamped pt remains NPO. Neuro-winters pt. remains obtunded. VELASQUEZ ML patent and infusing with PPN at ordered rate. Afebrile No new skin breakdown safety precautions observed at all times. Will continue with care plan.
--- NOTE | 2021-02-26 19:30 | NUR ---
Report received. Dialysis in progress. BPs in the 150's systole. December typesetter perforator operator aware; discussed with with him Levophed drip's current rate. Stated will monitor for now. RN requesting for Heparin IV bolus, as line is getting clotted. Spoke to Dr. Weinstein. Orders for Heparin received. Heparin orders discussed with [facility] Pharmacist.
[2021-02-26] MEDS ORDERED: HEPARIN SODIUM,PORCINE 1,000 UNITS/ML VIAL IV ONE ×2 (19:45)
[2021-02-26] MEDS ORDERED: VANCOMYCIN IV 500 MG in IV DEXTROSE 5% 100 ML IV ONE (20:00)
--- NOTE | 2021-02-26 20:35 | NUR ---
Dialysis completed; 800 ml out. Vancomycin 500 mg IV given by electrical lineman. Will continue to titrate Levophed drip accordingly.
[2021-02-26] MEDS: ATORVASTATIN 40 MG TABLET GT SCH (20:59)
[2021-02-26] MEDS: MEROPENEM 500 MG in IV NORMAL SALINE 50 ML IV SCH (21:00)
[2021-02-27] VITALS (91 sets, daily range): BP systolic 59–153; BP diastolic 28–89
--- NOTE | 2021-02-27 | NUR ---
Bath given. Wound care treatment done. Patient tolerated care well. With moderate to large amounts of thick pale yellow secretions around trache stoma; trache leak noted. Addendum: 02/27/21 at 0038 by DANDRE WIGGINS RN Amended: Links added. Addendum: 02/27/21 at 0038 by DANDRE WIGGINS RN Amended: Links added.
[2021-02-27] MEDS: ALBUTEROL SULFATE 2.5 MG/ 0.5 ML NEBU NEB SCH ×4 (00:52→19:34)
[2021-02-27] MEDS: IPRATROPIUM BROMIDE 0.5 MG/2.5 ML NEBU NEB SCH ×4 (00:52→19:34)
[2021-02-27] MEDS: IV NORMAL SALINE 250 ML IV PRN (03:09)
--- NOTE | 2021-02-27 03:12 | NUR ---
Pt received in bed, laying semi-Ramirez's, unable to communicate..Trach: Portex [address] and secure with trach tie.. Mechanical ventilation: settings A/C 15, Vt 450, FiO2 30%, tolerating well, no changes made.. BVM and back up trach at bedside.. Alarms on and audible..
[2021-02-27 05:04] LABS: HEMATOCRIT 25.3 % (36.7-47.1); MEAN CORPUSCULAR HEMOGLOBIN 29.7 uug (23.8-33.4); MEAN CORPUSCULAR VOLUME 92.7 fL (73.0-96.2); PLATELET COUNT (AUTO) 179 K/uL (152-348)
[2021-02-27 05:11] LABS: ALKALINE PHOSPHATASE 159 U/L (50-136); ASPARTATE AMINOTRANSFERASE 17 U/L (15-37); BILIRUBIN,DIRECT 0.4 mg/dL (0.0-0.2); BILIRUBIN,TOTAL 0.7 mg/dL (0.2-1.0); CARBON DIOXIDE 26 mmol/L (21-32); CHLORIDE 102 mmol/L (98-107); CREATININE 3.2 mg/dL (0.6-1.3); GLUCOSE 140 mg/dL (74-106); MAGNESIUM 1.5 mg/dL (1.8-2.4); PHOSPHOROUS 2.3 mg/dL (2.5-4.9); POTASSIUM 3.4 mmol/L (3.5-5.1); TOTAL PROTEIN, SERUM 7.6 g/dL (6.4-8.2); UREA NITROGEN, BLOOD 37 mg/dL (7-18)
[2021-02-27 05:14] LABS: ALANINE AMINOTRANSFERASE < 6 U/L (16-63)
[2021-02-27] MEDS: METRONIDAZOLE 500 MG/NS 100ML 100 ML IV SCH ×3 (05:24→22:03)
[2021-02-27] MEDS: BLOOD SUGAR DIAGNOSTIC 1 EACH STRIP VI SCH (05:28)
--- NOTE | 2021-02-27 06:45 | NUR ---
Condition unchanged. Seen by Dr. Weinstein; updated of patient condition. Remains on Levophed drip at 0.04 mcg/kg/min. sports director Afib rate 70's-110's. On continuous PPN at 50 ml/H via RU midline. Addendum: 02/27/21 at 0646 by DANDRE WIGGINS RN Amended: Links added. Addendum: 02/27/21 at 0728 by DANDRE WIGGINS RN On continuous PPN at 50 ml/H via VELASQUEZ midline.
[2021-02-27] MEDS ORDERED: TPN BAG #5 IV SCH ×2 (07:00→11:00)
--- NOTE | 2021-02-27 07:05 | NUR ---
Received pt. On ventilator : A/C 15, tv 450, FIO2 30%, saturation within desire limits 98-100%. Patient remains on levophed running at 0.06 sbp in the 90's. G-tube clamped pt remains NPO. Neuro-winters pt. remains obtunded. VELASQUEZ ML patent and infusing with PPN at ordered rate. Afebrile No new skin breakdown safety precautions observed at all times. Will continue with care plan.
[2021-02-27 07:48] LABS: ABG BASE EXCESS 1.4 mmol/L; ABG HCO3 24.5 mmol/L; ABG PCO2 32.8 mmHg (35.0-45.0); ABG PH 7.492 (7.350-7.450); ABG PO2 102.5 mmHg (75.0-100.0); ABG SITE RIGHT BRACHIAL; ABG TOTAL HEMOGLOBIN 8.4 G/dL (13.5-18.0); COHb 1.8 % (0.5-1.5); MetHb 0.4 % (0.0-1.5); O2Hb 96.4 % (94.0-97.0); VENT MODE VENT - A/C; VT, ABG 450 mL
[2021-02-27] MEDS: PANTOPRAZOLE SODIUM 40 MG VIAL IV SCH (08:01)
[2021-02-27] MEDS: ASPIRIN 81 MG TAB.CHEW GT SCH (08:01)
[2021-02-27] MEDS: METOCLOPRAMIDE HCL 10 MG/2 ML VIAL IV SCH ×2 (08:01→17:19)
[2021-02-27] MEDS: MIDODRINE HCL 5 MG TABLET GT SCH ×3 (08:03→17:00)
[2021-02-27] MEDS: SODIUM HYPOCHLORITE 0.125% (QUARTER STRENGTH) 473 ML BOTTLE TP SCH ×3 (08:05→17:16)
[2021-02-27] MEDS: Z GUARD REMEDY PASTE 57 GM TUBE TOP SCH ×2 (08:07→20:04)
[2021-02-27] MEDS: MUPIROCIN 2% OINT 22 GM TUBE TP SCH ×2 (08:08→20:05)
[2021-02-27] MEDS: SILVER SULFADIAZINE 1% CREAM 50 GM TP SCH ×2 (08:08→17:17)
[2021-02-27] MEDS: CLOTRIMAZOLE 1% CREAM 30 GM TUBE TOP SCH ×2 (08:09→17:16)
--- NOTE | 2021-02-27 08:57 | NUR ---
Veterinary Parasitologist Dr. Solomon in the unit to see and examine pt.
[2021-02-27] MEDS ORDERED: MAGNESIUM SULFATE/D5W 100 ML IV SCH (09:30)
--- NOTE | 2021-02-27 09:40 | NUR ---
Pulmonary services, Dr. Phan in the unit to see and examine pt. report given see order hx.
--- NOTE | 2021-02-27 09:57 | NUR ---
PT RECEIVED TRACH TO VENT WITH SETTINGS AC 15/VT 450/ 30%. PORTEX 8 CUFFED TRACH IS SECURED AND INTACT. AIRWAY PATENT. PT COMFORTABLE TOLERATING CURRENT VENT SETTINGS FINE WITH NO DISTRESS.
[2021-02-27] MEDS ORDERED: POTASSIUM PHOSPHATE MM 7.5 MMOL in IV NORMAL SALINE 97.5 ML IV ONE (11:00)
--- NOTE | 2021-02-27 11:10 | NUR ---
Wound care Nurse Maya in to see patient, Dressing change done by her and Dr. Walker called for follow up and possible consultation with Dr. Salguero. As stated by . He'll follow up on pt. within the next 10 days. and agreed to dressing changes ordered by Ms. Trejo wound care R.NRohan Addendum: 02/27/21 at 1113 by AYDEE KHAN RN the above note is intended for another pt.
--- NOTE | 2021-02-27 11:52 | NUR ---
A call from Shauna Villalpando and at this time I was informed that pt will have clipping of abdominal stoma on 02/28/2021 at 1300. Nursing auto mechanic supervisor informed of care plan.
[2021-02-27] MEDS: IV FAT EMULSIONS 20% 250 ML IV SCH (14:22)
--- NOTE | 2021-02-27 14:45 | NUR ---
ID N.P in to follow up on pt. No new orders received.
--- NOTE | 2021-02-27 18:22 | NUR ---
Left pt On ventilator with same settings: A/C 15, tv 450, FIO2 30%, saturation within desire limits 98-100%. Patient remains on levophed down to 0.06mcg/kg/min G-tube clamped pt remains NPO. Neuro-winters pt. remains unchanged obtunded and not tracking. VELASQUEZ ML patent and infusing with PPN and lipids. Afebrile for throughout the shift. Digni-shield with no ouput. No new skin breakdown safety precautions observed at all times. Will continue with care plan.
--- NOTE | 2021-02-27 18:31 | NUR ---
Attending physician Dr. Valdes in the unit to see and examine pt. report given and orders to continue with care plan received.
--- NOTE | 2021-02-27 20:00 | NUR ---
ROUND MADE PATIENT IN BED ,OPEN EYES SPONTANEOUSLY ON AND OFF ,DOESN'T FOLLOW COMMANDS,EXTREMITIES FLACCID . DUE MEDICATION GIVEN AND SEE EMAR . TEMP 98.0 AXILLARY .ON LEVOPHED DRIP V/S Q15 MINUTES.
[2021-02-27] MEDS: NOREPINEPHRINE BITARTRATE 32 MG in IV NORMAL SALINE 218 ML IV PRN (23:46)
[2021-02-28] VITALS (95 sets, daily range): BP systolic 50–186; BP diastolic 31–95
[2021-02-28] MEDS: ALBUTEROL SULFATE 2.5 MG/ 0.5 ML NEBU NEB SCH ×4 (00:37→19:33)
[2021-02-28] MEDS: IPRATROPIUM BROMIDE 0.5 MG/2.5 ML NEBU NEB SCH ×4 (00:37→19:33)
--- NOTE | 2021-02-28 00:55 | NUR ---
TURNED AND REPOSITION PATIENT ,SUCTION VIA THE ETT AND MOUTH , CONTINUE WITH LEVOPHED DRIP AND CONTINUE TO MONITOR BP Q15 MINUTES.
--- NOTE | 2021-02-28 03:00 | NUR ---
CHANGE WOUND DRESSING TO PATIENT SACRAL AREA AND LEFT FOOT, FOLLOW MDS ORDERS
--- NOTE | 2021-02-28 04:30 | NUR ---
AM CARE DONE BATH PATIENT CHANGED SOILED LINENS AND GOWN . SUCTION VIA TRACH AND AROUND THE STOMA AREA WITH THICK YELLOWISH MODERATE SECRETION .
[2021-02-28] MEDS: METRONIDAZOLE 500 MG/NS 100ML 100 ML IV SCH ×2 (05:22→14:07)
[2021-02-28 05:29] LABS: HEMATOCRIT 25.2 % (36.7-47.1); MEAN CORPUSCULAR VOLUME 92.9 fL (73.0-96.2); PLATELET COUNT (AUTO) 223 K/uL (152-348)
[2021-02-28 05:42] LABS: CARBON DIOXIDE 26 mmol/L (21-32); CHLORIDE 100 mmol/L (98-107); CREATININE 3.7 mg/dL (0.6-1.3); GLUCOSE 197 mg/dL (74-106); MAGNESIUM 1.7 mg/dL (1.8-2.4); PHOSPHOROUS 2.9 mg/dL (2.5-4.9); POTASSIUM 3.6 mmol/L (3.5-5.1); UREA NITROGEN, BLOOD 45 mg/dL (7-18)
[2021-02-28] MEDS: ASPIRIN 81 MG TAB.CHEW GT SCH (07:40)
[2021-02-28] MEDS: MIDODRINE HCL 5 MG TABLET GT SCH ×3 (07:41→17:00)
[2021-02-28] MEDS: PANTOPRAZOLE SODIUM 40 MG VIAL IV SCH (08:09)
[2021-02-28] MEDS: METOCLOPRAMIDE HCL 10 MG/2 ML VIAL IV SCH ×2 (08:09→17:15)
[2021-02-28] MEDS: Z GUARD REMEDY PASTE 57 GM TUBE TOP SCH ×2 (08:09→20:15)
[2021-02-28] MEDS: SODIUM HYPOCHLORITE 0.125% (QUARTER STRENGTH) 473 ML BOTTLE TP SCH ×3 (08:10→17:03)
[2021-02-28] MEDS: CLOTRIMAZOLE 1% CREAM 30 GM TUBE TOP SCH ×2 (08:11→17:03)
[2021-02-28] MEDS: MUPIROCIN 2% OINT 22 GM TUBE TP SCH ×2 (08:11→20:18)
[2021-02-28] MEDS: SILVER SULFADIAZINE 1% CREAM 50 GM TP SCH ×2 (08:12→17:03)
[2021-02-28] MEDS ORDERED: DEXTROSE 50% 50 ML DISP.SYRIN IV PRN (10:30)
[2021-02-28] MEDS: MAGNESIUM SULFATE/D5W 100 ML IV SCH ×2 (10:38→11:45)
[2021-02-28] MEDS ORDERED: TPN BAG #5 IV SCH (10:45)
[2021-02-28] MEDS ORDERED: TPN BAG #6 IV SCH (11:00)
[2021-02-28] MEDS: BLOOD SUGAR DIAGNOSTIC 1 EACH STRIP VI SCH ×3 (12:01→23:34)
[2021-02-28] MEDS: INSULIN REGULAR, HUMAN 300 UNIT/3 ML VIAL SQ PRN ×2 (12:04→17:28)
--- NOTE | 2021-02-28 13:21 | NUR ---
Dr. Clifford notified this song writer to contact Dr. 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
[2021-02-28] MEDS ORDERED: LIDOCAINE-MPF 2% 5 ML VIAL MC ONE (15:12)
[2021-02-28] MEDS ORDERED: PROPOFOL 200 MG/20 ML BOTTLE IV ONE (15:12)
--- NOTE | 2021-02-28 15:33 | NUR ---
MEG Kelly here to see the patient. Discussed the GI concerns and that procedure could not be completed. COLORIST requested that the patient have cardiac clearance prior to any surgery, Dr. Solomon contacted and he stated that the patient is clear for surgery but will place notes for clearance.
--- NOTE | 2021-02-28 19:33 | NUR ---
Patient received on vent settings of A/C 15, VT 450 and FIO2-30%. No resp. distress noted. Portex 8 is patent and secure; B/U Portex 8 and BVM are at bedside. Pt to be monitored throughout the shift and PRN SX. Ventilator alarm parameters have been checked and remain audible.
--- NOTE | 2021-02-28 19:45 | NUR ---
rounds made patient in bed ,eyes open doesn't follow commands,on vent ac15/tv450 fio2 30% ,portex size 8.tolerating vent setting no respiratory distress noted , breathing even and unlabored ,saturation 100 % rr 19. npo on TPN .V/S MONITORING Q15 MINUTES PATIENT ON LEVOPHED DRIP .
[2021-02-28] MEDS: IV NORMAL SALINE 250 ML IV PRN (20:11)
[2021-02-28] MEDS: NOREPINEPHRINE BITARTRATE 32 MG in IV NORMAL SALINE 218 ML IV PRN (21:20)
--- NOTE | 2021-02-28 21:30 | NUR ---
informed nursing supervisor clam bed spoked to GABBIE patient with order for hemodialysis for tomorrow given copy of the order .
--- NOTE | 2021-02-28 23:00 | NUR ---
turned and reposition patient ,offloaded back with pillow and lower bilateral extremities elevated with pillow left foot with foot boot, oral care done patient refused to open mouth suction mouth from side to side . trach care done . .
--- NOTE | 2021-02-28 23:02 | NUR ---
left foot dressing done and follow wound orders . turned and reposition patient .
[2021-03-01] VITALS (88 sets, daily range): BP systolic 73–168; BP diastolic 30–98
[2021-03-01] MEDS: IPRATROPIUM BROMIDE 0.5 MG/2.5 ML NEBU NEB SCH ×4 (00:42→19:55)
[2021-03-01] MEDS: ALBUTEROL SULFATE 2.5 MG/ 0.5 ML NEBU NEB SCH ×4 (00:42→19:55)
--- NOTE | 2021-03-01 04:30 | NUR ---
bath patient and changed wound dressing ,follow wound care orders . dakins solution to the sacral area and cover with abd and secure with tape . Mepilex to the surrounding area .right hip dressing done also .
[2021-03-01] MEDS: BLOOD SUGAR DIAGNOSTIC 1 EACH STRIP VI SCH ×4 (05:11→23:41)
[2021-03-01] MEDS: INSULIN REGULAR, HUMAN 300 UNIT/3 ML VIAL SQ PRN ×2 (05:12→18:11)
[2021-03-01 05:18] LABS: HEMATOCRIT 23.5 % (36.7-47.1); MEAN CORPUSCULAR VOLUME 93.2 fL (73.0-96.2); PLATELET COUNT (AUTO) 221 K/uL (152-348)
[2021-03-01 05:28] LABS: ABG BASE EXCESS -1.1 mmol/L; ABG HCO3 22.3 mmol/L; ABG PCO2 31.5 mmHg (35.0-45.0); ABG PH 7.467 (7.350-7.450); ABG SITE RIGHT BRACHIAL; ABG TOTAL HEMOGLOBIN 8.5 G/dL (13.5-18.0); COHb 1.7 % (0.5-1.5); MetHb 0.3 % (0.0-1.5); O2Hb 96.5 % (94.0-97.0); VENT MODE VENT - A/C; VT, ABG 450 mL
[2021-03-01 05:40] LABS: CARBON DIOXIDE 23 mmol/L (21-32); CHLORIDE 96 mmol/L (98-107); CREATININE 3.7 mg/dL (0.6-1.3); GLUCOSE 142 mg/dL (74-106); PHOSPHOROUS 2.9 mg/dL (2.5-4.9); POTASSIUM 3.6 mmol/L (3.5-5.1); UREA NITROGEN, BLOOD 54 mg/dL (7-18)
[2021-03-01 05:53] LABS: TRIGLYCERIDES 68 MG/DL (30-150)
--- NOTE | 2021-03-01 07:47 | NUR ---
Pt received trach to vent with given settings of AC RR 15, VT 450, Fio2 of 30% with a PORTEX 8. Trach tube is in place and secured via trach tie. Alarms on and audible. Ambubag and back up trach @ bed side. Will continue to monitor throughout shift.
[2021-03-01] MEDS: ASPIRIN 81 MG TAB.CHEW GT SCH (09:00)
[2021-03-01] MEDS: MIDODRINE HCL 5 MG TABLET GT SCH ×3 (09:00→16:15)
--- NOTE | 2021-03-01 09:58 | NUR ---
patient back from CT of head. No abnormalities during transport. case management called for arrangement for MRI transport to be set at 11. Addendum: 03/01/21 at 1001 by BEBA PATTERSON RN wrong patient.
[2021-03-01] MEDS: METOCLOPRAMIDE HCL 10 MG/2 ML VIAL IV SCH ×2 (10:25→17:42)
[2021-03-01] MEDS: PANTOPRAZOLE SODIUM 40 MG VIAL IV SCH (10:25)
[2021-03-01] MEDS: Z GUARD REMEDY PASTE 57 GM TUBE TOP SCH ×2 (10:33→20:11)
[2021-03-01] MEDS: CLOTRIMAZOLE 1% CREAM 30 GM TUBE TOP SCH ×2 (10:33→17:45)
[2021-03-01] MEDS: SODIUM HYPOCHLORITE 0.125% (QUARTER STRENGTH) 473 ML BOTTLE TP SCH ×3 (10:34→17:43)
[2021-03-01] MEDS: MUPIROCIN 2% OINT 22 GM TUBE TP SCH ×2 (10:34→20:11)
[2021-03-01] MEDS: SILVER SULFADIAZINE 1% CREAM 50 GM TP SCH ×2 (10:35→17:43)
[2021-03-01] MEDS ORDERED: TPN BAG #7 IV ONE (11:00)
--- NOTE | 2021-03-01 12:40 | NUR ---
sharif in unit to see patient. will try to schedule for next week. noted clearance per cardiology.
[2021-03-01] MEDS ORDERED: ALTEPLASE 2 MG VIAL XX ONE (15:30)
[2021-03-01] MEDS: IV FAT EMULSIONS 20% 250 ML IV SCH (16:15)
--- NOTE | 2021-03-01 20:00 | NUR ---
rounds made patient in bed vent dependent Portex 8 AC15/TV450 FIO2 30%, suction patient very minimal secretions . turned and reposition patient offloaded back .
[2021-03-01] MEDS: NOREPINEPHRINE BITARTRATE 32 MG in IV NORMAL SALINE 218 ML IV PRN (20:57)
--- NOTE | 2021-03-01 22:00 | NUR ---
due medication given and scan see emar , continue on Levophed drip and v/s done q15 minutes .
--- NOTE | 2021-03-01 22:45 | NUR ---
peg tube clamp,. midabdomen old peg site (leaking ) with greenish to yellow drainage small in amt ,with colostomy bag to prevent the skin form constant exposure to the gastric fluids ,empty bag about 30 ml . keep site dry and clean , paln for abdominal surgery unsuccessful abdominal clipping c/o strictures.
[2021-03-02] VITALS (95 sets, daily range): BP systolic 71–140; BP diastolic 37–69
--- NOTE | 2021-03-02 | NUR ---
fingerstick done and follow iss . no need for insulin f/s 115. left foot dressing done and follow wound treatment ,placed foot boot and elevated with pillow . bath patient and changed soiled linens and gown . incontinent of urine voided . yellowish urine . changed right upper arm midline dressing and Right femoral Manjinder catheter dressing done.. sacral wound dressing done and follow wound dressing treatment .
[2021-03-02] MEDS: IPRATROPIUM BROMIDE 0.5 MG/2.5 ML NEBU NEB SCH ×4 (01:50→19:29)
[2021-03-02] MEDS: ALBUTEROL SULFATE 2.5 MG/ 0.5 ML NEBU NEB SCH ×4 (02:03→19:29)
--- NOTE | 2021-03-02 02:55 | NUR ---
PATIENT ON CONT FRAGOSO VENT WITH PORTEX # [address] AND SECURED, WITH CURRENT VENT SETTINGS, A/C 15, 450ML,30%, PT DOES ASSIST AT TIMES, GOOD COUGH EFFORT, SUCTIONED VERY LIGHT PALE YELL TINGE SECRETIONS, CHECK CUFF, CHANGE HME, ALL VENT ALARMS GOOD, NO VENT CHANGES MADE, BACK UP TRACH AT BEDSIDE, WITH AMBU BAG, PT STABLE. Denise NAVARRETEP Addendum: 03/02/21 at 0257 by SANTOSH HALE RT Amended: Links added.
[2021-03-02 05:12] LABS: HEMATOCRIT 24.5 % (36.7-47.1); MEAN CORPUSCULAR HEMOGLOBIN 30.3 uug (23.8-33.4); MEAN CORPUSCULAR VOLUME 94.6 fL (73.0-96.2); PLATELET COUNT (AUTO) 191 K/uL (152-348)
[2021-03-02] MEDS: BLOOD SUGAR DIAGNOSTIC 1 EACH STRIP VI SCH ×4 (05:18→23:50)
[2021-03-02] MEDS: INSULIN REGULAR, HUMAN 300 UNIT/3 ML VIAL SQ PRN ×2 (05:18→17:22)
[2021-03-02 05:23] LABS: ALANINE AMINOTRANSFERASE < 6 U/L (16-63); ALKALINE PHOSPHATASE 150 U/L (50-136); ASPARTATE AMINOTRANSFERASE 25 U/L (15-37); BILIRUBIN,TOTAL 0.5 mg/dL (0.2-1.0); CARBON DIOXIDE 25 mmol/L (21-32); CHLORIDE 97 mmol/L (98-107); CREATININE 3.1 mg/dL (0.6-1.3); GLUCOSE 156 mg/dL (74-106); MAGNESIUM 1.9 mg/dL (1.8-2.4); PHOSPHOROUS 2.6 mg/dL (2.5-4.9); POTASSIUM 3.9 mmol/L (3.5-5.1); TOTAL PROTEIN, SERUM 7.8 g/dL (6.4-8.2); UREA NITROGEN, BLOOD 41 mg/dL (7-18)
--- NOTE | 2021-03-02 07:15 | NUR ---
Received report from continuity clerk nurse, patient in bed obtunded on chronic trach to vent, controlled afib on the monitor, saturation 100%, afebrile. Patient is on levophed 0.05.
[2021-03-02] MEDS: MIDODRINE HCL 5 MG TABLET GT SCH ×3 (08:38→17:00)
[2021-03-02] MEDS: ASPIRIN 81 MG TAB.CHEW GT SCH (08:38)
[2021-03-02] MEDS: METOCLOPRAMIDE HCL 10 MG/2 ML VIAL IV SCH ×2 (08:41→17:14)
[2021-03-02] MEDS: PANTOPRAZOLE SODIUM 40 MG VIAL IV SCH (08:41)
[2021-03-02] MEDS: SODIUM HYPOCHLORITE 0.125% (QUARTER STRENGTH) 473 ML BOTTLE TP SCH ×3 (08:42→17:15)
[2021-03-02] MEDS: MUPIROCIN 2% OINT 22 GM TUBE TP SCH ×2 (08:42→20:40)
[2021-03-02] MEDS: Z GUARD REMEDY PASTE 57 GM TUBE TOP SCH ×2 (08:43→20:39)
[2021-03-02] MEDS: CLOTRIMAZOLE 1% CREAM 30 GM TUBE TOP SCH ×2 (08:48→17:20)
[2021-03-02] MEDS: SILVER SULFADIAZINE 1% CREAM 50 GM TP SCH ×2 (09:00→17:15)
[2021-03-02] MEDS ORDERED: TPN BAG #8 IV SCH (11:00)
--- NOTE | 2021-03-02 17:00 | NUR ---
Patient seen by MEG Kelly evaluation of wound done, no new orders at this time.
[2021-03-03] VITALS (65 sets, daily range): BP systolic 64–156; BP diastolic 35–67
[2021-03-03] MEDS: INSULIN REGULAR, HUMAN 300 UNIT/3 ML VIAL SQ PRN (00:04)
--- NOTE | 2021-03-03 00:44 | NUR ---
PATIENT ON CONT FRAGOSO VENT WITH PORTEX [address], SUCTION, TRACH CARE, CHANGE SCHMIDT AND HME , SUCTIONED LIGHT PALE YELL TINGE SECRETIONS, NEB INLINE X 2 , TOLL WELL, NO VENT CHANGES MADE, ALL VENT ALARMS GOOD, VENT SETTINGS CURRENT; A/C 15, 450ML, FIO2 @ 30%.D GEOFFREY BILLY Addendum: 03/03/21 at 0046 by SANTOSH HALE RT Amended: Links added.
[2021-03-03] MEDS: ALBUTEROL SULFATE 2.5 MG/ 0.5 ML NEBU NEB SCH ×4 (01:40→20:10)
[2021-03-03] MEDS: IPRATROPIUM BROMIDE 0.5 MG/2.5 ML NEBU NEB SCH ×4 (01:40→20:09)
[2021-03-03] MEDS: BLOOD SUGAR DIAGNOSTIC 1 EACH STRIP VI SCH ×3 (06:58→17:47)
[2021-03-03] MEDS: ASPIRIN 81 MG TAB.CHEW GT SCH (07:42)
[2021-03-03] MEDS: MIDODRINE HCL 5 MG TABLET GT SCH ×3 (07:42→17:00)
[2021-03-03 08:56] LABS: CARBON DIOXIDE 21 mmol/L (21-32); CHLORIDE 98 mmol/L (98-107); CREATININE 3.3 mg/dL (0.6-1.3); GLUCOSE 127 mg/dL (74-106); POTASSIUM 3.3 mmol/L (3.5-5.1); UREA NITROGEN, BLOOD 50 mg/dL (7-18)
[2021-03-03 08:58] LABS: MAGNESIUM 1.9 mg/dL (1.8-2.4); PHOSPHOROUS 2.7 mg/dL (2.5-4.9)
[2021-03-03 09:18] LABS: HEMATOCRIT 25.7 % (36.7-47.1); MEAN CORPUSCULAR HEMOGLOBIN 30.3 uug (23.8-33.4); MEAN CORPUSCULAR VOLUME 99.5 fL (73.0-96.2); PLATELET COUNT (AUTO) 118 K/uL (152-348)
[2021-03-03] MEDS: METOCLOPRAMIDE HCL 10 MG/2 ML VIAL IV SCH ×2 (10:33→17:47)
[2021-03-03] MEDS: PANTOPRAZOLE SODIUM 40 MG VIAL IV SCH (10:33)
[2021-03-03] MEDS: Z GUARD REMEDY PASTE 57 GM TUBE TOP SCH ×2 (10:34→21:28)
[2021-03-03] MEDS: CLOTRIMAZOLE 1% CREAM 30 GM TUBE TOP SCH ×2 (10:34→17:38)
[2021-03-03] MEDS: MUPIROCIN 2% OINT 22 GM TUBE TP SCH ×2 (10:34→21:29)
[2021-03-03] MEDS: SODIUM HYPOCHLORITE 0.125% (QUARTER STRENGTH) 473 ML BOTTLE TP SCH ×3 (10:34→17:38)
[2021-03-03] MEDS: SILVER SULFADIAZINE 1% CREAM 50 GM TP SCH ×2 (10:35→17:38)
[2021-03-03] MEDS ORDERED: TPN BAG #9 IV SCH (11:00)
[2021-03-03] MEDS: ALBUMIN HUMAN 25% 100 ML IV PRN (14:20)
--- NOTE | 2021-03-03 22:45 | NUR ---
OLAMIDE KEBEDE APRN attempted to insert a central venous catheter in the right IJ but was unsuccessful stating there is a blockage somewhere in the chest and his guide wire is unable to be threaded past it. he was reluctant to put a catheter in the left femoral under concerns of infection risk for that area as he already has a dialysis catheter in the right femoral. He recommends that they not place a line there unless infectious disease wishes for a catheter vacation for his current right arm midline, at which point it is acceptable for insertion in the left femoral.
--- NOTE | 2021-03-03 23:22 | NUR ---
PATIENT ON CONT FRAGOSO VENT WITH PORTEX # [address] , SUCTION, TRACH CARE DONE, SUCTIONED LIGHT PALE YELL TINGE SECRETIONS, PT DOES ASSIST AT TIMES, CHECK CUFF, CHANGE HME, NEB INLINE X 2 TOLL WELL, ALL VENT ALARMS GOOD, NO VENT CHANGES MADE, AMBU BAG AT BEDSIDE , CURRENT VENT SETTINGS, A/C 15, 450ML, FIO2 @ 30% . Denise HALE RCP Addendum: 03/03/21 at 9825 by SANTOSH HALE RT Amended: Links added.
[2021-03-03] MEDS: NOREPINEPHRINE BITARTRATE 8 MG in IV NORMAL SALINE 242 ML IV PRN (23:29)
[2021-03-04] VITALS (49 sets, daily range): BP systolic 86–129; BP diastolic 42–71
[2021-03-04] MEDS: BLOOD SUGAR DIAGNOSTIC 1 EACH STRIP VI SCH ×4 (00:25→17:58)
[2021-03-04] MEDS: INSULIN REGULAR, HUMAN 300 UNIT/3 ML VIAL SQ PRN (00:26)
[2021-03-04] MEDS: IPRATROPIUM BROMIDE 0.5 MG/2.5 ML NEBU NEB SCH ×4 (01:57→18:59)
[2021-03-04] MEDS: ALBUTEROL SULFATE 2.5 MG/ 0.5 ML NEBU NEB SCH ×4 (01:58→18:59)
[2021-03-04 04:40] LABS: ABG BASE EXCESS 0.1 mmol/L; ABG PCO2 35.2 mmHg (35.0-45.0); ABG PH 7.451 (7.350-7.450); ABG PO2 91.8 mmHg (75.0-100.0); ABG SITE RIGHT RADIAL; COHb 1.6 % (0.5-1.5); MetHb 0.3 % (0.0-1.5); O2Hb 95.6 % (94.0-97.0); VENT MODE VENT - A/C; VT, ABG 450 mL
[2021-03-04 05:08] LABS: HEMATOCRIT 22.4 % (36.7-47.1); MEAN CORPUSCULAR VOLUME 94.1 fL (73.0-96.2); PLATELET COUNT (AUTO) 181 K/uL (152-348)
[2021-03-04 05:15] LABS: CARBON DIOXIDE 26 mmol/L (21-32); CHLORIDE 100 mmol/L (98-107); CREATININE 2.9 mg/dL (0.6-1.3); GLUCOSE 142 mg/dL (74-106); MAGNESIUM 1.8 mg/dL (1.8-2.4); PHOSPHOROUS 2.1 mg/dL (2.5-4.9); POTASSIUM 3.1 mmol/L (3.5-5.1); UREA NITROGEN, BLOOD 39 mg/dL (7-18)
--- NOTE | 2021-03-04 08:15 | NUR ---
Pt.was seen by with new orders.
[2021-03-04] MEDS: METOCLOPRAMIDE HCL 10 MG/2 ML VIAL IV SCH ×2 (08:37→17:28)
[2021-03-04] MEDS: ASPIRIN 81 MG TAB.CHEW GT SCH (08:37)
[2021-03-04] MEDS: MIDODRINE HCL 5 MG TABLET GT SCH ×3 (08:37→17:28)
[2021-03-04] MEDS: PANTOPRAZOLE SODIUM 40 MG VIAL IV SCH (08:38)
[2021-03-04] MEDS: SILVER SULFADIAZINE 1% CREAM 50 GM TP SCH ×2 (08:38→17:30)
[2021-03-04] MEDS: Z GUARD REMEDY PASTE 57 GM TUBE TOP SCH ×2 (08:38→20:50)
[2021-03-04] MEDS: CLOTRIMAZOLE 1% CREAM 30 GM TUBE TOP SCH ×2 (08:40→17:29)
[2021-03-04] MEDS: MUPIROCIN 2% OINT 22 GM TUBE TP SCH ×2 (08:43→20:51)
[2021-03-04] MEDS: SODIUM HYPOCHLORITE 0.125% (QUARTER STRENGTH) 473 ML BOTTLE TP SCH ×3 (08:44→17:30)
[2021-03-04] MEDS ORDERED: TPN BAG #10 IV SCH (11:00)
[2021-03-04] MEDS: POTASSIUM CHLORIDE 50 ML IV SCH ×2 (11:18→12:24)
[2021-03-04] MEDS: SODIUM PHOSPHATE MM 15 MMOL in IV NORMAL SALINE 250 ML IV SCH ×2 (12:59→17:28)
[2021-03-04] MEDS: IV FAT EMULSIONS 20% 250 ML IV SCH (14:50)
--- NOTE | 2021-03-04 17:30 | NUR ---
bed bath & dressing change done,pt.tolerated.well. BP remains stable,no s/s of distress or pain noted.
--- NOTE | 2021-03-04 19:00 | NUR ---
Received pt on Sinha vent with the following settings of AC-15, Vt-450, FIO2-30%, trached with Portex#8 cuffed trach, which is in place and secured properly. No s/s of respiratory distress noted. Airway care done, pt responded to physical stimuli. In-line HHN tx given, no adverse reaction noted. HME changed. Trach care done. Resus. bag at bedside. Vent and alarms on and audible.
[2021-03-05] VITALS (24 sets, daily range): BP systolic 98–151; BP diastolic 43–66
[2021-03-05] MEDS: BLOOD SUGAR DIAGNOSTIC 1 EACH STRIP VI SCH ×4 (00:33→17:54)
[2021-03-05] MEDS: IPRATROPIUM BROMIDE 0.5 MG/2.5 ML NEBU NEB SCH ×4 (01:19→19:12)
[2021-03-05] MEDS: ALBUTEROL SULFATE 2.5 MG/ 0.5 ML NEBU NEB SCH ×4 (01:19→19:12)
[2021-03-05 04:52] LABS: HEMATOCRIT 23.1 % (36.7-47.1)
[2021-03-05 04:54] LABS: MEAN CORPUSCULAR HEMOGLOBIN 29.8 uug (23.8-33.4); PLATELET COUNT (AUTO) 238 K/uL (152-348)
[2021-03-05 05:13] LABS: CARBON DIOXIDE 24 mmol/L (21-32); CHLORIDE 102 mmol/L (98-107); CREATININE 3.3 mg/dL (0.6-1.3); GLUCOSE 160 mg/dL (74-106); MAGNESIUM 1.7 mg/dL (1.8-2.4); POTASSIUM 3.3 mmol/L (3.5-5.1); TRIGLYCERIDES 100 MG/DL (30-150); UREA NITROGEN, BLOOD 45 mg/dL (7-18)
[2021-03-05] MEDS: INSULIN REGULAR, HUMAN 300 UNIT/3 ML VIAL SQ PRN ×2 (06:31→17:55)
[2021-03-05] MEDS: PANTOPRAZOLE SODIUM 40 MG VIAL IV SCH (08:17)
[2021-03-05] MEDS: METOCLOPRAMIDE HCL 10 MG/2 ML VIAL IV SCH ×2 (08:17→17:14)
[2021-03-05] MEDS: CLOTRIMAZOLE 1% CREAM 30 GM TUBE TOP SCH ×2 (08:17→17:11)
[2021-03-05] MEDS: SODIUM HYPOCHLORITE 0.125% (QUARTER STRENGTH) 473 ML BOTTLE TP SCH ×3 (08:18→17:11)
[2021-03-05] MEDS: Z GUARD REMEDY PASTE 57 GM TUBE TOP SCH ×2 (08:18→20:50)
[2021-03-05] MEDS: SILVER SULFADIAZINE 1% CREAM 50 GM TP SCH ×2 (08:18→17:11)
[2021-03-05] MEDS: MUPIROCIN 2% OINT 22 GM TUBE TP SCH ×2 (08:18→20:50)
[2021-03-05] MEDS: ASPIRIN 81 MG TAB.CHEW GT SCH (08:19)
[2021-03-05] MEDS: MIDODRINE HCL 5 MG TABLET GT SCH ×3 (08:19→17:00)
--- NOTE | 2021-03-05 08:45 | NUR ---
Dr. Solomon in unit to assess patient
--- NOTE | 2021-03-05 08:55 | NUR ---
Dr. Phan in unit to assess patient
[2021-03-05] MEDS ORDERED: EPOETIN ALFA-EPBX 10,000 UNIT/ML VIAL IV SCH ×2 (09:00→16:00)
[2021-03-05] MEDS ORDERED: TPN BAG #11 IV SCH (11:00)
--- NOTE | 2021-03-05 12:03 | NUR ---
HD in progress
[2021-03-05] MEDS: EPOETIN ALFA-EPBX 10,000 UNIT/ML VIAL IV SCH (12:06)
[2021-03-05] MEDS: ALBUMIN HUMAN 25% 100 ML IV PRN (12:07)
--- NOTE | 2021-03-05 12:19 | NUR ---
Epogen (post HD) & Albumin pulled and scanned - to be given by acetone recovery worker
--- NOTE | 2021-03-05 13:00 | NUR ---
HD completed - 2L removed - tolerated well
--- NOTE | 2021-03-05 14:30 | NUR ---
Patient cleared by Cardiology, Respiratory, & Surgical standpoints. Contacted Jill Software Engineer Sales regarding possible transfer to [facility] working on acquiring bed for patient.
[2021-03-05] MEDS: MAGNESIUM SULFATE/D5W 100 ML IV SCH ×2 (15:24→17:14)
--- NOTE | 2021-03-05 18:46 | NUR ---
Status unchanged. Patient has been accepted by [facility]) pending available bed. Cleared by Nephrology, Cardiology, Respiratory, Surgery, and Primary for transfer. Addendum: 03/05/21 at 1848 by AURA MARTINEZ RN Remains off pressors
--- NOTE | 2021-03-05 19:15 | NUR ---
RECEIVED PATIENT WITH SPONTANEOUS EYE OPENING , VENT SETTINGS OF AC 15 , 30 FIO2 % , NO FEVER , IV MIDLINE INTACT WITH TPN RUNNING AT 50 ML ,
--- NOTE | 2021-03-05 19:15 | NUR ---
HEMODIALYSIS ACCESS RIGHT GROIN INTACT , RECTAL TUBE INTACT
[2021-03-06] VITALS (23 sets, daily range): BP systolic 95–135; BP diastolic 36–69
[2021-03-06] MEDS: BLOOD SUGAR DIAGNOSTIC 1 EACH STRIP VI SCH ×5 (00:03→23:23)
[2021-03-06] MEDS: INSULIN REGULAR, HUMAN 300 UNIT/3 ML VIAL SQ PRN ×4 (00:04→23:26)
[2021-03-06] MEDS: ALBUTEROL SULFATE 2.5 MG/ 0.5 ML NEBU NEB SCH ×4 (01:03→21:02)
[2021-03-06] MEDS: IPRATROPIUM BROMIDE 0.5 MG/2.5 ML NEBU NEB SCH ×4 (01:03→21:02)
[2021-03-06 05:23] LABS: MEAN CORPUSCULAR HEMOGLOBIN 30.7 uug (23.8-33.4); MEAN CORPUSCULAR VOLUME 95.3 fL (73.0-96.2); PLATELET COUNT (AUTO) 216 K/uL (152-348)
[2021-03-06 05:44] LABS: CARBON DIOXIDE 26 mmol/L (21-32); CHLORIDE 100 mmol/L (98-107); CREATININE 2.8 mg/dL (0.6-1.3); GLUCOSE 138 mg/dL (74-106); MAGNESIUM 1.9 mg/dL (1.8-2.4); PHOSPHOROUS 2.6 mg/dL (2.5-4.9); UREA NITROGEN, BLOOD 34 mg/dL (7-18)
[2021-03-06 05:53] LABS: POTASSIUM 2.7 mmol/L (3.5-5.1)
--- NOTE | 2021-03-06 06:00 | NUR ---
doctor was called to inform potassium level waiting for call back
[2021-03-06] MEDS: SODIUM HYPOCHLORITE 0.125% (QUARTER STRENGTH) 473 ML BOTTLE TP SCH ×3 (08:00→16:32)
[2021-03-06] MEDS: METOCLOPRAMIDE HCL 10 MG/2 ML VIAL IV SCH ×2 (08:00→16:33)
[2021-03-06] MEDS: PANTOPRAZOLE SODIUM 40 MG VIAL IV SCH (08:00)
[2021-03-06] MEDS: CLOTRIMAZOLE 1% CREAM 30 GM TUBE TOP SCH ×2 (08:00→16:32)
[2021-03-06] MEDS: MUPIROCIN 2% OINT 22 GM TUBE TP SCH ×2 (08:00→20:40)
[2021-03-06] MEDS: SILVER SULFADIAZINE 1% CREAM 50 GM TP SCH ×2 (08:01→16:32)
[2021-03-06] MEDS: ASPIRIN 81 MG TAB.CHEW GT SCH (08:01)
[2021-03-06] MEDS: Z GUARD REMEDY PASTE 57 GM TUBE TOP SCH ×2 (08:01→20:40)
[2021-03-06] MEDS: MIDODRINE HCL 5 MG TABLET GT SCH ×3 (08:01→16:31)
[2021-03-06] MEDS: POTASSIUM CHLORIDE 50 ML IV SCH ×2 (08:41→09:43)
--- NOTE | 2021-03-06 08:53 | NUR ---
Cheryl WEAVER (GI Surgical) in unit to assess patient - Plan is now surgery, likely tomorrow (03/07/2021)
[2021-03-06] MEDS ORDERED: TPN BAG #12 IV SCH (11:00)
--- NOTE | 2021-03-06 13:25 | NUR ---
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
[2021-03-06] MEDS: IV FAT EMULSIONS 20% 250 ML IV SCH (13:33)
--- NOTE | 2021-03-06 16:30 | NUR ---
Cheryl WEAVER (GI) also made contact with daughter in-law & son - obtained consent for procedure scheduled for tomorrow.
--- NOTE | 2021-03-06 17:35 | NUR ---
PT RECEIVED TRACH TO VENT ON CMV. PORTEX #8 TRACH IS PATENT AND SECURE. VENT PARAMETERS AND ALARMS CHECKED. ALARMS ARE AUDIBLE. PT IS ON A FRAGOSO VENT ON SETTINGS OF A/C 15, VT 450, 30% FIO2. PT IS TOLERATING VENT WELL. PT STABLE THROUGHOUT SHIFT. TRACH CARE PERFORMED, HME AND SCHMIDT CHANGED DURING SHIFT. SPO2 AND RESPIRATIONS WNL. NO SIGNS OR SYMPTOMS OF RESP. DISTRESS NOTED. BVM AND BACK-UP TRACH AT BEDSIDE. VENT PLUGGED INTO RED OUTLET. SUCTION PRN. WILL CONTINUE TO MONITOR.
--- NOTE | 2021-03-06 18:06 | NUR ---
No changes. See previous notes regarding surgery. Still off pressors.
--- NOTE | 2021-03-06 19:30 | NUR ---
Report received. Patient with trache to vent settings: AC= 15, FIO2=30%, AT=358jc; O2 saturations above 94%. Eyes open, grimaces to pain but doesn't follow any commands. Extremities rigid. On continuous PPN at 50 ml/H and Lipids via VELASQUEZ midline. Assessment completed and documented. Addendum: 03/07/21 at 0642 by DANDRE WIGGINS RN Amended: Links added.
--- NOTE | 2021-03-06 21:50 | NUR ---
Received a call from Dr. Smith anesthesiologist; orders received for early am labs: CBC, BMP, type and crossmatch 2 units of PRBCs. Also ordered not to do dialysis prior to surgery. Advised this RN to inform Dr. Finley re: this. Dr. Smith # [phone].
--- NOTE | 2021-03-06 22:00 | NUR ---
Spoke to Dr. Finley re: dialysis. Okayed to do dialysis after tomorrow's surgery. Also spoke to Jackson from lab re: blood orders.
[2021-03-07] VITALS (34 sets, daily range): BP systolic 84–147; BP diastolic 32–102
--- NOTE | 2021-03-07 00:09 | NUR ---
PATIENT ON CONT FRAGOSO VENT WITH PORTEX # [address] WITH SAME CURRENT VENT SETTINGS, A/C 15, 450ML, 30%, PT DOES ASSIST AT TIMES, GOOD COUGH AND GAG REFLEX, SUCTIONED LIGHT PALE YELL TINGE SECRETIONS, NEB INLINE X 2 , TOLL WELL, CHANGE HME, ALL VENT ALARMS GOOD, NO VENT CHANGES MADE. Denise NAVARRETEP Addendum: 03/07/21 at 0011 by SANTOSH HALE RT Amended: Links added.
[2021-03-07] MEDS: IPRATROPIUM BROMIDE 0.5 MG/2.5 ML NEBU NEB SCH ×4 (00:25→19:50)
[2021-03-07] MEDS: ALBUTEROL SULFATE 2.5 MG/ 0.5 ML NEBU NEB SCH ×4 (00:26→19:51)
[2021-03-07 05:21] LABS: CARBON DIOXIDE 25 mmol/L (21-32); CHLORIDE 102 mmol/L (98-107); CREATININE 3.2 mg/dL (0.6-1.3); GLUCOSE 148 mg/dL (74-106); PHOSPHOROUS 2.6 mg/dL (2.5-4.9); POTASSIUM 2.9 mmol/L (3.5-5.1); UREA NITROGEN, BLOOD 40 mg/dL (7-18)
[2021-03-07 05:25] LABS: HEMATOCRIT 22.6 % (36.7-47.1); MEAN CORPUSCULAR HEMOGLOBIN 30.8 uug (23.8-33.4); MEAN CORPUSCULAR VOLUME 95.2 fL (73.0-96.2); PLATELET COUNT (AUTO) 247 K/uL (152-348)
[2021-03-07] MEDS: BLOOD SUGAR DIAGNOSTIC 1 EACH STRIP VI SCH ×3 (05:33→19:04)
[2021-03-07] MEDS: INSULIN REGULAR, HUMAN 300 UNIT/3 ML VIAL SQ PRN ×2 (05:34→19:02)
--- NOTE | 2021-03-07 06:38 | NUR ---
Condition unchanged. BPs in the 90's systole. Remains Afib on the monitor rate in the 80's.
[2021-03-07] MEDS: ASPIRIN 81 MG TAB.CHEW GT SCH (09:00)
[2021-03-07] MEDS: MIDODRINE HCL 5 MG TABLET GT SCH ×3 (09:00→17:29)
[2021-03-07] MEDS: POTASSIUM CHLORIDE 50 ML IV SCH ×3 (09:14→11:01)
[2021-03-07] MEDS: PANTOPRAZOLE SODIUM 40 MG VIAL IV SCH (09:14)
[2021-03-07] MEDS: METOCLOPRAMIDE HCL 10 MG/2 ML VIAL IV SCH ×2 (09:14→17:29)
[2021-03-07] MEDS: CLOTRIMAZOLE 1% CREAM 30 GM TUBE TOP SCH ×2 (09:16→17:25)
[2021-03-07] MEDS: SODIUM HYPOCHLORITE 0.125% (QUARTER STRENGTH) 473 ML BOTTLE TP SCH ×3 (09:16→17:26)
[2021-03-07] MEDS: MUPIROCIN 2% OINT 22 GM TUBE TP SCH ×2 (09:16→20:39)
[2021-03-07] MEDS: Z GUARD REMEDY PASTE 57 GM TUBE TOP SCH ×2 (09:17→20:39)
[2021-03-07] MEDS: SILVER SULFADIAZINE 1% CREAM 50 GM TP SCH ×2 (09:19→17:25)
--- NOTE | 2021-03-07 10:53 | NUR ---
WOUND CARE CONSULT: RECEIVED CONSULT FOR SKIN AROUND TRACH. SKIN IS INTACT AROUND TRACH. PT ASSESSED WITH RESPIRATORY THERAPIST AT BEDSIDE. CONTINUE ALL SKIN PROTECTION MEASURES CURRENTLY IN PLACE. DISCUSSED WITH NURSING STAFF. PT FOLLOWED BY SURGICAL TEAMS FOR WOUND CARE. DEFER TO SURGICAL TEAMS FOR WOUND TREATMENT. PT IS ON FIRST STEP RICARDO BOSTON MD IN AGREEMENT WITH PLAN OF CARE.
[2021-03-07] MEDS ORDERED: TPN BAG #13 IV SCH (11:00)
[2021-03-07] MEDS ORDERED: FENTANYL CITRATE 100 MCG/2 ML AMPUL ONE (11:44)
[2021-03-07] MEDS ORDERED: MIDAZOLAM HCL 2 MG/2 ML VIAL ONE (11:44)
[2021-03-07] MEDS: NOREPINEPHRINE BITARTRATE 8 MG in IV NORMAL SALINE 242 ML IV PRN (11:48)
[2021-03-07] MEDS ORDERED: ROCURONIUM BROMIDE 50 MG/5 ML VIAL ONE (13:20)
--- NOTE | 2021-03-07 14:53 | NUR ---
Returned from surgery at 1420 accompanied by two OR RNs and RT.
--- NOTE | 2021-03-07 19:00 | NUR ---
mottled in color , left eye slightly red and swollen
--- NOTE | 2021-03-07 19:00 | NUR ---
received patient , no spontaneous eye opening tonight , dialysis on going , tf , 10 ml of nephro , no residual noted , vent settings of ac 15 tv 450 30 fio2 % . aurora cath right femoral intact , midline gordo intact and flushed , no fever , noted , dressing intact on affected sites
--- NOTE | 2021-03-07 23:55 | NUR ---
PATIENT ON CONT FARGOSO VENT WITH PORTEX # 8, PT WITH VENT SETTINGS, A/C 15, 450ML, FIO2 @ 30%, PT DOES ASSIST AT TIMES, GOOD COUGH, SUCTIONED LIGHT PALE YELL TINGE SECRETIONS, AND SUCTION MOUTH WITH MARTHA CHARLTON, CHANGE HME, SUCTION, TRACH CARE, ALL VENT ALARMS GOOD, NO VENT CHANGES MADE. Denise HALE RCP Addendum: 03/07/21 at 2357 by SANTOSH HERNANDEZ Amended: Links added. Addendum: 03/08/21 at 0003 by SANTOSH HERNANDEZ PT RECEIVED 2 NEB INLINE RXS, MARTHA LOPEZ. Denise HALE RCP
[2021-03-08] VITALS (24 sets, daily range): BP systolic 74–146; BP diastolic 34–86
[2021-03-08] MEDS: IPRATROPIUM BROMIDE 0.5 MG/2.5 ML NEBU NEB SCH ×4 (00:17→20:01)
[2021-03-08] MEDS: ALBUTEROL SULFATE 2.5 MG/ 0.5 ML NEBU NEB SCH ×4 (00:18→20:01)
[2021-03-08] MEDS: INSULIN REGULAR, HUMAN 300 UNIT/3 ML VIAL SQ PRN ×2 (01:13→05:41)
[2021-03-08 05:09] LABS: HEMATOCRIT 29.1 % (36.7-47.1); MEAN CORPUSCULAR HEMOGLOBIN 29.9 uug (23.8-33.4); MEAN CORPUSCULAR VOLUME 92.2 fL (73.0-96.2); PLATELET COUNT (AUTO) 223 K/uL (152-348)
[2021-03-08 05:24] LABS: CARBON DIOXIDE 24 mmol/L (21-32); CHLORIDE 100 mmol/L (98-107); GLUCOSE 99 mg/dL (74-106); PHOSPHOROUS 2.7 mg/dL (2.5-4.9); UREA NITROGEN, BLOOD 36 mg/dL (7-18)
[2021-03-08] MEDS: BLOOD SUGAR DIAGNOSTIC 1 EACH STRIP VI SCH ×3 (05:39→12:34)
--- NOTE | 2021-03-08 07:46 | NUR ---
Per PM RN report, accucheck machine has been down since last night. Q6h glucose check will be run by lab, per prosthetic lab technician.
[2021-03-08] MEDS: POTASSIUM CHLORIDE 50 ML IV SCH ×2 (07:59→09:17)
[2021-03-08] MEDS: ASPIRIN 81 MG TAB.CHEW GT SCH (08:01)
[2021-03-08] MEDS: METOCLOPRAMIDE HCL 10 MG/2 ML VIAL IV SCH ×2 (08:01→17:16)
[2021-03-08] MEDS: PANTOPRAZOLE SODIUM 40 MG VIAL IV SCH (08:01)
[2021-03-08] MEDS: MIDODRINE HCL 5 MG TABLET GT SCH ×3 (08:01→17:16)
[2021-03-08] MEDS: SILVER SULFADIAZINE 1% CREAM 50 GM TP SCH ×2 (08:02→17:14)
[2021-03-08] MEDS: Z GUARD REMEDY PASTE 57 GM TUBE TOP SCH ×2 (08:02→22:30)
[2021-03-08] MEDS: MUPIROCIN 2% OINT 22 GM TUBE TP SCH ×2 (08:02→22:30)
[2021-03-08] MEDS: CLOTRIMAZOLE 1% CREAM 30 GM TUBE TOP SCH ×2 (08:02→17:14)
[2021-03-08] MEDS: SODIUM HYPOCHLORITE 0.125% (QUARTER STRENGTH) 473 ML BOTTLE TP SCH ×3 (08:02→17:14)
[2021-03-08 09:29] LABS: ABG BASE EXCESS -0.2 mmol/L; ABG HCO3 23.4 mmol/L; ABG PCO2 34.3 mmHg (35.0-45.0); ABG PH 7.451 (7.350-7.450); ABG PO2 70.3 mmHg (75.0-100.0); ABG SITE RIGHT BRACHIAL; ABG TOTAL HEMOGLOBIN 10.4 G/dL (13.5-18.0); COHb 1.8 % (0.5-1.5); MetHb 0.3 % (0.0-1.5); O2Hb 92.6 % (94.0-97.0); VENT MODE VENT - A/C; VT, ABG 450 mL
--- NOTE | 2021-03-08 18:00 | NUR ---
Wound care performed after patient care performed. Patient tolerated well.
--- NOTE | 2021-03-08 19:00 | NUR ---
received patient with spontaneous eye opening , vent setting of ac 15 tv 450 30 % +, tf nephro 40 ml , no residual noted , no fever noted , aurora catheter right groin intact , mid line intact gordo , rectal minimal output
[2021-03-09] VITALS (27 sets, daily range): BP systolic 80–161; BP diastolic 39–94
[2021-03-09] MEDS: BLOOD SUGAR DIAGNOSTIC 1 EACH STRIP VI SCH ×5 (01:36→18:17)
[2021-03-09] MEDS: IPRATROPIUM BROMIDE 0.5 MG/2.5 ML NEBU NEB SCH ×4 (02:55→18:10)
[2021-03-09] MEDS: ALBUTEROL SULFATE 2.5 MG/ 0.5 ML NEBU NEB SCH ×4 (02:55→18:10)
[2021-03-09 05:36] LABS: HEMATOCRIT 28.5 % (36.7-47.1); MEAN CORPUSCULAR HEMOGLOBIN 30.6 uug (23.8-33.4); MEAN CORPUSCULAR VOLUME 91.7 fL (73.0-96.2); PLATELET COUNT (AUTO) 264 K/uL (152-348)
[2021-03-09 05:47] LABS: PHOSPHOROUS 2.8 mg/dL (2.5-4.9)
--- NOTE | 2021-03-09 06:30 | NUR ---
same vent setting , no fver noted , dressing changed on affected sites , abdominal incision with smal pinkish drainage with liana intact , tf at 50 ml ,
[2021-03-09 06:36] LABS: CARBON DIOXIDE 26 mmol/L (21-32); CHLORIDE 102 mmol/L (98-107); CREATININE 3.5 mg/dL (0.6-1.3); GLUCOSE 169 mg/dL (74-106); POTASSIUM 3.5 mmol/L (3.5-5.1); UREA NITROGEN, BLOOD 41 mg/dL (7-18)
[2021-03-09] MEDS: INSULIN REGULAR, HUMAN 300 UNIT/3 ML VIAL SQ PRN ×2 (06:50→11:44)
[2021-03-09] MEDS: PANTOPRAZOLE SODIUM 40 MG VIAL IV SCH (08:36)
[2021-03-09] MEDS: ASPIRIN 81 MG TAB.CHEW GT SCH (08:36)
[2021-03-09] MEDS: METOCLOPRAMIDE HCL 10 MG/2 ML VIAL IV SCH (08:36)
[2021-03-09] MEDS: MIDODRINE HCL 5 MG TABLET GT SCH ×3 (08:36→17:01)
[2021-03-09] MEDS: CLOTRIMAZOLE 1% CREAM 30 GM TUBE TOP SCH ×2 (08:37→17:01)
[2021-03-09] MEDS: MUPIROCIN 2% OINT 22 GM TUBE TP SCH ×2 (08:37→20:50)
[2021-03-09] MEDS: Z GUARD REMEDY PASTE 57 GM TUBE TOP SCH ×2 (08:37→20:49)
[2021-03-09] MEDS: SODIUM HYPOCHLORITE 0.125% (QUARTER STRENGTH) 473 ML BOTTLE TP SCH ×3 (08:37→17:01)
[2021-03-09] MEDS: SILVER SULFADIAZINE 1% CREAM 50 GM TP SCH ×2 (08:38→17:02)
--- NOTE | 2021-03-09 09:01 | NUR ---
laboratory monitor at bedside. Provide latest lab results and copy of dialysis order.
[2021-03-09] MEDS: NOREPINEPHRINE BITARTRATE 8 MG in IV NORMAL SALINE 242 ML IV PRN (10:13)
--- NOTE | 2021-03-09 10:27 | NUR ---
Levophed initiated for BP support during dialysis
[2021-03-09] MEDS ORDERED: ALTEPLASE 2 MG VIAL XX ONE (10:45)
--- NOTE | 2021-03-09 10:45 | NUR ---
Dialysis catheter clotted. Help Desk Specialist aware. Received order for alteplase for telephoner to administer through dialysis catheter.
[2021-03-09] MEDS: METOCLOPRAMIDE HCL 10 MG TABLET GT SCH (17:01)
--- NOTE | 2021-03-09 19:05 | NUR ---
Received patient in bed. Patient remains obtunded and on the ventilator. Patient has a Shiley 8 trach, vent settings AC 15, Vt 450, FiO2 30%, PEEP 0. Currently off Levophed. Tf nephro 50 ml, 20mL residual noted, no fever noted, aurora catheter right groin intact, mid line intact gordo, rectal minimal output. All wound dressings clean.
[2021-03-09] MEDS: NEPRO 1000 ML GT PRN (19:31)
--- NOTE | 2021-03-09 20:39 | NUR ---
patient restarted on Levophed as patient unable to maintain SBP >90. Current BP 80/45.
[2021-03-10] VITALS (36 sets, daily range): BP systolic 74–131; BP diastolic 34–71
[2021-03-10] MEDS: BLOOD SUGAR DIAGNOSTIC 1 EACH STRIP VI SCH ×4 (00:04→18:48)
[2021-03-10] MEDS: INSULIN REGULAR, HUMAN 300 UNIT/3 ML VIAL SQ PRN ×2 (00:05→18:50)
[2021-03-10] MEDS: ALBUTEROL SULFATE 2.5 MG/ 0.5 ML NEBU NEB SCH ×4 (00:31→19:23)
[2021-03-10] MEDS: IPRATROPIUM BROMIDE 0.5 MG/2.5 ML NEBU NEB SCH ×4 (00:31→19:23)
[2021-03-10 05:30] LABS: HEMATOCRIT 27.7 % (36.7-47.1); MEAN CORPUSCULAR HEMOGLOBIN 30.4 uug (23.8-33.4); MEAN CORPUSCULAR VOLUME 92.5 fL (73.0-96.2); PLATELET COUNT (AUTO) 259 K/uL (152-348)
[2021-03-10 05:40] LABS: CARBON DIOXIDE 25 mmol/L (21-32); CHLORIDE 101 mmol/L (98-107); CREATININE 3.8 mg/dL (0.6-1.3); GLUCOSE 126 mg/dL (74-106); MAGNESIUM 1.9 mg/dL (1.8-2.4); PHOSPHOROUS 2.8 mg/dL (2.5-4.9); POTASSIUM 3.6 mmol/L (3.5-5.1); UREA NITROGEN, BLOOD 47 mg/dL (7-18)
--- NOTE | 2021-03-10 07:15 | NUR ---
Received report from slot shift manager nurse, patient with spontaneous eye opening, vent setting of ac 15 tv 450, Fio2 30%, tf nephro Off at this time. No fever noted , aurora catheter in right groin intact, mid line intact VELASQUEZ, rectal tube in place, air mattress inflated, bed in low position, side rails upx2.
--- NOTE | 2021-03-10 07:50 | NUR ---
PATIENT REMAINS ON CONTINUOUS MECHANICAL VENTILATION. VENT SETTINGS REMAIN ORDERED. NO CHANGES MADE. CONTINUES TO RECEIVE Q6 TREATMENT ORDERED BY MD. SUCTION PRN. HME CHANGED. TRACH CARE DONE. NO S/S OF RESPIRATORY DISTRESS NOTED. VENT ALARMS ARE ON AND AUDIBLE. BVM AND BACK UP TRACH AT BEDSIDE.
[2021-03-10] MEDS: METOCLOPRAMIDE HCL 10 MG TABLET GT SCH ×2 (08:29→17:59)
[2021-03-10] MEDS: PANTOPRAZOLE ORAL SUSPENSION 40 MG SUSPDR.PKT GT SCH (08:29)
[2021-03-10] MEDS: ASPIRIN 81 MG TAB.CHEW GT SCH (08:29)
[2021-03-10] MEDS: MIDODRINE HCL 5 MG TABLET GT SCH ×2 (08:29→12:16)
[2021-03-10] MEDS: MUPIROCIN 2% OINT 22 GM TUBE TP SCH ×2 (08:30→21:13)
[2021-03-10] MEDS: CLOTRIMAZOLE 1% CREAM 30 GM TUBE TOP SCH ×2 (08:30→18:00)
[2021-03-10] MEDS: Z GUARD REMEDY PASTE 57 GM TUBE TOP SCH ×2 (08:30→21:12)
[2021-03-10] MEDS: SODIUM HYPOCHLORITE 0.125% (QUARTER STRENGTH) 473 ML BOTTLE TP SCH ×3 (08:31→18:00)
[2021-03-10] MEDS: SILVER SULFADIAZINE 1% CREAM 50 GM TP SCH ×2 (08:31→18:00)
--- NOTE | 2021-03-10 08:36 | NUR ---
Dialysis initiated by Dialysis nurse.
[2021-03-10] MEDS ORDERED: MIDODRINE HCL 5 MG TABLET GT SCH (17:00)
--- NOTE | 2021-03-10 20:00 | NUR ---
Wound care on the left foot wounds completed without complication.
--- NOTE | 2021-03-10 21:25 | NUR ---
Received patient in bed. Patient remains obtunded and on the ventilator. Patient has a Shiley 8 trach, vent settings AC 15, Vt 450, FiO2 30%, PEEP 0. Currently off Levophed. Tf nephro 50 ml, 0mL residual noted, no fever noted, Manjinder catheter right groin intact, mid line intact gordo, rectal minimal output. All wound dressings clean, however left foot wound care to be done soon.
[2021-03-10] MEDS: IV NORMAL SALINE 250 ML IV PRN (21:35)
[2021-03-11] VITALS (51 sets, daily range): BP systolic 71–111; BP diastolic 43–61
[2021-03-11] MEDS: BLOOD SUGAR DIAGNOSTIC 1 EACH STRIP VI SCH ×5 (00:02→23:26)
[2021-03-11] MEDS: INSULIN REGULAR, HUMAN 300 UNIT/3 ML VIAL SQ PRN ×5 (00:03→23:28)
[2021-03-11] MEDS: ALBUTEROL SULFATE 2.5 MG/ 0.5 ML NEBU NEB SCH ×4 (01:17→19:15)
[2021-03-11] MEDS: IPRATROPIUM BROMIDE 0.5 MG/2.5 ML NEBU NEB SCH ×4 (01:18→19:15)
[2021-03-11] MEDS: NEPRO 1000 ML GT PRN (04:47)
[2021-03-11 05:20] LABS: HEMATOCRIT 27.9 % (36.7-47.1); MEAN CORPUSCULAR VOLUME 92.4 fL (73.0-96.2); PLATELET COUNT (AUTO) 210 K/uL (152-348)
[2021-03-11 05:33] LABS: CARBON DIOXIDE 27 mmol/L (21-32); CHLORIDE 101 mmol/L (98-107); CREATININE 2.9 mg/dL (0.6-1.3); GLUCOSE 153 mg/dL (74-106); PHOSPHOROUS 2.1 mg/dL (2.5-4.9); POTASSIUM 3.4 mmol/L (3.5-5.1); UREA NITROGEN, BLOOD 35 mg/dL (7-18)
[2021-03-11 05:49] LABS: MAGNESIUM 1.7 mg/dL (1.8-2.4)
[2021-03-11] MEDS: MIDODRINE HCL 5 MG TABLET GT SCH ×3 (07:58→21:59)
[2021-03-11 08:10] LABS: ABG BASE EXCESS 1.4 mmol/L; ABG HCO3 24.8 mmol/L; ABG PCO2 34.9 mmHg (35.0-45.0); ABG PO2 72.5 mmHg (75.0-100.0); ABG SITE RIGHT RADIAL; ABG TOTAL HEMOGLOBIN 10.3 G/dL (13.5-18.0); COHb 2.6 % (0.5-1.5); MetHb 0.3 % (0.0-1.5); O2Hb 91.7 % (94.0-97.0); VENT MODE VENT - A/C; VT, ABG 450 mL
[2021-03-11] MEDS: PANTOPRAZOLE ORAL SUSPENSION 40 MG SUSPDR.PKT GT SCH (08:17)
[2021-03-11] MEDS: ASPIRIN 81 MG TAB.CHEW GT SCH (08:17)
[2021-03-11] MEDS: METOCLOPRAMIDE HCL 10 MG TABLET GT SCH ×2 (08:17→18:02)
[2021-03-11] MEDS: MUPIROCIN 2% OINT 22 GM TUBE TP SCH ×2 (08:20→22:00)
[2021-03-11] MEDS: CLOTRIMAZOLE 1% CREAM 30 GM TUBE TOP SCH ×2 (08:21→18:03)
[2021-03-11] MEDS: SILVER SULFADIAZINE 1% CREAM 50 GM TP SCH ×2 (08:21→18:03)
[2021-03-11] MEDS: SODIUM HYPOCHLORITE 0.125% (QUARTER STRENGTH) 473 ML BOTTLE TP SCH ×3 (08:22→18:03)
[2021-03-11] MEDS: Z GUARD REMEDY PASTE 57 GM TUBE TOP SCH ×2 (08:22→22:00)
[2021-03-11] MEDS ORDERED: MAGNESIUM SULFATE/D5W 100 ML IV SCH (09:15)
[2021-03-11] MEDS ORDERED: POTASSIUM CHLORIDE 20 MEQ POWDER PACKET GT ONE (09:15)
[2021-03-11 11:24] LABS: *CLARITY,URINE TURBID (CLEAR); *COLOR,URINE BROWN (YELLOW); UGLUCOSE NEGATIVE (NEGATIVE)
[2021-03-11 11:25] LABS: *BILIRUBIN,URIN 1+ (NEGATIVE); *KETONES,URINE TRACE (NEGATIVE)
[2021-03-11 11:26] LABS: *BLOOD, URINE 3+ (NEGATIVE); PH,URINE 6.5 (5.0-8.0)
[2021-03-11 11:27] LABS: *UROBILINOGEN,URINE 0.2 E.U./dl (NORMAL)
[2021-03-11 11:28] LABS: LEUKOCYTE ESTERASE ,URINE 3+ (NEGATIVE); NITRITE, URINE NEGATIVE (NEGATIVE)
[2021-03-11 14:18] LABS: WBC,URINE TNTC /HPF (0-3)
[2021-03-11 14:21] LABS: BACTERIA,URINE MODERATE /HPF (NONE SEEN); SQUAMOUS EPITHELIAL CELL,UR MODERATE /HPF (NONE SEEN)
--- NOTE | 2021-03-11 19:30 | NUR ---
Dr. Romero in the unit. Report given. No orders received.
[2021-03-12] VITALS (27 sets, daily range): BP systolic 68–151; BP diastolic 39–86
[2021-03-12] MEDS: IV NORMAL SALINE 250 ML IV PRN (00:40)
[2021-03-12] MEDS: IPRATROPIUM BROMIDE 0.5 MG/2.5 ML NEBU NEB SCH ×3 (01:02→14:55)
[2021-03-12] MEDS: ALBUTEROL SULFATE 2.5 MG/ 0.5 ML NEBU NEB SCH ×3 (01:02→14:55)
--- NOTE | 2021-03-12 03:57 | NUR ---
Pt received in bed, laying semi-Ramirez's, unable to communicate..Trach: Portex [address] and secure with trach tie.. Mechanical ventilation: settings A/C 15, Vt 450, FiO2 30%, tolerating well, no changes made.. BVM and back up trach at bedside.. Alarms on and audible.. No changes made throughout shift..
[2021-03-12 05:01] LABS: HEMATOCRIT 28.5 % (36.7-47.1); MEAN CORPUSCULAR HEMOGLOBIN 30.1 uug (23.8-33.4); MEAN CORPUSCULAR VOLUME 92.4 fL (73.0-96.2); PLATELET COUNT (AUTO) 202 K/uL (152-348)
[2021-03-12 05:10] LABS: CARBON DIOXIDE 27 mmol/L (21-32); CHLORIDE 101 mmol/L (98-107); CREATININE 3.5 mg/dL (0.6-1.3); GLUCOSE 143 mg/dL (74-106); MAGNESIUM 1.9 mg/dL (1.8-2.4); PHOSPHOROUS 2.6 mg/dL (2.5-4.9); POTASSIUM 3.8 mmol/L (3.5-5.1); UREA NITROGEN, BLOOD 42 mg/dL (7-18)
[2021-03-12] MEDS: BLOOD SUGAR DIAGNOSTIC 1 EACH STRIP VI SCH ×3 (06:16→17:42)
[2021-03-12] MEDS: MIDODRINE HCL 5 MG TABLET GT SCH ×2 (06:16→16:42)
[2021-03-12] MEDS: INSULIN REGULAR, HUMAN 300 UNIT/3 ML VIAL SQ PRN ×2 (06:17→12:29)
--- NOTE | 2021-03-12 07:24 | NUR ---
Received pt. on ventilator A/C 15, Tv450, FIO2 30% no respiratory distress noted. G-T with feeding to be resumed as ordered, no residuals. Stuart with scant whitish output. Hemodynamically stable no need of pressors. Neuro-winters pt. remains obtunded. Wound with dressing c.d.i. just changed as reported. Will continue with care plan.
[2021-03-12] MEDS: METOCLOPRAMIDE HCL 10 MG TABLET GT SCH ×2 (08:00→17:01)
[2021-03-12] MEDS: ASPIRIN 81 MG TAB.CHEW GT SCH (08:00)
[2021-03-12] MEDS: PANTOPRAZOLE ORAL SUSPENSION 40 MG SUSPDR.PKT GT SCH (08:00)
[2021-03-12] MEDS: CLOTRIMAZOLE 1% CREAM 30 GM TUBE TOP SCH ×2 (08:01→17:42)
[2021-03-12] MEDS: SODIUM HYPOCHLORITE 0.125% (QUARTER STRENGTH) 473 ML BOTTLE TP SCH ×3 (08:01→17:42)
[2021-03-12] MEDS: MUPIROCIN 2% OINT 22 GM TUBE TP SCH (08:02)
[2021-03-12] MEDS: Z GUARD REMEDY PASTE 57 GM TUBE TOP SCH (08:02)
[2021-03-12] MEDS: SILVER SULFADIAZINE 1% CREAM 50 GM TP SCH ×2 (08:03→17:42)
[2021-03-12] MEDS ORDERED: Nepro GT (11:20)
[2021-03-12] MEDS ORDERED: ZINC1CAP3 GT (11:20)
[2021-03-12] MEDS ORDERED: MINE454C11 TOP (11:20)
[2021-03-12] MEDS ORDERED: SODI473S8 TP (11:20)
[2021-03-12] MEDS ORDERED: MENT71OI TOP (11:20)
[2021-03-12] MEDS ORDERED: CLOT30CR24 TOP (11:20)
[2021-03-12] MEDS ORDERED: MIDO5TAB4 GT (11:20)
[2021-03-12] MEDS ORDERED: LEVO250T59 PO (11:20)
[2021-03-12] MEDS ORDERED: METO10TA3 GT (11:20)
[2021-03-12] MEDS ORDERED: ACID1TAB4 GT (11:21)
[2021-03-12 13:06] LABS: HEPATITIS B SURFACE AG Negative (Negative)
--- NOTE | 2021-03-12 13:30 | NUR ---
Saturninoalisis in progress.
[2021-03-12] MEDS: EPOETIN ALFA-EPBX 10,000 UNIT/ML VIAL IV SCH (13:49)
[2021-03-12] MEDS: ALBUMIN HUMAN 25% 100 ML IV PRN (14:07)
--- NOTE | 2021-03-12 14:12 | NUR ---
SBP of 68/39 with heart rate of 86 pt. awake, levophed started, will continue to monitor
--- NOTE | 2021-03-12 15:36 | NUR ---
A call to [facility] and telephone report given to receiving Shauna Hodges. All system report and care plan reported, with call back number to the unit if receiving staff has more questions. Nurse aware that pt. will be going with herring in place and PICC line to RUE. and also informed of wounds.
--- NOTE | 2021-03-12 16:10 | NUR ---
Patient seen by Dr. Oliver and Cira Scott from surgery.
--- NOTE | 2021-03-12 16:54 | NUR ---
HD completed at this time with reports of a total of 2 L. fluids removed. during procedure pt. supported with levophed as requested by NICKI Smith. Krystina
--- NOTE | 2021-03-12 18:12 | NUR ---
GINGER in the unit to brick picker pt. and transfer him to [facility]. Report given to EMS Donnell. vitals: HR 80, sbp 102/50 100% sat on mechanical ventilator. PICC line patent to VIKA and clamped at this time. pt. going with rectal tube in place for wound protection. Stuart to gravity draining dark coffee urine. Wound with dressing in place just changed.
--- NOTE | 2021-03-12 18:26 | NUR ---
Patient picked up by hammer repairer w/ ALS Nurse (GINGER) for transport to [facility]. Stable condition. No distress noted.
== END 2021-03-12 18:46 | DRG 853 ==
LOC: ER 14:35 → UNDOADMIN 21:39 → TELE-TD3 21:39 → TELE3 21:39 → CCU 01-18 08:10 → TELE-TD3 01-24 21:50 → CCU 01-31 18:34
PROVIDERS: ADMIT Nurse Practitioner Acute Care; ATTEND Internal Medicine
PROC: 5A1955Z Respiratory Ventilation, Greater than 96 Consecutive Hours (ICD-10-PCS; principal; 2021-01-14)
PROC: 30233N1 Transfusion of Nonautologous Red Blood Cells into Peripheral Vein, Percutaneous Approach (ICD-10-PCS; 2021-01-15)
PROC: 05H533Z Insertion of Infusion Device into Right Subclavian Vein, Percutaneous Approach (ICD-10-PCS; 2021-01-15)
PROC: B546ZZA Ultrasonography of Right Subclavian Vein, Guidance (ICD-10-PCS; 2021-01-15)
PROC: 5A1D70Z Performance of Urinary Filtration, Intermittent, Less than 6 Hours Per Day (ICD-10-PCS; 2021-01-16)
PROC: 0JBR0ZZ Excision of Left Foot Subcutaneous Tissue and Fascia, Open Approach (ICD-10-PCS; 2021-01-16)
PROC: 0W993ZX Drainage of Right Pleural Cavity, Percutaneous Approach, Diagnostic (ICD-10-PCS; 2021-01-18)
PROC: 0D20XUZ Change Feeding Device in Upper Intestinal Tract, External Approach (ICD-10-PCS; 2021-01-22)
PROC: 0D20XUZ Change Feeding Device in Upper Intestinal Tract, External Approach (ICD-10-PCS; 2021-01-23)
PROC: 0JBR0ZZ Excision of Left Foot Subcutaneous Tissue and Fascia, Open Approach (ICD-10-PCS; 2021-01-28)
PROC: 0KBP0ZZ Excision of Left Hip Muscle, Open Approach (ICD-10-PCS; 2021-01-28)
PROC: 0KBN0ZZ Excision of Right Hip Muscle, Open Approach (ICD-10-PCS; 2021-01-28)
PROC: 05H533Z Insertion of Infusion Device into Right Subclavian Vein, Percutaneous Approach (ICD-10-PCS; 2021-01-28)
PROC: B546ZZA Ultrasonography of Right Subclavian Vein, Guidance (ICD-10-PCS; 2021-01-28)
PROC: 05H533Z Insertion of Infusion Device into Right Subclavian Vein, Percutaneous Approach (ICD-10-PCS; 2021-01-29)
PROC: B546ZZA Ultrasonography of Right Subclavian Vein, Guidance (ICD-10-PCS; 2021-01-29)
PROC: 0D738DZ Dilation of Lower Esophagus with Intraluminal Device, Via Natural or Artificial Opening Endoscopic (ICD-10-PCS; 2021-02-08)
PROC: 0DH63UZ Insertion of Feeding Device into Stomach, Percutaneous Approach (ICD-10-PCS; 2021-02-08)
PROC: 0DJ08ZZ Inspection of Upper Intestinal Tract, Via Natural or Artificial Opening Endoscopic (ICD-10-PCS; 2021-02-28)
PROC: 0DB60ZZ Excision of Stomach, Open Approach (ICD-10-PCS; 2021-03-07)
PROC: 0WQF0ZZ Repair Abdominal Wall, Open Approach (ICD-10-PCS; 2021-03-07)
DX: A41.9 Sepsis, unspecified organism (principal); L89.624 Pressure ulcer of left heel, stage 4; L89.524 Pressure ulcer of left ankle, stage 4; L89.214 Pressure ulcer of right hip, stage 4; L89.324 Pressure ulcer of left buttock, stage 4; L89.154 Pressure ulcer of sacral region, stage 4; N18.6 End stage renal disease; E43 Unspecified severe protein-calorie malnutrition; G92 Toxic encephalopathy; I50.33 Acute on chronic diastolic (congestive) heart failure; J69.0 Pneumonitis due to inhalation of food and vomit; R65.21 Severe sepsis with septic shock; M46.28 Osteomyelitis of vertebra, sacral and sacrococcygeal region; A04.72 Enterocolitis due to Clostridium difficile, not specified as recurrent; G93.1 Anoxic brain damage, not elsewhere classified; D68.59 Other primary thrombophilia; E87.1 Hypo-osmolality and hyponatremia; I13.2 Hypertensive heart and chronic kidney disease with heart failure and with stage 5 chronic kidney disease, or end stage renal disease; J96.11 Chronic respiratory failure with hypoxia; Z99.11 Dependence on respirator [ventilator] status; J91.8 Pleural effusion in other conditions classified elsewhere; K94.22 Gastrostomy infection; L03.311 Cellulitis of abdominal wall; L97.528 Non-pressure chronic ulcer of other part of left foot with other specified severity; M86.8X7 Other osteomyelitis, ankle and foot; L03.116 Cellulitis of left lower limb; K31.6 Fistula of stomach and duodenum; N39.0 Urinary tract infection, site not specified; Z16.12 Extended spectrum beta lactamase (ESBL) resistance; J98.11 Atelectasis; E11.22 Type 2 diabetes mellitus with diabetic chronic kidney disease; Z99.2 Dependence on renal dialysis; E11.69 Type 2 diabetes mellitus with other specified complication; Z91.011 Allergy to milk products; Z91.013 Allergy to seafood; K22.2 Esophageal obstruction; D63.1 Anemia in chronic kidney disease; D69.6 Thrombocytopenia, unspecified; E11.621 Type 2 diabetes mellitus with foot ulcer; E21.3 Hyperparathyroidism, unspecified; E78.5 Hyperlipidemia, unspecified; E87.6 Hypokalemia; I25.10 Atherosclerotic heart disease of native coronary artery without angina pectoris; I48.0 Paroxysmal atrial fibrillation; K21.9 Gastro-esophageal reflux disease without esophagitis; Z79.4 Long term (current) use of insulin; Z86.16 Personal history of COVID-19; Z93.0 Tracheostomy status; Z87.440 Personal history of urinary (tract) infections; Z86.74 Personal history of sudden cardiac arrest; Z87.01 Personal history of pneumonia (recurrent); Z86.73 Personal history of transient ischemic attack (TIA), and cerebral infarction without residual deficits; Z20.822 Contact with and (suspected) exposure to COVID-19; Z79.899 Other long term (current) drug therapy; Z86.19 Personal history of other infectious and parasitic diseases; Z89.431 Acquired absence of right foot; K29.70 Gastritis, unspecified, without bleeding; Z89.021 Acquired absence of right finger(s); R74.8 Abnormal levels of other serum enzymes; E66.9 Obesity, unspecified; Z68.33 Body mass index [BMI] 33.0-33.9, adult; Y83.8 Other surgical procedures as the cause of abnormal reaction of the patient, or of later complication, without mention of misadventure at the time of the procedure; Y73.8 Miscellaneous gastroenterology and urology devices associated with adverse incidents, not elsewhere classified; Y92.129 Unspecified place in nursing home as the place of occurrence of the external cause; E11.51 Type 2 diabetes mellitus with diabetic peripheral angiopathy without gangrene; E88.09 Other disorders of plasma-protein metabolism, not elsewhere classified; R19.5 Other fecal abnormalities; B96.1 Klebsiella pneumoniae [K. pneumoniae] as the cause of diseases classified elsewhere; B96.20 Unspecified Escherichia coli [E. coli] as the cause of diseases classified elsewhere; K43.9 Ventral hernia without obstruction or gangrene; I95.89 Other hypotension; B95.2 Enterococcus as the cause of diseases classified elsewhere; B96.4 Proteus (mirabilis) (morganii) as the cause of diseases classified elsewhere
CPT/HCPCS: 32555; 36415; 36600; 70030-TC; 71045; 71250; 73600; 73630; 73700; 74018; 76604; 76705; 83550; 83605; 83615; 83735; 83986; 84100; 84155; 84165; 84311; 84478; 85025; 85610; 85651; 85730; 86140; 86704; 86705; 86706; 86803; 86850; 86900; 86901; 86920; 87040; 87070; 87075; 87077; 87086; 87205; 87340; 90937; 93005; 93307; 93880; 94002; 94003; 94640; A4217; A4649; A4663; A6209; C1758; C9113; G0378; J0690; J0696; J0885; J1644; J1815; J2185; J2250; J2270; J2405; J2765; J2916; J2997; J3010; J3370; J3475; J3480; J3490; J3590; J7030; J7040; J7042; J7050; J7060; J7070; J7131; J8597; P9016; P9021; P9047; Q9963